=== PATIENT | female | born 1950 | race Caucasian/White ===

== ENCOUNTER 2019-11-23 10:24 | Outpatient (CLI) | payer MEDICARE, SELFPAY ==
[2019-11-23 10:56] LABS: Blood Urea Nitrogen 11 mg/dL (7-17); Calcium 9.3 mg/dL (8.4-10.2); Carbon Dioxide 30 mmol/L (22-30); Chloride 101 mmol/L (98-107); Cholesterol 167 mg/dL (0-200); Estimated Glomerular Filt Rate > 60; Glucose 89 mg/dL (65-105); HDL Direct 64 mg/dL; Potassium 3.9 mmol/L (3.4-5.0); Sodium 135 mmol/L (137-145); Triglycerides 86 mg/dL (<150)
[2019-11-23 11:07] LABS: LDL Cholesterol Direct 47 mg/dL
== END 2019-11-23 10:25 | disposition home or self-care (01) ==
PROVIDERS: PCP Internal Medicine; Visit Provider Internal Medicine
DX: I10 Essential (primary) hypertension (principal); Z13.220 Encounter for screening for lipoid disorders
CPT/HCPCS: 36415; 80048; 80061

== ENCOUNTER 2020-11-14 08:54 | Outpatient (CLI) | payer MEDICARE, SELFPAY ==
[2020-11-14 09:34] LABS: Hematocrit 39.6 % (37.0-47.0); Hemoglobin 13.1 g/dL (12.0-15.0); Mean Corpuscular HGB Conc 33.1 g/dl (32-36); Mean Corpuscular Hemoglobin 32.2 pg (26-34); Mean Corpuscular Volume 97.3 fl (80-100); Mean Platelet Volume 11.1 fl (7.4-10.4); Platelet Count Result 255 k/mm3 (150-375); Red Blood Count 4.07 M/mm3 (4.2-5.4); Red Cell Distribution Width 12.8 % (11.5-14.5); White Blood Count 6.3 K/mm3 (4.5-10.0)
[2020-11-14 10:01] LABS: Alanine Aminotransferase 18 U/L (4-35); Alkaline Phosphatase 69 U/L (38-126); Anion Gap 3 mmol/L (8-16); Aspartate Amino Transferase 27 U/L (14-36); Bilirubin,Total 0.2 mg/dL (0.2-1.3); Blood Urea Nitrogen 15 mg/dL (7-17); Calcium 9.1 mg/dL (8.4-10.2); Carbon Dioxide 31 mmol/L (22-30); Chloride 104 mmol/L (98-107); Cholesterol 154 mg/dL (0-200); Estimated Glomerular Filt Rate > 60; Glucose 87 mg/dL (65-105); HDL Direct 77 mg/dL; Potassium 3.9 mmol/L (3.4-5.0); Sodium 138 mmol/L (137-145); Triglycerides 84 mg/dL (<150)
[2020-11-14 10:12] LABS: LDL Cholesterol Direct 40 mg/dL
[2020-11-14 10:30] LABS: Thyroid Stimulating Hormone 0.581 uIU/mL (0.465-4.680)
[2020-11-14 11:01] LABS: Vitamin D 25 Hydroxy 48.6 ng/mL
[2020-11-14 12:28] LABS: Iron 126 ug/dL (37-170)
[2020-11-14 12:34] LABS: Percent Iron Saturation 46 % (20-50)
== END 2020-11-14 08:55 | disposition home or self-care (01) ==
PROVIDERS: PCP Internal Medicine; Visit Provider Nurse Practitioner
DX: Z13.6 Encounter for screening for cardiovascular disorders (principal); D50.8 Other iron deficiency anemias; Z51.81 Encounter for therapeutic drug level monitoring; Z79.899 Other long term (current) drug therapy; E55.9 Vitamin D deficiency, unspecified
CPT/HCPCS: 36415; 80053; 80061; 82306; 83540; 83550; 84443; 85027

== ENCOUNTER 2020-12-21 10:33 | Outpatient (CLI) | payer MEDICARE, SELFPAY ==
--- NOTE | ~2020-12-21 | US_ITS ---
EXAMINATION: US venous doppler [facility] DATE: 12/21/2020 11:03 INDICATION: Left lower limb pain and swelling. TECHNIQUE: Grayscale ultrasound images without and with compression and Doppler ultrasound images of the left lower extremity veins were obtained. COMPARISON: None. FINDINGS: The visualized portions of left common femoral vein, profunda (deep) femoral vein, femoral vein, popl iteal vein, peroneal veins, posterior tibial veins, and greater saphenous vein outflow are patent. IMPRESSION: 1. No deep venous thrombosis. Reviewed, dictated and finalized at location B.
== END 2020-12-21 10:34 | disposition home or self-care (01) ==
LOC: ANHIMG 10:36
PROVIDERS: PCP Internal Medicine; Visit Provider Internal Medicine Cardiovascular Disease
DX: R60.0 Localized edema (principal)
CPT/HCPCS: 93971

== ENCOUNTER 2021-05-24 08:51 | Outpatient (CLI) | payer MEDICARE, SELFPAY ==
[2021-05-24 09:30] LABS: Anion Gap 4 mmol/L (8-16); Blood Urea Nitrogen 14 mg/dL (7-17); Calcium 9.6 mg/dL (8.4-10.2); Carbon Dioxide 35 mmol/L (22-30); Chloride 100 mmol/L (98-107); Estimated Glomerular Filt Rate > 60; Glucose 111 mg/dL (65-110); Potassium 4.1 mmol/L (3.4-5.0); Sodium 139 mmol/L (137-145)
[2021-05-24 09:56] LABS: Vitamin D 25 Hydroxy 47.3 ng/mL
[2021-05-24 10:36] LABS: Iron 93 ug/dL (37-170); Percent Iron Saturation 38 % (20-50)
== END 2021-05-24 08:52 | disposition home or self-care (01) ==
PROVIDERS: PCP Internal Medicine; Visit Provider Internal Medicine
DX: E55.9 Vitamin D deficiency, unspecified (principal); I10 Essential (primary) hypertension; D50.8 Other iron deficiency anemias
CPT/HCPCS: 36415; 80048; 82306; 83540; 83550

== ENCOUNTER 2021-06-02 09:41 | Outpatient (CLI) | payer MEDICARE, SELFPAY ==
--- NOTE | ~2021-06-02 | XR_ITS ---
EXAMINATION: XR knee LT 3V EXAM DATE: 06/02/2021 10:14 INDICATION: Recent injury, right hip, left knee pain and swelling. TECHNIQUE: 2 frontal, 2 lateral projections left knee, including the tibial intramedullary jackson. Addit ional sunrise projection left knee. FINDINGS: There healed fractures through the left mid tibial and fibular shafts. Tibial intramedulla ry jackson is intact. No periprosthetic lucency. No left knee joint effusion. There is mild left knee gordon salma osteoarthritis. IMPRESSION: 1. Mild left knee osteoarthritis. 2. Healed tibial, fibular diaphyseal fractures. Reviewed, dictated and finalized at location A.
--- NOTE | ~2021-06-02 | XR_ITS ---
EXAMINATION: XR hip RT min 2V EXAM DATE: 06/02/2021 10:14 INDICATION: M25.551 - Pain in right hip. TECHNIQUE: Right hip frontal, 'frog leg' projections for interpretation. There is no prior study fo r comparison. FINDINGS: There is evidence of prior right femoral hardware. Foreign bodies probably orthopedic antib iotic polymethylmethacrylate cement beads. There is moderate right hip primary osteoarthritis. There are no bony erosions identified. IMPRESSION: 1. Orthopedic methylmethacrylate foreign bodies. 2. Moderate right hip osteoarthritis. Reviewed, dictated and finalized at location A.
== END 2021-06-02 09:42 | disposition home or self-care (01) ==
PROVIDERS: PCP Internal Medicine; Visit Provider Nurse Practitioner
DX: M25.551 Pain in right hip (principal); M25.562 Pain in left knee; M16.11 Unilateral primary osteoarthritis, right hip; Z87.81 Personal history of (healed) traumatic fracture; M17.12 Unilateral primary osteoarthritis, left knee
CPT/HCPCS: 73502; 73562

== ENCOUNTER → 2021-07-10 08:32 | Outpatient (CLI) | payer MEDICARE, SELFPAY ==
[2021-07-10 11:36] LABS: Influenza Control Positive
[2021-07-10 19:24] LABS: SARS-CoV-2 RNA PCR Negative
== END ==
PROVIDERS: PCP Internal Medicine; Visit Provider Internal Medicine
DX: R68.89 Other general symptoms and signs (principal); Z20.822 Contact with and (suspected) exposure to COVID-19
CPT/HCPCS: 87804; C9803; U0003; U0005

== ENCOUNTER → 2021-08-01 08:45 | Outpatient (CLI) | payer MEDICARE, SELFPAY ==
[2021-08-01 14:15] LABS: Influenza Control Positive
[2021-08-01 20:09] LABS: SARS-CoV-2 RNA PCR Negative
== END ==
PROVIDERS: PCP Internal Medicine; Visit Provider Internal Medicine
DX: J06.9 Acute upper respiratory infection, unspecified (principal); R68.89 Other general symptoms and signs; Z20.822 Contact with and (suspected) exposure to COVID-19
CPT/HCPCS: 87804; C9803; U0003; U0005

== ENCOUNTER 2021-08-24 13:24 | Outpatient (CLI) | payer MEDICARE, SELFPAY ==
--- NOTE | 2021-08-24 13:55 | ECHO_ITS ---
Patient Info Name: Sarah Lopez Age: 70 years : 1950 Gender: Female Ht: 66 in Wt: 185 lbs BSA: 2.00 m2 HR: 80 bpm BP: 162 / 101 mmHg Heart Rhythm: Atrial Fibrillation Technical Quality: Good Exam Date: 08/24/2021 2:18 PM Exam Location: [facility] Pulmonary Patient Status: Outpatient Admit Date: 08/24/2021 Staff Ordering Physician: Santiago Diaz DO Dirt Shoveler: Trey Macdonald RDCS, RT Attending Provider: Santiago Diaz DO Referring Physician: Joe ALBRECHT; Exam Type: CA echo doppler color flow Study Info Indications R06.00 - Dyspnea, unspecified Complete two-dimensional, color flow and Doppler transthoracic echocardiogram is performed. Strain analysis performed. Summary 1. Complete two-dimensional, color flow and Doppler transthoracic echocardiogram is performed. 2. Left ventricular chamber dimension is normal. 3. Left ventricular systolic function is normal, estimated at 60-65%. 4. There is mildly increased left ventricular wall thickness. 5. The left ventricular diastolic function is abnormal. 6. E/e' 12 is mildly elevated. 7. Global longitudinal strain is abnormal at -16.4%. 8. Atrial fibrillation. 9. Left atrial chamber dimension is severely enlarged. 10. Right atrial chamber dimension is moderately enlarged. 11. There is mild aortic valve sclerosis. 12. The mitral valve has mildly calcified annulus. 13. There is trace mitral valve regurgitation. 14. There is mild tricuspid valve regurgitation. 15. No pulmonary hypertension, estimated pulmonary arterial systolic pressure is 39 mmHg. 16. There is trace pulmonic regurgitation. 17. Dilated inferior vena cava with >50% collapse upon inspiration consistent with elevated right atrial pressure, 10 mmHg. Left Ventricle E/e' 12 is mildly elevated. Global longitudinal strain is abnormal at -16.4%. Atrial fibrillation. Left ventricular chamber dimension is normal. Left ventricular systolic function is normal, estimated at 60-65%. There is mildly increased left ventricular wall thickness. The left ventricular diastolic function is abnormal. Right Ventricle Right ventricular systolic function is normal and with normal TAPSE 2.4 cm. Right ventricular chamber dimension is normal. Left Atria Left atrial chamber dimension is severely enlarged. Right Atria Right atrial chamber dimension is moderately enlarged. Aortic Valve The aortic valve is trileaflet. There is mild aortic valve sclerosis. There is no aortic valve stenosis. There is no aortic valve regurgitation. Pulmonic Valve There is trace pulmonic regurgitation. Mitral Valve The mitral valve has mildly calcified annulus. There is no mitral valve stenosis. There is trace mitral valve regurgitation. Tricuspid Valve There is mild tricuspid valve regurgitation. No pulmonary hypertension, estimated pulmonary arterial systolic pressure is 39 mmHg. Pericardium/Pleural There is no pericardial effusion. Inferior Vena Cava Dilated inferior vena cava with >50% collapse upon inspiration consistent with elevated right atrial pressure, 10 mmHg. Aorta The aortic root size at the sinus of Valsalva is normal. Left Ventricular Outflow Tract Name Value Normal LVOT 2D LV
== END 2021-08-24 13:25 | disposition home or self-care (01) ==
PROVIDERS: PCP Internal Medicine; Visit Provider Internal Medicine Cardiovascular Disease
DX: R06.00 Dyspnea, unspecified (principal); I51.7 Cardiomegaly; R93.1 Abnormal findings on diagnostic imaging of heart and coronary circulation
CPT/HCPCS: 93306

== ENCOUNTER 2021-09-27 10:22 | Outpatient (CLI) | payer MEDICARE, SELFPAY ==
[2021-09-27 10:55] LABS: Alanine Aminotransferase 26 U/L (4-35); Albumin Level 4.4 g/dL (3.5-5.1); Alkaline Phosphatase 90 U/L (38-126); Anion Gap 8 mmol/L (8-16); Aspartate Amino Transferase 37 U/L (14-36); Bilirubin,Total 0.3 mg/dL (0.2-1.3); Blood Urea Nitrogen 16 mg/dL (7-17); Calcium 9.1 mg/dL (8.4-10.2); Carbon Dioxide 33 mmol/L (22-30); Chloride 100 mmol/L (98-107); Estimated Glomerular Filt Rate > 60; Glucose 104 mg/dL (65-110); Magnesium 1.8 mg/dL (1.6-2.3); Potassium 3.2 mmol/L (3.4-5.0); Sodium 141 mmol/L (137-145)
== END 2021-09-27 10:23 | disposition home or self-care (01) ==
PROVIDERS: PCP Internal Medicine; Visit Provider Internal Medicine Cardiovascular Disease
DX: I48.20 Chronic atrial fibrillation, unspecified (principal)
CPT/HCPCS: 36415; 80053; 83735

== ENCOUNTER 2021-10-20 08:53 | Outpatient (CLI) | payer MEDICARE, SELFPAY ==
[2021-10-20 09:54] LABS: Anion Gap 5 mmol/L (8-16); Blood Urea Nitrogen 18 mg/dL (7-17); Calcium 8.9 mg/dL (8.4-10.2); Carbon Dioxide 32 mmol/L (22-30); Chloride 101 mmol/L (98-107); Estimated Glomerular Filt Rate > 60; Glucose 101 mg/dL (65-110); Sodium 138 mmol/L (137-145)
== END 2021-10-20 08:54 | disposition home or self-care (01) ==
PROVIDERS: PCP Internal Medicine; Visit Provider Internal Medicine Cardiovascular Disease
DX: Z13.6 Encounter for screening for cardiovascular disorders (principal); R60.0 Localized edema
CPT/HCPCS: 36415; 80048

== ENCOUNTER → 2021-10-30 08:43 | Outpatient (CLI) | payer MEDICARE, SELFPAY ==
[2021-10-30 10:52] LABS: Influenza A QL RT-PCR Negative (Negative); Influenza B QL RT-PCR Negative (Negative); SARS-CoV-2 RNA PCR Negative
== END ==
PROVIDERS: PCP Internal Medicine; Visit Provider Internal Medicine
DX: R68.89 Other general symptoms and signs (principal); Z20.822 Contact with and (suspected) exposure to COVID-19
CPT/HCPCS: 87502; C9803; U0003; U0005

== ENCOUNTER 2021-11-20 14:49 | Outpatient (CLI) | payer MEDICARE, SELFPAY ==
[2021-11-20 15:12] LABS: Hematocrit 39.3 % (37.0-47.0); Hemoglobin 12.9 g/dL (12.0-15.0)
[2021-11-20 15:23] LABS: Alanine Aminotransferase 24 U/L (4-35); Albumin Level 3.9 g/dL (3.5-5.1); Alkaline Phosphatase 89 U/L (38-126); Anion Gap 5 mmol/L (8-16); Aspartate Amino Transferase 35 U/L (14-36); Bilirubin,Total 0.3 mg/dL (0.2-1.3); Blood Urea Nitrogen 13 mg/dL (7-17); Calcium 8.5 mg/dL (8.4-10.2); Carbon Dioxide 29 mmol/L (22-30); Chloride 101 mmol/L (98-107); Estimated Glomerular Filt Rate > 60; Glucose 99 mg/dL (65-110); Potassium 3.5 mmol/L (3.4-5.0); Sodium 135 mmol/L (137-145)
[2021-11-20 15:52] LABS: Thyroid Stimulating Hormone 0.358 uIU/mL (0.465-4.680)
[2021-11-20 16:16] LABS: Iron 37 ug/dL (37-170)
[2021-11-20 16:25] LABS: Percent Iron Saturation 14 % (20-50)
[2021-11-20 16:34] LABS: Free T4 Free Thyroxine 1.28 ng/mL (0.78-2.19)
== END 2021-11-20 14:50 | disposition home or self-care (01) ==
LOC: ANHLAB 14:52
PROVIDERS: PCP Internal Medicine; Visit Provider Nurse Practitioner
DX: E05.90 Thyrotoxicosis, unspecified without thyrotoxic crisis or storm (principal); I10 Essential (primary) hypertension; D50.8 Other iron deficiency anemias
CPT/HCPCS: 36415; 80053; 83540; 83550; 84439; 84443; 85014; 85018

== ENCOUNTER 2021-12-19 00:26 | Day surgery (SDC) | payer MEDICARE, SELFPAY ==
[2021-12-11 14:37] VITALS: BMI 29.2
[2021-12-19 07:12] VITALS: BP 132/74; PULSE 87; RESP 18; TEMP 36.1; O2SAT 98
--- NOTE | 2021-12-19 07:22 | WPDGICN ---
Assessment and Plan Assessment and plan (1) Screening for colon cancer: Code(s): Z12.11 - Encounter for screening for malignant neoplasm of colon Status: Acute Assessment and Plan: Patient presents for screening colonoscopy appears to be at average risk for colon polyps. (2) Chronic atrial fibrillation: Code(s): I48.20 - Chronic atrial fibrillation, unspecified Status: Acute Assessment and Plan: Patient on Xarelto anticoagulation because of atrial fibrillation. This will be held for endoscopy. Recent occult blood in stool is additional reason to evaluate colon. We wish to determine safety of continued anticoagulation GI Consult Note Consult date/time: 12/19/21 07:22 HPI: Sarah Lopez is a 71 year old female Presents for screening colonoscopy. Patient's current weight appetite and bowel movements are normal. She denies abdominal pain. She recently found to have Hemoccult-positive stools and screening exam. Last screening exam 10 years ago was unremarkable. Patient currently is on Xarelto because of atrial fibrillation. This is held in anticipation of endoscopy today. Review of Systems Review of Systems: Review of systems is noncontributory. [facility] Past Medical History Medical History (Updated 12/08/21 @ 08:44 by ELIZA Cardenas) Atrial fibrillation with controlled ventricular response Bursitis of right hip Chronic atrial fibrillation Chronic fatigue, unspecified Cough CLOUD (dyspnea on exertion) Edema of left lower extremity Essential hypertension Gastro-esophageal reflux disease without esophagitis Hypersomnia 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rettes Second hand tobacco smoke exposure: No Smoking end date: 07/29/10 Alcohol intake: former Substance use: former Substance use type: crack/cocaine Living arrangements: with family Spiritual care concerns: No Meds Home Medications and Allergies Home Medications Medication Instructions Recorded Confirmed Type multivitamin 1 cap PO DAILY 06/16/19 12/11/21 History levocetirizine 5 mg tablet (Xyzal) 5 mg PO DAILY 11/26/19 12/11/21 History fluticasone propionate 50 2 spray intranasal DAILY PRN 12/21/20 12/11/21 History mcg/actuation nasal Allergy Symptoms spray,suspension (Flonase Allergy Relief) denosumab 60 mg/mL subcutaneous 60 mg subcut [id number] #1 mL 06/02/21 12/11/21 Rx syringe (Prolia) comp.stocking,knee,long,medium #7 ea 06/29/21 12/08/21 Rx albuterol sulfate 90 mcg/actuation 2 inh inhalation Q4H PRN shortness 07/17/21 12/11/21 Rx aerosol inhaler (Proventil HFA) of breath or wheezing #18 grams omeprazole 40 mg capsule,delayed 40 mg PO DAILY #90 caps 08/10/21 12/11/21 Rx release gabapentin 300 mg capsule 300 mg PO DAILY #90 caps 09/25/21 12/11/21 Rx Ca 600 mg-D3 20 mcg-mag oxide 50 1 tablet PO DAILY 12/11/21 12/11/21 History vd-An-nyryxm-manganese-boron tablet (Calcium 600-D3 Plus (mag-zinc)) diltiazem HCl 240 mg 240 mg PO DAILY 12/11/21 12/11/21 History capsule,extended release 24 hr furosemide 20 mg tablet 20 mg PO DAILY 12/11/21 12/11/21 History hydrochlorothiazide 25 mg tablet 25 mg PO DAILY 12/11/21 12/11/21 History nystatin 100,000 unit/gram topical 1 applic topical BID PRN Rash 12/11/21 12/11/21 History powder potassium
[2021-12-19] MEDS: LACTATED RINGERS 1,000 ML 150 ML IV CONT (07:28)
--- NOTE | 2021-12-19 07:44 | WPDANESEPPF ---
Anes - Initial Pre Proc Eval Procedure: Operation Date: 12/19/21 08:00 Proposed Procedures p Screening Colonoscopy - Jc Vick MD Date/Time: 12/19/21 07:44 Surgeon: Jc Vick MD Pre Op Diagnosis: neoplasm screening Patient Data Age: 71 Gender: F Height: 1.68 m Weight: 75.1 kg Last Vital Signs Temp 36.1 C L 12/19/21 07:12 Pulse 87 12/19/21 07:12 Resp 18 12/19/21 07:12 BP 132/74 12/19/21 07:12 Pulse Ox 98 12/19/21 07:12 O2 Del Method Room Air 12/19/21 07:12 Allergies Allergy/AdvReac Type Severity Reaction Status Date / Time adhesive tape AdvReac Mild Rash Verified 12/19/21 07:11 Home Medications Medication Instructions Recorded Confirmed Type multivitamin 1 cap PO DAILY 06/16/19 12/19/21 History levocetirizine 5 mg tablet (Xyzal) 5 mg PO DAILY 11/26/19 12/19/21 History fluticasone propionate 50 2 spray intranasal DAILY PRN 12/21/20 12/19/21 History mcg/actuation nasal Allergy Symptoms spray,suspension (Flonase Allergy Relief) denosumab 60 mg/mL subcutaneous 60 mg subcut [id number] #1 mL 06/02/21 12/19/21 Rx syringe (Prolia) comp.stocking,knee,long,medium #7 ea 06/29/21 12/19/21 Rx albuterol sulfate 90 mcg/actuation 2 inh inhalation Q4H PRN shortness 07/17/21 12/19/21 Rx aerosol inhaler (Proventil HFA) of breath or wheezing #18 grams omeprazole 40 mg capsule,delayed 40 mg PO DAILY #90 caps 08/10/21 12/19/21 Rx release gabapentin 300 mg capsule 300 mg PO DAILY #90 caps 09/25/21 12/19/21 Rx Ca 600 mg-D3 20 mcg-mag oxide 50 1 tablet PO DAILY 12/11/21 12/19/21 History pk-Ym-qbpkkt-manganese-boron tablet (Calcium 600-D3 Plus (mag-zinc)) diltiazem HCl 240 mg 240 mg PO DAILY 12/11/21 12/19/21 History capsule,extended release 24 hr furosemide 20 mg tablet 20 mg PO DAILY 12/11/21 12/19/21 History hydrochlorothiazide 25 mg tablet 25 mg PO DAILY 12/11/21 12/19/21 History nystatin 100,000 unit/gram topical 1 applic topical BID PRN Rash 12/11/21 12/19/21 History powder potassium chloride 10 mEq 10 meq PO DAILY 12/11/21 12/19/21 History capsule,extended release rivaroxaban 20 mg tablet (Xarelto) 20 mg PO QPM 12/11/21 12/19/21 History turmeric 400 mg capsule 400 mg PO DAILY 12/11/21 12/19/21 History fluticasone 250 mcg-salmeterol 50 1 inh inhalation ONCE #60 ea 12/12/21 12/19/21 Rx mcg/dose blistr powdr for inhalation (Advair Diskus) Patient hx anesthesia problems: none Family hx anesthesia problems: none Results Review: All pre-operative results and documents have been reviewed as part of the pre-operative evaluation. [facility] Past Medical History Medical History Atrial fibrillation with controlled ventricular response Bursitis of right hip Chronic atrial fibrillation Chronic fatigue, unspecified Cough CLOUD (dyspnea on exertion) Edema of left lower extremity Essential hypertension Gastro-esophageal reflux disease without esophagitis Hypersomnia 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rettes Second hand tobacco smoke exposure: No Smoking end date: 07/29/10 Alcohol intake: former Substance use: former Substance use type: crack/cocaine Living arrangements: with family Spiritual care concerns: No Anes - Eval Final PreProcedure Day of Procedure
[2021-12-19 08:19] VITALS: BP 110/63; PULSE 90; RESP 22; O2SAT 98
[2021-12-19 08:29] VITALS: BP 100/72; PULSE 97; RESP 24; O2SAT 98
[2021-12-19 08:39] VITALS: BP 116/77; PULSE 80; RESP 15; O2SAT 100
== END 2021-12-19 08:56 | disposition home or self-care (01) ==
PROVIDERS: PCP Internal Medicine; Visit Provider Internal Medicine Gastroenterology
PROC: 0DJD8ZZ Inspection of Lower Intestinal Tract, Via Natural or Artificial Opening Endoscopic (ICD-10-PCS; CPT 45378; principal; 2021-12-19 08:00)
DX: Z12.11 Encounter for screening for malignant neoplasm of colon (principal); K57.30 Diverticulosis of large intestine without perforation or abscess without bleeding; K64.8 Other hemorrhoids; K63.5 Polyp of colon; D12.5 Benign neoplasm of sigmoid colon; Z79.01 Long term (current) use of anticoagulants; Z79.51 Long term (current) use of inhaled steroids; I48.20 Chronic atrial fibrillation, unspecified; R53.83 Other fatigue; I10 Essential (primary) hypertension; E03.9 Hypothyroidism, unspecified; K21.9 Gastro-esophageal reflux disease without esophagitis; G47.33 Obstructive sleep apnea (adult) (pediatric); M47.9 Spondylosis, unspecified; Z87.891 Personal history of nicotine dependence
CPT/HCPCS: 45385; 88305; J2704; J7120

== ENCOUNTER 2022-01-08 13:01 | Outpatient (CLI) | payer MEDICARE, SELFPAY ==
--- NOTE | ~2022-01-08 | NM_ITS ---
EXAMINATION: NM thyroid scan w uptake DATE: 01/09/2022 14:10 INDICATION: Thyrotoxicosis COMPARISON: None. TECHNIQUE: 359 microcuries I-123 was administered orally in capsule form. Scintigraphic images of th e thyroid gland were obtained at 24 hours. Thyroid uptake was calculated by the technologist. FINDINGS: The thyroid uptake is 14.3% (normal 10-30%), with the right lobe measuring 8.4% uptake and the left 5 .9%. There is no focal area of decreased or increased activity to suggest hypofunctioning or hyperfun ctioning nodule. IMPRESSION: 1. Normal thyroid scintigraphy and 24-hour iodine uptake. Reviewed, dictated and finalized at location A.
== END 2022-01-08 13:02 | disposition home or self-care (01) ==
PROVIDERS: PCP Internal Medicine; Visit Provider Internal Medicine
DX: E05.90 Thyrotoxicosis, unspecified without thyrotoxic crisis or storm (principal)
CPT/HCPCS: 78014; A9516

== ENCOUNTER 2022-02-06 07:43 | Outpatient (CLI) | payer MEDICARE, SELFPAY ==
--- NOTE | ~2022-02-06 | CT_ITS ---
EXAMINATION:CT diagnostic chest wo con DATE: 02/06/2022 08:15 INDICATION: Chronic obstructive pulmonary disease. Worsening dyspnea on exertion. TECHNIQUE: Computed tomography (CT) of the chest was performed without intravenous contrast. Automate d exposure control and iterative reconstruction technique were employed. The dose-length product (DLP ) was 323.87 mGy-cm. COMPARISON: Chest 2 views 06/18/2019 FINDINGS: There is moderate emphysema. There is mild atelectasis and scarring bilaterally. No pleural effusion. There is left atrial enlargement of the heart. There are calcifications of aortic valve. N o pericardial effusion. There is a moderate-sized sliding hiatal hernia. There is severe atrophy of l eft kidney. There are 2 stones in left kidney measuring up to 7 mm. Breast implants are noted. There is kyphosis and severe spondylosis of thoracic spine. There is mild chronic anterior wedging of multi ple vertebral bodies. IMPRESSION: 1. Moderate emphysema. 2. Moderate-sized sliding hiatal hernia. Reviewed, dictated and finalized at location A.
--- NOTE | 2022-02-14 19:14 | SIXMIN_ITS ---
This report was recreated on February 23, 2022. Original report was signed by Dr. Gail West on February 14, 2022 at 19:26. Six Minute Walk Procedure Procedure Performed Pulmonary Stress Test (6 min walk) Six Minute Walk Six Minute Walk: DATE OF SERVICE: 02/06/2022 REQUESTING: Maite Christianson PA-C REASON FOR TESTING: COPD SIX MINUTE WALK This test was conducted per ATS guidelines. The initial saturation was 93% and the pulse was 73. The patient performed the test while breathing room air and using her bphnf-lbw-dmri prosthetic leg. The lowest saturation measured was 90% with a pulse of 119 during recovery. The highest saturation was 98% at the end of recovery. Pulse returned to baseline at the end of testing. Distance walked was 600 feet/182.8 meters. She stopped walking at 5 minutes due to fatigue. IMPRESSION: This study shows no karime hypoxemia, and no supplemental O2 is indicated with exertion. This dictation may have been done utilizing a voice recognition system. Attempts have been made to correct errors. However, there may be uncorrected grammatical, spelling, and recognition errors present. Report Initialized date/time: Gail West MD 02/14/221919 Electronically signed by: Gail West MD 02/14/221925 [facility]
--- NOTE | 2022-02-14 19:26 | PFT_ITS ---
This report was recreated on February 23, 2022. Original report was signed by Dr. Gail West on February 14, 2022 at 19:37. PFT Procedure Performed PFT Procedure Performed Spirometry with Pre/Post Bronchodilator Plethysmography (Lung Vol) Diffusing Cap (DLCO) Flow Vol Loop PFT Interpretation DOS: 02/06/2022 REQUESTING: Maite Christianson PA-C REASON FOR TESTING: COPD PULMONARY FUNCTION TESTS Results are reliable and reproducible. Spirometry: Pre-bronchodilator FEV1 is 1.45 L, 62%, moderately decreased. The pre-bronchodilator FVC is 2.74 L, 90% predicted, normal. The FEV1:FVC ratio is decreased 53% predicted. Airflow obstruction is present. The OWE12-69% is 26% predicted, 0.5 L, severely decreased. After bronchodilator, there is a 7% increase in FVC, FVC is now 96% predicted, increased 180 ml, not statistically significant. The FEV1 increased 8%, increased to 67%, 110 ml, not statistically significant. The VWK23-23% did not increase. Lung volumes: TLC 98%, 5.29 L, normal. FRC is 97%, 2.99 L, normal. ERV is 69%, 0.71L, lower than normal. RV is 94%, 2.17 L, normal. RV/TLC is 41%, in the normal range. There is no hyperinflation or air trapping. Raw increased 410%. Diffusion: DLCO is 58%, moderately decreased. DLCO/VA 74%, mildly decreased. Flow volume loop: Scooping of the expiratory limb. IMPRESSION: There is a moderate obstructive ventilatory impairment which is severe in the small airways, normal lung volumes and a moderate diffusion impairment. There is no change when bronchodilator is administered. This pattern is consistent with emphysema. Lack of response to bronchodilator should not preclude use if clinically indicated. Gail West MD This dictation may have been done utilizing a voice recognition system. Attempts have been made to correct errors. However, there may be uncorrected grammatical, spelling, and recognition errors present. Report Initialized date/time: Gail West MD 02/14/221936 Electronically signed by: Gail West MD 02/14/221936 [facility]
== END 2022-02-06 07:44 | disposition home or self-care (01) ==
PROVIDERS: PCP Internal Medicine; Visit Provider Physician Assistant
DX: R06.02 Shortness of breath (principal); J44.9 Chronic obstructive pulmonary disease, unspecified; J43.9 Emphysema, unspecified; K44.9 Diaphragmatic hernia without obstruction or gangrene
CPT/HCPCS: 71250; 94060; 94618; 94726; 94729

== ENCOUNTER 2022-02-10 11:34 | Emergency (ER) | payer MEDICARE, SELFPAY ==
[2022-02-10 11:42] VITALS: BP 152/86; PULSE 86; RESP 16; TEMP 36.7; O2SAT 99
[2022-02-10 11:44] VITALS: BP 152/86; PULSE 86; RESP 16; TEMP 36.7; O2SAT 99
--- NOTE | 2022-02-10 11:54 | ED.WOUNDLAC ---
HPI - Wound/Laceration General Chief Complaint: Wound/Laceration Stated Complaint: cut 3rd finger Time Seen by Provider: 02/10/22 11:54 Source: patient, RN notes reviewed and old records reviewed Mode of arrival: ambulatory Limitations: no limitations History of Present Illness HPI narrative: 71-year-old female presents to the [facility] with complaints of a laceration to the distal and left third finger. Happened approximately 930 this morning. Patient currently on blood thinners and unable to get her the bleeding to stop. States that she cut it with a knife. Has full range of motion of the finger. Sensation intact. Capillary refill under 2 seconds Patient tetanus UTD: No Related Data Home Medications Medication Instructions Recorded Confirmed multivitamin 1 cap PO DAILY 06/16/19 02/10/22 levocetirizine 5 mg tablet (Xyzal) 5 mg PO DAILY 11/26/19 02/10/22 fluticasone propionate 50 2 spray intranasal DAILY PRN 12/21/20 02/10/22 mcg/actuation nasal Allergy Symptoms spray,suspension (Flonase Allergy Relief) Ca 600 mg-D3 20 mcg-mag oxide 50 1 tablet PO DAILY 12/11/21 02/10/22 wl-Sd-vnpbnu-manganese-boron tablet (Calcium 600-D3 Plus (mag-zinc)) furosemide 20 mg tablet 20 mg PO DAILY 12/11/21 02/10/22 potassium chloride 10 mEq 10 meq PO DAILY 12/11/21 02/10/22 capsule,extended release turmeric 400 mg capsule 400 mg PO DAILY 12/11/21 02/10/22 Allergies Allergy/AdvReac Type Severity Reaction Status Date / Time adhesive tape AdvReac Mild Rash Verified 02/10/22 11:35 Review of Systems Review of Systems: All systems reviewed & are unremarkable except as noted in HPI and below Constitutional: Constitutional: Reports no additional constitutional complaints, Denies chills and Denies fever(s) Eyes: Eyes: Reports no additional eye complaints ENT: Reports system reviewed and no additional complaints, except as documented Cardiovascular: Cardiovascular: Reports no additional cardiovascular complaints Respiratory: Respiratory: Reports no additional respiratory complaints Gastrointestinal: Gastrointestinal: Reports no additional gastrointestinal complaints Musculoskeletal: Musculoskeletal: Reports no additional musculoskeletal complaints Integumentary/Breasts: Skin/Breast: Reports as per HPI and Reports wounds (Left distal middle finger) Neurologic: Reports system reviewed and no additional complaints, except as documented Psychiatric: Psychiatric: Reports no additional psychiatric complaints Allergic/Immunologic: Allergic/Immunologic: Reports no additional allergic/immunologic complaints [facility] Past Medical History Medical History (Reviewed 01/11/22 @ 09:06 by Linda Méndez [facility]) Atrial fibrillation with controlled ventricular response Bursitis of right hip Chronic atrial fibrillation Chronic fatigue, unspecified Cough CLOUD (dyspnea on exertion) Edema of left lower extremity Essential hypertension Gastro-esophageal reflux disease without esophagitis History of tobacco use Hypersomnia 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rettes Second hand tobacco smoke exposure: No Smoking end date: 07/29/09 Alcohol intake: former Substance use: former Substance use type: crack/cocaine Spiritual care concerns: No Exam Const: General: healthy appearing, no acute distr
[2022-02-10] MEDS: TETANUS,DIPHTHERIA,AC PERTUSSIS ADULT (0.5 ML) BOOSTRIX IM (12:12)
[2022-02-10] MEDS: CELLULOSE OXIDIZED 2 x 14 INCH 1 PKT XX (12:14)
== END 2022-02-10 13:23 | disposition home or self-care (01) ==
PROVIDERS: Emergency Provider Nurse Practitioner
DX: S61.203A Unspecified open wound of left middle finger without damage to nail, initial encounter (principal); W26.0XXA Contact with knife, initial encounter; Z23 Encounter for immunization; Z87.891 Personal history of nicotine dependence; I10 Essential (primary) hypertension; K21.9 Gastro-esophageal reflux disease without esophagitis; E03.9 Hypothyroidism, unspecified; G47.33 Obstructive sleep apnea (adult) (pediatric); M47.9 Spondylosis, unspecified; I48.20 Chronic atrial fibrillation, unspecified
CPT/HCPCS: 12001; 90471; 90715; 99212; G0463

== ENCOUNTER 2022-03-30 08:04 | Emergency (ER) | payer MEDICARE, SELFPAY ==
--- NOTE | ~2022-03-30 | XR_ITS ---
EXAMINATION: XR chest 2V DATE: 03/30/2022 08:30 INDICATION: Cough and shortness of breath. TECHNIQUE: Frontal and lateral views of the chest were obtained on 3 radiographs. COMPARISON: Chest 2 views 06/18/2019, chest CT 02/06/2022 FINDINGS: There are lucencies in the lungs, consistent with emphysema. There is mild atelectasis vers us scarring in left lower lung zone. No pleural effusion or pneumothorax. The heart size is normal. T here is a moderate-sized hiatal hernia. Breast implants are noted. IMPRESSION: 1. Emphysema. 2. Mild atelectasis versus scarring in left lower lung zone. 3. Moderate-sized hiatal hernia. Reviewed, dictated and finalized at location A.
--- NOTE | 2022-03-30 08:12 | ED.URI ---
HPI - URI/Sore Throat General Chief Complaint: Upper Respiratory Infection Stated Complaint: congestion/sob/body aches/chills Time Seen by Provider: 03/30/22 08:12 Source: patient, RN notes reviewed and old records reviewed Mode of arrival: ambulatory Limitations: no limitations History of Present Illness HPI Narrative: 71-year-old female presents to the [facility] with complaints of Chest congestion, shortness of breath, body aches, fatigue, chills for the last 2 to 3 days. Primary care called her in a [employer] Dosepak yesterday she states she has not started taking it yet. Has tried taking Delsym cold medicine Patient has a history of A. fib, hypertension, GERD, right above-knee amputation, emphysema. Last used her rescue inhaler at 4 AM Related Data Home Medications Medication Instructions Recorded Confirmed multivitamin 1 cap PO DAILY 06/16/19 03/30/22 levocetirizine 5 mg tablet (Xyzal) 5 mg PO DAILY 11/26/19 03/30/22 fluticasone propionate 50 2 spray intranasal DAILY PRN 12/21/20 03/30/22 mcg/actuation nasal Allergy Symptoms spray,suspension (Flonase Allergy Relief) Ca 600 mg-D3 20 mcg-mag oxide 50 1 tablet PO DAILY 12/11/21 03/30/22 wf-Mk-coravf-manganese-boron tablet (Calcium 600-D3 Plus (mag-zinc)) potassium chloride 10 mEq 10 meq PO DAILY 12/11/21 03/30/22 capsule,extended release turmeric 400 mg capsule 400 mg PO DAILY 12/11/21 03/30/22 fluticasone 250 mcg-salmeterol 50 2 inh inhalation DAILY 03/30/22 03/30/22 mcg/dose blistr powdr for inhalation (Advair Diskus) furosemide 20 mg tablet 20 mg PO DAILY 03/30/22 03/30/22 Allergies Allergy/AdvReac Type Severity Reaction Status Date / Time adhesive tape AdvReac Mild Rash Verified 03/30/22 08:12 Review of Systems Review of Systems: All systems reviewed & are unremarkable except as noted in HPI and below Constitutional: Constitutional: Reports as per HPI, Reports body ache(s), Reports chills, Denies fever(s) and Reports lethargy Eyes: Eyes: Reports no additional eye complaints ENT: Reports system reviewed and no additional complaints, except as documented Cardiovascular: Cardiovascular: Reports as per HPI and Denies chest pain Respiratory: Respiratory: Reports as per HPI, Reports chest congestion and Reports cough Gastrointestinal: Gastrointestinal: Reports no additional gastrointestinal complaints Musculoskeletal: Musculoskeletal: Reports no additional musculoskeletal complaints Integumentary/Breasts: Skin/Breast: Reports system reviewed and no additional complaints, except as docu Neurologic: Reports system reviewed and no additional complaints, except as documented Psychiatric: Psychiatric: Reports no additional psychiatric complaints Allergic/Immunologic: Allergic/Immunologic: Reports no additional allergic/immunologic complaints [facility] Past Medical History Medical History (Updated 03/30/22 @ 09:02 by Geri Cotto APRN) Atrial fibrillation with controlled ventricular response Bursitis of right hip Chronic atrial fibrillation Chronic fatigue, unspecified Cough CLOUD (dyspnea on exertion) Edema of left lower extremity Essential hypertension Gastro-esophageal reflux disease without esophagitis History of right above knee amputation History of tobacco use Hypersomnia 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
[2022-03-30 08:13] VITALS: BP 137/67; PULSE 110; RESP 20; TEMP 36.9; O2SAT 98
[2022-03-30 08:21] VITALS: BP 137/67; PULSE 110; RESP 20; TEMP 36.9; O2SAT 98
--- NOTE | 2022-03-30 08:22 | ECG_ITS ---
Measurements Intervals [place] Rate: 102 P: [place]: 0 QRS: 29 QRSD: 83 T: -36 QT: 309 QTc: 404 Interpretive Statements ATRIAL FIBRILLATION WITH RAPID VENTRICULAR RESPONSE NONSPECIFIC ST & T-WAVE ABNORMALITY- INFERIOR LEADS BASELINE ARTIFACT- I, II, III, AVR, AVL, AVF, V3 ABNORMAL ECG NO PREVIOUS ECG AVAILABLE FOR COMPARISON Electronically Signed On 03-30-2022 9:16:56 CDT by Santiago Diaz D.O.
== END 2022-03-30 08:55 | disposition short-term general hospital (02) ==
PROVIDERS: Emergency Provider Nurse Practitioner; PCP Internal Medicine
DX: I48.91 Unspecified atrial fibrillation (principal); I10 Essential (primary) hypertension; K21.9 Gastro-esophageal reflux disease without esophagitis; Z89.612 Acquired absence of left leg above knee; G47.33 Obstructive sleep apnea (adult) (pediatric); E03.9 Hypothyroidism, unspecified; Z87.891 Personal history of nicotine dependence; Z20.822 Contact with and (suspected) exposure to COVID-19
CPT/HCPCS: 71046; 87426; 87804; 93005; 99213; C9803; G0463

== ENCOUNTER 2022-03-30 09:13 | Inpatient (IN) | payer MEDICARE, SELFPAY ==
[2022-03-30] VITALS (19 sets, daily range): BP systolic 111–131; BP diastolic 63–97; PULSE 74–132; RESP 14–29; TEMP 36.2–37.1; O2SAT 93–98; BMI 28.3; BMI 27.9
--- NOTE | ~2022-03-30 | XR_ITS ---
EXAMINATION: XR chest 2V DATE: 03/30/2022 09:49 INDICATION: Shortness of breath. Cough. TECHNIQUE: Frontal and lateral views of the chest were obtained. COMPARISON: Chest 2 views 03/30/2022 at 8:25 AM FINDINGS: There are lucencies in the lungs, consistent with emphysema. There are mild airspace opacit ies in the lower lung zones. No pleural effusion or pneumothorax. The heart size is normal. There is a moderate-sized hiatal hernia. IMPRESSION: 1. Mild airspace opacities in the lower lung zones, consistent with atelectasis/scarring or less like ly pneumonia. 2. Moderate-sized hiatal hernia. 3. Emphysema. Reviewed, dictated and finalized at location A. IMPRESSION: 1. Mild airspace opacities in the lower lung zones, consistent with atelectasis /scarring or less likely pneumonia. 2. Moderate-sized hiatal hernia. 3. Emphysema.
--- NOTE | 2022-03-30 09:36 | ECG_ITS ---
Measurements Intervals [place] Rate: 114 P: [place]: 0 QRS: 43 QRSD: 87 T: -32 QT: 329 QTc: 454 Interpretive Statements ATRIAL FIBRILLATION WITH RAPID VENTRICULAR RESPONSE NONSPECIFIC ST & T-WAVE ABNORMALITY- INF/LAT LEADS BASELINE ARTIFACT- II, III, AVL, AVF ABNORMAL ECG COMPARED TO ECG 03/30/2022 08:45:07 HEART RATE INCREASED Electronically Signed On 03-30-2022 10:08:23 CDT by Santiago Diaz D.O.
--- NOTE | 2022-03-30 09:43 | ED.GENADULT ---
HPI - General Adult General Chief complaint: Shortness of Breath/Dyspnea Stated complaint: Afib RVR with SOB Time Seen by Provider: 03/30/22 09:28 History of Present Illness HPI narrative: 71-year-old female with history of emphysema and A. fib with RVR presented to the emergency department for evaluation of 2 to 3 days of worsening shortness of breath with associated fever chills and cough. Patient presented to prompt care is found to have a heart rate in the 120s to 130s. Related Data Home Medications Medication Instructions Recorded Confirmed multivitamin 1 cap PO DAILY 06/16/19 03/30/22 levocetirizine 5 mg tablet (Xyzal) 5 mg PO DAILY 11/26/19 03/30/22 fluticasone propionate 50 2 spray intranasal DAILY PRN 12/21/20 03/30/22 mcg/actuation nasal Allergy Symptoms spray,suspension (Flonase Allergy Relief) Ca 600 mg-D3 20 mcg-mag oxide 50 1 tablet PO DAILY 12/11/21 03/30/22 zh-Ch-jlyxeq-manganese-boron tablet (Calcium 600-D3 Plus (mag-zinc)) potassium chloride 10 mEq 10 meq PO DAILY 12/11/21 03/30/22 capsule,extended release turmeric 400 mg capsule 400 mg PO DAILY 12/11/21 03/30/22 furosemide 20 mg tablet 20 mg PO DAILY 03/30/22 03/30/22 Allergies Allergy/AdvReac Type Severity Reaction Status Date / Time adhesive tape AdvReac Mild Rash Verified 03/30/22 08:12 Review of Systems Review of Systems: CONSTITUTIONAL: Denies fever, chills, or sweats. EYES: Denies visual changes, redness, or discharge. ENT: Denies rhinorrhea, congestion, sore throat, or otalgia. CARDIOVASCULAR: A. fib with RVR RESPIRATORY: Cough GASTROINTESTINAL: Denies abdominal pain, nausea, vomiting, or diarrhea. GENITOURINARY: Denies dysuria or hematuria. SKIN: Denies rash or itching. MUSCULOSKELETAL: Denies back pain, joint pain, or myalgia. NEUROLOGIC: Denies headache, numbness, or weakness. [facility] Past Medical History Medical History (Updated 03/30/22 @ 13:15 by Shea Reilly NP) Atrial fibrillation with controlled ventricular response Bursitis of right hip Nubia infection Chronic atrial fibrillation Chronic fatigue, unspecified Cough CLOUD (dyspnea on exertion) Edema of left lower extremity Essential hypertension Gastro-esophageal reflux disease without esophagitis History of right above knee amputation History of tobacco use Hypersomnia 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 Hypothyroidism, unspecified LITO on CPAP Osteoarthritis of back Preop cardiovascular exam Screening for colon cancer Vaccine for cxxfaqrjco-tznnfym-hrgnkgwjx, combined Surgical History Surgical History H/O breast implant H/O exploratory laparotomy History of surgery on arm Family History Family History Father Acute myocardial infarction, Onset Age: 79 Patient's father is Mother Family history of chronic obstructive pulmonary disease Patient's mother is Daughter Thyroid disease Social History Social History (Updated 03/30/22 @ 13:11 by Shea Reilly NP) Social History: The patient lives with her . She has 3 children. She used to work for [employer] but does not draw a pension. 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 Her daughter and are the durable power attorney lawyer Code status full code Smoking packs per day: 2 Smoking cigarettes per day: 40.0 Years smoked: 45 Smoking pack-years: 90.00 Smoking status: Former smoker Tobacco type: cigarettes Second hand tobacco smoke exposure: No Smoking end date: 07/29/09 Alcohol intake: never Substance use: never Substance use type: crack/cocaine Spiritual care concerns: No Exam Narrative: APPEARANCE: Well appearing, no pain, no distress, well-nourished. HEAD: normocephalic, atraumatic. EYES: PERRLA/EOMI, conjunctivae clear. NOSE: Normal no
[2022-03-30 09:48] LABS: Basophils Percent Auto 0.3 % (0.2-1.2); Eosinophils Percent Auto 0.1 % (0-4.4); Hematocrit 39.4 % (37.0-47.0); Hemoglobin 13.1 g/dL (12.0-15.0); Immature Granulocyte Absolute 0.03 K/mm3 (0.00-0.031); Immature Granulocyte Percent A 0.3 % (0-0.5); Lymphocytes Absolute Auto 0.98 K/mm3 (0.9-3.2); Lymphocytes Percent Auto 8.3 % (18.3-44.2); Mean Corpuscular HGB Conc 33.2 g/dl (32-36); Mean Corpuscular Hemoglobin 31.6 pg (26-34); Mean Corpuscular Volume 94.9 fl (80-100); Mean Platelet Volume 10.9 fl (7.4-10.4); Monocytes Absolute Auto 0.8 K/mm3 (0.1-0.6); Monocytes Percent Auto 6.8 % (2.6-8.5); Neutrophils Percent Auto 84.2 % (45.5-73.1); Platelet Count Result 267 k/mm3 (150-375); Red Blood Count 4.15 M/mm3 (4.2-5.4); Red Cell Distribution Width 13.1 % (11.5-14.5); White Blood Count 11.8 K/mm3 (4.5-10.0)
[2022-03-30 09:56] LABS: Prothrombin Time 22.3 Seconds (11.1-14.7)
[2022-03-30 09:57] LABS: Partial Thromboplastin Time 37.3 SECONDS (22.3-36.8)
[2022-03-30] MEDS: dilTIAZem HCl INJ 25 MG/5 ML VIAL 10 MG IV PUSH ×2 (09:57→11:15)
[2022-03-30 09:59] LABS: Alanine Aminotransferase 22 U/L (6-35); Albumin Level 4.4 g/dL (3.5-5.1); Alkaline Phosphatase 93 U/L (38-126); Anion Gap 11 mmol/L (8-16); Aspartate Amino Transferase 31 U/L (14-36); Bilirubin,Total 0.9 mg/dL (0.2-1.3); Blood Urea Nitrogen 15 mg/dL (7-17); Calcium 8.4 mg/dL (8.4-10.2); Carbon Dioxide 26 mmol/L (22-30); Chloride 99 mmol/L (98-107); Estimated CRCL calculation 68 ml/min; Estimated Glomerular Filt Rate > 60; Glucose 121 mg/dL (65-110); Potassium 3.8 mmol/L (3.4-5.0); Sodium 136 mmol/L (137-145)
[2022-03-30 10:06] LABS: NT Pro B Type Natriuretic Pept 1340 pg/mL (5-100)
[2022-03-30] MEDS: ALBUTEROL SULFATE NEB 2.5 MG/3 ML INH 5 MG INHALATION (10:27)
[2022-03-30 10:30] LABS: SARS-CoV-2 RNA PCR Negative
[2022-03-30] MEDS: dilTIAZem 100 MG/100 ML 100 MG/100 ML BAG IV CONT (11:43)
--- NOTE | 2022-03-30 12:31 | PM.IMHP ---
H&P: HPI History of Present Illness Date/Time: 03/30/22 12:31 Chief Complaint: Shortness of breath dyspnea on exertion. Narrative: This is a 71-year-old female patient who has a history of atrial fibrillation and emphysema. The patient stated that she has been taking all of her medication as prescribed. The patient came to the emergency room and she was in AFib with RVR. The patient had called her primary care doctor and had gone to the [facility] with chest congestion shortness of breath and body aches the patient was called in a [employer] Dosepak yesterday and she had not started it. She tried taking Delsym cold medicine. The patient was given albuterol, Cardizem injection and Cardizem drip in the emergency room. The patient is still in the 1 teens so we had increased her Cardizem drip. Her white count is 11.8. BNP is 1340. COVID is negative. Chest x-ray as read as emphysema. Mild atelectasis versus scarring in the left lower lung zone. Moderate size hiatal hernia. Patient is being admitted to observation status on the date of service of 03/30/2022 Review of Systems Review of Systems: See HPI All systems reviewed & are unremarkable except as noted in HPI and below Constitutional: Constitutional: Reports as per HPI and Reports no additional constitutional complaints Eyes: Eyes: Reports as per HPI and Reports no additional eye complaints ENT: Reports system reviewed and no additional complaints, except as documented and Reports Normal hearing present Cardiovascular: Cardiovascular: Reports no additional cardiovascular complaints Respiratory: Respiratory: Reports no additional respiratory complaints and Reports no additional respiratory complaints Gastrointestinal: Gastrointestinal: Reports as per HPI and Reports no additional gastrointestinal complaints Musculoskeletal: Musculoskeletal: Reports no additional musculoskeletal complaints Integumentary/Breasts: Skin/Breast: Reports system reviewed and no additional complaints, except as docu and Reports as per HPI Neurologic: Reports system reviewed and no additional complaints, except as documented, Reports as per HPI and Reports Normal hearing present Psychiatric: Psychiatric: Reports no additional psychiatric complaints and Reports as per HPI Endocrine: Endocrine: Reports no additional endocrine complaints Hematologic/Lymphatic: Hematologic/Lymphatic: Reports no additional hematologic/lymphatic complaints Allergic/Immunologic: Allergic/Immunologic: Reports no additional allergic/immunologic complaints [facility] Past Medical History Medical History (Updated 03/30/22 @ 13:15 by Shea Reilly NP) Atrial fibrillation with controlled ventricular response Bursitis of right hip Nubia infection Chronic atrial fibrillation Chronic fatigue, unspecified Cough CLOUD (dyspnea on exertion) Edema of left lower extremity Essential hypertension Gastro-esophageal reflux disease without esophagitis History of right above knee amputation History of tobacco use Hypersomnia 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 Hypothyroidism, unspecified LITO on CPAP Osteoarthritis of back Preop cardiovascular exam Screening for colon cancer Vaccine for zynqdiodyx-vltugzd-eecxvysum, combined Surgical History Surgical History H/O breast implant H/O exploratory laparotomy History of surgery on arm Family History Family History Father Acute myocardial infarction, Onset Age: 79 Patient's father is Mother Family history of chronic obstructive pulmonary disease Patient's mother is Daughter Thyroid disease Social History Social History (Updated 03/30/22 @ 13:11 by Shea Reilly NP) Social History: The patient lives with her . She has 3 children. She used to work for [employer] but does not draw a pension. The pension is a former smoker and a former al
--- NOTE | 2022-03-30 12:37 | PC.NURSE ---
Diltiazem rate titrated to 7.5 with CALIXTO Reilly at bedside.
--- NOTE | 2022-03-30 14:42 | ADMGEN ---
This patient, Sarah Lopez, was admitted to IMU Room 200-01. 13:57 report from Trey in ED. Patient/family oriented to hospital policies and general routines including ID bracelet, bed and alarms, visiting hours, pain management, procedures, bathroom and other care routines, personal items, smoking policy, room service/diet, and visiting hours. Information on how to activate the Rapid Response Team has been discussed. Patient/Family are encouraged to report perceived risks to care and to ask questions if they do not understand what they are told or what they should do.
[2022-03-30] MEDS: IPRATROPIUM BR 0.02% INH SOLN 0.5 MG/2.5 ML VIAL INHALATION ×2 (15:33→21:27)
[2022-03-30] MEDS: methylPREDNISolone SOD SUCC 125 MG VIAL 60 MG IV PUSH ×2 (15:40→21:41)
[2022-03-30] MEDS: POTASSIUM CHLORIDE 10 MEQ TABLET.ER PO (18:26)
[2022-03-30] MEDS: RIVAROXABAN 20 MG TABLET PO (18:26)
[2022-03-30] MEDS: PANTOPRAZOLE 40 MG TABLET PO (18:26)
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
[2022-03-30] MEDS: FUROSEMIDE INJ 40 MG/4 ML VIAL IV PUSH (20:31)
[2022-03-30] MEDS: FLUTICASONE/SALMETEROL 115-21 MCG INHALER 1 PUFF 2 PUFF INHALATION (21:27)
[2022-03-30] MEDS: MELATONIN 5 MG TABLET PO (22:36)
[2022-03-31] VITALS (21 sets, daily range): BP systolic 101–122; BP diastolic 59–67; PULSE 79–111; RESP 14–26; TEMP 35.9–37.1; O2SAT 93–98
[2022-03-31] MEDS: IPRATROPIUM BR 0.02% INH SOLN 0.5 MG/2.5 ML VIAL INHALATION ×4 (03:02→20:53)
[2022-03-31 04:22] LABS: Basophils Percent Auto 0.1 % (0.2-1.2); Hematocrit 35.9 % (37.0-47.0); Hemoglobin 12.4 g/dL (12.0-15.0); Immature Granulocyte Absolute 0.05 K/mm3 (0.00-0.031); Immature Granulocyte Percent A 0.6 % (0-0.5); Lymphocytes Absolute Auto 0.64 K/mm3 (0.9-3.2); Lymphocytes Percent Auto 7.4 % (18.3-44.2); Mean Corpuscular HGB Conc 34.5 g/dl (32-36); Mean Corpuscular Hemoglobin 31.4 pg (26-34); Mean Corpuscular Volume 90.9 fl (80-100); Mean Platelet Volume 10.8 fl (7.4-10.4); Monocytes Absolute Auto 0.1 K/mm3 (0.1-0.6); Monocytes Percent Auto 1.4 % (2.6-8.5); Neutrophils Absolute Auto 7.8 K/mm3 (1.3-6.7); Neutrophils Percent Auto 90.5 % (45.5-73.1); Platelet Count Result 252 k/mm3 (150-375); Red Blood Count 3.95 M/mm3 (4.2-5.4); White Blood Count 8.7 K/mm3 (4.5-10.0)
[2022-03-31 04:34] LABS: Lactic Acid Reflex 0.9 mmol/L (0.7-2.0)
[2022-03-31 04:43] LABS: Alanine Aminotransferase 19 U/L (6-35); Alkaline Phosphatase 92 U/L (38-126); Anion Gap 13 mmol/L (8-16); Aspartate Amino Transferase 25 U/L (14-36); Bilirubin,Total 0.5 mg/dL (0.2-1.3); Blood Urea Nitrogen 15 mg/dL (7-17); Calcium 8.1 mg/dL (8.4-10.2); Carbon Dioxide 24 mmol/L (22-30); Chloride 99 mmol/L (98-107); Estimated CRCL calculation 77 ml/min; Estimated Glomerular Filt Rate > 60; Glucose 200 mg/dL (65-110); Magnesium 1.9 mg/dL (1.6-2.3); Potassium 3.4 mmol/L (3.4-5.0); Sodium 136 mmol/L (137-145)
[2022-03-31] MEDS: methylPREDNISolone SOD SUCC 125 MG VIAL 60 MG IV PUSH ×3 (06:18→21:22)
[2022-03-31 06:19] LABS: Thyroid Stimulating Hormone Reflex 0.084 uIU/mL (0.465-4.68)
[2022-03-31 07:30] LABS: Free T4 Free Thyroxine Reflex 1.49 ng/dL (0.78-2.19)
[2022-03-31 08:16] LABS: Total Triiodothyronine (T3) 0.77 NG/ML (0.97-1.69)
[2022-03-31] MEDS: FUROSEMIDE 40 MG TABLET PO (08:34)
[2022-03-31] MEDS: PANTOPRAZOLE 40 MG TABLET PO ×2 (08:34→16:44)
[2022-03-31] MEDS: POTASSIUM CHLORIDE 20 MEQ TABLET 40 MEQ PO (08:34)
[2022-03-31] MEDS: GABAPENTIN 300 MG CAPSULE PO (08:34)
[2022-03-31] MEDS: MULTIVITAMINS THERAPEUTIC TAB (*BKC) 1 TABLET PO (08:34)
[2022-03-31] MEDS: hydroCHLOROthiazide 25 MG TABLET PO (08:35)
[2022-03-31] MEDS: LORATADINE 10 MG TABLET PO (08:35)
[2022-03-31] MEDS: POTASSIUM CHLORIDE 10 MEQ TABLET.ER PO (08:35)
--- NOTE | 2022-03-31 08:36 | PM.PNCARD ---
Progress Note: A&P Assessment and Plan (1) Emphysema, unspecified: Code(s): J43.9 - Emphysema, unspecified Status: Acute Assessment and Plan: With acute exacerbation/acute bronchitis given symptoms (cough/sob/chills/diaphoresis) and elevated WBC 11.8. Management with nebs/steroids +/- antibiotics as per hospitalist. (2) Chronic atrial fibrillation: Code(s): I48.20 - Chronic atrial fibrillation, unspecified Status: Acute Assessment and Plan: More rapid today given #1. Normally controlled on Diltiazem ER 240 mg daily. Discontinued Diltiazem drip and started back on home dosing Diltiazem ER 240 mg she takes at 9 pm. On Xarelto 20 mg daily. May d/c home from cardiology standpoint. She can just keep her regular f/u appointment with me. (3) Essential hypertension: Code(s): I10 - Essential (primary) hypertension Status: Acute Assessment and Plan: Stable. (4) Diastolic dysfunction: Code(s): I51.89 - Other ill-defined heart diseases Status: Acute Assessment and Plan: Euvolemic without edema of leg or pulm edema. Normally on HCTZ and Lasix 20 mg daily. Given mildly high NTproBNP, will increase home Lasix 40 mg daily and increase KCl 20 meq daily. Give additional KCl 40 meq x1 since potassium is low normal after IV Lasix yesterday. Subjective Date/time seen: 03/31/22 08:36 Denies chest pain and breathing improved. Exam Const: General: cooperative, healthy appearing and comfortable Resp: Auscultation: wheezes (anteriorly) and diminished lung sounds Cardio: Jugular venous distension: no JVD Rate: regular rate Rhythm: abnormal rhythm Heart sounds: no murmurs Peripheral pulses: dorsalis pedis present on the left GI: GI Palp: No abdominal tenderness and Yes Soft to palpation Neuro: General: oriented to person, oriented to place and oriented to time Extrem: Left lower extremity: no edema Other: Right above knee amputation Objective Data Vital Signs Vital Signs: Vital Signs - 24 hr 03/30/22 09:34 03/30/22 09:34 03/30/22 09:56 Temperature Pulse Rate 116 H 110 H Respiratory Rate 25 H Blood Pressure 123/78 Pulse Oximetry 97 Oxygen Delivery Room Air Fraction of Inspired Oxygen 03/30/22 11:43 03/30/22 11:44 03/30/22 12:38 Temperature Pulse Rate 132 H 117 H 120 H Respiratory Rate 23 H Blood Pressure 131/77 Pulse Oximetry 95 Oxygen Delivery Fraction of Inspired Oxygen 03/30/22 12:31 03/30/22 13:30 03/30/22 14:00 Temperature 98.8 F Pulse Rate 109 H 105 H 119 H Respiratory Rate 26 H 29 H 22 H Blood Pressure 122/64 111/97 H 128/65 Pulse Oximetry 96 95 Oxygen Delivery Fraction of Inspired Oxygen 03/30/22 14:00 03/30/22 15:34 03/30/22 15:33 Temperature Pulse Rate 100 Respiratory Rate 20 Blood Pressure Pulse Oximetry 95 94 Oxygen Delivery Room Air Room Air Fraction of Inspired Oxygen 03/30/22 15:46 03/30/22 14:00 03/30/22 16:00 Temperature Pulse Rate 102 H 115 H 95 Respiratory Rate 20 Blood Pressure Pulse Oximetry Oxygen Delivery Fraction of Inspired Oxygen 03/30/22 16:00 03/30/22 16:00 03/30/22 18:00 Temperature 97.2 F L Pulse Rate 104 H 109 H Respiratory Rate 20 Blood Pressure 125/75 Pulse Oximetry 95 94 Oxygen Delivery Room Air Fraction of Inspired Oxygen 03/30/22 20:00 03/30/22 20:00 03/30/22 20:00 Temperature 98.4 F Pulse Rate 90 90 99 Respiratory Rate 18 18 Blood Pressure 123/63 Pulse Oximetry 93 93 Oxygen Delivery Room Air Fraction of Inspired Oxygen 03/30/22 22:00 03/30/22 23:35 03/30/22 22:18 Temperature 97.7 F Pulse Rate 91 89 74 Respiratory Rate 14 17 Blood Pressure 121/67 Pulse Oximetry 98 97 Oxygen Delivery Fraction of Inspired Oxygen 03/30/22 21:27 03/30/22 21:45 03/31/22 00:00 Temperature Pulse Rate 99 90 89 Respiratory Rate 19 16 14 Blood Pressure Pulse Ox
[2022-03-31] MEDS: FLUTICASONE/SALMETEROL 115-21 MCG INHALER 1 PUFF 2 PUFF INHALATION ×2 (09:09→20:53)
--- NOTE | 2022-03-31 13:40 | PM.IMPN ---
Progress Note: A&P Assessment and Plan (1) Atrial fibrillation with rapid ventricular response: Code(s): I48.91 - Unspecified atrial fibrillation Status: Acute Assessment and Plan: The patient came to the emergency room for SOB and she was found to be in AFib with RVR.? The patient was given Cardizem injection and Cardizem drip in the emergency room.? She has been compliant with her home medications. She was resumed on oral Diltiazem and IV stopped. HR better controlled. Xarelto has been continued. Appreciate Cardiology input. (2) Emphysema, unspecified: Code(s): J43.9 - Emphysema, unspecified Status: Acute Assessment and Plan: The patient has been having SOB, chest congestion and body aches. She called her primary care doctor and Medrol Dosepak was called in the day before but she had not started it.? She tried taking Delsym cold medicine.? CXR at the Urgent Care center showing emphysema and atelectasis. Repeat CXR here showing similar findings. COVID negative. She is having productive cough with elevated CRP, elevated WBC, chills/diaphoresis and tachycardia. No lactic acid drawn. Consider sepsis. Solu-Medrol started but not abx. She was on abx recently with some benefit but without resolution. Consider acute bronchitis and/or PNA. Will check BCx. Check for legionella given her symptom of diarrhea. Check for influenza. Start abx. Continue Solu-Medrol. Continue Xopenex and ipratropium treatments. Continue inhalers from home. (3) LITO on CPAP: Code(s): G47.33 - Obstructive sleep apnea (adult) (pediatric); Z99.89 - Dependence on other enabling machines and devices Status: Acute Assessment and Plan: The patient stated that she has not been using her CPAP at home because it is uncomfortable. Continue with CPAP on home settings. She toelrated it well. (4) Hypothyroidism, unspecified: Code(s): E03.9 - Hypothyroidism, unspecified Status: Acute Assessment and Plan: TSH low at 0.084 but on steroids which can disrupt the TSH. FT4 is normal. Will continue her levothyroxine at current dose. (5) Diastolic dysfunction: Code(s): I51.89 - Other ill-defined heart diseases Status: Acute Assessment and Plan: Patient clinically euvolemic. BNP was elevated at 1340. Chest x-ray however not consistent with CHF. Patient takes HCTZ and furosemide at home. These have been continued. Adjustments per Cardiology. Appreciate Cardiology input. Continue potassium replacement (6) Essential hypertension: Code(s): I10 - Essential (primary) hypertension Status: Acute Assessment and Plan: Blood pressure reviewed. Blood pressure well controlled. Continue current medications. (7) Chronic low back pain: Qualifiers: Back pain laterality: unspecified Sciatica presence: without sciatica Qualified Code(s): M54.5 - Low back pain; G89.29 - Other chronic pain Code(s): M54.5 - Low back pain; G89.29 - Other chronic pain Status: Acute Assessment and Plan: Stable. Continue with gabapentin Subjective Date/time seen: 03/31/22 13:40 Interval history: 71yo female with hx of AFib and COPD here for shortness of breath. Patient had similar symptoms to the ones on presentation a few weeks ago and was treated with prednisone and cephalexin. Her symptoms improved but not resolved. Symptoms worsened prompting this admission. She denies having fevers but it has been having chills and night sweats. She does not have a nebulizer machine at home. She does not have home oxygen. She has been having cough productive yellow sputum. Shortness of breath is better today. She denies any chest pain. The do have an air condition unit home in the had changed the filter out recently. She has also been having diarrhea recently. Exam Narrative: AF 96.6 108/64 82 20 94% ra Gen - NARD Chest -bibasilar inspirat
[2022-03-31 14:53] LABS: Lactic Acid Reflex 2.1 mmol/L (0.7-2.0)
[2022-03-31 15:25] LABS: Procalcitonin 0.1 ng/mL
[2022-03-31 15:46] LABS: Hemoglobin A1C 5.6 % (<5.7)
[2022-03-31 16:11] LABS: Glucose Point of Care 206 mg/dl (65-105)
[2022-03-31] MEDS: RIVAROXABAN 20 MG TABLET PO (16:45)
[2022-03-31] MEDS: INSULIN ASPART (*BKC) 100 UNITS/ML SUB-Q (16:45)
[2022-03-31 17:02] LABS: Appearance Urine Clear (Clear); Bilirubin Urine Negative (Negative); Blood Urine Trace-lysed (Negative); Color Urine Yellow (Yellow); Glucose Urine UA Negative (Negative); Ketones Urine Negative (Negative); Leukocyte Esterase Ur Negative LEU/UL (Negative); Nitrate Urine Negative (Negative); Protein Urine Negative (Negative); Urobilinogen Urine 0.2 mg/dL (<2.0); pH Urine 5.5 (5.0-9.0)
[2022-03-31 17:16] LABS: Add Urine Microscopic? YES; RBC Urine 0-2 /hpf (0-2); WBC Urine None seen /hpf (0-3)
[2022-03-31 17:40] LABS: Reflex Lactic Acid Yes or No Add Lactic
[2022-03-31 18:38] LABS: Lactic Acid 2.8 mmol/L (0.7-2.0)
[2022-03-31 20:16] LABS: Glucose Point of Care 218 mg/dl (65-105)
[2022-03-31] MEDS: DOXYCYCLINE HYCLATE 100 MG TABLET PO (21:24)
[2022-03-31] MEDS: MELATONIN 5 MG TABLET PO (22:03)
[2022-03-31 22:24] LABS: Influenza Control Positive
[2022-04-01] VITALS (20 sets, daily range): BP systolic 103–123; BP diastolic 58–70; PULSE 87–108; RESP 14–24; TEMP 36.3–36.9; O2SAT 91–97
[2022-04-01] MEDS: IPRATROPIUM BR 0.02% INH SOLN 0.5 MG/2.5 ML VIAL INHALATION ×4 (02:16→20:52)
[2022-04-01 04:50] LABS: Albumin Level 3.8 g/dL (3.5-5.1); Anion Gap 12 mmol/L (8-16); Blood Urea Nitrogen 22 mg/dL (7-17); CRP 7.1 mg/dL (<1.0); Calcium 8.4 mg/dL (8.4-10.2); Carbon Dioxide 23 mmol/L (22-30); Chloride 99 mmol/L (98-107); Estimated CRCL calculation 68 ml/min; Estimated Glomerular Filt Rate > 60; Glucose 192 mg/dL (65-110); Magnesium 1.9 mg/dL (1.6-2.3); Phosphorus 2.1 mg/dL (2.5-4.5); Potassium 3.2 mmol/L (3.4-5.0); Sodium 134 mmol/L (137-145)
[2022-04-01] MEDS: methylPREDNISolone SOD SUCC 125 MG VIAL 60 MG IV PUSH ×3 (05:52→22:10)
[2022-04-01 08:18] LABS: Glucose Point of Care 171 mg/dl (65-105)
[2022-04-01] MEDS: POTASSIUM CHLORIDE 10 MEQ TABLET.ER 20 MEQ PO (08:19)
[2022-04-01] MEDS: LORATADINE 10 MG TABLET PO (08:20)
[2022-04-01] MEDS: MULTIVITAMINS THERAPEUTIC TAB (*BKC) 1 TABLET PO (08:20)
[2022-04-01] MEDS: hydroCHLOROthiazide 25 MG TABLET PO (08:20)
[2022-04-01] MEDS: PANTOPRAZOLE 40 MG TABLET PO ×2 (08:20→18:11)
[2022-04-01] MEDS: GABAPENTIN 300 MG CAPSULE PO (08:20)
[2022-04-01] MEDS: DOXYCYCLINE HYCLATE 100 MG TABLET PO ×2 (08:21→22:11)
[2022-04-01] MEDS: FUROSEMIDE 40 MG TABLET PO (08:21)
--- NOTE | 2022-04-01 08:32 | PM.PNCARD ---
Progress Note: A&P Assessment and Plan (1) Emphysema, unspecified: Code(s): J43.9 - Emphysema, unspecified Status: Acute Assessment and Plan: With acute exacerbation/acute bronchitis given symptoms (cough/sob/chills/diaphoresis) and elevated WBC 11.8. Management with nebs/steroids and antibiotics as per hospitalist. (2) Chronic atrial fibrillation: Code(s): I48.20 - Chronic atrial fibrillation, unspecified Status: Acute Assessment and Plan: Was more rapid given #1. Rate controlled. Normally controlled on Diltiazem ER 240 mg daily. Discontinued Diltiazem drip and started back on home dosing Diltiazem ER 240 mg she takes at 9 pm. On Xarelto 20 mg daily. May d/c home from cardiology standpoint. She can just keep her regular f/u appointment with me. (3) Essential hypertension: Code(s): I10 - Essential (primary) hypertension Status: Acute Assessment and Plan: Stable. (4) Diastolic dysfunction: Code(s): I51.89 - Other ill-defined heart diseases Status: Acute Assessment and Plan: Euvolemic without edema of leg or pulm edema. Normally on HCTZ and Lasix 20 mg daily. Given mildly high NTproBNP, will increase home Lasix 40 mg daily and increased KCl 20 meq daily. Give additional KCl 40 meq x1 since potassium is low normal after IV Lasix 2 days ago. Subjective Date/time seen: 04/01/22 08:32 Reports breathing is improving. No chest pain. Exam Const: General: cooperative, healthy appearing and comfortable Resp: Auscultation: wheezes (anteriorly) and diminished lung sounds Cardio: Jugular venous distension: no JVD Rate: regular rate Rhythm: abnormal rhythm Heart sounds: no murmurs Peripheral pulses: dorsalis pedis present on the left GI: GI Palp: No abdominal tenderness and Yes Soft to palpation Neuro: General: oriented to person, oriented to place and oriented to time Extrem: Left lower extremity: no edema Other: Right above knee amputation Objective Data Vital Signs Vital Signs: Vital Signs - 24 hr 03/31/22 10:00 03/31/22 09:10 03/31/22 09:10 Temperature Pulse Rate 106 H 81 81 Respiratory Rate 20 20 Blood Pressure Pulse Oximetry 94 Oxygen Delivery Room Air 03/31/22 12:00 03/31/22 12:00 03/31/22 12:29 Temperature 96.6 F L Pulse Rate 89 82 Respiratory Rate 20 Blood Pressure 108/64 Pulse Oximetry 94 Oxygen Delivery Room Air 03/31/22 14:00 03/31/22 10:00 03/31/22 14:51 Temperature Pulse Rate 84 85 83 Respiratory Rate 20 26 H Blood Pressure Pulse Oximetry Oxygen Delivery 03/31/22 16:00 03/31/22 16:00 03/31/22 16:44 Temperature 98.3 F Pulse Rate 96 88 Respiratory Rate 18 Blood Pressure 122/64 Pulse Oximetry 94 Oxygen Delivery Room Air 03/31/22 18:00 03/31/22 19:30 03/31/22 20:56 Temperature 98.7 F Pulse Rate 98 102 H 95 Respiratory Rate 16 20 Blood Pressure 120/67 Pulse Oximetry 96 Oxygen Delivery 03/31/22 20:00 03/31/22 20:00 03/31/22 22:00 Temperature Pulse Rate 102 H 87 101 H Respiratory Rate 16 Blood Pressure Pulse Oximetry 96 Oxygen Delivery Room Air 04/01/22 00:00 04/01/22 00:00 04/01/22 00:00 Temperature 97.4 F L Pulse Rate 91 87 87 Respiratory Rate 22 H 22 H Blood Pressure 103/58 L Pulse Oximetry 94 94 Oxygen Delivery Room Air 04/01/22 01:36 04/01/22 02:17 03/31/22 23:05 Temperature Pulse Rate 93 108 H 93 Respiratory Rate 16 22 H Blood Pressure Pulse Oximetry 97 Oxygen Delivery Autopap 04/01/22 02:40 04/01/22 02:40 04/01/22 04:00 Temperature Pulse Rate 93 108 H 90 Respiratory Rate 16 16 Blood Pressure Pulse Oximetry 97 Oxygen Delivery Autopap 04/01/22 04:00 04/01/22 04:00 04/01/22 05:14 Temperature 97.3 F L Pulse Rate 108 H 108 H 94 Respiratory Rate 20 20 Blood Pressure 122/69 Pulse Oximetry 95 95 Oxygen Delivery Room Air 04/01/22 08:00 Temperature
[2022-04-01] MEDS: POTASSIUM CHLORIDE 20 MEQ TABLET 40 MEQ PO (08:34)
[2022-04-01] MEDS: FLUTICASONE/SALMETEROL 115-21 MCG INHALER 1 PUFF 2 PUFF INHALATION ×2 (08:55→20:54)
[2022-04-01] MEDS: POTASSIUM PHOS/SODIUM PHOS 250 MG TABLET PO (10:28)
[2022-04-01 11:55] LABS: Glucose Point of Care 312 mg/dl (65-105)
[2022-04-01] MEDS: INSULIN ASPART (*BKC) 100 UNITS/ML SUB-Q (12:43)
--- NOTE | 2022-04-01 15:44 | PM.IMPN ---
Progress Note: A&P Assessment and Plan (1) Atrial fibrillation with rapid ventricular response: Code(s): I48.91 - Unspecified atrial fibrillation Status: Acute Assessment and Plan: The patient came to the emergency room for SOB and she was found to be in AFib with RVR.? The patient was given Cardizem injection and Cardizem drip in the emergency room.? She has been compliant with her home medications. She was resumed on oral Diltiazem and IV stopped. HR better controlled. Xarelto has been continued. Appreciate Cardiology input. Continue Diltiazem and Xarelto. (2) Emphysema, unspecified: Code(s): J43.9 - Emphysema, unspecified Status: Acute Assessment and Plan: The patient has been having SOB, chest congestion and body aches. She called her primary care doctor and Medrol Dosepak was called in but she had not started it.? She tried taking Delsym cold medicine.? CXR at the Urgent Care center showing emphysema and atelectasis. COVID negative. She is having productive cough with elevated CRP, elevated WBC, chills/diaphoresis and tachycardia. Solu-Medrol started but not abx. She was on abx recently with some benefit but without resolution. Consider acute bronchitis and/or PNA. BCx NGTD. Lactic elevated. Pneumococcal and legionella antigens are pending. Influenza negative. Continue abx. Continue Solu-Medrol. Continue Xopenex and ipratropium treatments. Continue inhalers from home. (3) LITO on CPAP: Code(s): G47.33 - Obstructive sleep apnea (adult) (pediatric); Z99.89 - Dependence on other enabling machines and devices Status: Acute Assessment and Plan: The patient stated that she has not been using her CPAP at home because it is uncomfortable. Continue with CPAP on home settings. She is tolerating it well. (4) Diastolic dysfunction: Code(s): I51.89 - Other ill-defined heart diseases Status: Acute Assessment and Plan: Patient clinically euvolemic. BNP was elevated at 1340. Chest x-ray however not consistent with CHF. Patient takes HCTZ and furosemide at home. These have been continued. Adjustments per Cardiology. Appreciate Cardiology input. Continue potassium replacement. Extra potassium today (5) Hypothyroidism, unspecified: Code(s): E03.9 - Hypothyroidism, unspecified Status: Acute Assessment and Plan: TSH low at 0.084 but on steroids which can disrupt the TSH. FT4 is normal. Will continue her levothyroxine at current dose. (6) Essential hypertension: Code(s): I10 - Essential (primary) hypertension Status: Acute Assessment and Plan: Blood pressure reviewed. Blood pressure well controlled. Continue current medications. (7) Chronic low back pain: Qualifiers: Back pain laterality: unspecified Sciatica presence: without sciatica Qualified Code(s): M54.5 - Low back pain; G89.29 - Other chronic pain Code(s): M54.5 - Low back pain; G89.29 - Other chronic pain Status: Acute Assessment and Plan: Stable. Continue with gabapentin Subjective Date/time seen: 04/01/22 15:44 Interval history: 71yo female with hx of AFib and COPD here for shortness of breath. Shortness of breath is slightly better today. She still having dyspnea on exertion. Still with a cough productive yellow sputum. Eating okay but not a lot. No chest pain Exam Narrative: AF 98.4 116/61 107 19 93% ra Gen - NARD Chest -course inspiratory and expiratory breath sounds with end-expiratory wheezes. CV -irregularly irregular. Telemetry showing AFib/atrial flutter with mostly controlled rate (heart rate<105 majority of the time) Abd -soft. Obese. Nontender. Ext -no left pedal edema. Right AKA. Psych -anxious mood Skin -warm and dry Objective Data Vital Signs Vital Signs: Vital Signs - 24 hr 03/31/22 16:00 03/31/22 16:00 03/31/22 16:44 Temperature 98.3 F Pulse Rate 96 88 Resp
[2022-04-01 16:41] LABS: Glucose Point of Care 111 mg/dl (65-105)
[2022-04-01] MEDS: RIVAROXABAN 20 MG TABLET PO (18:11)
[2022-04-01] MEDS: MELATONIN 5 MG TABLET PO (22:09)
[2022-04-01] MEDS: guaiFENesin 12 HR 600 MG TABCR PO (22:11)
[2022-04-01 22:22] LABS: Glucose Point of Care 197 mg/dl (65-105)
[2022-04-02] VITALS (24 sets, daily range): BP systolic 118–133; BP diastolic 70–85; PULSE 75–123; RESP 14–19; TEMP 36.3–36.8; O2SAT 93–96
[2022-04-02] MEDS: IPRATROPIUM BR 0.02% INH SOLN 0.5 MG/2.5 ML VIAL INHALATION ×4 (03:01→20:23)
[2022-04-02 05:05] LABS: Albumin Level 3.7 g/dL (3.5-5.1); Anion Gap 8 mmol/L (8-16); Blood Urea Nitrogen 28 mg/dL (7-17); Calcium 9.1 mg/dL (8.4-10.2); Carbon Dioxide 24 mmol/L (22-30); Chloride 101 mmol/L (98-107); Estimated CRCL calculation 47 ml/min; Estimated Glomerular Filt Rate > 60; Glucose 157 mg/dL (65-110); Magnesium 1.8 mg/dL (1.6-2.3); Sodium 133 mmol/L (137-145)
[2022-04-02] MEDS: methylPREDNISolone SOD SUCC 125 MG VIAL 60 MG IV PUSH ×2 (05:33→15:54)
[2022-04-02] MEDS: guaiFENesin 12 HR 600 MG TABCR PO ×2 (08:18→20:13)
[2022-04-02] MEDS: POTASSIUM CHLORIDE 10 MEQ TABLET.ER 20 MEQ PO (08:18)
[2022-04-02] MEDS: POTASSIUM CHLORIDE 20 MEQ TABLET 40 MEQ PO (08:18)
[2022-04-02] MEDS: GABAPENTIN 300 MG CAPSULE PO (08:18)
[2022-04-02] MEDS: DOXYCYCLINE HYCLATE 100 MG TABLET PO ×2 (08:18→20:13)
[2022-04-02] MEDS: hydroCHLOROthiazide 25 MG TABLET PO (08:18)
[2022-04-02] MEDS: LORATADINE 10 MG TABLET PO (08:18)
[2022-04-02] MEDS: MULTIVITAMINS THERAPEUTIC TAB (*BKC) 1 TABLET PO (08:18)
[2022-04-02] MEDS: PANTOPRAZOLE 40 MG TABLET PO ×2 (08:18→17:11)
[2022-04-02] MEDS: FUROSEMIDE 40 MG TABLET PO (08:19)
[2022-04-02] MEDS: FLUTICASONE PROPIONATE 0.05% NA SPR 16 GM BTL (*BKC) 2 SPRAY NASAL (08:19)
--- NOTE | 2022-04-02 08:22 | PM.PNCARD ---
Progress Note: A&P Assessment and Plan (1) Emphysema, unspecified: Code(s): J43.9 - Emphysema, unspecified Status: Acute Assessment and Plan: With acute exacerbation/acute bronchitis given symptoms (cough/sob/chills/diaphoresis) and elevated WBC 11.8. Management with nebs/steroids and antibiotics as per hospitalist. (2) Chronic atrial fibrillation: Code(s): I48.20 - Chronic atrial fibrillation, unspecified Status: Acute Assessment and Plan: Was more rapid given #1. Rate controlled. Normally controlled on Diltiazem ER 240 mg daily. Discontinued Diltiazem drip and started back on home dosing Diltiazem ER 240 mg she takes at 9 pm. On Xarelto 20 mg daily. May d/c home from cardiology standpoint. She can just keep her regular f/u appointment with me. (3) Essential hypertension: Code(s): I10 - Essential (primary) hypertension Status: Acute Assessment and Plan: Stable. (4) Diastolic dysfunction: Code(s): I51.89 - Other ill-defined heart diseases Status: Acute Assessment and Plan: Euvolemic without edema of leg or pulm edema. Normally on HCTZ and Lasix 20 mg daily. Given mildly high NTproBNP, will increase home Lasix 40 mg daily and increase KCl 40 meq daily. Give additional KCl 40 meq x1 since potassium is low normal after IV Lasix 2 days ago. Subjective Date/time seen: 04/02/22 08:22 Reports CLOUD and wheezing and chills. No chest pain. Exam Const: General: cooperative, healthy appearing and comfortable Resp: Auscultation: wheezes (anteriorly) and diminished lung sounds Cardio: Jugular venous distension: no JVD Rate: regular rate Rhythm: abnormal rhythm Heart sounds: no murmurs Peripheral pulses: dorsalis pedis present on the left GI: GI Palp: No abdominal tenderness and Yes Soft to palpation Neuro: General: oriented to person, oriented to place and oriented to time Extrem: Left lower extremity: no edema Other: Right above knee amputation Objective Data Vital Signs Vital Signs: Vital Signs - 24 hr 04/01/22 08:55 04/01/22 08:55 04/01/22 09:08 Temperature Pulse Rate 92 103 H Respiratory Rate 16 16 Blood Pressure Pulse Oximetry 96 Oxygen Delivery Room Air Fraction of Inspired Oxygen 04/01/22 12:00 04/01/22 13:43 04/01/22 13:55 Temperature 98.4 F Pulse Rate 104 H 102 H 107 H Respiratory Rate 24 H 18 18 Blood Pressure 116/61 Pulse Oximetry 93 Oxygen Delivery Fraction of Inspired Oxygen 04/01/22 12:00 04/01/22 14:00 04/01/22 12:00 Temperature Pulse Rate 91 103 H 103 H Respiratory Rate 18 Blood Pressure Pulse Oximetry 93 Oxygen Delivery Room Air Fraction of Inspired Oxygen 04/01/22 16:00 04/01/22 16:00 04/01/22 16:00 Temperature 98.2 F Pulse Rate 103 H 91 92 Respiratory Rate 18 20 Blood Pressure 120/70 Pulse Oximetry 93 95 Oxygen Delivery Room Air Fraction of Inspired Oxygen 04/01/22 18:00 04/01/22 20:00 04/01/22 20:55 Temperature 98.3 F Pulse Rate 100 101 H 97 Respiratory Rate 14 18 Blood Pressure 123/64 Pulse Oximetry 95 Oxygen Delivery Fraction of Inspired Oxygen 04/01/22 20:00 04/01/22 20:00 04/01/22 22:00 Temperature Pulse Rate 104 H 91 Respiratory Rate Blood Pressure Pulse Oximetry Oxygen Delivery Room Air Fraction of Inspired Oxygen 04/01/22 23:23 04/02/22 00:00 04/02/22 00:00 Temperature 98.0 F Pulse Rate 96 89 Respiratory Rate 16 Blood Pressure 105/64 Pulse Oximetry 91 Oxygen Delivery Room Air Fraction of Inspired Oxygen 04/01/22 21:10 04/02/22 02:00 04/02/22 03:02 Temperature Pulse Rate 94 123 H 97 Respiratory Rate 17 16 Blood Pressure Pulse Oximetry Oxygen Delivery Fraction of Inspired Oxygen 04/02/22 03:03 04/02/22 04:00 04/02/22 04:00 Temperature Pulse Rate 105 H Respiratory Rate Blood Pressure Pulse Oximetry 94 Oxygen Delive
[2022-04-02 08:25] LABS: Glucose Point of Care 148 mg/dl (65-105)
[2022-04-02] MEDS: FLUTICASONE/SALMETEROL 115-21 MCG INHALER 1 PUFF 2 PUFF INHALATION ×2 (08:29→20:23)
[2022-04-02 11:46] LABS: Glucose Point of Care 242 mg/dl (65-105)
[2022-04-02] MEDS: dilTIAZem HCL 60 MG TABLET 120 MG PO (11:48)
[2022-04-02] MEDS: POTASSIUM CHLORIDE 10 MEQ TABLET.ER 40 MEQ PO (11:48)
[2022-04-02] MEDS: MAGNESIUM OXIDE 400 MG TABLET PO (11:49)
[2022-04-02] MEDS: INSULIN ASPART (*BKC) 100 UNITS/ML SUB-Q (12:50)
--- NOTE | 2022-04-02 16:22 | PM.IMPN ---
Progress Note: A&P Assessment and Plan (1) Atrial fibrillation with rapid ventricular response: Code(s): I48.91 - Unspecified atrial fibrillation Status: Acute Assessment and Plan: The patient came to the emergency room for SOB and she was found to be in AFib with RVR.? The patient was given Dilt injection and then started on drip in the emergency room.? She has been compliant with her home medications including Xarelto. She was resumed on oral Diltiazem and IV dilt stopped. HR was elevated this morning and Dilt dose was adjusted. Continue to monitor on tele. Keep in IMU due to the change. Appreciate Cardiology input. Continue Diltiazem and Xarelto. (2) Emphysema, unspecified: Code(s): J43.9 - Emphysema, unspecified Status: Acute Assessment and Plan: The patient has been having SOB, chest congestion and body aches. She called her primary care doctor and Medrol Dosepak was called in but she had not started it.? She tried taking Delsym cold medicine.? CXR at the Urgent Care center showing emphysema and atelectasis. COVID negative. She is having productive cough with elevated CRP, elevated WBC, chills/diaphoresis and tachycardia. Solu-Medrol started for COPD exacerbation. She was on abx recently with some benefit but without resolution. Consider acute bronchitis and/or PNA. BCx NGTD. Lactic elevated. Pneumococcal and legionella antigens are pending. Influenza negative. Sputum NGTD. Continue abx. Continue steroids and change to oral. Continue nebs. Continue inhalers from home. (3) LITO on CPAP: Code(s): G47.33 - Obstructive sleep apnea (adult) (pediatric); Z99.89 - Dependence on other enabling machines and devices Status: Acute Assessment and Plan: The patient stated that she has not been using her CPAP at home because it is uncomfortable. Continue with CPAP on home settings. She is tolerating it well. (4) Diastolic dysfunction: Code(s): I51.89 - Other ill-defined heart diseases Status: Acute Assessment and Plan: Patient clinically euvolemic. BNP was elevated at 1340. Chest x-ray however not consistent with CHF. Patient takes HCTZ and furosemide at home. These have been continued. Adjustments per Cardiology. Appreciate Cardiology input. Continue potassium replacement. Extra potassium again today. Replace mag as well. (5) Hypothyroidism, unspecified: Code(s): E03.9 - Hypothyroidism, unspecified Status: Acute Assessment and Plan: TSH low at 0.084 but on steroids which can disrupt the TSH. FT4 is normal. Will continue her levothyroxine at current dose. (6) Essential hypertension: Code(s): I10 - Essential (primary) hypertension Status: Acute Assessment and Plan: Blood pressure reviewed. Blood pressure well controlled. Continue current medications. (7) Chronic low back pain: Qualifiers: Back pain laterality: unspecified Sciatica presence: without sciatica Qualified Code(s): M54.5 - Low back pain; G89.29 - Other chronic pain Code(s): M54.5 - Low back pain; G89.29 - Other chronic pain Status: Acute Assessment and Plan: Stable. Continue with gabapentin Plan DVT prophylaxis: Xarelto Code status: Full Subjective Date/time seen: 04/02/22 16:23 Interval history: 71yo female with hx of AFib and COPD here for shortness of breath. She slept poorly related to steroids. SOB is better. Cough improving and less productive. Still with greenish sputum on occasion. No CP. Patient was tachycardic this morning and extra dose of diltiazem was given. Her scheduled diltiazem dose was advanced. Exam Narrative: AF 98.3 126/70 85 18 96% ra Gen - NARD sitting up in the chair Chest - mildly course expiratory breath sounds with scattered end-expiratory wheezes. CV -irregularly irregular. Telemetry showing episode of AFib/atrial flutter with RVR Abd -soft. Obese. Nontend
[2022-04-02] MEDS: dilTIAZem HCL CD 180 MG CAP.ER.24H 360 MG PO (17:11)
[2022-04-02] MEDS: RIVAROXABAN 20 MG TABLET PO (17:11)
[2022-04-02 17:19] LABS: Glucose Point of Care 122 mg/dl (65-105)
[2022-04-02 20:24] LABS: Glucose Point of Care 146 mg/dl (65-105)
[2022-04-02] MEDS: MELATONIN 5 MG TABLET 10 MG PO (21:41)
[2022-04-03] VITALS (16 sets, daily range): BP systolic 115–127; BP diastolic 66–82; PULSE 78–117; RESP 12–18; TEMP 36.3–36.8; O2SAT 94–98
[2022-04-03] MEDS: IPRATROPIUM BR 0.02% INH SOLN 0.5 MG/2.5 ML VIAL INHALATION ×3 (02:10→14:12)
[2022-04-03 05:15] LABS: Anion Gap 8 mmol/L (8-16); Blood Urea Nitrogen 28 mg/dL (7-17); Calcium 9.2 mg/dL (8.4-10.2); Carbon Dioxide 28 mmol/L (22-30); Chloride 98 mmol/L (98-107); Estimated CRCL calculation 47 ml/min; Estimated Glomerular Filt Rate > 60; Glucose 145 mg/dL (65-110); Magnesium 1.8 mg/dL (1.6-2.3); Potassium 3.4 mmol/L (3.4-5.0); Sodium 134 mmol/L (137-145)
[2022-04-03 06:22] LABS: Pneumococcal Antigen Urine Not Detected (Not Detected)
[2022-04-03] MEDS: FLUTICASONE/SALMETEROL 115-21 MCG INHALER 1 PUFF 2 PUFF INHALATION (07:48)
[2022-04-03 07:54] LABS: Glucose Point of Care 200 mg/dl (65-105)
--- NOTE | 2022-04-03 08:13 | PM.PNCARD ---
Progress Note: A&P Assessment and Plan (1) Emphysema, unspecified: Code(s): J43.9 - Emphysema, unspecified Status: Acute Assessment and Plan: With acute exacerbation/acute bronchitis given symptoms (cough/sob/chills/diaphoresis) and elevated WBC 11.8. Management with nebs/steroids and antibiotics as per hospitalist. (2) Chronic atrial fibrillation: Code(s): I48.20 - Chronic atrial fibrillation, unspecified Status: Acute Assessment and Plan: Was more rapid given #1. Rate controlled. Normally controlled on Diltiazem ER 240 mg daily. Discontinued Diltiazem drip and on increase Diltiazem ER 360 mg for rate control she takes at 9 pm. On Xarelto 20 mg daily. May d/c home from cardiology standpoint. She can just keep her regular f/u appointment with me. (3) Essential hypertension: Code(s): I10 - Essential (primary) hypertension Status: Acute Assessment and Plan: Stable. (4) Diastolic dysfunction: Code(s): I51.89 - Other ill-defined heart diseases Status: Acute Assessment and Plan: Euvolemic without edema of leg or pulm edema. Normally on HCTZ and Lasix 20 mg daily. Given mildly high NTproBNP, will increase home Lasix 40 mg daily and increased KCl 40 meq daily. Subjective Date/time seen: 04/03/22 08:13 Feeling better, less CLOUD. No chest pain. Exam Const: General: cooperative, healthy appearing and comfortable Resp: Auscultation: no wheezes (anteriorly) and diminished lung sounds Cardio: Jugular venous distension: no JVD Rate: regular rate Rhythm: abnormal rhythm Heart sounds: no murmurs Peripheral pulses: dorsalis pedis present on the left GI: GI Palp: No abdominal tenderness and Yes Soft to palpation Neuro: General: oriented to person, oriented to place and oriented to time Extrem: Left lower extremity: no edema Other: Right above knee amputation Objective Data Vital Signs Vital Signs: Vital Signs - 24 hr 04/02/22 08:30 04/02/22 08:20 04/02/22 08:31 Temperature Pulse Rate 89 88 Respiratory Rate 16 16 Blood Pressure Pulse Oximetry 96 Oxygen Delivery Room Air Fraction of Inspired Oxygen 04/02/22 10:00 04/02/22 11:57 04/02/22 12:00 Temperature 98.3 F Pulse Rate 116 H 98 95 Respiratory Rate 16 Blood Pressure 126/70 Pulse Oximetry 96 Oxygen Delivery Fraction of Inspired Oxygen 04/02/22 12:00 04/02/22 15:08 04/02/22 14:00 Temperature Pulse Rate 83 75 Respiratory Rate 18 Blood Pressure Pulse Oximetry Oxygen Delivery Room Air Fraction of Inspired Oxygen 04/02/22 15:25 04/02/22 16:00 04/02/22 16:00 Temperature 97.5 F L Pulse Rate 85 88 Respiratory Rate 18 16 Blood Pressure 123/70 Pulse Oximetry 96 Oxygen Delivery Room Air Fraction of Inspired Oxygen 04/02/22 16:00 04/02/22 18:00 04/02/22 20:23 Temperature Pulse Rate 85 88 82 Respiratory Rate 18 Blood Pressure Pulse Oximetry Oxygen Delivery Fraction of Inspired Oxygen 04/02/22 20:32 04/02/22 20:00 04/02/22 20:00 Temperature 98.2 F Pulse Rate 88 90 77 Respiratory Rate 18 14 Blood Pressure 119/74 Pulse Oximetry 93 Oxygen Delivery Fraction of Inspired Oxygen 04/02/22 20:00 04/02/22 22:00 04/02/22 22:32 Temperature Pulse Rate 88 83 89 Respiratory Rate 18 19 Blood Pressure Pulse Oximetry 93 96 Oxygen Delivery Room Air Autopap Fraction of Inspired Oxygen 04/02/22 23:50 04/03/22 00:00 04/03/22 00:00 Temperature 98.1 F Pulse Rate 78 86 78 Respiratory Rate 18 18 Blood Pressure 118/73 Pulse Oximetry 95 95 Oxygen Delivery Autopap Fraction of Inspired Oxygen 21 04/03/22 02:05 04/03/22 02:16 04/03/22 02:00 Temperature Pulse Rate 83 85 79 Respiratory Rate 18 18 Blood Pressure Pulse Oximetry Oxygen Delivery Fraction of Inspired Oxygen 04/03/22 04:00 04/03/22 04:00 04/03/22 04:00 Temperature 98.3 F
[2022-04-03] MEDS: POTASSIUM CHLORIDE 20 MEQ TABLET PO (08:39)
[2022-04-03] MEDS: predniSONE 20 MG TABLET 40 MG PO (08:39)
[2022-04-03] MEDS: FUROSEMIDE 40 MG TABLET PO (08:40)
[2022-04-03] MEDS: DOXYCYCLINE HYCLATE 100 MG TABLET PO (08:40)
[2022-04-03] MEDS: guaiFENesin 12 HR 600 MG TABCR PO (08:41)
[2022-04-03] MEDS: GABAPENTIN 300 MG CAPSULE PO (08:41)
[2022-04-03] MEDS: MULTIVITAMINS THERAPEUTIC TAB (*BKC) 1 TABLET PO (08:42)
[2022-04-03] MEDS: LORATADINE 10 MG TABLET PO (08:42)
[2022-04-03] MEDS: hydroCHLOROthiazide 25 MG TABLET PO (08:43)
[2022-04-03] MEDS: PANTOPRAZOLE 40 MG TABLET PO (08:43)
[2022-04-03] MEDS: POTASSIUM CHLORIDE 10 MEQ TABLET.ER 40 MEQ PO (09:55)
[2022-04-03 12:56] LABS: Glucose Point of Care 129 mg/dl (65-105)
--- NOTE | 2022-04-03 12:57 | PM.DS ---
DS: Admitting Diagnosis Discharge Date 04/03/22 Admitting Diagnosis Shortness of breath DS: Discharge Diagnosis Discharge Diagnosis (1) Atrial fibrillation with rapid ventricular response: Code(s): I48.91 - Unspecified atrial fibrillation Status: Acute (2) Emphysema, unspecified: Code(s): J43.9 - Emphysema, unspecified Status: Acute (3) LITO on CPAP: Code(s): G47.33 - Obstructive sleep apnea (adult) (pediatric); Z99.89 - Dependence on other enabling machines and devices Status: Acute (4) Diastolic dysfunction: Code(s): I51.89 - Other ill-defined heart diseases Status: Acute (5) Hypothyroidism, unspecified: Code(s): E03.9 - Hypothyroidism, unspecified Status: Acute (6) Essential hypertension: Code(s): I10 - Essential (primary) hypertension Status: Acute (7) Chronic low back pain: Qualifiers: Back pain laterality: unspecified Sciatica presence: without sciatica Qualified Code(s): M54.5 - Low back pain; G89.29 - Other chronic pain Code(s): M54.5 - Low back pain; G89.29 - Other chronic pain Status: Acute DS: Summary Hospital Course Reason for hospitalization: 71yo female with hx of AFib and COPD here for shortness of breath. Please see H&P for details Hospital Course: The patient came to the emergency room for SOB and she was found to be in AFib with RVR.? The patient was given Diltiazem injection and then started on a drip in the emergency room.? She has been compliant with her home medications including Xarelto. She was resumed on oral Diltiazem and IV diltiazem stopped. HR was elevated and Dilt dose was adjusted. The patient has been having SOB, chest congestion and body aches. She called her primary care doctor and Medrol Dosepak was called in but she had not started it. CXR at the Urgent Care center showing emphysema and atelectasis. COVID negative. She was having productive cough with elevated CRP, elevated WBC, chills/diaphoresis and tachycardia. Solu-Medrol started for COPD exacerbation. She was on abx recently with some benefit but without resolution. Consider acute bronchitis and less likely PNA. BCx NGTD. Lactic elevated. Pneumococcal Ag negative; legionella antigen pending. Influenza negative. Sputum negative. Patient clinically euvolemic.? BNP was elevated at 1340.? Chest x-ray however not consistent with CHF.? Patient takes HCTZ and furosemide at home.? These were continued.? TSH low at 0.084 but on steroids which can disrupt the TSH. FT4 is normal. We continued her levothyroxine at current dose. She had clinical improvement. She was transitioned to oral steroids. Patient did well and was able to be discharged home on 04/03/22 Status at Discharge Cognitive/behavioral status at discharge: Stable Time Spent with Patient Time attestation: Total time spent providing and/or coordinating discharge services: 34 minutes Time spent: Greater than 30 minutes Exam Narrative: AF 97.3 127/66 95 16 97% ra Gen - NARD sitting up in the chair Chest - few scatered end expiratory wheezes. nml RR CV -irregularly irregular. Telemetry showing intermittent episodes of AFib/atrial flutter with RVR Abd -soft. Obese. Nontender. Ext -no left pedal edema. Right AKA. Psych - normal mood; in good spirits. Skin -warm and dry DS: Data Data Completed and Pending Labs on day of discharge: Labs from last 24 hours 04/03/22 04/03/22 04/03/22 12:51 07:16 04:26 Sodium 134 L Potassium 3.4 Chloride 98 Carbon Dioxide 28 Anion Gap 8 BUN 28 H Creatinine 0.90 Estim Creat Clear Calc 47 Estimated GFR > 60 Glucose 145 H POC Capillary Glucose 129 H 200 H Calcium 9.2 Magnesium 1.8 Urine Pneumococcal Ag 04/02/22 04/02/22 03/31/22 19:54 16:58 16:53 Sodium Potassium Chloride Carbon Dioxide Anion Gap BUN Creatinine Estim Creat Clear Calc Estimate
[2022-04-03] MEDS: levoFLOXacin 750 MG TABLET PO (13:10)
[2022-04-03] MEDS: MAGNESIUM OXIDE 400 MG TABLET PO (13:10)
[2022-04-04 17:58] LABS: Legionella pneumophila Ag Ur Not Detected (Not Detected)
--- NOTE | 2022-04-05 07:20 | PC.NURSE ---
Urine legionella is negative. Dr. Allegra man.
== END 2022-04-03 14:07 | disposition home or self-care (01) | DRG 310 ==
LOC: ANHED 12:43 → ANHIMU 13:26
PROVIDERS: Nurse Practitioner; Admitting Provider Internal Medicine; Emergency Provider Emergency Medicine; PCP Internal Medicine; Visit Provider Internal Medicine
DX: I48.20 Chronic atrial fibrillation, unspecified (principal); J43.9 Emphysema, unspecified; J20.9 Acute bronchitis, unspecified; I51.89 Other ill-defined heart diseases; Z20.822 Contact with and (suspected) exposure to COVID-19; G47.33 Obstructive sleep apnea (adult) (pediatric); E03.9 Hypothyroidism, unspecified; I10 Essential (primary) hypertension; M54.50 Low back pain, unspecified; G89.29 Other chronic pain; M71.551 Other bursitis, not elsewhere classified, right hip; K21.9 Gastro-esophageal reflux disease without esophagitis; K44.9 Diaphragmatic hernia without obstruction or gangrene; M19.09 Primary osteoarthritis, other specified site; Z87.891 Personal history of nicotine dependence; Z89.611 Acquired absence of right leg above knee
CPT/HCPCS: 36415; 71046; 80048; 80053; 80069; 81001; 82948; 83036; 83605; 83735; 83880; 84145; 84439; 84443; 84480; 85025; 85610; 85730; 86140; 87040; 87070; 87205; 87449; 87804; 87899; 93005; 94640; 94660; 94667; 96365; 96366; 96367; 96375; 96376; 99285; A9270; C9803; G0378; J1815; J1940; J1956; J2930; J7512; U0003; U0005

== ENCOUNTER 2022-04-10 08:10 | Outpatient (CLI) | payer MEDICARE, SELFPAY ==
[2022-04-10 08:47] LABS: Blood Urea Nitrogen 20 mg/dL (7-17); Calcium 8.7 mg/dL (8.4-10.2); Carbon Dioxide > 40 mmol/L (22-30); Chloride 86 mmol/L (98-107); Estimated Glomerular Filt Rate > 60; Glucose 120 mg/dL (65-110); Potassium 2.6 mmol/L (3.4-5.0); Sodium 135 mmol/L (137-145)
== END 2022-04-10 08:11 | disposition home or self-care (01) ==
PROVIDERS: PCP Internal Medicine; Visit Provider Internal Medicine Cardiovascular Disease
DX: R60.0 Localized edema (principal)
CPT/HCPCS: 36415; 80048

== ENCOUNTER 2022-05-10 13:32 | Outpatient (CLI) | payer MEDICARE, SELFPAY ==
--- NOTE | ~2022-05-10 | XR_ITS ---
XR chest 2V 05/10/2022 13:57 Indication: Dyspnea. COPD. Procedure: PA and lateral views of the chest Comparison: Comparison to multiple prior studies sequentially, with oldest reviewed study dated 07/2018. Findings: There is chronic bibasilar atelectasis/scarring. There is a large hiatal hernia. Heart size normal. No focal pneumonia, pleural effusion or pneumothorax. There is scoliosis. No acute osseous a bnormality. There is a compression fracture of the lower thoracic spine which appears chronic. Impression: 1: Chronic bibasilar atelectasis/scarring. 2: Large hiatal hernia. Reviewed, dictated and finalized at location A. Impression: 1: Chronic bibasilar atelectasis/scarring. 2: Large hiatal hernia.
[2022-05-10 14:17] LABS: Anion Gap 9 mmol/L (8-16); Blood Urea Nitrogen 14 mg/dL (7-17); Calcium 9.4 mg/dL (8.4-10.2); Carbon Dioxide 28 mmol/L (22-30); Chloride 100 mmol/L (98-107); Estimated Glomerular Filt Rate 55; Glucose 106 mg/dL (65-110); Magnesium 1.9 mg/dL (1.6-2.3); Potassium 4.5 mmol/L (3.4-5.0); Sodium 137 mmol/L (137-145)
== END 2022-05-10 13:33 | disposition home or self-care (01) ==
LOC: ANHLAB 13:35
PROVIDERS: PCP Internal Medicine; Referring Provider Internal Medicine Critical Care Medicine; Visit Provider Internal Medicine Cardiovascular Disease
DX: E87.5 Hyperkalemia (principal); J44.9 Chronic obstructive pulmonary disease, unspecified; R91.8 Other nonspecific abnormal finding of lung field; K44.9 Diaphragmatic hernia without obstruction or gangrene
CPT/HCPCS: 36415; 71046; 80048; 83735

== ENCOUNTER 2022-05-31 09:25 | Outpatient (CLI) | payer MEDICARE, SELFPAY ==
--- NOTE | ~2022-05-31 | NM_ITS ---
EXAMINATION: NM radha stress w perfusion DATE: 05/31/2022 11:28 INDICATION: Chest pain. TECHNIQUE: Rest images were obtained following intravenous administration of 10.3 mCi Tc99m tetrofosm in (Myoview). The patient was infused intravenously with Lexiscan (Regadenoson). Then, 33.6 mCi Tc99m tetrofosmin (Myoview) was administered intravenously, and stress images were obtained. Data was derek nstructed into short axis and horizontal and vertical long axis SPECT images. Gated SPECT images were also obtained. COMPARISON: None. FINDINGS: There is no definite reversible or fixed perfusion abnormality to suggest ischemia or infar ction. There is normal left ventricular chamber size, wall motion and ejection fraction. Left ventr icular ejection fraction measures >70%. IMPRESSION: 1. Normal myocardial perfusion at rest and during stress. 2. Left ventricular ejection fraction measuring >70%. Reviewed, dictated and finalized at location B.
--- NOTE | 2022-05-31 09:54 | EST_ITS ---
Patient Info Name: Sarah Lopez Age: 71 years : 1950 Gender: Female Ht: 66 in Wt: 175 lbs BSA: 1.94 m2 HR: 78 bpm BP: 121 / 82 mmHg Heart Rhythm: Sinus Rhythm Exam Date: 05/31/2022 10:20 AM Exam Location: [facility] Stress Patient Status: Outpatient Admit Date: 05/31/2022 Staff Ordering Physician: Santiago Diaz DO Attending Provider: Santiago Diaz DO Exercise Technologist: Patsy Maldonado CT Exercise Physician: Santiago Diaz DO Exam Type: CA stress radha w NM Study Info Indications R07.9 - Chest pain, unspecified A regadenoson stress test was performed. Summary 1. 1. Negative lexiscan stress test for ischemic ST changes by ECG criteria. 2. 2. Stable hemodynamics throughout the test. 3. 3. Nuclear scan to follow and will be reported separately. Please correlate with it. 4. 4. Patient informed of the above results. Protocol: Lexiscan Stress ECG Details Stage: REST Duration (min): 0 min : 47 sec HR (bpm): 73 SBP (mmHg): 121 DBP (mmHg): 82 Stage: REST Duration (min): 8 min : 4 sec HR (bpm): 78 SBP (mmHg): 121 DBP (mmHg): 82 Stage: STAGE 1 Duration (min): 1 min : 0 sec HR (bpm): 88 SBP (mmHg): 124 DBP (mmHg): 78 Stage: RECOVERY Duration (min): 1 min : 0 sec HR (bpm): 104 SBP (mmHg): 124 DBP (mmHg): 78 Stage: RECOVERY Duration (min): 2 min : 0 sec HR (bpm): 95 SBP (mmHg): 124 DBP (mmHg): 78 Stage: RECOVERY Duration (min): 3 min : 0 sec HR (bpm): 91 SBP (mmHg): 133 DBP (mmHg): 76 Stage: RECOVERY Duration (min): 3 min : 10 sec HR (bpm): 85 SBP (mmHg): 133 DBP (mmHg): 76 Rest HR: 78 bpm Peak HR: 114 bpm Rest Sys BP: 121 mmHg Peak Sys BP: 133 mmHg Max Pred HR: 149 bpm % Max Pred HR: 77 % Target HR: 127 bpm Max RPP: 15,162 bpm*mmHg Termination Reason: Completed protocol Cardiac Symptoms: Shortness of breath Total Time: 1 min : 0 sec Rest Alvarado BP: 82 mmHg Peak Alvarado BP: 76 mmHg Total Dose: 0.4 mg Resting ECG Atrial fibrillation. Stress ECG No ST changes. Arrhythmias None. Report Signatures
== END 2022-05-31 09:26 | disposition home or self-care (01) ==
LOC: ANHCARD 09:27
PROVIDERS: PCP Internal Medicine; Visit Provider Internal Medicine Cardiovascular Disease
DX: R07.9 Chest pain, unspecified (principal)
CPT/HCPCS: 78452; 93017; A9502; J2785

== ENCOUNTER 2022-06-25 07:12 | Outpatient (CLI) | payer MEDICARE, SELFPAY ==
[2022-06-25 08:06] LABS: Hematocrit 41.7 % (37.0-47.0); Hemoglobin 13.9 g/dL (12.0-15.0)
[2022-06-25 08:15] LABS: Alanine Aminotransferase 21 U/L (6-35); Albumin Level 4.3 g/dL (3.5-5.1); Alkaline Phosphatase 67 U/L (38-126); Anion Gap 7 mmol/L (8-16); Aspartate Amino Transferase 31 U/L (14-36); Bilirubin,Total 0.3 mg/dL (0.2-1.3); Blood Urea Nitrogen 21 mg/dL (7-17); Calcium 9.3 mg/dL (8.4-10.2); Carbon Dioxide 28 mmol/L (22-30); Chloride 103 mmol/L (98-107); Cholesterol 218 mg/dL (0-200); Estimated Glomerular Filt Rate > 60; Glucose 97 mg/dL (65-110); HDL Direct 61 mg/dL; Potassium 4.5 mmol/L (3.4-5.0); Sodium 138 mmol/L (137-145); Triglycerides 166 mg/dL (<150)
[2022-06-25 08:26] LABS: LDL Cholesterol Direct 51 mg/dL
[2022-06-25 08:41] LABS: Vitamin D 25 Hydroxy 42.9 ng/mL
== END 2022-06-25 07:13 | disposition home or self-care (01) ==
PROVIDERS: PCP Internal Medicine; Visit Provider Internal Medicine
DX: D64.9 Anemia, unspecified (principal); I10 Essential (primary) hypertension; Z79.899 Other long term (current) drug therapy; E78.5 Hyperlipidemia, unspecified; E55.9 Vitamin D deficiency, unspecified
CPT/HCPCS: 36415; 80053; 80061; 82306; 85014; 85018

== ENCOUNTER 2022-08-01 08:13 | Outpatient (CLI) | payer MEDICARE, SELFPAY ==
--- NOTE | 2022-08-10 16:51 | WPDSLEEPSTUD ---
Sleep Study Date of Study: 08/01/22 Ordering Provider: Gail West MD Interpreting Physician: Gail West MD Sleep Study Type: CPAP Titration Height: 1.68 m Weight: 79.379 kg Body Mass Index: 28.2 Neck Circumference (inches): 15 [place]: 7 Reason for Sleep Study Obstructive sleep apnea Sleep History Sarah Lopez is a 71-year-old woman with obstructive sleep apnea on CPAP 9 cm. She frequently awakens from sleep feeling short of breath. She does not awaken at night with heartburn, belching or coughing. She frequently snores but is not loud enough that others complain about it. She frequently has trouble sleeping with a cold. She frequently wakes up gasping for breath at night. She frequently has breathing problems at night observed by others. She does not sweat excessively at night or notice her heart pounding or beating irregularly at night. She occasionally falls asleep during the day, never involuntarily or while driving. She does not have loss of muscle tone with strong emotion. She does not have daytime difficulties due to excessive sleepiness. She does not feel paralyzed on waking or falling asleep. She does not have vivid dreamlike scenes on waking or falling asleep. She does not feel afraid to go to sleep. She rarely has nightmares. She rarely remembers her dreams. She rarely has racing thoughts. She does not feel depressed. She rarely has anxious feelings. She does not have muscular tension. She rarely notices parts of her body jerking. She does not kick at night. She does not have crawling or aching feelings in her legs. She does not have leg pain at night. She does not have morning jaw pain or grind her teeth at night. She is alwasy bothered by pain during the day, rarely awakened by pain at night. She rarely wakes up feeling refreshed. She does not wake up with sore achy muscles. She rarely wakes with pain in the spine. She has memory problems and concentration difficulties. Normal bedtime is 10:30 p.m., taking 20 minutes to fall asleep, waking 2-3 times at night to urinate, and m,ay have a snack. She is able to return to sleep within 5-10 minutes. She wakes at 6:00 a.m. She takes naps in the afternoon or evening. Short naps are refreshing. She feels better in the morning compared to other times of day. She often wakes feeling refreshed. Habits: Quit tobacco 9 years ago. She drinks caffeine. No alcohol or recreational substances. [facility] Past Medical History Medical History Atrial fibrillation with controlled ventricular response Bursitis of right hip Nubia infection Chronic atrial fibrillation Chronic fatigue, unspecified Cough CLOUD (dyspnea on exertion) Edema of left lower extremity Essential hypertension Gastro-esophageal reflux disease without esophagitis History of right above knee amputation History of tobacco use Hypersomnia 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 Hypothyroidism, unspecified LITO on CPAP Osteoarthritis of back Preop cardiovascular exam Screening for colon cancer Vaccine for [id number]-xfrquyizt, combined Surgical History Surgical History H/O breast implant H/O exploratory laparotomy History of surgery on arm Family History Family History Father Acute myocardial infarction, Onset Age: 79 Patient's father is Mother Family history of chronic obstructive pulmonary disease Patient's mother is Daughter Thyroid disease Social History Social History Social History: The patient lives with her . She has 3 children. She used to work for [employer] but does not draw a pension. 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 Her daughter and are the durable
[2022-08-12 11:01] VITALS: BMI 28.2
== END 2022-08-02 07:05 | disposition home or self-care (01) ==
LOC: ANHCSM 08:15
PROVIDERS: PCP Internal Medicine; Visit Provider Internal Medicine Critical Care Medicine
DX: G47.33 Obstructive sleep apnea (adult) (pediatric) (principal); Z99.89 Dependence on other enabling machines and devices; I48.91 Unspecified atrial fibrillation; K21.9 Gastro-esophageal reflux disease without esophagitis; E03.9 Hypothyroidism, unspecified; Z87.891 Personal history of nicotine dependence
CPT/HCPCS: 95811

== ENCOUNTER 2023-01-01 07:07 | Outpatient (CLI) | payer MEDICARE, SELFPAY ==
[2023-01-01 08:24] LABS: Alanine Aminotransferase 22 U/L (6-35); Albumin Level 4.1 g/dL (3.5-5.1); Alkaline Phosphatase 96 U/L (38-126); Anion Gap 5 mmol/L (8-16); Aspartate Amino Transferase 27 U/L (14-36); Bilirubin,Total 0.5 mg/dL (0.2-1.3); Blood Urea Nitrogen 17 mg/dL (7-17); Calcium 8.8 mg/dL (8.4-10.2); Carbon Dioxide 28 mmol/L (22-30); Chloride 103 mmol/L (98-107); Cholesterol 182 mg/dL (0-200); Estimated Glomerular Filt Rate > 60; Glucose 102 mg/dL (65-110); HDL Direct 62 mg/dL; Potassium 4.2 mmol/L (3.4-5.0); Sodium 136 mmol/L (137-145); Triglycerides 78 mg/dL (<150)
[2023-01-01 08:34] LABS: Parathyroid Intact 216.5 pg/mL (7.5-53.5)
[2023-01-01 08:36] LABS: LDL Cholesterol Direct 62 mg/dL
[2023-01-01 08:47] LABS: Free T4 Free Thyroxine 1.35 ng/mL (0.78-2.19)
[2023-01-01 08:52] LABS: Thyroid Stimulating Hormone 0.551 uIU/mL (0.465-4.680)
== END 2023-01-01 07:08 | disposition home or self-care (01) ==
PROVIDERS: PCP Family Medicine; Visit Provider Nurse Practitioner
DX: E21.3 Hyperparathyroidism, unspecified (principal); E78.5 Hyperlipidemia, unspecified; Z13.29 Encounter for screening for other suspected endocrine disorder; Z13.21 Encounter for screening for nutritional disorder
CPT/HCPCS: 36415; 80053; 80061; 82607; 83970; 84439; 84443

== ENCOUNTER 2023-01-03 09:17 | Outpatient (CLI) | payer MEDICARE, SELFPAY ==
[2023-01-03 10:06] LABS: Influenza A QL RT-PCR Negative (Negative); Influenza B QL RT-PCR Negative (Negative); RSV RNA, RT-PCR Negative (Negative); SARS-CoV-2 RNA PCR Negative (Negative)
== END 2023-01-03 09:18 | disposition home or self-care (01) ==
LOC: ANHLAB 09:20
PROVIDERS: PCP Family Medicine; Visit Provider Nurse Practitioner Family
DX: R51.9 Headache, unspecified (principal); R53.83 Other fatigue; Z20.822 Contact with and (suspected) exposure to COVID-19
CPT/HCPCS: 87637

== ENCOUNTER 2023-02-12 08:39 | Outpatient (CLI) | payer MEDICARE, SELFPAY ==
--- NOTE | ~2023-02-12 | CT_ITS ---
CT Scan of the Chest without Contrast: Clinical Indication: Lung cancer screening, personal history of nicotine dependence COMPARISON: 02/06/2022 Technique: Contiguous sections were acquired throughout the chest without intravenous contrast. Dose reduction technique was used on this scan by utilizing automated exposure control and iterative recon struction technique. The dose-length product (DLP) was 142.25 mGy-cm. Findings: There is no evidence of any significant mediastinal, hilar or axillary lymphadenopathy. The mediastin al soft tissues appear normal. There is no evidence of pleural or pericardial effusion. There is linear bibasilar scarring. Mild emphysema noted. No pulmonary nodules or infiltrates are not ed. Images through the upper abdomen reveal moderate to large hiatal hernia.. Left kidneys there is atrop hic. Impression: Lung RADS 1: Negative. 12 month follow-up screening CT advised. Mild emphysema. Moderate to large hiatal hernia. Markedly atrophic left kidney. Reviewed, dictated and finalized at [facility]. Impression: Lung RADS 1: Negative. 12 month follow-up screening CT advised. Mild emphysema. Moderate to large hiatal hernia. Markedly atrophic left kidney.
== END 2023-02-12 08:40 | disposition home or self-care (01) ==
PROVIDERS: PCP Family Medicine; Visit Provider Physician Assistant
DX: Z12.2 Encounter for screening for malignant neoplasm of respiratory organs (principal); Z87.891 Personal history of nicotine dependence
CPT/HCPCS: 71271

== ENCOUNTER 2023-02-18 15:29 | Outpatient (CLI) | payer MEDICARE, SELFPAY ==
--- NOTE | ~2023-02-18 | US_ITS ---
Thyroid ultrasound. Clinical History: Thyroid nodule COMPARISON: 05/26/2019 Findings: Real-time sonography of the thyroid gland was performed. The right lobe measures 5.7 x 1.9 x 2.8 cm. The left lobe measures 4.5 x 1.5 x 1.8 cm. The isthmus is 4 mm in AP diameter. Thyroid gland is diffusely heterogeneous, without discrete nodule. Impression: Heterogeneous thyroid gland without discrete nodule. Reviewed, dictated and finalized at location . Impression: Heterogeneous thyroid gland without discrete nodule.
== END 2023-02-18 15:30 | disposition home or self-care (01) ==
PROVIDERS: PCP Family Medicine; Visit Provider Internal Medicine
DX: E04.1 Nontoxic single thyroid nodule (principal)
CPT/HCPCS: 76536

== ENCOUNTER 2023-04-12 08:10 | Outpatient (CLI) | payer MEDICARE, SELFPAY ==
--- NOTE | ~2023-04-12 | MM_ITS ---
EXAMINATION: MM scrn caly implant BI w larry HISTORY: Screening mammogram TECHNIQUE: Craniocaudal and mediolateral oblique 3-D tomosynthesis images with implant displacement a nd synthetic 2-D images were generated. Craniocaudal and mediolateral oblique views of the breasts wi thout implant displacement were obtained using full field digital mammography. CAD analysis was submi tted and interpreted. COMPARISON: 06/10/2018 bilateral implant screening mammogram BREAST PARENCHYMAL COMPOSITION: The breasts are heterogeneously dense, which may obscure small masses . FINDINGS: Status post bilateral augmentation mammoplasty. Possible implant rupture and silicone extra vasation on the left. There is no evidence of suspicious mass, calcification, or architectural distor tion to suggest malignancy in either breast. There has been no suspicious interval change. IMPRESSION: 1. No mammographic evidence of malignancy. 2. Recommend routine screening mammography in one year. BI-RADS Category 2: Benign finding(s). Reviewed, dictated and finalized at location A.
--- NOTE | ~2023-04-12 | DEXA_ITS ---
Bone Density Report Name: EBER CALDERNO Age: 72 Sex: Female Ethnicity: White Date of : 1950 Indication: hyperparathyroidism; height loss; prior fracture; asthma or emphysema; Referring Provider: TRACY BERMAN Study: Bone densitometry was performed. Exam Date: April 12, 2023 Accession number: [id number] Bone Density: Region BMD T-score Z-score Classification Total Forearm (Left) 0.390 -3.5 -1.3 1/3 Forearm (Left) 0.503 -3.2 -0.9 UD Forearm (Left) 0.342 -1.7 -0.1 World Health Organization criteria for BMD impression classify patients as: Normal (T-score at or above -1.0), Osteopenia (T-score between -1.0 and -2.5), or Osteoporosis (T-score at or below -2.5). Clinical Information Provided by Patient: Has had a low trauma fracture Has used the following medications: Vitamin D, Calcium Has the following medical conditions: Asthma or Emphysema, Hyperparathyroidism Patient maximum height was 70 Menopause Age: 50 Drinks caffeinated beverages Onset of menses at age 12 Number of children 3 Impression: The patient has established osteoporosis, based on the Left Third Radius T-score and the existence of a prior fracture. The patient has risk factors, including: previous fracture. Discussion: HIGH RISK OF FRACTURE. BONE DENSITY IS UNDESIRABLY LOW AT ONE OR MORE SKELETAL SITES, CONSISTENT WITH POSTMENOPAUSAL OSTEOPOROSIS. This patient's lowest T-score, in a patient who has previously fractured, meets the World Health Organization's (WHO) criteria for severe osteoporosis. In untreated patients, the risk of osteoporotic fracture increases approximately two-fold for each 1.0 SD decrease in T-score. Low bone density is not the only risk factor for fracture; also consider factors such as patient's age, frailty or poor health, risk of falling, risk of injury, previous osteoporotic fracture, family history of osteoporosis, cigarette smoking, low body weight, etc. Not everyone with low bone mineral density has osteoporosis; osteomalacia and other metabolic bone disorders should also be considered. Patients who have osteoporosis should be evaluated for specific diseases and conditions (secondary causes) that may cause or contribute to bone loss. The [place] Association [employer] Clinical Endocrinologists (AACE) and National Osteoporosis Foundation (NOF) recommend pharmacologic intervention for all postmenopausal women whose T-score is in this range. The patient should follow a healthful lifestyle (good nutrition with adequate calcium and vitamin D, and appropriate weight-bearing exercise). Follow-Up: Consider a repeat BMD and Vertebral Fracture Assessment (VFA) exam in 2 years or sooner if medically necessary, to reassess this patient's status. Reported by: RICARDO on 04/12/2023 9:13:00 AM. Reviewed, dictated and finalized at location A.
--- NOTE | ~2023-04-12 | DEXA_ITS ---
Bone Density Report Name: EBER CALDERON Age: 72 Sex: Female Ethnicity: White Date of : 1950 Indication: postmenopausal osteoporosis; hyperparathyroidism; height loss; prior fracture; asthma or emphysema; Referring Provider: TRACY BERMAN Study: Bone densitometry was performed. Exam Date: April 12, 2023 Accession number: [id number] Bone Density: Region BMD T-score Z-score Classification AP Spine(L1, L2, L3) 1.075 0.5 2.7 Normal Femoral Neck (Left) 0.492 -3.2 -1.3 Osteoporosis Total Hip (Left) 0.575 -3.0 -1.4 Osteoporosis World Health Organization criteria for BMD impression classify patients as: Normal (T-score at or above -1.0), Osteopenia (T-score between -1.0 and -2.5), or Osteoporosis (T-score at or below -2.5). 10-year Fracture Risk: FRAX not reported because: Some T-score for Spine Total or Hip Total or Femoral Neck at or below -2.5 Previous Exams: Region Exam Age BMD T-score BMD Change BMD Change Date g/cm2 vs Baseline vs Previous AP Spine (L1-L3) 04/12/2023 72 1.075 0.5 0.144 (15.4%)# 0.155 (16.9%)* 06/10/2018 67 0.920 -0.9 -0.011 (-1.2%) -0.003 (-0.3%) 05/31/2016 65 0.923 -0.9 -0.009 (-1.0%) -0.009 (-1.0%) 05/19/2013 62 0.931 -0.8 Total Hip(Left) 04/12/2023 72 0.575 -3.0 -0.008 (-1.4%) -0.019 (-3.1%) 06/10/2018 67 0.594 -2.9 0.010 (1.8%)# 0.006 (1.0%) 05/31/2016 65 0.588 -2.9 0.004 (0.8%)# 0.004 (0.8%)# 05/19/2013 62 0.584 -2.9 *Denotes significance at 95% confidence level, LSC for AP Spine = 0.022 g/cm2, LSC for Total Hip = 0.027 g/cm2 # Denotes dissimilar scan types or analysis methods Clinical Information Provided by Patient: Has had a low trauma fracture Has used the following medications: Vitamin D, Calcium Has the following medical conditions: Asthma or Emphysema, Hyperparathyroidism Patient maximum height was 70 Menopause Age: 50 Drinks caffeinated beverages Onset of menses at age 12 Number of children 3 Impression: The patient has established osteoporosis, based on the Left Femoral Neck T-score and the existence of a prior fracture. The patient has risk factors, including: previous fracture. No significant bone loss was observed. Discussion: HIGH RISK OF FRACTURE. BONE DENSITY IS UNDESIRABLY LOW AT ONE OR MORE SKELETAL SITES, CONSISTENT WITH POSTMENOPAUSAL OSTEOPOROSIS. This patient's lowest T-score, in a patient who has previously fractured, meets the World Health Organization's (WHO) criteria for severe osteoporosis. In untreated patients, the risk of osteoporotic fracture increases approximately two-fold for each 1.0 SD decrease
== END 2023-04-12 08:11 | disposition home or self-care (01) ==
LOC: ANHIMG 08:12
PROVIDERS: PCP Family Medicine; Visit Provider Internal Medicine
DX: Z12.31 Encounter for screening mammogram for malignant neoplasm of breast (principal); E21.3 Hyperparathyroidism, unspecified; M81.0 Age-related osteoporosis without current pathological fracture
CPT/HCPCS: 77063; 77067; 77080; 77081

== ENCOUNTER 2023-04-18 08:39 | Outpatient (CLI) | payer MEDICARE, SELFPAY ==
[2023-04-18 10:24] LABS: Alanine Aminotransferase 26 U/L (6-35); Albumin Level 4.3 g/dL (3.5-5.1); Alkaline Phosphatase 108 U/L (38-126); Anion Gap 6 mmol/L (8-16); Aspartate Amino Transferase 29 U/L (14-36); Bilirubin,Total 0.6 mg/dL (0.2-1.3); Blood Urea Nitrogen 17 mg/dL (7-17); Calcium 9.4 mg/dL (8.4-10.2); Carbon Dioxide 30 mmol/L (22-30); Chloride 99 mmol/L (98-107); Estimated Glomerular Filt Rate > 60; Glucose 106 mg/dL (65-110); Potassium 4.2 mmol/L (3.4-5.0); Sodium 135 mmol/L (137-145)
[2023-04-18 10:27] LABS: Parathyroid Intact 152.5 pg/mL (7.5-53.5)
[2023-04-18 10:37] LABS: Free T4 Free Thyroxine 1.48 ng/mL (0.78-2.19); Vitamin D 25 Hydroxy 53.9 ng/mL
[2023-04-18 10:48] LABS: Thyroid Stimulating Hormone 0.238 uIU/mL (0.465-4.680)
[2023-04-18 14:36] LABS: Total Volume 24 Hour Urine 1400 ml
[2023-04-18 14:54] LABS: Creatinine 24 Hour Urine 0.9 gm/24 (0.8-1.8); Creatinine Urine 66.5 mg/dL
[2023-04-21 03:08] LABS: Thyroid Peroxidase Antibodies <1 IU/mL (<9)
[2023-04-29 08:11] LABS: Total Volume 1400; Urine Calcium 11.5
== END 2023-04-18 08:40 | disposition home or self-care (01) ==
LOC: ANHLAB 08:40
PROVIDERS: PCP Family Medicine; Visit Provider Internal Medicine
DX: E04.1 Nontoxic single thyroid nodule (principal); E21.3 Hyperparathyroidism, unspecified
CPT/HCPCS: 36415; 80053; 81050; 82306; 82340; 82570; 83735; 83970; 84100; 84439; 84443; 86376

== ENCOUNTER 2023-04-22 13:15 | Outpatient (CLI) | payer MEDICARE, SELFPAY ==
--- NOTE | ~2023-04-22 | XR_ITS ---
XR chest 2V 04/22/2023 13:33 Indication: Cough. COPD. Procedure: 2 view chest Comparison: Comparison to multiple prior studies sequentially, with oldest reviewed study dated 05/30. Findings: There is chronic bibasilar infiltrates. Large hiatal hernia. Heart size normal. There is at herosclerosis and ectasia of the aorta. There are calcified bilateral breast implants. No significant interval change from prior examinations. Impression: 1: Chronic bibasilar airspace disease which may represent atelectasis/fibrosis or atypical pneumonia. 2: Large hiatal hernia. Reviewed, dictated and finalized at location B. Impression: 1: Chronic bibasilar airspace disease which may represent atelectasis/fibrosis or atypical pneumonia. 2: Large hiatal hernia.
== END 2023-04-22 13:16 | disposition home or self-care (01) ==
PROVIDERS: PCP Family Medicine; Visit Provider Physician Assistant
DX: R05.3 Chronic cough (principal); J44.9 Chronic obstructive pulmonary disease, unspecified; K44.9 Diaphragmatic hernia without obstruction or gangrene
CPT/HCPCS: 71046

== ENCOUNTER 2023-05-22 10:05 | Outpatient (CLI) | payer MEDICARE, SELFPAY ==
[2023-05-22 13:16] LABS: Free T4 Free Thyroxine 1.25 ng/mL (0.78-2.19)
[2023-05-22 14:14] LABS: Albumin Level 4.5 g/dL (3.5-5.1)
[2023-05-25 21:04] LABS: Thyrotropin Receptor Antibody <1.00 IU/L (<=2.00)
[2023-05-27 14:27] LABS: Thyroid Stimulating Immunoglob <89 % baseline (<140)
== END 2023-05-22 10:06 | disposition home or self-care (01) ==
LOC: ANHWCLAB 10:07
PROVIDERS: PCP Nurse Practitioner Family; Visit Provider Internal Medicine
DX: E03.9 Hypothyroidism, unspecified (principal); E21.3 Hyperparathyroidism, unspecified; M81.0 Age-related osteoporosis without current pathological fracture
CPT/HCPCS: 36415; 82040; 82310; 83519; 84439; 84445

== ENCOUNTER 2023-06-11 10:04 | Outpatient (CLI) | payer MEDICARE, SELFPAY ==
--- NOTE | ~2023-06-11 | NM_ITS ---
EXAMINATION: NM parathyroid imaging w spect DATE: 06/11/2023 14:26 INDICATION: Hyperparathyroidism, unspecified. TECHNIQUE: 19.1 mCi Tc99m sestamibi was administered intravenously. Anterior images of the neck were obtained immediately and at 2 hours. SPECT images of the neck were obtained. COMPARISON: None. FINDINGS: There is no focus of persistent activity in the area of the thyroid or mediastinum to sugge st parathyroid adenoma. IMPRESSION: 1. No evidence of a parathyroid adenoma. Reviewed, dictated and finalized at location A. SION SUPPORT MANAGER
== END 2023-06-11 10:05 | disposition home or self-care (01) ==
LOC: ANHIMG 10:07
PROVIDERS: PCP Nurse Practitioner Family; Visit Provider Internal Medicine
DX: E21.3 Hyperparathyroidism, unspecified (principal)
CPT/HCPCS: 78071; A9500

== ENCOUNTER 2023-07-12 06:36 | Outpatient (CLI) | payer MEDICARE, SELFPAY ==
[2023-07-12 07:24] LABS: Basophils Percent Auto 0.5 % (0.2-1.2); Eosinophils Absolute Auto 0.1 K/mm3 (0-0.3); Eosinophils Percent Auto 1.2 % (0-4.4); Hematocrit 40.9 % (37.0-47.0); Hemoglobin 13.4 g/dL (12.0-15.0); Immature Granulocyte Absolute 0.02 K/mm3 (0.00-0.031); Immature Granulocyte Percent A 0.3 % (0-0.5); Lymphocytes Absolute Auto 2.44 K/mm3 (0.9-3.2); Lymphocytes Percent Auto 33.5 % (18.3-44.2); Mean Corpuscular HGB Conc 32.8 g/dl (32-36); Mean Corpuscular Hemoglobin 30.7 pg (26-34); Mean Corpuscular Volume 93.6 fl (80-100); Monocytes Absolute Auto 0.5 K/mm3 (0.1-0.6); Monocytes Percent Auto 7.3 % (2.6-8.5); Neutrophils Absolute Auto 4.2 K/mm3 (1.3-6.7); Neutrophils Percent Auto 57.2 % (45.5-73.1); Platelet Count Result 290 k/mm3 (150-375); Red Blood Count 4.37 M/mm3 (4.2-5.4); Red Cell Distribution Width 12.9 % (11.5-14.5); White Blood Count 7.3 K/mm3 (4.5-10.0)
[2023-07-12 07:32] LABS: Alanine Aminotransferase 25 U/L (6-35); Albumin Level 4.3 g/dL (3.5-5.1); Alkaline Phosphatase 95 U/L (38-126); Anion Gap 6 mmol/L (8-16); Aspartate Amino Transferase 33 U/L (14-36); Bilirubin,Total 0.6 mg/dL (0.2-1.3); Blood Urea Nitrogen 18 mg/dL (7-17); Calcium 9.7 mg/dL (8.4-10.2); Carbon Dioxide 26 mmol/L (22-30); Chloride 104 mmol/L (98-107); Cholesterol 193 mg/dL (0-200); Estimated Glomerular Filt Rate > 60; Glucose 110 mg/dL (65-110); HDL Direct 71 mg/dL; Potassium 4.1 mmol/L (3.4-5.0); Sodium 136 mmol/L (137-145); Triglycerides 73 mg/dL (<150)
[2023-07-12 07:34] LABS: Phosphorus 3.2 mg/dL (2.5-4.5)
[2023-07-12 07:43] LABS: LDL Cholesterol Direct 64 mg/dL; Parathyroid Intact 124.8 pg/mL (7.5-53.5)
[2023-07-12 08:22] LABS: Vitamin D 25 Hydroxy 53.5 ng/mL
[2023-07-14 22:24] LABS: Ionized Calcium 5.2 mg/dL (4.7-5.5)
== END 2023-07-12 06:37 | disposition home or self-care (01) ==
PROVIDERS: Referring Provider Internal Medicine; Visit Provider Nurse Practitioner Family
DX: E21.3 Hyperparathyroidism, unspecified (principal); I10 Essential (primary) hypertension; E55.9 Vitamin D deficiency, unspecified; R53.83 Other fatigue; M81.0 Age-related osteoporosis without current pathological fracture
CPT/HCPCS: 36415; 80053; 80061; 82306; 82330; 83735; 83970; 84100; 85025

== ENCOUNTER 2023-09-22 14:39 | Inpatient (IN) | payer MEDICARE, SELFPAY ==
[2023-09-22] VITALS (15 sets, daily range): BP systolic 108–117; BP diastolic 59–77; PULSE 107–128; RESP 18–37; TEMP 36.8–37.2; O2SAT 93–97; BMI 28.4
--- NOTE | ~2023-09-22 | CT_ITS ---
EXAMINATION: CT chest abdomen pelvis w con DATE: 09/22/2023 18:40 INDICATION: WBC >25; SOB also vom/diarrhea; recent covid . TECHNIQUE: Computed tomography (CT) of the chest, abdomen, and pelvis was performed with 100 mL Omnip aque-350 intravenous contrast. Automated exposure control and iterative reconstruction technique were employed. The dose-length product was 1017.84 mGy-cm. COMPARISON: X-ray chest, same date; CT lung screening 02/12/2023 FINDINGS: CHEST: Thoracic aorta: Mild arch calcification.. Lung parenchyma and airways: Azygos lobe. Moderate emphysematous changes. Segmental low-density conso lidation in the right middle lobe and right lower lobe. Thoracic inlet, axillae and chest wall: No thyroid or soft tissue mass. No axillary lymphadenopathy. Bilateral calcified breast implants. Bilateral intracapsular ruptures. Mediastinum: No mass or lymphadenopathy. Heart and pericardium: Mild cardiomegaly. No pericardial effusion. Mild aortic valve calcification. Coronary artery calcifications: Absent. Pleura: Small volume simple right pleural fluid collection. Thoracic bones: No acute osseous finding in the chest. ABDOMEN/PELVIS: Liver: Normal. Biliary/Gallbladder: Cholelithiasis. No inflammatory changes. No bile duct dilation. Pancreas: No mass or duct dilation. Spleen: Normal. Adrenals:No mass. Kidneys: Severe left renal atrophy. Multiple nonobstructing left renal calculi. Punctate nonobstructi ng right midpole calcification. Otherwise normal-appearing right kidney. GI tract: Moderate distal esophageal and mild gastric wall edema. No small or large bowel dilation. A ppendix not visualized. Diverticulosis without diverticulitis. Mesentery/Peritoneum: No ascites, mass, or free air. Retroperitoneum: No mass . Atherosclerotic abdominal aortic and/or arterial calcifications. Pelvis: Normal urinary bladder. Likely uterine fibroid. Normal ovaries. Soft Tissues: Soft tissues and body wall unremarkable. Abdominopelvic bones: Moderate height loss at L1. Bone cement in the right femoral neck. Multiple an tibiotic leads over the proximal right femur. IMPRESSION: Multifocal right middle and lower lobe consolidation concerning for pneumonia. Small right pleural ef fusion. Large hiatal hernia. Moderate esophagitis and mild gastritis. Reviewed, dictated and finalized at location K. OPERATOR IMPRESSION: Multifocal right middle and lower lobe consolidation concerning for pneumonia. Small right pleural effusion. Large hiatal hernia. Moderate esophagitis and mild gastritis.
--- NOTE | ~2023-09-22 | XR_ITS ---
EXAMINATION: XR chest 1V portable Exam Date/Time: 09/22/2023 16:04 INTEGRITY MANAGER HISTORY: wheezes, tachpnea, covid 3wks ago Comparison: 04/22/2023. RESULT: Lines, tubes, and devices: Bilateral breast implants. Lungs and pleura: Moderate diffuse reticular opacities. Segmental right lower lung airspace disease. Cardiomediastinal silhouette: Stable. Other: No acute osseous or upper abdominal finding. IMPRESSION: Segmental right lower lung atelectasis/consolidation. Moderate interstitial edema. Reviewed, dictated and finalized at location K. GRITY MANAGER IMPRESSION: Segmental right lower lung atelectasis/consolidation. Moderate interstitial robson collins
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
[2023-09-22] MEDS: SODIUM CHLORIDE 0.9% IV 1,000 ML 999 ML IV CONT ×2 (16:12→18:18)
[2023-09-22] MEDS: ONDANSETRON INJ 4 MG/2 ML VIAL IV PUSH (16:13)
[2023-09-22 16:22] LABS: Basophils Percent Auto 0.1 % (0.2-1.2); Hematocrit 42.9 % (37.0-47.0); Hemoglobin 13.8 g/dL (12.0-15.0); Immature Granulocyte Absolute 0.25 K/mm3 (0.00-0.031); Lymphocytes Absolute Auto 1.07 K/mm3 (0.9-3.2); Lymphocytes Percent Auto 4.1 % (18.3-44.2); Mean Corpuscular HGB Conc 32.2 g/dl (32-36); Mean Corpuscular Hemoglobin 30.4 pg (26-34); Mean Corpuscular Volume 94.5 fl (80-100); Mean Platelet Volume 10.4 fl (7.4-10.4); Monocytes Absolute Auto 0.9 K/mm3 (0.1-0.6); Monocytes Percent Auto 3.4 % (2.6-8.5); Neutrophils Absolute Auto 23.9 K/mm3 (1.3-6.7); Neutrophils Percent Auto 91.4 % (45.5-73.1); Platelet Count Result 304 k/mm3 (150-375); Red Blood Count 4.54 M/mm3 (4.2-5.4); Red Cell Distribution Width 13.2 % (11.5-14.5); White Blood Count 26.2 K/mm3 (4.5-10.0)
--- NOTE | 2023-09-22 16:22 | ECG_ITS ---
Measurements Intervals [place] Rate: 112 P: [place]: 0 QRS: 28 QRSD: 86 T: -9 QT: 317 QTc: 433 Interpretive Statements ATRIAL FIBRILLATION WITH RAPID VENTRICULAR RESPONSE BASELINE ARTIFACT MINIMAL ST DEPRESSION [0.025+ mV ST DEPRESSION] ABNORMAL ECG COMPARED TO ECG 03/30/2022 09:29:24 ST (T WAVE) DEVIATION NOW PRESENT Electronically Signed On 09-22-2023 18:30:03 CANOE INSPECTOR FINAL by Tavon Vargas M.D.
[2023-09-22 16:36] LABS: Alanine Aminotransferase 23 U/L (6-35); Albumin Level 4.2 g/dL (3.5-5.1); Alkaline Phosphatase 78 U/L (38-126); Anion Gap 8 mmol/L (8-16); Aspartate Amino Transferase 32 U/L (14-36); Bilirubin,Total 1.1 mg/dL (0.2-1.3); Blood Urea Nitrogen 23 mg/dL (7-17); Calcium 9.2 mg/dL (8.4-10.2); Carbon Dioxide 23 mmol/L (22-30); Chloride 99 mmol/L (98-107); Estimated CRCL calculation 52 ml/min; Estimated Glomerular Filt Rate > 60; Glucose 98 mg/dL (65-110); Lipase 45 U/L (23-300); Potassium 4.7 mmol/L (3.4-5.0); Sodium 130 mmol/L (137-145)
[2023-09-22 17:01] LABS: Influenza A QL RT-PCR Negative (Negative); Influenza B QL RT-PCR Negative (Negative); RSV RNA, RT-PCR Negative (Negative); SARS-CoV-2 RNA PCR Negative (Negative)
[2023-09-22 17:06] LABS: D Dimer 0.42 ug/mL (<0.48)
[2023-09-22 17:54] LABS: Appearance Urine Clear (Clear); Bacteria Urine None Seen /hpf; Bilirubin Urine Negative (Negative); Blood Urine Negative (Negative); Color Urine Yellow (Yellow); Glucose Urine UA Negative (Negative); Ketones Urine Negative (Negative); Leukocyte Esterase Ur Negative LEU/UL (Negative); Nitrate Urine Negative (Negative); Non Pathogenic Casts 0-2; Protein Urine Trace mg/dL (Negative); Squamous Epithelial Cell Urine None seen /hpf (Few); WBC Urine 0-5 /hpf; pH Urine 7.5 (5.0-9.0)
[2023-09-22 18:01] LABS: Add Urine Microscopic? YES
[2023-09-22 19:11] LABS: Lactic Acid Reflex 1.3 mmol/L (0.7-2.0)
--- NOTE | 2023-09-22 19:53 | PM.IMHP ---
H&P: HPI History of Present Illness Date/Time: 09/22/23 19:53 Chief Complaint: Nausea vomiting diarrhea. This is a 72-year-old female patient with a past medical history of chronic atrial fibrillation chronic hypertension good hyperparathyroidism osteoarthritis who came to the Emergency in complaining of nausea vomiting and diarrhea for 1 day. Patient also complains of cough about him 1 month cough is dry. Complains of chills. Patient is awake alert not in acute distress. Denies any fever complains of chills denies any dizziness lightheadedness no blood within no chest pain or shortness of breath complains of cough complaints of nausea vomiting and diarrhea no blood in the stool. Denies any dysuria no increased urinary frequency numbness and tingling pains. Vital signs in the emergency room was stable. CBC showed WBC count of 26.2 hemoglobin 13.8 hematocrit 22.9 platelet count 304. D-dimer was 0.42. Sodium was 130 potassium 4.7 chloride 99 carbon dioxide 23 BUN 23 creatinine 0.90. Urinalysis no pyuria no bacteriuria. Influenza COVID and RSV negative. CT chest showed multifocal right middle and lower lobe consolidation concerning for pneumonia small right pleural effusion. Large hiatal hernia moderate esophagitis and mild gastritis. Chest x-ray showed segmental right lower lung atelectasis/consolidation. Moderate interstitial edema. Patient was given IV ceftriaxone and IV azithromycin in the emergency room. Review of Systems Review of Systems: A 12 point review of system is done and is only positive what is dictated in the history of present illness. [facility] Past Medical History Medical History Atrial fibrillation with controlled ventricular response Bursitis of right hip Nubia infection Chronic atrial fibrillation Chronic fatigue, unspecified CLOUD (dyspnea on exertion) Edema of left lower extremity Essential hypertension Gastro-esophageal reflux disease without esophagitis History of right above knee amputation History of tobacco use Hyperparathyroidism Hypersomnia 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 LITO on CPAP Osteoarthritis of back Other iron deficiency anemias Preop cardiovascular exam Screening for colon cancer Subclinical hyperthyroidism Vaccine for ohslvohmmj-zmwnfgn-yxhhyucga, combined Surgical History Surgical History H/O breast implant H/O exploratory laparotomy History of surgery on arm Family History Family History Father Acute myocardial infarction, Onset Age: 79 Patient's father is Mother Family history of chronic obstructive pulmonary disease Patient's mother is Daughter Thyroid disease Social History Social History Social History: The patient lives with her . She has 3 children. She used to work for [employer] but does not draw a pension. 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 Her daughter and are the durable power dry cleaning machine operator Code status full code Smoking packs per day: 2 Smoking cigarettes per day: 40.0 Years smoked: 45 Smoking pack-years: 90.00 Smoking status: Former smoker Tobacco type: cigarettes Second hand tobacco smoke exposure: No Smoking end date: 07/29/09 Alcohol intake: former Substance use: former Substance use type: crack/cocaine Lack of Transportation: No Lack of Food: Never True Current Housing: I Have Housing Concerned About Future Housing: No Difficulty Paying Gas/Electric Bills: No Difficulty Paying for Meds: No Currently Unemployed: No Education: High School Diploma/GED Difficulty w/ Childcare or Family Care: No Living arrangements: with family Occupation/Education: retired Gender identity (if verbalized b
--- NOTE | 2023-09-22 19:59 | PC.NURSE ---
phlebotomy called for cultures
--- NOTE | 2023-09-22 20:49 | PC.NURSE ---
waiting on phlebotomy to draw cultures before starting blood cultures
--- NOTE | 2023-09-22 21:13 | ADMGEN ---
This patient, Sarah Lopez, was admitted to Medical Room 341-01. Patient/family oriented to hospital policies and general routines including ID bracelet, bed and alarms, visiting hours, pain management, procedures, bathroom and other care routines, personal items, smoking policy, room service/diet, and visiting hours. Information on how to activate the Rapid Response Team has been discussed. Patient/Family are encouraged to report perceived risks to care and to ask questions if they do not understand what they are told or what they should do.
[2023-09-22] MEDS: CEFEPIME 1 GM/NS 50 ML 1 GM/50 ML BAG IVPB (23:21)
[2023-09-23] VITALS (19 sets, daily range): BP systolic 98–110; BP diastolic 48–69; PULSE 104–139; RESP 18–24; TEMP 36.6–37; O2SAT 90–98
[2023-09-23] MEDS: AZITHROMYCIN 500 MG/NS 250 ML 500 MG/250 ML BAG 125 MG IVPB (00:17)
[2023-09-23] MEDS: IPRATROPIUM 0.5 MG/ALBUTEROL SULFATE 2.5 MG AMPUL.NEB 3 ML INHALATION ×4 (01:50→20:48)
--- NOTE | 2023-09-23 08:48 | PM.IMPN ---
Progress Note: A&P Assessment and Plan (1) Pneumonia: Qualifiers: Pneumonia type: due to unspecified organism Code(s): J18.9 - Pneumonia, unspecified organism Status: Acute Assessment and Plan: Multifocal pneumonia. Follow cultures. Cefepime 2 g IV Q 12 hours. Azithromycin 500 mg IV Q 24 hour 09/23 -Chest CT: IMPRESSION:Multifocal right middle and lower lobe consolidation concerning for pneumonia. Small right pleural effusion. Large hiatal hernia. Moderate esophagitis and mild gastritis. -Chest X-ray: IMPRESSION:Segmental right lower lung atelectasis/consolidation. Moderate interstitial edema -Patient admits to cough that is non productive -Per ID consult patient antibiotics addressed and converted as appropriate. Azithromycin 500mg PO/ day and continue Cefepime at 2gms IV q12hr. -O2 PRN for saturations >92% (2) Hyponatremia: Code(s): E87.1 - Hypo-osmolality and hyponatremia Status: Acute Assessment and Plan: Hyponatremia. Patient receive IV fluids in the emergency room. Follow BMP. 09/23 - Morning Labs: Na 131 - Patient has better PO intact with nausea subsided - Encourage PO intake and reassess in am (3) Chronic atrial fibrillation: Code(s): I48.20 - Chronic atrial fibrillation, unspecified Status: Acute Assessment and Plan: Chronic atrial fibrillation. Rate controlled. Continue Xarelto. Continue Cardizem. 09/23 -Patient HR 120 at time of assessment, denies pain, chest pain or discomfort. -Admitted she has not taken medication for few days due to nausea. -Medications continued this AM- Cardizem -Continue telemetry- notify provider on increased rate and rhythm (4) Essential hypertension: Code(s): I10 - Essential (primary) hypertension Status: Acute Assessment and Plan: 09/23 - Continue home medications (5) COPD (chronic obstructive pulmonary disease): Qualifiers: COPD type: unspecified COPD Qualified Code(s): J44.9 - Chronic obstructive pulmonary disease, unspecified Code(s): J44.9 - Chronic obstructive pulmonary disease, unspecified Status: Acute Assessment and Plan: COPD acute exacerbation. DuoNeb nebulizers p.r.n.. 09/23 -Continue home medications. -O2 PRN for saturations >92% Time Spent With Patient Time with patient: 15 - 25 minutes Subjective Date/time seen: 09/23/23 08:48 Interval history: Patient examined at bedside in interval assessment as she presented to ED with N/V/D and was admitted with diagnosis of pneumonia. Patient presents alert and oriented x4 she is sitting up in bed, with NC and 2L O2 at time of assessment, no acute distress noted at this time. She notes that she does not use O2 at home at baseline. She explained that she has had N/V/D for the last few days and a cough that has given her some muscle tenderness, no note of production or increased sputum. Of not patient has a hx of A-Fib. On assessment her HR was elevated to 120. She noted that she did not take her any of her medication for the last couple of days due to nausea, this includes her diltiazem. Restarted home medications as appropriate. She denies chest pain, pain, or increased respiratory effort, only notes that the O2 makes her feel more comfortable. WBC today decreased to 20.5, hemoglobin 12.7 hematocrit 40.6 platelet count 242. D-dimer was 0.42. Sodium was 131 potassium 4.0 chloride 109 carbon dioxide 19 BUN 14 creatinine 0.70. Blood cultures are pending. Per ID consult patient antibiotics addressed and converted as appropriate. Azithromycin 500mg PO/ day and continue Cefepime at 2gms IV q12hr. Nursing to make provider aware of HR over 120. Patient expresses good PO intake now that nausea is better, encourage PO intake and reassess lab values. Review of Systems Review of Systems: All systems reviewed & are unremarkable except as noted in HPI and below Exam Narrative: GENERAL: Well-appearing, well
[2023-09-23 09:17] LABS: Hematocrit 40.6 % (37.0-47.0); Hemoglobin 12.7 g/dL (12.0-15.0); Mean Corpuscular HGB Conc 31.3 g/dl (32-36); Mean Corpuscular Hemoglobin 30.5 pg (26-34); Mean Corpuscular Volume 97.4 fl (80-100); Mean Platelet Volume 10.7 fl (7.4-10.4); Platelet Count Result 242 k/mm3 (150-375); Red Blood Count 4.17 M/mm3 (4.2-5.4); Red Cell Distribution Width 13.5 % (11.5-14.5); White Blood Count 20.5 K/mm3 (4.5-10.0)
[2023-09-23 09:41] LABS: Alanine Aminotransferase 17 U/L (6-35); Albumin Level 3.5 g/dL (3.5-5.1); Alkaline Phosphatase 87 U/L (38-126); Anion Gap 5 mmol/L (8-16); Aspartate Amino Transferase 21 U/L (14-36); Bilirubin,Total 1.3 mg/dL (0.2-1.3); Blood Urea Nitrogen 14 mg/dL (7-17); Calcium 8.2 mg/dL (8.4-10.2); Carbon Dioxide 19 mmol/L (22-30); Chloride 107 mmol/L (98-107); Estimated CRCL calculation 67 ml/min; Estimated Glomerular Filt Rate > 60; Glucose 90 mg/dL (65-110); Sodium 131 mmol/L (137-145)
[2023-09-23] MEDS: ROFLUMILAST 500 MCG TABLET PO (10:09)
[2023-09-23] MEDS: CEFEPIME 1 GM/NS 50 ML 1 GM/50 ML BAG IVPB (10:09)
[2023-09-23] MEDS: MULTIVITAMINS THERAPEUTIC TAB (*BKC) 1 TABLET PO (10:09)
[2023-09-23] MEDS: RIVAROXABAN 20 MG TABLET PO (10:09)
[2023-09-23] MEDS: dilTIAZem HCL CD 180 MG CAP.24HR 360 MG PO (10:09)
[2023-09-23] MEDS: PANTOPRAZOLE 40 MG TABLET PO ×2 (10:09→21:06)
[2023-09-23] MEDS: SPIRONOLACTONE 25 MG TABLET PO (10:09)
[2023-09-23] MEDS: GABAPENTIN 300 MG CAPSULE PO (10:09)
[2023-09-23] MEDS: FUROSEMIDE 40 MG TABLET PO (10:09)
[2023-09-23] MEDS: CEFEPIME 2 GM/NS 50 ML 2 GM/50 ML BAG IVPB (18:38)
[2023-09-23] MEDS: MELATONIN 5 MG TABLET PO (21:06)
[2023-09-23] MEDS: AZITHROMYCIN 250 MG TABLET 500 MG PO (21:06)
[2023-09-24] VITALS (20 sets, daily range): BP systolic 101–108; BP diastolic 58–64; PULSE 67–113; RESP 16–22; TEMP 36.8–37.1; O2SAT 90–95
[2023-09-24] MEDS: IPRATROPIUM 0.5 MG/ALBUTEROL SULFATE 2.5 MG AMPUL.NEB 3 ML INHALATION ×4 (02:53→19:46)
[2023-09-24 05:49] LABS: Hematocrit 32.3 % (37.0-47.0); Hemoglobin 10.5 g/dL (12.0-15.0); Mean Corpuscular HGB Conc 32.5 g/dl (32-36); Mean Corpuscular Hemoglobin 30.9 pg (26-34); Mean Platelet Volume 10.6 fl (7.4-10.4); Platelet Count Result 207 k/mm3 (150-375); Red Cell Distribution Width 13.6 % (11.5-14.5); White Blood Count 14.5 K/mm3 (4.5-10.0)
[2023-09-24] MEDS: CEFEPIME 2 GM/NS 50 ML 2 GM/50 ML BAG IVPB ×2 (05:49→17:04)
[2023-09-24 06:00] LABS: Alanine Aminotransferase 14 U/L (6-35); Alkaline Phosphatase 83 U/L (38-126); Anion Gap 7 mmol/L (8-16); Aspartate Amino Transferase 21 U/L (14-36); Bilirubin,Total 1.1 mg/dL (0.2-1.3); Blood Urea Nitrogen 14 mg/dL (7-17); Calcium 8.1 mg/dL (8.4-10.2); Carbon Dioxide 18 mmol/L (22-30); Chloride 106 mmol/L (98-107); Estimated CRCL calculation 59 ml/min; Estimated Glomerular Filt Rate > 60; Glucose 118 mg/dL (65-110); Potassium 3.6 mmol/L (3.4-5.0); Sodium 131 mmol/L (137-145)
--- NOTE | 2023-09-24 08:28 | PM.IMPN ---
Progress Note: A&P Assessment and Plan (1) Pneumonia: Qualifiers: Pneumonia type: due to unspecified organism Code(s): J18.9 - Pneumonia, unspecified organism Status: Inactive Assessment and Plan: Multifocal pneumonia. Follow cultures. Cefepime 2 g IV Q 12 hours. Azithromycin 500 mg IV Q 24 hour 09/23 -Chest CT: IMPRESSION:Multifocal right middle and lower lobe consolidation concerning for pneumonia. Small right pleural effusion. Large hiatal hernia. Moderate esophagitis and mild gastritis. -Chest X-ray: IMPRESSION:Segmental right lower lung atelectasis/consolidation. Moderate interstitial edema -Patient admits to cough that is non productive -Per ID consult patient antibiotics addressed and converted as appropriate. Azithromycin 500mg PO/ day and continue Cefepime at 2gms IV q12hr. -O2 PRN for saturations >92% 09/24 -Lungs better today- Expiratory wheeze noted in posterior right -Cough now productive- thick dark blood tinged. - Pulmonology consulted for concern- note to Hold Xarelto for 2-3 days to ensure bleeding stops. - on O2 at 1L- weaned appropriately and continue to room air - Continue abx (2) Hyponatremia: Code(s): E87.1 - Hypo-osmolality and hyponatremia Status: Acute Assessment and Plan: Hyponatremia. Patient receive IV fluids in the emergency room. Follow BMP. 09/23 - Morning Labs: Na 131 - Patient has better PO intact with nausea subsided - Encourage PO intake and reassess in am 09/24 - Na 131 - Patient encouraged PO fluid intake (3) Chronic atrial fibrillation: Code(s): I48.20 - Chronic atrial fibrillation, unspecified Status: Acute Assessment and Plan: Chronic atrial fibrillation. Rate controlled. Continue Xarelto. Continue Cardizem. 09/23 -Patient HR 120 at time of assessment, denies pain, chest pain or discomfort. -Admitted she has not taken medication for few days due to nausea. -Medications continued this AM- Cardizem -Continue telemetry- notify provider on increased rate and rhythm 09/23 - HR low 100s today - denies pain, chest pain or discomfort. - has recieved 2 doses of her home PO cardizem - Continue telemetry (4) Essential hypertension: Code(s): I10 - Essential (primary) hypertension Status: Acute Assessment and Plan: 09/23 - Continue home medications 09/24 - AM BP 108/61 - Continue current medications (5) COPD (chronic obstructive pulmonary disease): Qualifiers: COPD type: unspecified COPD Qualified Code(s): J44.9 - Chronic obstructive pulmonary disease, unspecified Code(s): J44.9 - Chronic obstructive pulmonary disease, unspecified Status: Inactive Assessment and Plan: COPD acute exacerbation. DuoNeb nebulizers p.r.n.. 09/23 -Continue home medications. -O2 PRN for saturations >92% 09/24 - Respiratory status improved - Pulmonolgy consulted for blood tinged sputum production- Hold Xarleto 2-3 days and montior - Should obtain home CPAP while admitted per pulmonology - Continue to wean to RA Time Spent With Patient Time with patient: 15 - 25 minutes Subjective Date/time seen: 09/24/23 08:28 Interval history: 09/23/23 08:48 Interval history: Patient examined at bedside in interval assessment as she presented to ED with N/V/D and was admitted with diagnosis of pneumonia. Patient presents alert and oriented x4 she is sitting up in bed, with NC and 2L O2 at time of assessment, no acute distress noted at this time. She notes that she does not use O2 at home at baseline. She explained that she has had N/V/D for the last few days and a cough that has given her some muscle tenderness, no note of production or increased sputum. Of not patient has a hx of A-Fib. On assessment her HR was elevated to 120. She noted that she did not take her any of her medication for the last couple of days due to nausea, this includes her diltiazem. Restarted home medications as appro
[2023-09-24] MEDS: FUROSEMIDE 40 MG TABLET PO (08:38)
[2023-09-24] MEDS: MULTIVITAMINS THERAPEUTIC TAB (*BKC) 1 TABLET PO (08:38)
[2023-09-24] MEDS: ROFLUMILAST 500 MCG TABLET PO (08:38)
[2023-09-24] MEDS: SPIRONOLACTONE 25 MG TABLET PO (08:38)
[2023-09-24] MEDS: RIVAROXABAN 20 MG TABLET PO (08:39)
[2023-09-24] MEDS: PANTOPRAZOLE 40 MG TABLET PO ×2 (08:39→20:28)
[2023-09-24] MEDS: dilTIAZem HCL CD 180 MG CAP.24HR 360 MG PO (08:39)
[2023-09-24] MEDS: GABAPENTIN 300 MG CAPSULE PO (08:39)
--- NOTE | 2023-09-24 12:24 | PCCCNOTE ---
On 09/24/23, the student, [Rosalia Hallman ], provided care and completed [facility] documentation on this patient. I have reviewed the student's documentation and agree with the findings.
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
[2023-09-24] MEDS: MELATONIN 5 MG TABLET PO (20:28)
[2023-09-24] MEDS: AZITHROMYCIN 250 MG TABLET 500 MG PO (20:28)
[2023-09-25] VITALS (19 sets, daily range): BP systolic 110–115; BP diastolic 56–68; PULSE 91–110; RESP 16–20; TEMP 36.2–36.6; O2SAT 93–97
[2023-09-25] MEDS: IPRATROPIUM 0.5 MG/ALBUTEROL SULFATE 2.5 MG AMPUL.NEB 3 ML INHALATION ×4 (02:04→20:00)
[2023-09-25] MEDS: CEFEPIME 2 GM/NS 50 ML 2 GM/50 ML BAG IVPB ×2 (05:46→18:01)
[2023-09-25] MEDS: GABAPENTIN 300 MG CAPSULE PO (08:49)
[2023-09-25] MEDS: ROFLUMILAST 500 MCG TABLET PO (08:49)
[2023-09-25] MEDS: dilTIAZem HCL CD 180 MG CAP.24HR 360 MG PO (08:50)
[2023-09-25] MEDS: SPIRONOLACTONE 25 MG TABLET PO (08:50)
[2023-09-25] MEDS: MULTIVITAMINS THERAPEUTIC TAB (*BKC) 1 TABLET PO (08:50)
[2023-09-25] MEDS: FUROSEMIDE 40 MG TABLET PO (08:50)
[2023-09-25] MEDS: PANTOPRAZOLE 40 MG TABLET PO ×2 (08:50→19:59)
--- NOTE | 2023-09-25 10:33 | PM.PNPUL ---
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 She has been diagnosed with right-sided pneumonia and is currently on antibiotic treatment. The patient's respiratory condition appears to be improving with the current regimen of cefepime and Zithromax. WBC trending down. No hemoptysis over the last day. Patient used hospital BiPAP support last night. Her will bring her own machine today. Plan: Continue with current regimen, out of bed to chair. (3) LITO on CPAP: Code(s): G47.33 - Obstructive sleep apnea (adult) (pediatric); Z99.89 - Dependence on other enabling machines and devices Status: Acute (4) Chronic atrial fibrillation: Code(s): I48.20 - Chronic atrial fibrillation, unspecified Status: Acute Subjective Date/time seen: 09/25/23 10:33 Interval history: Patient has no new respiratory symptoms. She feels better. No further hemoptysis. Afebrile Review of Systems Review of Systems: All systems reviewed & are unremarkable except as noted in HPI and below (HPI and below) Exam Narrative: GENERAL APPEARANCE: Well developed, well nourished, alert and cooperative, and appears to be in no acute distress while on supplemental oxygen SKIN: Inspection of the skin reveals no rashes, ulcerations or petechiae. HEENT: Sclerae anicteric and conjunctivae pink and moist. Extraocular movements were intact and pupils were equal, round, and reactive to light. The oral mucosa, hard and soft palate, tongue and posterior pharynx were normal. NECK: Supple. There was no thyroid enlargement, and no tenderness, or masses were felt. CHEST: Normal AP diameter and normal contour without any kyphoscoliosis. LUNGS: Crackles at right base posteriorly otherwise distant lungs with no wheezing CARDIAC: Irregular heart rate and rhythm no murmurs normal heart sounds ABDOMEN: Soft and nontender with normal bowel sounds. There was no organomegaly. LYMPH NODES: No lymphadenopathy was appreciated in the neck. EXTREMITIES: No cyanosis, clubbing or edema. 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 Normal affect. Objective Data Vital Signs Vital Signs: Vital Signs - 24 hr 09/24/23 12:00 09/24/23 14:00 09/24/23 14:18 Temperature 37.1 C Pulse Rate 104 H 67 101 H Respiratory Rate 22 H 20 Blood Pressure 101/58 L Pulse Oximetry 91 Oxygen Delivery Oxygen Flow Rate 09/24/23 14:30 09/24/23 16:00 09/24/23 19:48 Temperature Pulse Rate 104 H 106 H Respiratory Rate 20 Blood Pressure Pulse Oximetry 91 Oxygen Delivery Nasal Cannula Oxygen Flow Rate 2 09/24/23 19:49 09/24/23 20:00 09/24/23 20:00 Temperature Pulse Rate 105 H 107 H Respiratory Rate 22 H Blood Pressure Pulse Oximetry 95 Oxygen Delivery Nasal Cannula Oxygen Flow Rate 1 09/24/23 19:58 09/24/23 22:00 09/25/23 00:00 Temperature 36.8 C Pulse Rate 109 H 113 H 91 Respiratory Rate 22 H 16 Blood Pressure 108/64 Pulse Oximetry 93 Oxygen Delivery Oxygen Flow Rate 09/25/23 02:06 09/25/23 04:00 09/25/23 06:22 Temperature Pulse Rate 103 H 99 104 H Respiratory Rate 20 20 Blood Pressure Pulse Oximetry Oxygen Delivery Oxygen Flow Rate 09/25/23 06:00 09/25/23 08:00 09/25/23 09:19 Temperature 36.2 C L Pulse Rate 92 102 H Respiratory Rate 16 20 20 Blood Pressure 110/68 Pulse Oximetry 94 93 Oxygen Delivery Nasal Cannula Oxygen Flow Rate 1 09/25/23 09:22 02/
--- NOTE | 2023-09-25 15:19 | PM.IMPN ---
Progress Note: A&P Assessment and Plan (1) Pneumonia: Qualifiers: Pneumonia type: due to unspecified organism Code(s): J18.9 - Pneumonia, unspecified organism Status: Inactive Assessment and Plan: Chest CT: Multifocal right middle and lower lobe consolidation concerning for pneumonia. Small right pleural effusion. Large hiatal hernia. Moderate esophagitis and mild gastritis. -Chest X-ray: IMPRESSION:Segmental right lower lung atelectasis/consolidation. Moderate interstitial edema -Per ID consult patient antibiotics addressed and converted as appropriate. Azithromycin 500mg PO/ day and continue Cefepime at 2gms IV q12hr. -Patient currently requiring 2 L of O2. Wean to maintain saturations greater than 90%. -Cough now productive- thick dark blood tinged. -Pulmonology consulted for concern- note to Hold Xarelto for 2-3 days to ensure bleeding stops. (2) Chronic atrial fibrillation: Code(s): I48.20 - Chronic atrial fibrillation, unspecified Status: Acute Assessment and Plan: Chronic atrial fibrillation. Rate controlled. Continue Cardizem. Eliquis on hold due to hemoptysis Continue telemetry monitoring (3) Essential hypertension: Code(s): I10 - Essential (primary) hypertension Status: Acute Assessment and Plan: continue home medications (4) COPD (chronic obstructive pulmonary disease): Qualifiers: COPD type: unspecified COPD Qualified Code(s): J44.9 - Chronic obstructive pulmonary disease, unspecified Code(s): J44.9 - Chronic obstructive pulmonary disease, unspecified Status: Inactive Assessment and Plan: COPD acute exacerbation. DuoNeb nebulizers p.r.n.. -Continue home medications. - Pulmonolgy consulted for blood tinged sputum production- Hold Xarleto 2-3 days and monitor - Should obtain home CPAP while admitted per pulmonology - Continue to wean to RA Subjective Date/time seen: 09/25/23 15:19 Interval history: Patient states that she is feeling better today. Her cough is less intense and states that she has not had as much hemoptysis today as yesterday. She denies any chest pain with coughing. She is still having shortness of breath that is above baseline but this has improved during hospital stay. She is short of breath at baseline. She is getting her prosthetic leg today from her and will be able to ambulate freely now. Exam Narrative: GENERAL: Comfortable, no acute distress HENMT: moist mucous membranes EYES: EOM intact b/l NECK: no lymphadenopathy RESPIRATORY: Diffuse wheezing and bibasilar crackles CARDIO: RRR GI: soft, nontender, bowel sounds present SKIN: no rashes EXTREMITIES: no edema, redness or tenderness Objective Data Vital Signs Vital Signs: Vital Signs - 24 hr 09/24/23 16:00 09/24/23 19:48 09/24/23 19:49 Temperature Pulse Rate 106 H 105 H Respiratory Rate 22 H Blood Pressure Pulse Oximetry 91 Oxygen Delivery Nasal Cannula Oxygen Flow Rate 2 09/24/23 20:00 09/24/23 20:00 09/24/23 19:58 Temperature Pulse Rate 107 H 109 H Respiratory Rate 22 H Blood Pressure Pulse Oximetry 95 Oxygen Delivery Nasal Cannula Oxygen Flow Rate 1 09/24/23 22:00 09/25/23 00:00 09/25/23 02:06 Temperature 98.3 F Pulse Rate 113 H 91 103 H Respiratory Rate 16 20 Blood Pressure 108/64 Pulse Oximetry 93 Oxygen Delivery Oxygen Flow Rate 09/25/23 04:00 09/25/23 06:22 09/25/23 06:00 Temperature 97.1 F L Pulse Rate 99 104 H 92 Respiratory Rate 20 16 Blood Pressure 110/68 Pulse Oximetry 94 Oxygen Delivery Oxygen Flow Rate 09/25/23 08:00 09/25/23 09:19 09/25/23 09:22 Temperature Pulse Rate 102 H Respiratory Rate 20 20 Blood Pressure Pulse Oximetry 93 93 Oxygen Delivery Nasal Cannula Nasal Cannula Oxygen Flow Rate 1 2 09/25/23 09:34 09/25/23 08:00 09/25/23 12:00 Tempera
[2023-09-25] MEDS: AZITHROMYCIN 250 MG TABLET 500 MG PO (19:59)
[2023-09-25] MEDS: MELATONIN 5 MG TABLET PO (20:00)
[2023-09-26] VITALS (18 sets, daily range): BP systolic 108–120; BP diastolic 60–73; PULSE 93–116; RESP 18–22; TEMP 36.1–36.8; O2SAT 93–97
[2023-09-26] MEDS: IPRATROPIUM 0.5 MG/ALBUTEROL SULFATE 2.5 MG AMPUL.NEB 3 ML INHALATION ×4 (02:05→21:19)
[2023-09-26 02:19] LABS: Legionella pneumophila Ag Ur Not Detected (Not Detected)
[2023-09-26] MEDS: CEFEPIME 2 GM/NS 50 ML 2 GM/50 ML BAG IVPB ×2 (05:17→17:19)
[2023-09-26 06:15] LABS: Hematocrit 33.8 % (37.0-47.0); Hemoglobin 11.2 g/dL (12.0-15.0); Mean Corpuscular HGB Conc 33.1 g/dl (32-36); Mean Corpuscular Hemoglobin 30.7 pg (26-34); Mean Corpuscular Volume 92.6 fl (80-100); Mean Platelet Volume 10.8 fl (7.4-10.4); Platelet Count Result 281 k/mm3 (150-375); Red Blood Count 3.65 M/mm3 (4.2-5.4); Red Cell Distribution Width 13.2 % (11.5-14.5); White Blood Count 9.6 K/mm3 (4.5-10.0)
[2023-09-26 06:22] LABS: Alanine Aminotransferase 19 U/L (6-35); Albumin Level 3.4 g/dL (3.5-5.1); Alkaline Phosphatase 84 U/L (38-126); Anion Gap 5 mmol/L (8-16); Aspartate Amino Transferase 24 U/L (14-36); Bilirubin,Total 1.1 mg/dL (0.2-1.3); Blood Urea Nitrogen 10 mg/dL (7-17); Calcium 8.7 mg/dL (8.4-10.2); Carbon Dioxide 22 mmol/L (22-30); Chloride 103 mmol/L (98-107); Estimated CRCL calculation 67 ml/min; Estimated Glomerular Filt Rate > 60; Glucose 109 mg/dL (65-110); Potassium 3.3 mmol/L (3.4-5.0); Sodium 130 mmol/L (137-145)
[2023-09-26] MEDS: ROFLUMILAST 500 MCG TABLET PO (08:20)
[2023-09-26] MEDS: MULTIVITAMINS THERAPEUTIC TAB (*BKC) 1 TABLET PO (08:20)
[2023-09-26] MEDS: SPIRONOLACTONE 25 MG TABLET PO (08:20)
[2023-09-26] MEDS: FUROSEMIDE 40 MG TABLET PO (08:21)
[2023-09-26] MEDS: PANTOPRAZOLE 40 MG TABLET PO ×2 (08:21→19:53)
[2023-09-26] MEDS: dilTIAZem HCL CD 180 MG CAP.24HR 360 MG PO (08:21)
[2023-09-26] MEDS: GABAPENTIN 300 MG CAPSULE PO (08:21)
--- NOTE | 2023-09-26 08:56 | PM.PNPUL ---
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 She has been diagnosed with right-sided pneumonia and is currently on antibiotic treatment. The patient's respiratory condition appears to be improving with the current regimen of cefepime and Zithromax. WBC trending down. No hemoptysis over the last 2 days. Patient used her own CPAP machine last night. Currently on room air. On physical exam, has rhonchi. Chest congestion persists. Plan: Continue with current regimen, out of bed to chair. Resume direct anticoagulant for AFib. Given the chest congestion I added prednisone 40 mg daily. Will follow along with you. (3) LITO on CPAP: Code(s): G47.33 - Obstructive sleep apnea (adult) (pediatric); Z99.89 - Dependence on other enabling machines and devices Status: Acute (4) Chronic atrial fibrillation: Code(s): I48.20 - Chronic atrial fibrillation, unspecified Status: Acute Subjective Date/time seen: 09/26/23 08:56 Interval history: Patient stated she feels better but continues to have chest congestion cough. She has no wheezing or fever. Currently on room air. Used to own CPAP machine last night. Review of Systems Review of Systems: All systems reviewed & are unremarkable except as noted in HPI and below (HPI and below) Exam Narrative: GENERAL APPEARANCE: Well developed, well nourished, alert and cooperative, and appears to be in no acute distress while on supplemental oxygen SKIN: Inspection of the skin reveals no rashes, ulcerations or petechiae. HEENT: Sclerae anicteric and conjunctivae pink and moist. Extraocular movements were intact and pupils were equal, round, and reactive to light. The oral mucosa, hard and soft palate, tongue and posterior pharynx were normal. NECK: Supple. There was no thyroid enlargement, and no tenderness, or masses were felt. CHEST: Normal AP diameter and normal contour without any kyphoscoliosis. LUNGS: Crackles at right base posteriorly otherwise distant lungs with no wheezing CARDIAC: Irregular heart rate and rhythm no murmurs normal heart sounds ABDOMEN: Soft and nontender with normal bowel sounds. There was no organomegaly. LYMPH NODES: No lymphadenopathy was appreciated in the neck. EXTREMITIES: No cyanosis, clubbing or edema. 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 Normal affect. Objective Data Vital Signs Vital Signs: Vital Signs - 24 hr 09/25/23 09:19 09/25/23 09:22 09/25/23 09:34 Temperature Pulse Rate 102 H 103 H Respiratory Rate 20 20 Blood Pressure Pulse Oximetry 93 Oxygen Delivery Nasal Cannula Oxygen Flow Rate 2 Fraction of Inspired Oxygen 09/25/23 12:00 09/25/23 13:25 09/25/23 13:31 Temperature Pulse Rate 110 H 104 H 91 Respiratory Rate 20 20 Blood Pressure Pulse Oximetry Oxygen Delivery Oxygen Flow Rate Fraction of Inspired Oxygen 09/25/23 14:00 09/25/23 16:00 09/25/23 20:00 Temperature 36.4 C Pulse Rate 98 98 99 Respiratory Rate 16 20 Blood Pressure 115/61 Pulse Oximetry 97 Oxygen Delivery Oxygen Flow Rate Fraction of Inspired Oxygen 09/25/23 20:07 09/25/23 20:10 09/25/23 20:00 Temperature Pulse Rate 99 95 103 H Respiratory Rate 20 Blood Pressure Pulse Oximetry 93 Oxygen Delivery Room Air Oxygen Flow Rate Fraction of Inspired Oxygen 09/25/23 20:00 09/25/23 21:25 09/26/23 00:00 Temperature 36.6 C Pulse Rate 99 94 Respiratory Rate 20
--- NOTE | 2023-09-26 13:03 | PM.IMPN ---
Progress Note: A&P Assessment and Plan (1) Pneumonia: Qualifiers: Pneumonia type: due to unspecified organism Code(s): J18.9 - Pneumonia, unspecified organism Status: Inactive Assessment and Plan: Chest CT: Multifocal right middle and lower lobe consolidation concerning for pneumonia. Small right pleural effusion. Large hiatal hernia. Moderate esophagitis and mild gastritis. -Chest X-ray: IMPRESSION:Segmental right lower lung atelectasis/consolidation. Moderate interstitial edema -Per ID consult patient antibiotics addressed and converted as appropriate. Azithromycin 500mg PO/ day and continue Cefepime at 2gms IV q12hr. -Patient currently requiring 2 L of O2. Wean to maintain saturations greater than 90%. -Cough now productive- thick dark blood tinged. -Pulmonology consulted for concern- note to Hold Xarelto for 2-3 days to ensure bleeding stops. -Hemoptysis resolved (2) Chronic atrial fibrillation: Code(s): I48.20 - Chronic atrial fibrillation, unspecified Status: Acute Assessment and Plan: Chronic atrial fibrillation. Rate controlled. Continue Cardizem. Eliquis on hold due to hemoptysis Continue telemetry monitoring (3) Essential hypertension: Code(s): I10 - Essential (primary) hypertension Status: Acute Assessment and Plan: continue home medications (4) COPD (chronic obstructive pulmonary disease): Qualifiers: COPD type: unspecified COPD Qualified Code(s): J44.9 - Chronic obstructive pulmonary disease, unspecified Code(s): J44.9 - Chronic obstructive pulmonary disease, unspecified Status: Inactive Assessment and Plan: COPD acute exacerbation. DuoNeb nebulizers p.r.n.. - Continue home medications. - Pulmonology consulted for blood tinged sputum production- Hold Xarleto 2-3 days and monitor - Should obtain home CPAP while admitted per pulmonology - Continue to wean to RA Subjective Date/time seen: 09/26/23 13:03 Interval history: Patient sitting up in bed and feeling well today. Patient had been ambulating around the room after she got her per ceases on. She does feel more weak than normal. She does have some shortness of breath with ambulation that is slightly above her baseline. She is no longer having any hemoptysis. She is still having a productive cough and continues to use incentive spirometry. Exam Narrative: GENERAL: Comfortable, no acute distress HENMT: moist mucous membranes EYES: EOM intact b/l NECK: no lymphadenopathy RESPIRATORY: Diffuse wheezing and bibasilar crackles - improved CARDIO: RRR GI: soft, nontender, bowel sounds present SKIN: no rashes EXTREMITIES: no edema, redness or tenderness Objective Data Vital Signs Vital Signs: Vital Signs - 24 hr 09/25/23 13:25 09/25/23 13:31 09/25/23 14:00 Temperature 97.6 F Pulse Rate 104 H 91 98 Respiratory Rate 20 20 16 Blood Pressure 115/61 Pulse Oximetry 97 Oxygen Delivery Fraction of Inspired Oxygen 09/25/23 16:00 09/25/23 20:00 09/25/23 20:07 Temperature Pulse Rate 98 99 99 Respiratory Rate 20 Blood Pressure Pulse Oximetry 93 Oxygen Delivery Room Air Fraction of Inspired Oxygen 09/25/23 20:10 09/25/23 20:00 09/25/23 20:00 Temperature Pulse Rate 95 103 H Respiratory Rate 20 Blood Pressure Pulse Oximetry 93 Oxygen Delivery Room Air Fraction of Inspired Oxygen 09/25/23 21:25 09/26/23 00:00 09/26/23 02:05 Temperature 97.8 F Pulse Rate 99 94 107 H Respiratory Rate 20 20 Blood Pressure 113/56 L Pulse Oximetry 93 Oxygen Delivery Fraction of Inspired Oxygen 09/25/23 22:30 09/26/23 02:18 09/26/23 02:18 Temperature Pulse Rate 98 107 H 99 Respiratory Rate 20 Blood Pressure Pulse Oximetry 93 93 Oxygen Delivery CPAP CPAP Fraction of Inspired Oxygen 09/26/23 04:00 09/26/23 05:17 09/26/23 07:38 Temper
[2023-09-26] MEDS: RIVAROXABAN 20 MG TABLET PO (13:35)
[2023-09-26] MEDS: predniSONE 20 MG TABLET 40 MG PO (13:35)
[2023-09-26] MEDS: POTASSIUM CHLORIDE 20 MEQ ER TABLET 40 MEQ PO (13:36)
[2023-09-26] MEDS: AZITHROMYCIN 250 MG TABLET 500 MG PO (19:53)
[2023-09-26] MEDS: MELATONIN 5 MG TABLET PO ×2 (19:53→20:26)
[2023-09-27] VITALS (8 sets, daily range): BP systolic 119; BP diastolic 66; PULSE 97–130; RESP 18–20; TEMP 36.1; O2SAT 95–97
[2023-09-27] MEDS: IPRATROPIUM 0.5 MG/ALBUTEROL SULFATE 2.5 MG AMPUL.NEB 3 ML INHALATION ×2 (01:48→08:06)
[2023-09-27 06:01] LABS: Hemoglobin 11.4 g/dL (12.0-15.0); Mean Corpuscular HGB Conc 32.6 g/dl (32-36); Mean Corpuscular Hemoglobin 30.2 pg (26-34); Mean Corpuscular Volume 92.6 fl (80-100); Mean Platelet Volume 10.5 fl (7.4-10.4); Platelet Count Result 339 k/mm3 (150-375); Red Blood Count 3.78 M/mm3 (4.2-5.4); Red Cell Distribution Width 13.4 % (11.5-14.5); White Blood Count 9.1 K/mm3 (4.5-10.0)
[2023-09-27 06:24] LABS: Alanine Aminotransferase 23 U/L (6-35); Albumin Level 3.6 g/dL (3.5-5.1); Alkaline Phosphatase 91 U/L (38-126); Anion Gap 5 mmol/L (8-16); Aspartate Amino Transferase 21 U/L (14-36); Bilirubin,Total 0.7 mg/dL (0.2-1.3); Blood Urea Nitrogen 12 mg/dL (7-17); Calcium 9.2 mg/dL (8.4-10.2); Carbon Dioxide 22 mmol/L (22-30); Chloride 106 mmol/L (98-107); Estimated CRCL calculation 67 ml/min; Estimated Glomerular Filt Rate > 60; Glucose 174 mg/dL (65-110); Potassium 3.8 mmol/L (3.4-5.0); Sodium 133 mmol/L (137-145)
[2023-09-27] MEDS: GABAPENTIN 300 MG CAPSULE PO (08:39)
[2023-09-27] MEDS: SPIRONOLACTONE 25 MG TABLET PO (08:39)
[2023-09-27] MEDS: dilTIAZem HCL CD 180 MG CAP.24HR 360 MG PO (08:39)
[2023-09-27] MEDS: levoFLOXacin 750 MG TABLET PO (08:39)
[2023-09-27] MEDS: predniSONE 20 MG TABLET 40 MG PO (08:39)
[2023-09-27] MEDS: PANTOPRAZOLE 40 MG TABLET PO (08:39)
[2023-09-27] MEDS: RIVAROXABAN 20 MG TABLET PO (08:39)
[2023-09-27] MEDS: FUROSEMIDE 40 MG TABLET PO (08:39)
[2023-09-27] MEDS: ROFLUMILAST 500 MCG TABLET PO (08:39)
[2023-09-27] MEDS: MULTIVITAMINS THERAPEUTIC TAB (*BKC) 1 TABLET PO (08:41)
--- NOTE | 2023-09-27 09:49 | PM.PNPUL ---
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 She has been diagnosed with right-sided pneumonia and is currently on antibiotic treatment. The patient's respiratory condition appears to be improving with the current regimen. WBC trending down. No hemoptysis over the last 3 days. Patient used her own CPAP machine last night. Currently on room air. On physical exam, has rhonchi. Plan: Okay to discharge patient home on levofloxacin 750 mg daily for 5 days, prednisone 40 mg for 2 days, then prednisone 30 mg for 2 days, then prednisone 20 mg for 2 days, then prednisone 10 mg for 2 days then stop. Patient will continue with her maintenance bronchodilator Trelegy, short-acting bronchodilators p.r.n. use as well as her CPAP for sleep apnea. Patient needs to follow-up with her furniture delivery driver in approximately 3-4 weeks. Will sign off please call with any questions. (3) LITO on CPAP: Code(s): G47.33 - Obstructive sleep apnea (adult) (pediatric); Z99.89 - Dependence on other enabling machines and devices Status: Acute (4) Chronic atrial fibrillation: Code(s): I48.20 - Chronic atrial fibrillation, unspecified Status: Acute Subjective Date/time seen: 09/27/23 09:49 Interval history: Patient is still coughing but overall doing better. Afebrile. Eager to go home. Review of Systems Review of Systems: All systems reviewed & are unremarkable except as noted in HPI and below (HPI and below) Exam Narrative: GENERAL APPEARANCE: Well developed, well nourished, alert and cooperative, and appears to be in no acute distress while on supplemental oxygen SKIN: Inspection of the skin reveals no rashes, ulcerations or petechiae. HEENT: Sclerae anicteric and conjunctivae pink and moist. Extraocular movements were intact and pupils were equal, round, and reactive to light. The oral mucosa, hard and soft palate, tongue and posterior pharynx were normal. NECK: Supple. There was no thyroid enlargement, and no tenderness, or masses were felt. CHEST: Normal AP diameter and normal contour without any kyphoscoliosis. LUNGS: Crackles at right base posteriorly otherwise distant lungs with no wheezing CARDIAC: Irregular heart rate and rhythm no murmurs normal heart sounds ABDOMEN: Soft and nontender with normal bowel sounds. There was no organomegaly. LYMPH NODES: No lymphadenopathy was appreciated in the neck. EXTREMITIES: No cyanosis, clubbing or edema. 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 Normal affect. Objective Data Vital Signs Vital Signs: Vital Signs - 24 hr 09/26/23 11:40 09/26/23 13:10 09/26/23 13:17 Temperature Pulse Rate 104 H 112 H Respiratory Rate 20 20 Blood Pressure Pulse Oximetry Oxygen Delivery Room Air 09/26/23 14:00 09/26/23 12:00 09/26/23 16:00 Temperature 36.8 C Pulse Rate 114 H 103 H 111 H Respiratory Rate 18 Blood Pressure 120/73 Pulse Oximetry 97 Oxygen Delivery 09/26/23 20:00 09/26/23 20:00 09/26/23 20:24 Temperature 36.1 C L Pulse Rate 97 105 H Respiratory Rate 20 Blood Pressure 110/72 Pulse Oximetry 93 93 Oxygen Delivery Room Air 09/26/23 21:20 09/26/23 21:20 09/26/23 21:23 Temperature Pulse Rate 110 H Respiratory Rate 22 H Blood Pressure Pulse Oximetry 96 96 Oxygen Delivery Room Air 09/27/23 00:00 09/27/23 00:00 09/27/23 01:49 Temperature Pulse Rate 97 105 H 108 H Respiratory Rate 18 Blood Pressure Pulse Ox
--- NOTE | 2023-09-27 12:19 | PM.DS ---
DS: Admitting Diagnosis Discharge Date 09/27/23 Admitting Diagnosis pneumonia DS: Discharge Diagnosis Discharge Diagnosis (1) Pneumonia: Qualifiers: Pneumonia type: due to unspecified organism Code(s): J18.9 - Pneumonia, unspecified organism Status: Inactive (2) Chronic atrial fibrillation: Code(s): I48.20 - Chronic atrial fibrillation, unspecified Status: Acute (3) Essential hypertension: Code(s): I10 - Essential (primary) hypertension Status: Acute (4) COPD (chronic obstructive pulmonary disease): Qualifiers: COPD type: unspecified COPD Qualified Code(s): J44.9 - Chronic obstructive pulmonary disease, unspecified Code(s): J44.9 - Chronic obstructive pulmonary disease, unspecified Status: Inactive DS: Summary Hospital Course Hospital Course: This is a 72-year-old female patient with a past medical history of chronic atrial fibrillation chronic hypertension good hyperparathyroidism osteoarthritis who came to the Emergency in complaining of nausea vomiting and diarrhea for 1 day.? Patient also complains of cough about him 1 month cough is dry.? Complains of chills.?CBC showed WBC count of 26.2 hemoglobin 13.8 hematocrit 22.9 platelet count 304.? D-dimer was 0.42.? Sodium was 130 potassium 4.7 chloride 99 carbon dioxide 23 BUN 23 creatinine 0.90.? Urinalysis no pyuria no bacteriuria.? Influenza COVID and RSV negative.? CT chest showed multifocal right middle and lower lobe consolidation concerning for pneumonia small right pleural effusion.? Large hiatal hernia moderate esophagitis and mild gastritis.? Chest x-ray showed segmental right lower lung atelectasis/consolidation.? Moderate interstitial edema.? Patient was given IV Cefepime and IV azithromycin in the emergency room. patient developed some hemoptysis resulting in pulmonology being consulted. Her Eliquis was held due to this. Patient also received steroids due to her COPD exacerbation as well as DuoNebs. Patient improved over the next several days. Her antibiotics were eventually transition to p.o. antibiotics. Pulmonology cleared patient for discharge. Time Spent with Patient Time attestation: Total time spent providing and/or coordinating discharge services: Exam Narrative: GENERAL: Comfortable, no acute distress HENMT: moist mucous membranes EYES: EOM intact b/l NECK: no lymphadenopathy RESPIRATORY: minimal wheezing - improved CARDIO: RRR GI: soft, nontender, bowel sounds present SKIN: no rashes EXTREMITIES: no edema, redness or tenderness DS: Data Data Completed and Pending Labs on day of discharge: Labs from last 24 hours 09/27/23 05:15 WBC 9.1 RBC 3.78 L Hgb 11.4 L Hct 35.0 L MCV 92.6 MCH 30.2 MCHC 32.6 RDW 13.4 Plt Count 339 MPV 10.5 H Sodium 133 L Potassium 3.8 Chloride 106 Carbon Dioxide 22 Anion Gap 5 L BUN 12 Creatinine 0.70 Estim Creat Clear Calc 67 Estimated GFR > 60 Glucose 174 H Calcium 9.2 Total Bilirubin 0.7 AST 21 ALT 23 Alkaline Phosphatase 91 Total Protein 7.0 Albumin 3.6 Preliminary micro results at discharge 09/22/23 22:12 Blood Culture - Preliminary Blood 09/22/23 22:12 Blood Culture - Preliminary Blood Discharge Plan Discharge Attending physician on discharge: Neo Barragan Consulting providers: Sherley Hi; Chase Briseno Discharging Clinician: Claire Adams Patient Disposition: Home, Self-Care Activity: as tolerated Diet: regular Discharge Instructions: Medications: Levofloxacin 750 mg daily for 5 days Prednisone 40 mg for 2 days, then prednisone 30 mg for 2 days, then prednisone 20 mg for 2 days, then prednisone 10 mg for 2 days then stop.? Emphysema exacerbation prevention: -Smoking cessation is pertinent -Avoid irritants such as dust or chemicals -Seek treatment when symptoms worsen -Exercising daily can help decrease breathing problems -Use purs
--- NOTE | 2023-09-27 15:03 | PCCCNOTE ---
On 09/27/23, the student, Rosalia Hallman, provided care and completed [facility] documentation on this patient. I have reviewed the student's documentation and agree with the findings.
== END 2023-09-27 13:00 | disposition home or self-care (01) | DRG 194 ==
LOC: ANHED 17:01 → ANH3MEDSUR 20:28 → ANH3MED 21:11
PROVIDERS: Nurse Practitioner Family; Admitting Provider Internal Medicine Infectious Disease; Emergency Provider Student in an Organized Health Care Education/Training Program; PCP Family Medicine; Visit Provider Internal Medicine Critical Care Medicine
DX: J18.9 Pneumonia, unspecified organism (principal); D68.32 Hemorrhagic disorder due to extrinsic circulating anticoagulants; R04.2 Hemoptysis; E87.1 Hypo-osmolality and hyponatremia; I48.20 Chronic atrial fibrillation, unspecified; J44.0 Chronic obstructive pulmonary disease with (acute) lower respiratory infection; J44.1 Chronic obstructive pulmonary disease with (acute) exacerbation; M70.71 Other bursitis of hip, right hip; D72.828 Other elevated white blood cell count; K21.9 Gastro-esophageal reflux disease without esophagitis; E21.3 Hyperparathyroidism, unspecified; I10 Essential (primary) hypertension; D50.9 Iron deficiency anemia, unspecified; G47.33 Obstructive sleep apnea (adult) (pediatric); Z20.822 Contact with and (suspected) exposure to COVID-19; Z79.01 Long term (current) use of anticoagulants; Z87.891 Personal history of nicotine dependence; Z89.611 Acquired absence of right leg above knee; M19.90 Unspecified osteoarthritis, unspecified site; K44.9 Diaphragmatic hernia without obstruction or gangrene; K20.90 Esophagitis, unspecified without bleeding; K29.70 Gastritis, unspecified, without bleeding
CPT/HCPCS: 36415; 71045; 71260; 74177; 80053; 81001; 83605; 83690; 83735; 85025; 85027; 85380; 87040; 87449; 87637; 93005; 94640; 96361; 96365; 96366; 96367; 96375; 97161; 97165; 99285; A9270; G0378; J0456; J0692; J2405; J7030; J7512; Q9967

== ENCOUNTER 2023-10-03 08:48 | Outpatient (CLI) | payer MEDICARE, SELFPAY ==
[2023-10-03 16:51] LABS: Albumin Level 3.9 g/dL (3.5-5.1); Calcium 9.7 mg/dL (8.4-10.2)
[2023-10-05 19:50] LABS: Ionized Calcium 5.2 mg/dL (4.7-5.5)
== END 2023-10-03 08:49 | disposition home or self-care (01) ==
LOC: ANHWCLAB 08:51
PROVIDERS: PCP Family Medicine; Visit Provider Internal Medicine
DX: M81.0 Age-related osteoporosis without current pathological fracture (principal)
CPT/HCPCS: 36415; 82040; 82310; 82330

== ENCOUNTER 2023-12-19 09:10 | Outpatient (CLI) | payer MEDICARE, SELFPAY ==
[2023-12-19 16:59] LABS: Free T4 Free Thyroxine 1.34 ng/mL (0.78-2.19)
[2023-12-19 17:15] LABS: Thyroid Stimulating Hormone 0.221 uIU/mL (0.465-4.680); Total Triiodothyronine (T3) 1.33 NG/ML (0.97-1.69)
[2023-12-24 12:04] LABS: Thyroid Peroxidase Antibodies <1 IU/mL (<9)
[2023-12-27 19:14] LABS: Thyroid Stimulating Immunoglob <89 % baseline (<140)
[2024-01-01 18:20] LABS: Thyrotropin Receptor Antibody <1.00 IU/L (< OR = 2.00)
== END 2023-12-19 09:11 | disposition home or self-care (01) ==
LOC: ANHWCLAB 09:11
PROVIDERS: PCP Family Medicine; Visit Provider Internal Medicine
DX: I48.20 Chronic atrial fibrillation, unspecified (principal); E05.90 Thyrotoxicosis, unspecified without thyrotoxic crisis or storm; E21.3 Hyperparathyroidism, unspecified; M81.0 Age-related osteoporosis without current pathological fracture
CPT/HCPCS: 36415; 83519; 84439; 84443; 84445; 84480; 86376

== ENCOUNTER 2023-12-24 10:34 | Outpatient (CLI) | payer MEDICARE, SELFPAY ==
--- NOTE | ~2023-12-24 | XR_ITS ---
Clinical Indication: COPD PA and lateral views of the chest: Comparison: 09/22/2023 Findings: The lungs are clear, without evidence of focal consolidation or pleural effusion. COPD marcel claire present. Cardiomediastinal silhouette is within normal limits. Bones and soft tissues are unremar kable. Impression: Clear lungs. COPD. Reviewed, dictated and finalized at location . Impression: Clear lungs. COPD.
== END 2023-12-24 10:35 | disposition home or self-care (01) ==
PROVIDERS: PCP Family Medicine; Visit Provider Physician Assistant
DX: R06.2 Wheezing (principal); R06.09 Other forms of dyspnea; J44.9 Chronic obstructive pulmonary disease, unspecified
CPT/HCPCS: 71046

== ENCOUNTER 2024-01-17 07:25 | Outpatient (CLI) | payer MEDICARE, SELFPAY ==
[2024-01-17 08:21] LABS: Alanine Aminotransferase 17 U/L (6-35); Albumin Level 4.4 g/dL (3.5-5.1); Alkaline Phosphatase 88 U/L (38-126); Anion Gap 6 mmol/L (4-12); Aspartate Amino Transferase 26 U/L (14-36); Bilirubin,Total 0.5 mg/dL (0.2-1.3); Blood Urea Nitrogen 17 mg/dL (7-17); Calcium 9.9 mg/dL (8.4-10.2); Carbon Dioxide 29 mmol/L (22-30); Chloride 103 mmol/L (98-107); Cholesterol 159 mg/dL (0-200); Estimated Glomerular Filt Rate > 60; Glucose 98 mg/dL (65-110); HDL Direct 68 mg/dL; Potassium 4.4 mmol/L (3.4-5.0); Sodium 138 mmol/L (137-145); Triglycerides 83 mg/dL (<150)
[2024-01-17 08:22] LABS: Hemoglobin A1C 5.7 % (<5.7)
[2024-01-17 08:32] LABS: LDL Cholesterol Direct 56 mg/dL
[2024-01-17 08:38] LABS: Vitamin D 25 Hydroxy 60.4 ng/mL
[2024-01-17 08:52] LABS: Basophils Absolute Auto 0.1 K/mm3 (0.0-0.1); Basophils Percent Auto 0.6 % (0.2-1.2); Eosinophils Absolute Auto 0.1 K/mm3 (0-0.3); Eosinophils Percent Auto 1.7 % (0-4.4); Hematocrit 41.6 % (37.0-47.0); Hemoglobin 13.5 g/dL (12.0-15.0); Immature Granulocyte Absolute 0.03 K/mm3 (0.00-0.031); Immature Granulocyte Percent A 0.4 % (0-0.5); Lymphocytes Percent Auto 32.2 % (18.3-44.2); Mean Corpuscular HGB Conc 32.5 g/dl (32-36); Mean Corpuscular Hemoglobin 30.5 pg (26-34); Mean Corpuscular Volume 93.9 fl (80-100); Mean Platelet Volume 11.3 fl (7.4-10.4); Monocytes Absolute Auto 0.6 K/mm3 (0.1-0.6); Monocytes Percent Auto 7.9 % (2.6-8.5); Neutrophils Absolute Auto 4.5 K/mm3 (1.3-6.7); Neutrophils Percent Auto 57.2 % (45.5-73.1); Platelet Count Result 320 k/mm3 (150-375); Red Blood Count 4.43 M/mm3 (4.2-5.4); White Blood Count 7.8 K/mm3 (4.5-10.0)
== END 2024-01-17 07:26 | disposition home or self-care (01) ==
PROVIDERS: PCP Family Medicine; Visit Provider Nurse Practitioner Family
DX: E05.90 Thyrotoxicosis, unspecified without thyrotoxic crisis or storm (principal); E21.3 Hyperparathyroidism, unspecified; E55.9 Vitamin D deficiency, unspecified; G47.33 Obstructive sleep apnea (adult) (pediatric); G89.29 Other chronic pain; I10 Essential (primary) hypertension; I48.91 Unspecified atrial fibrillation; J44.9 Chronic obstructive pulmonary disease, unspecified; M81.0 Age-related osteoporosis without current pathological fracture; Z99.89 Dependence on other enabling machines and devices; Z79.899 Other long term (current) drug therapy; M54.50 Low back pain, unspecified
CPT/HCPCS: 36415; 80053; 80061; 82306; 83036; 85025

== ENCOUNTER 2024-02-26 08:56 | Outpatient (CLI) | payer MEDICARE, SELFPAY ==
--- NOTE | ~2024-02-26 | CT_ITS ---
CT Scan of the Chest without Contrast: Clinical Indication: Lung cancer screening, nicotine dependence Technique: Contiguous sections were acquired throughout the chest without intravenous contrast. Dose reduction technique was used on this scan by utilizing automated exposure control and iterative recon struction technique. The dose-length product (DLP) was 115.66 mGy-cm. COMPARISON: 09/22/2023 Findings: There is no evidence of any significant mediastinal, hilar or axillary lymphadenopathy. The mediastin al soft tissues appear normal. There is no evidence of pleural or pericardial effusion. No pulmonary nodule. Stable linear basilar scarring noted. Previously noted right lung pneumonia is o therwise resolved.. Moderate emphysema present. Images through the upper abdomen reveal large hiatal hernia. Severely atrophic left kidney present wi th left renal stones. Impression: Lung RADS 2: Benign appearance. 12 month follow-up screening CT advised. Reviewed, dictated and finalized at [facility] [place]. Impression: Lung RADS 2: Benign appearance. 12 month follow-up screening CT advised.
== END 2024-02-26 08:57 | disposition home or self-care (01) ==
PROVIDERS: PCP Family Medicine; Visit Provider Physician Assistant
DX: Z12.2 Encounter for screening for malignant neoplasm of respiratory organs (principal); Z87.891 Personal history of nicotine dependence
CPT/HCPCS: 71271

== ENCOUNTER 2024-08-16 10:21 | Emergency (ER) | payer MEDICARE, SELFPAY ==
--- NOTE | ~2024-08-16 | XR_ITS ---
HISTORY: fall-lateral ankle pain COMPARISON: None TECHNIQUE: 3 views of the left ankle were performed FINDINGS: No acute fracture or dislocation. No significant soft tissue swelling. The ankle mortise is preserved. Michael extends to the distal left tibia. Bony remodeling of the mid tibia and fibula (off the submitted images) is identified. IMPRESSION: No acute fracture or dislocation, as detailed above. Reviewed, dictated and finalized at location A. SIT DEPARTMENT CLERK
--- NOTE | ~2024-08-16 | XR_ITS ---
HISTORY: fall- lateral foot pain COMPARISON: None TECHNIQUE: 3 views of the left foot were performed FINDINGS: No acute fracture or dislocation is appreciated. Significant degenerative disease is noted. The base of the fifth metatarsal is intact. No calcaneal spur is noted. No significant soft tissue swelling is present. IMPRESSION: No acute fracture or dislocation Reviewed, dictated and finalized at location A. PROCESSING CENTER MANAGER
--- NOTE | 2024-08-16 10:24 | ED.FALL ---
HPI - Fall General Chief Complaint: Fall Stated Complaint: FALL Time Seen by Provider: 08/16/24 10:23 Source: patient Mode of arrival: ambulatory Limitations: no limitations History of Present Illness HPI Narrative: Sarah is a 73-year-old female patient presenting to the clinic today with complaints of a ground level fall yesterday injuring her left foot and ankle. She reports she slipped on the ice and landed with her foot behind her. Is having lateral foot and ankle pain. Had done rice therapy and this has improved her pain but she felt as though she needed to come in and be evaluated to rule out fracture. States she has a prosthetic leg/[id number] amputation of the right Related Data Home Medications ?Medication ?Instructions ?Recorded ?Confirmed ?Last Taken ?Type multivitamin 1 cap PO DAILY 06/16/19 08/06/24 Unknown History turmeric 400 mg capsule 400 mg PO DAILY 12/11/21 08/06/24 Unknown History albuterol sulfate 90 mcg/actuation 1 - 2 inh inhalation PRN PRN 09/22/23 08/06/24 Unknown History aerosol inhaler Shortness Of Breath Or Wheezing melatonin 5 mg tablet 5 mg PO DAILY 09/22/23 08/06/24 Unknown History levocetirizine 2.5 mg/5 mL oral 2.5 mg PO QPM 01/23/24 08/06/24 Unknown History solution (Xyzal) Allergies Allergy/AdvReac Type Severity Reaction Status Date / Time adhesive tape AdvReac Mild Rash Verified 08/16/24 10:27 Review of Systems Review of Systems: Pertinent positives per HPI. Patient denies any fever, chills, rash, headache, visual changes, dizziness, cough, runny nose, sore throat, shortness of breath, chest pain, palpitations, nausea, vomiting, diarrhea, constipation, abdominal pain, or any urinary issues. 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 Subclinical hyperthyroidism COPD (chronic obstructive pulmonary disease) Atrial fibrillation with controlled ventricular response CLOUD (dyspnea on exertion) Edema of left lower extremity Essential hypertension Chronic fatigue, unspecified Gastro-esophageal reflux disease without esophagitis Hypersomnia 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 LITO on CPAP Preop cardiovascular exam Surgical History Surgical History History of surgery on arm H/O exploratory laparotomy H/O breast implant History of right above knee amputation Family History Family History Father Acute myocardial infarction, Onset Age: 79 Patient's father is Mother Family history of chronic obstructive pulmonary disease Patient's mother is Daughter Thyroid disease Social History Social History Social History: The patient lives with her . She has 3 children. She used to work for [employer] but does not draw a pension. 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 Her daughter and are the durable power personal injury attorney Code status full code Smoking packs per day: 2 Smoking cigarettes per day: 40.0 Years smoked: 45 Smoking pack-years: 90.00 Smoking status: Former smoker Tobacco type: cigarettes Second hand tobacco smoke exposure: No Smoking end date: 07/29/09 Alcohol intake: never Substance use: never Substance use type: crack/cocaine Do You Feel Safe in your Home?: Yes Lack of Transportation: No Lack of Food: Never True Current Housing: I Have Housing Concerned About Future Housing: No Difficulty Paying Gas/Electric Bills: No Difficulty Paying for Meds: No Currently Unemployed: No Education: High School Diploma/GED Difficulty w/ Childcare or Family Care: No Living arrangements: with family Occupation/Education: retired Gender identity (if verbalized by the patient): Female Sexual Orientation (if Verbalized by the Patient): Straight or Heterosexual Spiritual care concerns: No Comments At the time of my signature, I reviewed and agree with the nursing past medical, surgical, social, and family history. There is no relevant family history pertinent to the patient complaint. Exam Narrative: General: Well-developed, well nourished, in no apparent distress Head: Normocephalic, atraumatic. Cardio: Regular rate and rhythm, s1 and s2 normal, no murmur appreciated. Resp: Clear to auscultation bilaterally, no rhonchi, rales, wheezing or rubs. Musculoskeletal: No deformity, mild swelling noted to the lateral ankle and lateral foot, tender to palpation to the lateral ankle and lateral foot, pain with valgus and varus testing of the ankle, dorsal flexion and plantar flexion against resistance, grossly normal range of motion, muscle strength strong and equal, peripheral pulse strong, no edema, no cyanosis, normal gait and station Course Course Emergency Course: Portions of this record may have been created with voice recognition software. Level of Care: Express Care Visit Vital Signs Vital signs: Vital Signs Temperature 37.1 C 08/16/24 10:35 Pulse Rate 86 08/16/24 10:35 Respiratory Rate 16 08/16/24 10:35 Blood Pressure 123/70 08/16/24 10:35 Pulse Oximetry 98 08/16/24 10:35 Oxygen Delivery Room Air 08/16/24 10:35 Temperature 37.1 C 08/16/24 10:35 Pulse Rate 86 08/16/24 10:35 Respiratory Rate 16 08/16/24 10:35 Blood Pressure 123/70 08/16/24 10:35 Pulse Oximetry 98 08/16/24 10:35 Oxygen Delivery Room Air 08/16/24 10:35 Vital signs reviewed MDM - Fall MDM Narrative Medical decision making narrative: At the time of visit patient is resting comfortably on the exam table. Patient appears to be nontoxic. Diagnostics: X-ray of the left ankle and foot were performed and were negative for any sign of fracture or malalignment.. Plan: I suspect patient has a left ankle sprain and left foot sprain. Supportive measures were discussed with the patient and they voiced understanding discharge instructions and agrees to treatment plan. Return precautions reviewed Differential Diagnosis Differential diagnosis: Likely other (Ankle fracture, ankle sprain, left foot fracture, left foot sprain, soft tissue injury, contusion) Imaging Data Radiologist's impression: ITS Impressions Ankle X-Ray 08/16/24 11:31 IMPRESSION: No acute fracture or dislocation, as detailed above. Foot X-Ray 08/16/24 11:34 IMPRESSION: No acute fracture or dislocation Discharge Plan Discharge Clinical Impression: Left ankle sprain Qualifiers: Encounter type: initial encounter Involved ligament of ankle: unspecified ligament Qualified Code(s): S93.402A - Sprain of unspecified ligament of left ankle, initial encounter Sprain of left foot Qualifiers: Encounter type: initial encounter Qualified Code(s): S93.602A - Unspecified sprain of left foot, initial encounter Patient Disposition: Home, Self-Care Condition: Stable Instructions: Antibiotic Form, Ankle Sprain (ED), Foot Sprain (ED) Additional Instructions: X-ray of the left ankle and foot are negative for any sign of fracture or malalignment. Rest, ice, elevate, and wear oliva wrap as directed Tylenol/motrin for pain as discussed. Gradually bear weight No running or sports until healed. Follow up with your PCP if symptoms persist more than 1 week. Patient Language: Norwegian Prescriptions: No Action multivitamin Capsule 1 cap PO DAILY azelastine 137 mcg (0.1 %) spray,non-aerosol 1 spray intranasal Q12H Qty: 90 2RF Rx Instructions: administer into each nostril levocetirizine [Xyzal] 2.5 mg/5 mL solution 2.5 mg PO QPM calcium carbonate 500 mg calcium (1,250 mg) tablet 500 mg PO BID Qty: 180 0RF cholecalciferol (vitamin D3) 50 mcg (2,000 unit) capsule 50 mcg PO DAILY Qty: 180 0RF melatonin 5 mg Tablet 5 mg PO DAILY albuterol sulfate 90 mcg/actuation HFA aerosol inhaler 1 - 2 inh inhalation PRN PRN (Reason: Shortness Of Breath Or Wheezing) turmeric 400 mg Capsule 400 mg PO DAILY Rx Instructions: with curcumen furosemide 40 mg tablet See Rx Instructions .ROUTE .COMPLEX Qty: 90 2RF Dose Instruction: TAKE 1 TABLET DAILY Rx Instructions: TAKE 1 TABLET DAILY Trelegy Ellipta 100-62.5-25 mcg blister with device See Rx Instructions .ROUTE .COMPLEX Qty: 180 3RF Dose Instruction: USE 1 INHALATION BY MOUTH EVERY 24 HOURS Rx Instructions: USE 1 INHALATION BY MOUTH EVERY 24 HOURS Prolia 60 mg/mL syringe 60 mg SUB-Q [id number] Qty: 1 1RF Rx Instructions: JULY / JANUARY gabapentin 300 mg capsule 300 mg PO DAILY Qty: 90 1RF roflumilast 500 mcg tablet 500 mcg PO DAILY 30 Days Qty: 30 5RF Xarelto 20 mg tablet See Rx Instructions .ROUTE .COMPLEX Qty: 90 2RF Dose Instruction: TAKE 1 TABLET BY MOUTH IN THE EVENING WITH EVENING MEAL Rx Instructions: TAKE 1 TABLET BY MOUTH IN THE EVENING WITH EVENING MEAL methimazole 5 mg tablet 2.5 mg PO DAILY Qty: 60 0RF omeprazole 40 mg capsule,delayed release(DR/EC) See Rx Instructions .ROUTE .COMPLEX Qty: 90 3RF Dose Instruction: TAKE 1 CAPSULE BY MOUTH DAILY Rx Instructions: TAKE 1 CAPSULE BY MOUTH DAILY diltiazem HCl 360 mg capsule,extended release 24hr 360 mg PO DAILY Qty: 90 2RF spironolactone 25 mg tablet See Rx Instructions .ROUTE .COMPLEX Qty: 90 2RF Dose Instruction: TAKE 1 TABLET BY MOUTH DAILY Rx Instructions: TAKE 1 TABLET BY MOUTH DAILY lidocaine 5 % adhesive patch,medicated 1 patch topical DAILY Qty: 30 5RF Rx Instructions: leave on most painful area for up to 12 hrs tramadol 50 mg tablet 25 mg PO Q8H PRN (Reason: pain) Qty: 11 0RF Follow-up/Referrals: Tammie Wilson APRN [Primary Care Provider] - Time of Disposition: 11:39 Quality NIHSS Nursing Documentation ED NIHSS nursing documentation: reviewed/agree
[2024-08-16 10:35] VITALS: BP 123/70; PULSE 86; RESP 16; TEMP 37.1; O2SAT 98
== END 2024-08-16 11:45 | disposition home or self-care (01) ==
PROVIDERS: Emergency Provider Nurse Practitioner Family; PCP Nurse Practitioner Family
DX: S93.402A Sprain of unspecified ligament of left ankle, initial encounter (principal); S93.602A Unspecified sprain of left foot, initial encounter; W00.0XXA Fall on same level due to ice and snow, initial encounter; Z89.611 Acquired absence of right leg above knee; E21.3 Hyperparathyroidism, unspecified; M81.0 Age-related osteoporosis without current pathological fracture; J44.9 Chronic obstructive pulmonary disease, unspecified; I48.91 Unspecified atrial fibrillation; I10 Essential (primary) hypertension; K21.9 Gastro-esophageal reflux disease without esophagitis; G47.33 Obstructive sleep apnea (adult) (pediatric)
CPT/HCPCS: 73610; 73630; 99213; G0463

== ENCOUNTER 2024-08-25 07:34 | Outpatient (CLI) | payer MEDICARE, SELFPAY ==
--- OUTSIDE RECORDS SUMMARY | 2024-08-25 07:37 | XMS_ITS | Encounter Summary ---
[email or web address] Address 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 [address] ?[place], [place] ??[address] ?Admit Date: 01/01/2008 ? SARAH CALDERON D ?Sex: F ?Admit Prov: MORTEZAGREGORY Brady ? Date: 1950 ?Primary Care Prov: ? CMRN: [id number] ?Room: [facility] ? SSN: [id number] ? IMAGING SERVICES ?Ordering Prov: GREGORY PRO ?Accession Number: [id number] ?Interpretation ? This procedure was performed at the request of the orthopedic physician. ? Please see the orthopedic physician s report for details, which can be ? found in the patient s medical record. ? _ ? Dictated by: ??RADIOLOGY, DEPARTMENT O ? Electronically signed by: ??RADIOLOGY, DEPARTMENT 01/11/2008 12:47 ? Transcribed: ??01/11/2008 11:35 ?[facility] Procedure Note Provider, Historical - [facility]/11/[facility] [address], [place] [address] Admit Date: 01/01/2008 SAARH CALDERON Sex: F Admit Prov: GREGORY PRO Date: 1950 Primary Care Prov: CMRN: [id number] Room: [facility] SSN: [id number] IMAGING SERVICES Ordering Prov: GREGORY PRO Interpretation This procedure was performed at the request of the orthopedicphysician. Please see the orthopedic physician s report for details, which canbe found in the patient s medical record. _ Dictated by: RADIOLOGY, DEPARTMENT O Electronically signed by: RADIOLOGY, DEPARTMENT 01/11/2008 12:47 Transcribed: 01/11/2008 11:35 AMK Gregory Pro MD DIAGNOSTIC IMAGING ORDERABLES Fi nal Result documented in this encounter Visit Diagnoses Not on filedocumented in this encounter Care Teams Dancing Teacher Relationship Specialty Start Date End Date Ash Gallardo MD [address] [place] [id number] PCP - General Surgery 03/20/10 documented as of this encounter
--- OUTSIDE RECORDS SUMMARY | 2024-08-25 07:37 | XMS_ITS | Clinical Summary ---
Author Organization [facility] Address [address] [address] Care Team Providers Care Furnace Repairer Name Role Phone Ian Ortiz MD Primary Care Provider [phone] Source Comments [facility],non-[facility]iliates and Associated Physician Practices is amultiple site organization consisting of ambulatory clinics and hospital sitesin [place], [place], [place] and [place]. This disclosure is being madepursuant to the Care Everywhere program and may not contain all information available regarding this patient. Last updated 18.[facility] Allergies Active Allergy Reactions Criticality Noted Date Comments Adhesive Sensitivity Rash Medium 11/01/2015 Medications * Be aware that medications may not be up to date on this document. Alwaysverify current medications with the patient. Medication Sig Dispensed Refills Start Date End Date Status trospium ER 24hr (SANCTURA XR) 60 MG capsule Take 60 mg by mouth Every Morning. 60 tablet 1 04/23/2017 Active Additional Information Patient not taking.Reported on 06/19/2023 albuterol HFA (PROVENTIL; VENTOLIN; PROAIR) 108 (90 Base) MCG/ACT inhaler Inhale 1 (one) puff by mouth as needed 07/17/2021 Active PROLIA 60 MG/ML SC injection 07/06/2021 Active fluticasone-salmetero l (ADVAIR/WIXELA) 250-50 MCG/ACT inhaler 05/25/2021 Active gabapentin (NEURONTIN) 300 MG capsule Take 1 (one) capsule by mouth once daily 09/25/2021 Active hydroCHLOROthiazide (HYDRODIURIL) 25 MG tablet Take 1 (one) tablet by mouth once daily 10/19/2021 Active omeprazole (PRILOSEC) 40 MG capsule Take 1 (one) capsule by mouth once daily 11/09/2021 Active potassium chloride ER (MICRO-K) 10 MEQ capsule Take 10 mEq by mouth once daily 09/27/2021 Active XARELTO 20 MG tablet Take 1 (one) tablet by mouth once daily 10/07/2021 Active Levocetirizine Dihydrochloride (XYZAL ALLERGY 24HR PO) Take 1 tablet by mouth once daily Active FLUTICASONE PROPIONATE, NASAL, NA [place] 1-2 sprays into the nose once daily Active Multiple Vitamin (MULTIVITAMIN ADULT PO) Take 1 tablet by mouth once daily Active Calcium Citrate-Vitamin D (CALCIUM + D PO) Active Azelastine HCl 137 MCG/SPRAY SOLN [place] 1 spray into each nostril once daily 12/25/2022 Active Trelegy Ellipta 100-62.5-25 MCG/ACT Inhale 1 (one) puff by mouth once daily 04/17/2023 Active roflumilast (Daliresp) 500 MCG tablet Take 1 (one) tablet by mouth once daily 06/04/2023 Active spironolactone (Aldactone) 25 MG tablet Take 1 (one) tablet by mouth once daily 06/17/2023 Active dilTIAZem coated beads 24hr (Cardizem CD) 360 MG capsule Take 1 (one) capsule by mouth once daily 05/09/2023 Active furosemide (Lasix) 40 MG tablet Take 1 (one) tablet by mouth once daily 05/09/2023 Active Active Problems Problem Noted Date Diagnosed Date Hyperparathyroidism 08/14/2023 Disorder of kidney and ureter 07/12/2015 Urgency of urination 07/12/2015 Calculus of ureter 05/05/2015 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 Other chronic osteomyelitis, unspecified site Overview (10/28/2017): of hip / femur Immunizations Name Administration Dates Next Due INFLUENZA VACCINE, TRIV. (AF LURIA, FLUZONE TRIVALENT; 6MO+) (IIV3) 05/22/2010 COVID MODERNA 12+ yr 50mcg/0.5mL 05/28/2023 FLU VACCINE TRI IIV3 SPLIT I M (FLUVIRIN) 04/25/2014,05/19/2013 INFLUENZA VACCINE, ADJUVANTE D, QUADR. (FLUAD QUADRIVALENT; 65Y+) (AIIV4) 05/07/2023,05/22/2022,05/12/2021 INFLUENZA VACCINE, HIGH-DOSE , TRIV. (FLUZONE HIGH-DOSE TRIVALENT; 65Y+) (HD-IIV3) 06/15/2019,04/09/2018,05/22/2017,2015 INFLUENZA VACCINE, TRIV. (FL UZONE; FLULAVAL; FLUARIX; AFLURIA TRIVALENT; 6MO+), 0.5 ML (IIV3) 04/08/2020,06/15/2015 PNEUMOCOCCAL PPV VACCINE 05/19/2013 Pneumococcal Pcv13 Conj 05/22/2017 TDAP, HISTORIC VACCINE 02/10/2022 Zoster Hzv Vacc Recombinant Inj Im 06/08/2020, Social History Tobacco Use Types Packs/Day Years Used Date Smoking Tobacco: Former Cigarettes Q uit: 12/12/2009 Smokeless Tobacco: Never Tobacco Cessation:Counseling Given: Not Answered Alcohol Use Standard Drinks/Week Comments No 0 (1 standard drink = 0.6 oz pur e alcohol) Sex and Gender Information Value Date Recorded Sex Assigned at Not on file Gender Identity Not on file Sexual Orientation Not on file Last Filed Vital Signs Vital Sign Reading Time Taken Comments Blood Pressure 106/74 08/14/2023 10:42 AM ETCHER 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 Pulse 97 08/14/2023 10:42 AM ETCHER 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 Temperature 36.4 ??C (97.6 ??F) 12/14/2015 11:40 AM C DT Respiratory Rate 16 08/22/2015 12:55 PM ETCHER 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 Oxygen Saturation 96% 04/23/2017 10:20 AM CDT Inhaled Oxygen Concentration - - Weight 78.9 kg (174 lb) 08/14/2023 10:42 AM ETCHER 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 Height 170.2 cm (5' 7 ) 08/14/2023 10:42 AM ETCHER 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 Body Mass Index 27.25 08/14/2023 10:42 AM ETCHER 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 Plan of Treatment Health Maintenance Due Date Last Done Comments BONE DENSITY TESTING 1950 COLOGUARD (AGES 45-75) - COLON CA SCREENING 1950 COLON MONITORING 1950 COLONOSCOPY - COLON CA SCREENING 1950 CT COLONOGRAPHY - COLON CA SCREENING 1950 Colorectal Cancer Screening 1950 FIT - COLON CA SCREENING 1950 FLEX SIG - COLON CA SCREENING 1950 LIPID TESTING 1950 MAMMOGRAM 1950 HEPATITIS C SCREENING 12/08/1968 PNEUMOCOCCAL VACCINE 50+ (3 of 3 - PCV20 or PCV21) 05/22/2022 05/22/2017, 05/19/2013 COVID-19 VACCINE ( season) 2024 05/28/2023, 05/22/2022, 01/11/2022, Additional history exists INFLUENZA VACCINE (#1) 2024 , 05/22/2022, 05/12/2021, Additional history exists DEPRESSION SCREENING 07/29/2024 MEDICARE AWV ? CALENDAR YEAR 2024 Respiratory Syncytial Virus (RSV) Vaccine Pt: or over 60 yrs (1 - 1-dose 75+ series) 2025 DTAP/TDAP/TD VACCINES (2 - Td or Tdap) 02/11/2032 02/10/2022 ZOSTER VACCINE Completed 06/08/2020, 04/08/2020 HEPATITIS B VACCINE Aged Out No longe r eligible based on patient's age to complete this topic HIB VACCINE Aged Out No longer eligi ble based on patient's age to complete this topic HPV VACCINE Aged Out No longer eligi ble based on patient's age to complete this topic MENINGOCOCCAL (Group B) VACCINE Aged Out No longer eligible based on patient's age to complete this topic MENINGOCOCCAL VACCINE Aged Out No rhett dany eligible based on patient's age to complete this topic Care Teams Furnace Repairer Relationship Specialty Start Date End Date Ian Ortiz MD [address] [place] [id number] PCP - General 05/23/15
--- OUTSIDE RECORDS SUMMARY | 2024-08-25 07:37 | XMS_ITS | Clinical Summary ---
Author Organization [facility] Address [address] [place] [address]. 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 Gender Identity Not on file Sexual Orientation Not on file Plan of Treatment Health Maintenance Due Date Last Done Comments Colorectal Cancer Screening Colonoscopy (10 Years) 1950 Hepatitis C 1968 DTaP, Tdap and Td Vaccines ( 1 - Tdap) 1969 Mammogram Screening 1990 Dexa Scan (General) 12/14/2015 Pneumococcal Vaccine: 65+ Years (2 of 2 - PPSV23 or PCV20) 05/22/2018 05/22/2017 COVID-19 Vaccine (3 - 2023-2 5 season) 2024 10/05/2020, 09/07/2020 Influenza Adult (#1) 2024 06/15/2015, 05/22/2010 RSV Immunization or 60+ Years (1 - 1-dose 75+ series) 2025 Zoster Vaccines Completed 06/08/2020, 04/08/2020 Meningococcal Vaccine Aged Out No rhett dany eligible based on patient's age to complete this topic RSV Immunizations Under 20 Months Aged Out No longer eligible b ased on patient's age to complete this topic
--- OUTSIDE RECORDS SUMMARY | 2024-08-25 07:37 | XMS_ITS | Clinical Summary ---
Author Organization [facility] Address [address] [place] [address] Phone Care Team Providers Care Holistic Pulser Name Role Phone Ash Gallardo MD Primary Care Provider [phone] Active Problems Problem Noted Date Diagnosed Date Calf pain 03/20/2010 Overview (03/20/2010): LLE Social History Tobacco Use Types Packs/Day Years Used Date Smoking Tobacco: Never Assessed Comments Unknown Sex and Gender Information Value Date Recorded Sex Assigned at Not on file Legal Sex Female 5:35 AM OR SCRUB TECH Gender Identity Not on file Sexual Orientation Not on file Plan of Treatment Health Maintenance Due Date Last Done Comments DTAP/TDAP/TD VACCINES (1 - Tdap) 1969 BREAST CANCER SCREENING 1990 COLORECTAL SCREENING 12/14/1995 Colorectal Cancer Screening 12/14/1995 FIT-DNA Q 3 years 12/14/1995 FIT/FOBT Q 1 year 12/14/1995 Flex Sig/CT Colonography Q 5 years 12/14/1995 PNEUMOCOCCAL VACCINE 65+ YEARS (1 of 1 - PCV) 12/14/19 ZOSTER VACCINE (1 of 2) 2000 OSTEOPOROSIS SCREENING 12/14/2015 INFLUENZA VACCINE (#1) 2024 RSV VACCINE (60+ or ) (1 - 1-dose 75+ series) 2025 Insurance MEDICARE PART A AND B [facility] BLUE ACCESS/TRUE BLUE PPO Care Teams Holistic Pulser Relationship Specialty Start Date End Date Ash Gallardo MD [address] [place] [phone] PCP - General Surgery 03/20/10
--- OUTSIDE RECORDS SUMMARY | 2024-08-25 07:37 | XMS_ITS | Referral Summary ---
Author Organization [facility] Address [address] [place] [address] Care Team Providers Care Surfboard Designer Name Role Phone Ian Ortiz MD Primary Care Provider [phone] Source Comments [facility] Affiliates and Associated Physician Practices is amultiple site organization consisting of ambulatory clinics and hospital sitesin [place], [place], [place] and [place]. This disclosure is being madepursuant to the Care Everywhere program and may not contain all information available regarding this patient. Last updated 18.[facility] Allergies Active Allergy Reactions Criticality Noted [...] once daily Active FLUTICASONE PROPIONATE, NASAL, NA [place] 1-2 sprays into the nose once daily Active Multiple Vitamin (MULTIVITAMIN ADULT PO) Take 1 tablet by mouth once daily Active Calcium Citrate-Vitamin D (CALCIUM + D PO) Active Azelastine HCl 137 MCG/SPRAY SOLN [place] 1 spray into each nostril once daily [...] Comments Blood Pressure 106/74 08/14/2023 10:42 AM ATOMIC WELDER Pulse 97 08/14/2023 10:42 AM ATOMIC WELDER Temperature 36.4 ??C (97.6 ??F) 12/14/2015 11:40 AM C DT Respiratory Rate 16 08/22/2015 12:55 PM ATOMIC WELDER Oxygen Saturation 96% 04/23/2017 10:20 AM CDT Inhaled Oxygen Concentration - - Weight 78.9 kg (174 lb) 08/14/2023 10:42 AM ATOMIC WELDER Height 170.2 cm (5' 7 ) 08/14/2023 10:42 AM ATOMIC WELDER Body Mass Index 27.25 08/14/2023 10:42 AM ATOMIC WELDER Plan of Treatment Not on file Care Teams Surfboard Designer Relationship Specialty Start Date End Date Ian Ortiz MD [address] [place] [id number] PCP - General 05/23/15
--- OUTSIDE RECORDS SUMMARY | 2024-08-25 07:37 | XMS_ITS | Patient Health Summary ---
Author Organization [facility] Address [address] [place] [address] Care Team Providers Care Conveyor Installer Name Role Phone Ian Ortiz MD Primary Care Provider Note from [facility],non-owned Affiliates and Associated Physician Practices is amultiple site organization consisting of ambulatory clinics and hospital sitesin [place], [place], [place] and [place]. This disclosure is being madepursuant to the Care Everywhere program and may not contain all information available regarding this patient. Last updated 18.[facility] Allergies * Adhesive Sensitivity(Rash) -Medium Criticality Medications * Be aware that medications may not be up to date on this document. Alwaysverify current medications with the patient. * trospium ER 24hr (SANCTURA XR) 60 MG capsule(Started 04/23/2017) Take 60 mg by mouth Every Morning. 1 refill left * albuterol HFA (PROVENTIL; VENTOLIN; PROAIR) 108 (90 Base) MCG/ACT inhaler (Started 07/17/2021) Inhale 1 (one) puff by mouth as needed * PROLIA 60 MG/ML SC injection(Started 07/06/2021) * fluticasone-salmeterol (ADVAIR/WIXELA) 250-50 MCG/ACT inhaler(Started 05/25/2021) * gabapentin (NEURONTIN) 300 MG capsule(Started 09/25/2021) Take 1 (one) capsule by mouth once daily * hydroCHLOROthiazide (HYDRODIURIL) 25 MG tablet(Started 10/19/2021) Take 1 (one) tablet by mouth once daily * omeprazole (PRILOSEC) 40 MG capsule(Started 11/09/2021) Take 1 (one) capsule by mouth once daily * potassium chloride ER (MICRO-K) 10 MEQ capsule(Started 09/27/2021) Take 10 mEq by mouth once daily * XARELTO 20 MG tablet(Started 10/07/2021) Take 1 (one) tablet by mouth once daily * Levocetirizine Dihydrochloride (XYZAL ALLERGY 24HR PO) Take 1 tablet by mouth once daily * FLUTICASONE PROPIONATE, NASAL, NA Brogan 1-2 sprays into the nose once daily * Multiple Vitamin (MULTIVITAMIN ADULT PO) Take 1 tablet by mouth once daily * Calcium Citrate-Vitamin D (CALCIUM + D PO) * Azelastine HCl 137 MCG/SPRAY SOLN(Started 12/25/2022) Brogan 1 spray into each nostril once daily * Trelegy Ellipta 100-62.5-25 MCG/ACT(Started 04/17/2023) Inhale 1 (one) puff by mouth once daily * roflumilast (Daliresp) 500 MCG tablet(Started 06/04/2023) Take 1 (one) tablet by mouth once daily * spironolactone (Aldactone) 25 MG tablet(Started 06/17/2023) Take 1 (one) tablet by mouth once daily * dilTIAZem coated beads 24hr (Cardizem CD) 360 MG capsule(Started 05/09/2023) Take 1 (one) capsule by mouth once daily * furosemide (Lasix) 40 MG tablet(Started 05/09/2023) Take 1 (one) tablet by mouth once daily Active Problems Problem Noted Date Diagnosed Date Hyperparathyroidism 08/14/2023 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 (AFLURIA, FLUZONE TRIVALENT; 6MO+) (IIV3)(Given 05/22/2010) * COVID MODERNA 12+ yr 50mcg/0.5mL(Given 05/28/2023) * FLU VACCINE TRI IIV3 SPLIT IM (FLUVIRIN)(Given 04/25/2014, 05/19/2013) * INFLUENZA VACCINE, ADJUVANTED, QUADR. (FLUAD QUADRIVALENT; 65Y+) (AIIV4)(Given 05/07/2023, 05/22/2022, 05/12/2021) * INFLUENZA VACCINE, HIGH-DOSE, TRIV. (FLUZONE HIGH-DOSE TRIVALENT; 65Y+) (HD-IIV3)(Given 06/15/2019, 04/09/2018, 05/22/2017, 05/06/2016) * INFLUENZA VACCINE, TRIV. (FLUZONE; FLULAVAL; FLUARIX; AFLURIA TRIVALENT; 6MO+), 0.5 ML (IIV3)(Given 04/08/2020, 06/15/2015) * PNEUMOCOCCAL PPV VACCINE(Given 05/19/2013) * Pneumococcal Pcv13 Conj(Given 05/22/2017) * TDAP, HISTORIC VACCINE(Given 02/10/2022) * Zoster Hzv Vacc Recombinant Inj Im(Given 06/08/2020, 04/08/2020) Social History Tobacco Use Types Packs/Day Years [...] Comments Blood Pressure 106/74 08/14/2023 10:42 AM MILITARY SCIENCE TEACHER Pulse 97 08/14/2023 10:42 AM MILITARY SCIENCE TEACHER Temperature 36.4 ??C (97.6 ??F) 12/14/2015 11:40 AM C DT Respiratory Rate 16 08/22/2015 12:55 PM MILITARY SCIENCE TEACHER Oxygen Saturation 96% 04/23/2017 10:20 AM CDT Inhaled Oxygen Concentration - - Weight 78.9 kg (174 lb) 08/14/2023 10:42 AM MILITARY SCIENCE TEACHER Height 170.2 cm (5' 7 ) 08/14/2023 10:42 AM MILITARY SCIENCE TEACHER Body Mass Index 27.25 08/14/2023 10:42 AM MILITARY SCIENCE TEACHER Procedures * DERMATOPATHOLOGY(Performed 08/28/2023) * CT NECK SOFT TISSUE WWO CONT(Performed 08/14/2023) Performed for Hyperparathyroidism (HCC) * CREATININE - POCT INTERFACED(Performed 08/14/2023) * XR KNEE LEFT 4VW OR MORE(Performed 11/28/2021) Performed for Right knee pain, unspecified chronicity * XR PELVIS W BILAT HIP 2VW(Performed 11/28/2021) Performed for Left hip pain * URINALYSIS AUTO - POINT OF CARE (AMB) [facility](Performed 04/23/2017) * CULTURE URINE COMPREHENSIVE(Performed 01/04/2017) * URINALYSIS W/MICROSCOPIC NO CULTURE(Performed 12/20/2016) * CULTURE URINE(Performed 12/20/2016) * URINALYSIS AUTO - POINT OF CARE (AMB) [facility](Performed 12/18/2016) * LAB MISC TEST(Performed 01/10/2016) * CULTURE URINE(Performed 12/14/2015) * URINALYSIS AUTO - POINT OF CARE (AMB) [facility](Performed 12/14/2015) * NM RENAL SCAN W DRUG(Performed 11/01/2015) * CULTURE URINE(Performed 08/31/2015) * URINALYSIS - POINT OF CARE (AMB) [facility](Performed 08/31/2015) * URINALYSIS AUTO - POINT OF CARE (AMB) [facility](Performed 08/24/2015) * PATHOLOGY TISSUE(Performed 08/22/2015) * STONE ANALYSIS QUANT(Performed 08/22/2015) * FL CYSTOGRAM(Performed 08/22/2015) * COMPREHENSIVE METABOLIC PANEL(Performed 08/01/2015) * URINALYSIS W/MICROSCOPIC NO CULTURE(Performed 08/01/2015) * PT-INR [facility](Performed 08/01/2015) * PTT [facility](Performed 08/01/2015) * CBC W AUTO DIFFERENTIAL(Performed 08/01/2015) * CULTURE URINE(Performed 08/01/2015) * CBC W AUTO DIFFERENTIAL(Performed 08/01/2015) * CT ABDOMEN PELVIS WO CONTRAST(Performed 08/01/2015) * EKG 12-LEAD(Performed 08/01/2015) * URINALYSIS - POINT OF CARE (AMB) [facility](Performed 07/12/2015) * NM RENAL SCAN W FLOW AND FUNCTION(Performed 05/12/2015) * CULTURE URINE(Performed 05/05/2015) * URINALYSIS - POINT OF CARE (AMB) [facility](Performed 05/05/2015) * XR ABDOMEN KUB(Performed 04/28/2014) * URINALYSIS AUTO - POINT OF CARE (AMB) [facility](Performed 04/28/2014) * URINALYSIS AUTO - POINT OF CARE (AMB) [facility](Performed 04/30/2013) * URINALYSIS - POINT OF CARE (AMB) [facility](Performed 04/03/2012) * URINALYSIS - POINT OF CARE (AMB) [facility](Performed 11/08/2011) * LAB HISTORICAL RESULTS-ONBASE(Performed 09/05/2011) * CBC W AUTO DIFFERENTIAL(Performed 12/07/2010) * C-REACTIVE PROTEIN(Performed 12/07/2010) * ERYTHROCYTE SEDIMENTATION RATE(Performed 12/07/2010) * ERYTHROCYTE SEDIMENTATION RATE(Performed 05/23/2010) * C-REACTIVE PROTEIN(Performed 05/22/2010) * C-REACTIVE PROTEIN(Performed 12/20/2009) * CBC W AUTO DIFFERENTIAL(Performed 12/20/2009) * COMPREHENSIVE METABOLIC PANEL(Performed 12/20/2009) * ERYTHROCYTE SEDIMENTATION RATE(Performed 12/19/2009) * LAB HISTORICAL RESULTS-ONBASE(Performed 09/29/2009) * LAB HISTORICAL RESULTS-ONBASE(Performed 09/29/2009) Results * DERMATOPATHOLOGY (08/28/2023 12:00 AM MILITARY SCIENCE TEACHER) Case Report Dermatopathology Report ? Case: [id number] ? Authorizing Provider: ??Rory Leigh MD ?Collected: ? 08/28/2023 12:00 AM ? Ordering Location: ? [facility] ? Received: ?08/30/2023 10:20 AM ? Pathologist: ? Amelia Castillo, ? MD ? Specimens: ?? A) - Skin, left jawline ? B) - Skin, anterior midline scalp ? 4 4:34 PM [facility] Final Diagnosis Specimen A. SKIN, left jawline: HYPERPLASTIC (HYPERTROPHIC) ACTINIC KERATOSIS, LICHENOID (L57.0) Specimen B. SKIN, anterior midline scalp: ACTINIC KERATOSIS; EXTENDING TO THE BASE OF THE SPECIMEN (L57.0) (see microscopic description and comment) 4 4:34 PM [facility] Clinical History A: BCCA vs. SCC. Path# [id number] B: BCCA vs. SCC. Path# [id number] 4 4:34 PM [facility] Gross Description Specimen A: Received is one formalin filled container labeled with the patient's name and designated left jawline. The specimen consists of a shave biopsy measuring 8x4x1 mm. Jar 0. Specimen B: Received is one formalin filled container labeled with the patient's name and designated anterior midline scalp. The specimen consists of a shave biopsy measuring 3x2x1 mm. Jar 0. 4:34 PM [facility] Microscopic Description Specimen A. SKIN, left jawline: There is hyperkeratosis alternating with parakeratosis. There is epidermal hyperplasia with disorderly maturation of keratinocytes with nuclear pleomorphism confined to the lower half of the epidermis. The dermis shows a band-like, chronic inflammatory infiltrate with occasional apoptotic keratinocytes and some basal vacuolar alteration. Specimen B. SKIN, anterior midline scalp: There is focal parakeratosis. The lower half of the epidermis shows disorderly maturation of keratinocytes with nuclear pleomorphism. This process extends to the base of the specimen. Additional deeper sections were obtained and reviewed. COMMENT: Given the superficial nature of the biopsy specimen, a deeper cutaneous carcinoma cannot be ruled out. 4:34 PM [facility] Disclaimer An external and internal positive and negative controls are appropriate for the histochemical, immunohistochemical and immunofluorescence stain(s) in this case (if any), except where stated explicitly. The performance characteristics of the stain(s) cited in this report were developed and its performance characteristic determined by the Dermatopathology Laboratory at [facility], directed by Dr. Yazmin Moreno. These tests need not be, and therefore are not, approved by the [place] Food and Drug Administration. The tests are used for clinical purposes. Billing Codes Specimen Charges Stain Charges 57312 [id number] 1 1 4 4:34 PM [facility] Embedded Images 4:34 PM [facility] Pathology/Cytology TISSUE SPECIMEN FROM SKIN / Unknown 08/28/2023 08/30/2023 10:20 AM MILITARY SCIENCE TEACHER Miscellaneous samples (specimen) TISSUE SPECIMEN FROM SKIN / Unknown 08/28/2023 08/30/2023 10:20 AM MILITARY SCIENCE TEACHER Rory Leigh MD LAB - PATHOLOGY/CYTO LOGY ORDERABLES DERMATOPATHOLOGY LABORATORY [facility] - Department of Dermatology [facility] [address] [facility], [address]rd [address] [phone] * CT NECK SOFT TISSUE WWO CONT (08/14/2023 10:11 AM MILITARY SCIENCE TEACHER) Anatomical Region Laterality Modality Head Computed Tomogra phy 08/14/2023 10:2 8 AM MILITARY SCIENCE TEACHER Impressions 08/14/2023 11:18 AM MILITARY SCIENCE TEACHER IMPRESSION: 1. A a 8 mm slightly lobulated lesion in the posterior medial aspect of the right lobe of the thyroid gland (series 5 image 136, series a image 135, series 11 image 135), a 7 mm lesion in the posterior medial aspect of the left lobe of the thyroid gland (series 5 image 131, series 8 image 1:30 and series 11 image 1:30) and a 4 mm lesion in the posterior medial aspect of the left lobe of the thyroid gland (series 5 138, series 8 image 137, and series 11 image 137) are in the expected locations of the parathyroid glands. However, the contrast-enhancing attenuation characteristics are not typical for parathyroid adenomas. This may represent lobulated thyroid tissue versus atypical thyroid adenomas. Please correlate with other imaging modalities such as sonogram or nuclear medicine scan. > Interpreting Provider: Refugio Bryant MD on 08/14/2023 11:18 AM Narrative 08/14/2023 11:18 AM MILITARY SCIENCE TEACHER PROCEDURE: ??CT NECK SOFT TISSUE WWO CONT, DATE/TIME OF EXAM: ??08/14/2023 10:11 AM, LOCATION ??[facility] INDICATION: E21.3: Hyperparathyroidism ([facility]-HCC) ADDITIONAL CLINICAL INFORMATION: Ordering Provider Reason For Exam: ??parathyroid gland Technologist Note: Additional: EXAMINATION: ??Computed tomography (CT) of the neck with contrast TECHNIQUE: CT of the neck was performed without and with 100 MLO Isovue-370 intravenous intravenous contrast according to parathyroid protocol. Contrast: IOPAMIDOL 76 % IV SOLN:100 mL COMPARISON: No prior study is available for comparison at the time of this dictation. FINDINGS: There is a 8 mm slightly lobulated lesion in the posterior medial aspect of the right lobe of the thyroid gland (series 5 image 136, series a image 135, series 11 image 135), a 7 mm lesion in the posterior medial aspect of the left lobe of the thyroid gland (series 5 image 131, series 8 image 1:30 and series 11 image 1:30) and a 4 mm lesion in the posterior medial aspect of the left lobe of the thyroid gland (series 5 138, series 8 image 137, and series 11 image 137). These lesions are in the expected locations of the parathyroid glands. However, the contrast-enhancing attenuation characteristics are not typical for parathyroid adenomas. Multiple small subcentimeter lymph nodes are noted in both sides of the neck with no evidence of cervical lymphadenopathy. The muscles of the neck appear normal. There is atherosclerotic disease involving the carotid bifurcations. The internal jugular veins appear normal. Fascial planes are preserved and the deep spaces of the neck appear normal. The nasopharynx, oropharynx, hypopharynx and larynx appear normal. The visualized airway is patent. The visualized portions of the posterior fossa and brain appear normal. There is moderate cervical degenerative disc and joint disease. The visualized orbits and paranasal sinuses appear normal. The thyroid gland is a slightly heterogeneous. Emphysematous changes in the visible lungs. Procedure Note Refugio Bryant MD - 08/14/2023 PROCEDURE: CT NECK SOFT TISSUE WWO CONT, DATE/TIME OF EXAM: 08/14/2023 10:11 AM, LOCATION [facility] INDICATION: E21.3: Hyperparathyroidism ([facility]) ADDITIONAL CLINICAL INFORMATION: Ordering Provider Reason For Exam: parathyroid gland Technologist Note: Additional: EXAMINATION: Computed tomography (CT) of the neck with contrast TECHNIQUE: CT of the neck was performed without and with 100 MLOIsovue-370 intravenous intravenous contrast according to parathyroid protocol. Contrast: IOPAMIDOL 76 % IV SOLN:100 mL COMPARISON: No prior study is available for comparison at the time ofthis dictation. FINDINGS: There is a 8 mm slightly lobulated lesion in the posterior medial aspectof the right lobe of the thyroid gland (series 5 image 136, series a image 135, series 11 image 135), a 7 mm lesion in the posterior medial aspectof the left lobe of the thyroid gland (series 5 image 131, series 8 image1:30 and series 11 image 1:30) and a 4 mm lesion in the posterior medialaspect of the left lobe of the thyroid gland (series 5 138, series 8 image 137, and series 11 image 137). These lesions are in the expected locations of the parathyroid glands. However, the contrast-enhancing attenuation characteristics are not typical for parathyroid adenomas. Multiple small subcentimeter lymph nodes are noted in both sides of the neck with no evidence of cervical lymphadenopathy. The muscles of theneck appear normal. There is atherosclerotic disease involving the carotid bifurcations. The internal jugular veins appear normal. Fascial planesare preserved and the deep spaces of the neck appear normal. Thenasopharynx, oropharynx, hypopharynx and larynx appear normal. The visualized airwayis patent. The visualized portions of the posterior fossa and brain appear normal. There is moderate cervical degenerative disc and joint disease. The visualized orbits and paranasal sinuses appear normal. The thyroid gland is a slightly heterogeneous. Emphysematous changes in the visible lungs. IMPRESSION: 1. A a 8 mm slightly lobulated lesion in the posterior medial aspect ofthe right lobe of the thyroid gland (series 5 image 136, series a image 135, series 11 image 135), a 7 mm lesion in the posterior medial aspect ofthe left lobe of the thyroid gland (series 5 image 131, series 8 image 1:30and series 11 image 1:30) and a 4 mm lesion in the posterior medial aspectof the left lobe of the thyroid gland (series 5 138, series 8 image 137,and series 11 image 137) are in the expected locations of the parathyroid glands. However, the contrast-enhancing attenuation characteristics arenot typical for parathyroid adenomas. This may represent lobulated thyroid tissue versus atypical thyroid adenomas. Please correlate with other imaging modalities such as sonogram or nuclear medicine scan. > Interpreting Provider: Refugio Bryant MD on 08/14/2023 11:18 AM Crow Wray MD CT ORDERABLES * (ABNORMAL) CREATININE - POCT INTERFACED (08/14/2023 9:56 AM MILITARY SCIENCE TEACHER) Creatinine POCT 1.03 0.30 - 1.30 mg/dL 08/14/2023 9:58 AM MILITARY SCIENCE TEACHER [facility] [place] [facility] eGFR 58(L) >90 mL/min/1.7 3 m2 08/14/2023 9:58 AM MILITARY SCIENCE TEACHER [facility] Blood BLOOD SPECIMEN / Unknown 08/14/2023 9:56 AM MILITARY SCIENCE TEACHER 08/14/2023 9:58 AM MILITARY SCIENCE TEACHER Crow Wray MD LAB - POINT OF CARE ORDERABLES [address] [address], [facility] [phone] * XR KNEE LEFT 4VW OR MORE (11/28/2021 11:28 AM CDT) Anatomical Region Laterality Modality Lower Extremity Radiographic Clemencia ging 11/28/2021 11:3 8 AM CDT Narrative 11/28/2021 11:38 AM CDT Left knee 4 views INDICATION: Pain FINDINGS/IMPRESSION: No old studies are available. There is narrowing of the medial compartment. The lateral compartment is well maintained. There is spurring of the medial femoral condyle and medial tibial plateau. There is some spurring along the lateral margin of the patella. There is no joint effusion. There is no fracture. Intramedullary jackson is seen within the tibial shaft. *Reading Radiologist: Mike Baez on 11/28/2021 at 11:38 AM Procedure Note Mike Baez MD - 11/28/2021 Left knee 4 views INDICATION: Pain FINDINGS/IMPRESSION: No old studies are available. There is narrowing of the medial compartment. The lateral compartment is well maintained. There is spurring of the medial femoral condyle and medial tibial plateau. There is some spurring along the lateral margin of the patella. There is no joint effusion. There is no fracture. Intramedullary jackson is seen within the tibial shaft. *Reading Radiologist: Mike Baez on 11/28/2021 at 11:38 AM Rafita Arzola MD DIAGNOSTIC IMAGING ORDERABLES * XR PELVIS W BILAT HIP 2VW (11/28/2021 11:28 AM CDT) Anatomical Region Laterality Modality Pelvis, Lower Extremity Radiogra phic Imaging 11/28/2021 11:3 5 AM CDT Narrative 11/28/2021 11:37 AM CDT Bilateral hips and pelvis 5 views INDICATION: Pain FINDINGS/IMPRESSION: There are no old studies available for comparison purposes. A left hip is well maintained. The joint space appears normal. There is no fracture or dislocation. There is no acute bony destruction. There are postop changes of the right hip. There are multiple dense objects along the proximal shaft of the femur which may represent antibiotic beats. There is also a density within the intertrochanteric region extending into the femoral neck as well. There is no acute fracture. There does appear to be some cortical thickening involving the proximal shaft on the right. No acute fracture or bony destruction is seen. Comparison to old studies would be helpful. *Reading Radiologist: Mike Baez on 11/28/2021 at 11:37 AM Procedure Note Mike Baez MD - 11/28/2021 Bilateral hips and pelvis 5 views INDICATION: Pain FINDINGS/IMPRESSION: There are no old studies available for comparison purposes. A left hip is well maintained. The joint space appears normal. There is no fracture or dislocation. There is no acute bony destruction. There are postop changes of the right hip. There are multiple dense objects along the proximal shaft of the femur which may represent antibiotic beats. There is also a density within the intertrochanteric region extending into the femoral neck as well. There is no acute fracture. There does appear to be some cortical thickening involving the proximal shaft on the right. No acute fracture or bony destruction is seen. Comparison to old studies would be helpful. *Reading Radiologist: Mike Baez on 11/28/2021 at 11:37 AM Rafita Arzola MD DIAGNOSTIC IMAGING ORDERABLES * URINALYSIS AUTO - POINT OF CARE (AMB) [facility] (04/23/2017) Only the most recent of6 resultswithin the time period is included. Glucose UA neg [facility] Bilirubin UA POCT neg [facility] Ketones UA POCT neg [facility] Specific [place] UA 1.015 [facility] Blood Urine POCT 10 [facility] pH UA 6.0 [facility] Protein UA neg [facility] Urobilinogen UA 3.5 [facility] Nitrite UA neg [facility] WBC UA neg [facility] Urine specimen (specimen) 04/23/2017 Gypsy Hernandez DO LAB - POINT OF CAR E ORDERABLES Performing Organization Address [facility]/ZIP Co de Phone Number [facility] * CULTURE URINE COMPREHENSIVE (01/04/2017 10:10 AM CDT) Culture SEE NOTE [facility] ([facility]) Comment: ??CULTURE, URINE, SPECIAL ?MICRO NUMBER: ?[id number] ??TEST STATUS: ? FINAL ??SPECIMEN SOURCE: ?? OTHER (SPECIFY) ??SPECIMEN QUALITY: ??ADEQUATE ??RESULT: ?No Growth Test Performed at: [facility] ??[id number] DELIA BELL MD Urine specimen (specimen) 01/04/2017 10:10 AM CDT 01/04/2017 10:16 AM CDT Gypsy Hernandez DO LAB - MICROBIOLOGY ORDERABLES Performing Organization Address [facility] de Phone Number [facility] ([facility]) * URINALYSIS W/MICROSCOPIC NO CULTURE (12/20/2016 4:00 PM CDT) Only the most recent of2 resultswithin the time period is included. Comment LORI SIDDIQUI ([facility]) Comment: The preferred specimen for urinalysis is urine preserved using a [employer] Urine Preservative Tube (yellow top, blue band) that may be obtained from your [employer] supplier. Color UA TNP [facility] ([facility]) Comment: TEST(S) NOT PERFORMED: ?COLOR ?APPEARANCE ?SPECIFIC GRAVITY ?PH ?GLUCOSE ?BILIRUBIN ?KETONES ?OCCULT BLOOD ?PROTEIN ?NITRITE ?LEUKOCYTE ESTERASE ?CRYSTALS * Test not performed. ?* * No suitable specimen received. * Test Performed at: [facility] [place] [address] [place], [place] ??[id number] ABDIAS KILGORE DO,MPH Urine specimen (specimen) URINE SPECIMEN OBTAINED BY CLEAN CATCH PROCEDURE / Unknown 12/20/2016 4:00 PM CDT 12/19/2016 5:37 AM CDT Gypsy Hernandez DO LAB - URINALYSIS O RDERABLES [facility] ([facility]) * (ABNORMAL) CULTURE URINE (12/20/2016 4:00 PM CDT) Only the most recent of5 resultswithin the time period is included. Urine Culture Routine SEE NOTE(A) [facility] ([facility]) Comment: ??CULTURE, URINE, ROUTINE ?MICRO NUMBER: ?[id number] ??TEST STATUS: ? FINAL ??SPECIMEN SOURCE: ?? NOT GIVEN ??SPECIMEN QUALITY: ??ADEQUATE ??RESULT: ?Greater than 100,000 CFU/mL of Escherichia coli ?E.coli ?INT ?? ERNESTINE ?? AMOX/CLAVULANATE ? S ? 4 ?? AMPICILLIN ? R ? >=32 ?? AMP/SULBACTAM ?I ? 16 ?? CEFAZOLIN ?NR ?<=4 1 ?? CEFEPIME ? S ? <=1 ?? CEFTRIAXONE ?S ? <=1 ?? CIPROFLOXACIN ?R ? >=4 ?? ERTAPENEM ?S ? <=0.5 ?? GENTAMICIN ? S ? <=1 ?? IMIPENEM ? S ? <=0.25 ?? LEVOFLOXACIN ? R ? >=8 ?? NITROFURANTOIN ? S ? <=16 ?? PIP/TAZOBACTAM ? S ? <=4 ?? TOBRAMYCIN ? S ? <=1 ?? TRIMETHOPRIM/SULFA ? S ? <=20 S=Susceptible ??I=Intermediate ??R=Resistant ??* = Not Tested NR = Not Reported ??NN = See Therapy Comments THERAPY COMMENTS ?Note 1: ?ORAL therapy: A cefazolin ERNESTINE of < 32 predicts ?susceptibility to the oral agents cefaclor, ?cefdinir, cefpodoxime, cefprozil, cefuroxime, ?cephalexin, and loracarbef when used for therapy ?of uncomplicated UTIs due to E. coli, ?K. pneumoniae, and P. mirabilis. ?PARENTERAL therapy: A cefazolin ERNESTINE of > 8 ?indicates resistance to parenteral cefazolin. ?An alternate test method must be performed to ?to confirm susceptibility to parenteral cefazolin. NO COLLECTION DATE RECEIVED. WE HAVE USED THE DATE THE SPECIMEN WAS RECEIVED BY THIS LABORATORY THE COLLECTION DATE. IF THIS IS INCORRECT, PLEASE CONTACT CLIENT SERVICES. PHONE NUMBER: [phone] Test Performed at: [employer] [address] ??[id number] ABDIAS KILGORE DO,MPH Urine specimen (specimen) URINE SPECIMEN OBTAINED BY CLEAN CATCH PROCEDURE / Unknown 12/20/2016 4:00 PM CDT 12/19/2016 5:37 AM CDT Narrative [facility] ([facility]) - 12/20/2016 4:00 PM CDT Specimen Type->Urine Gypsy Hernandez DO LAB - MICROBIOLOGY ORDERABLES [facility] ([facility]) * LAB MISC TEST (01/10/2016 10:07 AM CDT) [facility] Signature Reference Lab Results SEE SCANNED REPORT [facility] REF LAB NON INTERF Other (qualifier value) 01/10/2016 10:07 AM CDT 01/10/2016 10:21 AM CDT Narrative [facility] REF LAB NON INTERF - 02/23/2016 12:02 PM CDT Test Name:->MYCOPLASMA / UREAPLASMA CULTURE Reference Lab Info:->Lab Selin Gypsy Hernandez DO LAB SEND OUT Performing Organization Address City/[facility]/ZIP Co de Phone Number [facility] REF LAB NON INTERF * NM RENAL SCAN W DRUG (11/01/2015 12:46 PM CDT) Anatomical Region Laterality Modality Abdomen Other Impressions 11/01/2015 3:18 PM CDT Impression: 1. Decrease in the left kidney function. Not significantly changed compared to prior study. 2. the split function is 19 % left and 81 % right. 3. No evidence of obstruction. This report was approved ??by Ne Sams ?? on 11/01/2015 2:38 PM . I, Dr. FIDELIA GARCIA M.D. have personally reviewed and interpreted this examination/study. This report was electronically signed by FIDELIA GARCIA M.D. ??on 11/01/2015 3:18 PM . Narrative 11/01/2015 3:18 PM CDT Procedure: Renal blood flow and function with Lasix diuresis. History: 64 years old female with renal stones. Technique: ??10.9 mCi of Tc-99m MAG3, injected IV in the LAC. Sequential dynamic blood flow images of the abdomen were obtained in the anterior and posterior projections for 30 minutes following radiotracer injection. 38 mg Lasix was injected intravenously 20 minutes after the last image, followed by 30 minutes of additional dynamic image acquisition of the abdomen in anterior and posterior projections. Comparison: 05/12/2015 Findings: Blood flow images reveal decreased perfusion to the left kidney compared to the right. Sequential functional images obtained for 30 minutes reveal normal right kidney size while the left kidney is small. Post-Lasix images demonstrate normal washout of the tracer from both kidneys. Quantitative function Renography ?Left ? Right Peak time (min) ? 13.5 ?4.5 Clearance (%) at 20 min ? 32.0 ?17.0 Differential function (%) ?19 ?81 Lasix renography ? Left ?Right Half-peak time (min) ? 15.2 ? 23.9 Procedure Note Fidelia Garcia MD - 10/26/2017 Procedure: Renal blood flow and function with Lasix diuresis. History: 64 years old female with renal stones. Technique: 10.9 mCi of Tc-99m MAG3, injected IV in the LAC. Sequentialdynamic blood flow images of the abdomen were obtained in the anterior andposterior projections for 30 minutes following radiotracer injection. 38mg Lasix was injected intravenously 20 minutes after the last image, followed by 30 minutes ofadditional dynamic image acquisition of the abdomen in anterior andposterior projections. Comparison: 05/12/2015 Findings: Blood flow images reveal decreased perfusion to the left kidney comparedto the right. Sequential functional images obtained for 30 minutes reveal normal rightkidney size while the left kidney is small. Post-Lasix images demonstrate normal washout of the tracer from bothkidneys. Quantitative function Renography Left Right Peak time (min) 13.5 4.5 Clearance (%) at 20 min 32.0 17.0 Differential function (%) 19 81 Lasix renography Left Right Half-peak time (min) 15.2 23.9 IMPRESSION Impression: 1. Decrease in the left kidney function. Not significantly changedcompared to prior study. 2. the split function is 19 % left and 81 % right. 3. No evidence of obstruction. This report was approved by Ne Sams on 11/01/2015 2:38 PM . I, Dr. FIDELIA GARCIA M.D. have personally reviewed and interpreted thisexamination/study. This report was electronically signed by FIDELIA GARCIA M.D. on 11/01/20153:18 PM . Gypsy Hernandez [facility] ORDERABLES * URINALYSIS - POINT OF CARE (AMB) [facility] (08/31/2015) Only the most recent of5 resultswithin the time period is included. Pathologist [facility] Glucose UA neg [facility] Bilirubin UA POCT neg [facility] Ketones UA POCT neg [facility] Specific [place] UA 1.020 [facility] Blood Urine POCT 200 [facility] pH UA 7.0 [facility] Protein UA 0.3 [facility] Urobilinogen UA 3.5 [facility] Nitrite UA neg [facility] WBC UA 500 [facility] Urine specimen (specimen) 08/31/2015 Gypsy Hernandez LAB - POINT OF CAR E ORDERABLES [facility] * PATHOLOGY TISSUE (08/22/2015 10:00 AM MILITARY SCIENCE TEACHER) Surgical Pathology Tissue CLINICAL HISTORY: Kidney stone. OPERATIVE PROCEDURE: ??Cystoscopy/stent placement; left ureteroscopy, stone extraction laser lithotripsy, retrograde pyelogram, possible laser endopyelotomy. FINAL DIAGNOSIS: KIDNEY, LEFT STONES, REMOVAL: - ? CALCULI (GROSS DIAGNOSIS ONLY) GROSS DESCRIPTION: The specimen is received fresh in one container for gross examination only, labeled with the patient's name, Sarah Lopez and left kidney stones and consists of multiple irregularly shaped, saab-shi calculi ranging in greatest dimension from 0.5 to 0.1 cm with an aggregate measurement of 2.4 x 0.6 x 0.5 cm. ??The specimen is submitted entirely for chemical analysis. ??No sections are taken. ??This is a gross only specimen. MNR/ls MICROSCOPIC DESCRIPTION: Specimen submitted for gross diagnosis only; no sections submitted. MH/mh The performance characteristics of all immunohistochemical and indirect immunofluorescence stains (if any) cited in this report were determined by the Histopathology Laboratory of [facility].?? Some of these tests were developed by our own laboratory and have not been cleared or approved by the US Food and Drug Administration.?The FDA does not require this test to go through premarket FDA review.?These tests are used for clinical purposes. They should not be regarded as investigational or for research.?? This laboratory is certified under the Clinical Laboratory Improvement Amendments (CLIA) as qualified to perform high complexity clinical laboratory testing. This case has been personally reviewed and interpreted by the attending (teaching) pathologist. Final Diagnosis performed by La Nash M.D. Electronically signed 08/23/2015 [facility] ([place]) Other (qualifier value) 08/22/2015 10:00 AM MILITARY SCIENCE TEACHER 08/22/2015 12:11 PM MILITARY SCIENCE TEACHER Narrative [facility] ([place]) - 08/23/2015 4:19 PM MILITARY SCIENCE TEACHER PROBLEM LIST: ??The problems are not reviewed yet. Please review them in the Problem List activity and refresh this SmartLink. PRE-OP DIAGNOSIS: ??Kidney stone [N20.0] OPERATIVE PROCEDURE / FINDINGS: ??Procedure(s) with comments: Cystoscopy/stent placement; left ureteroscopy, stone extraction laser lithotripsy, retrograde pyelogram, possible laser endopyelotomy - 54224, 63574, 43848, 48698, 78352, 24687 RETROGRADE PYELOGRAM URETERAL STENT PLACEMENT, REMOVAL OR EXCHANGE POST-OP DIAGNOSIS: * No post-op diagnosis entered * Collection Date->08/22/15 Collection Time->10:00 AM Specimen A->Kidney, Left A) LEFT KIDNEY STONES Gypsy Hernandez DO LAB - PATHOLOGY/CY TOLOGY ORDERABLES Performing Organization Address City/[facility]/ZIP Co de Phone Number [facility] ([facility]) * STONE ANALYSIS QUANT (08/22/2015 10:00 AM MILITARY SCIENCE TEACHER) Color UA Brown [facility] ([facility]) Stone Size Comment mm [facility] (BEAK[facility]) Comment:Specimen received as fragments. Weight 244.9 mg [facility] (BEAKER) Stone Composition Comment [facility] (BEAKER) Comment:Percentage (Represen ts the % composition) Calcium Oxalate Dihydrate 05 % [facility] (BEAKER) Calcium Oxalate Monohydrate 65 % [facility] (BEAKER) Calcium Phosphate 30 % [facility] (BEAKER) Nidus No Nidus visualized [facility] (BEAKER) Please Note Comment [facility] (BEAKER) Comment: Calculi report without photograph will follow via computer, mail, or copyright clerk delivery. Comment Comment [facility] (BEAKER) Comment: Physician questions regarding Calculi Analysis contact [facility] at: [phone]. Calculus specimen (specimen) ENTIRE KIDNEY / Unknown 08/22/2015 10:00 AM MILITARY SCIENCE TEACHER 09/20/2015 1:18 PM MILITARY SCIENCE TEACHER Narrative [facility] (BEAKER) - 09/23/2015 7:09 PM MILITARY SCIENCE TEACHER Performed at: ??01 - [facility] [address] ??[id number] Metal Bonding Helper: Abdias Mac MD, Phone: ??[phone] Gypsy Hernandez DO LAB - URINE CHEMIS TRY ORDERABLES Performing Organization Address City/[facility]/ZIP Co de Phone Number [facility] ([place]) * FL CYSTOGRAM (08/22/2015 9:05 AM MILITARY SCIENCE TEACHER) Anatomical Region Laterality Modality Abdomen, Pelvis Other Narrative 08/22/2015 9:05 AM MILITARY SCIENCE TEACHER Fluoroscopy was used for this exam. Please see the Operative report. Procedure Note Provider, MD Tobias - 10/26/2017 Fluoroscopy was used for this exam. Please see the Operative report. Gypsy Hernandez FLUOROSCOPY ORDERA BLES * PTT [facility] (08/01/2015 12:24 PM MILITARY SCIENCE TEACHER) APTT 29.4 23.0 - 38.4 Seconds [facility] Comment:Suggested therapeuti c range for full dose I.V. heparin therapy for venous thromboembolism is 66.0-91.0 seconds. Blood specimen (specimen) BLOOD SPECIMEN / Unknown 08/01/2015 12:24 PM MILITARY SCIENCE TEACHER 08/01/2015 1:15 PM MILITARY SCIENCE TEACHER Narrative [facility] - 08/01/2015 1:37 PM MILITARY SCIENCE TEACHER Is patient on Heparin, Argatroban or Dabigatran?->N Gypsy Hernandez DO LAB - COAGULATION ORDERABLES Performing Organization Address [facility]/ZIP Co de Phone Number [address] [phone] * PT-INR [facility] (08/01/2015 12:24 PM MILITARY SCIENCE TEACHER) PT 13.1 12.1 - 14.8 Seconds [facility] INR 1.0 See Comment [facility] Comment: Suggested therapeutic range for low-intensity coumadin therapy for venous thromboembolism prophylaxis is an INR of 2.0-3.0. ??For high risk patients (Mitral Valve Prosthesis, Atrial Fibrillation, history of TIA/stroke), suggested prophylactic therapeutic range is an INR of 2.5-3.5. Blood specimen (specimen) BLOOD SPECIMEN / Unknown 08/01/2015 12:24 PM MILITARY SCIENCE TEACHER 08/01/2015 1:15 PM MILITARY SCIENCE TEACHER Narrative [facility] - 08/01/2015 1:37 PM MILITARY SCIENCE TEACHER Is patient on Heparin, Argatroban or Dabigatran?->N Gypsyjoel Hernandez DO LAB - COAGULATION ORDERABLES [facility] [address] [place] [address] * CBC W AUTO DIFFERENTIAL (08/01/2015 12:24 PM MILITARY SCIENCE TEACHER) Only the most recent of4 resultswithin the time period is included. WBC 6.0 3.5 - 10.5 10? 3 /uL [facility] RBC 4.39 3.90 - 5.00 10? 6 /uL [facility] Hemoglobin 13.1 12.0 - 15.5 g/dL [facility] Hematocrit 40.2 35.0 - 45.0 % [facility] MCV 91.6 81.0 - 97.0 fL [facility] MCH 29.8 28.0 - 34.0 pg [facility] MCHC 32.6 32.0 - 36.0 g/dL [facility] Platelet Count 253 150 - 400 10? 3 /uL [facility] RDW-SD 44.2 36.0 - 50.0 fL [facility] RDW-CV 13.2 11.2 - 14.8 % [facility] MPV 11.2 9.3 - 12.8 fL [facility] nRBC Absolute 0.00 0 10? 3 /uL [facility] nRBC Auto 0.0 0 /100 WBC [facility] Neutrophils % 53.4 35.0 - 70.0 % [facility] Lymphocytes % 37.0 19.7 - 55.1 % [facility] Monocytes % 6.5 3.0 - 15.0 % [facility] Eosinophils % 2.8 0.0 - 6.0 % [facility] Basophil % 0.3 0.0 - 1.5 % [facility] Neutrophils Absolute 3.2 1.6 - 7.0 10? 3 /uL [facility] Lymphocyte Absolute 2.2 0.8 - 2.9 10? 3 /uL [facility] Monocytes Absolute 0.39 0.14 - 0.66 10? 3 /uL [facility] Eosinophils Absolute 0.17 0.00 - 0.22 10? 3 /uL [facility] Basophils Absolute 0.02 0.00 - 0.06 10? 3 /uL [facility] Immature Granulocytes % 0.2 0.0 - 1.0 % [facility] Blood specimen (specimen) BLOOD SPECIMEN / Unknown 08/01/2015 12:24 PM MILITARY SCIENCE TEACHER 08/01/2015 1:14 PM MILITARY SCIENCE TEACHER Gypsy Hernandez DO LAB - HEMATOLOGY O RDERABLES [facility] [address] [phone] * COMPREHENSIVE METABOLIC PANEL (08/01/2015 12:24 PM MILITARY SCIENCE TEACHER) Only the most recent of2 resultswithin the time period is included. BUN 14 7 - 26 mg/dL [facility] Creatinine 0.7 0.6 - 1.2 mg/dL [facility] Sodium 141 136 - 145 mmol/L [facility] Potassium 4.0 3.5 - 4.5 mmol/L [facility] Chloride 106 98 - 107 mmol/L [facility] CO2 26 22 - 29 mmol/L [facility] Glucose 86 70 - 115 mg/dL [facility] Calcium 9.1 8.4 - 10.2 mg/dL [facility] Protein Total 6.6 6.0 - 8.3 g/dL [facility] Albumin 3.6 3.4 - 5.0 g/dL [facility] Bilirubin Total 0.3 0.2 - 1.2 mg/dL [facility] Alkaline Phosphatase 91 40 - 150 Units/L [facility] ALT 15 0 - 55 Units/L [facility] AST 21 5 - 34 Units/L [facility] Anion Gap 13 8 - 18 [facility] BUN/Creatinine Ratio 20 7 - 23 [facility] Osmolality Calculated 277 270 - 300 mOsm/kg [facility] Albumin/Globulin Ratio 1.2 1.1 - 2.3 [facility] eGFR >60 >60 mL/min/1.7 3 m2 [facility] Blood specimen (specimen) BLOOD SPECIMEN / Unknown 08/01/2015 12:24 PM MILITARY SCIENCE TEACHER 08/01/2015 1:15 PM MILITARY SCIENCE TEACHER Gypsy Hernandez DO LAB - CHEMISTRY [place] [address], [facility] [phone] * CT ABDOMEN PELVIS WO CONTRAST (08/01/2015 10:40 AM MILITARY SCIENCE TEACHER) Anatomical Region Laterality Modality Abdomen, Pelvis Other Impressions 08/01/2015 4:24 PM MILITARY SCIENCE TEACHER IMPRESSION: 1. Atrophic left kidney with cortical thinning. Obstructing calculus in the left kidney upper pole major calyx measuring 1.4 x 1.0 cm, grossly unchanged in size. Multiple other nonobstructing left lower pole renal calculi measuring up to 1.2 x 0.7 cm. A mild degree of lower pole hydronephrosis is also noted. 2. A 2 mm nonobstructing right renal calculus. Dictated by Greg Madrid MD (hvac technician residential). I, Dr. JJ CONKLIN M.D. have personally reviewed and interpreted this examination/study. This report was electronically signed by JJ CONKLIN M.D. ??on 08/01/2015 4:24 PM . Narrative 08/01/2015 4:24 PM MILITARY SCIENCE TEACHER EXAMINATION: Computed tomography (CT) of the abdomen and pelvis without contrast HISTORY: 64-year-old female with history of kidney stones. TECHNIQUE: CT of the abdomen and pelvis was performed without contrast according to standard protocol. COMPARISON: Comparison is made with prior CT abdomen on 09/21/2009. FINDINGS: Evaluation of visceral and vascular structures is degraded due to lack of intravenous contrast administration. The aorta is atherosclerotic but normal in caliber. The thoracic descending aorta is located on the right side of the spine. Mild bilateral dependent atelectasis is present. Otherwise no focal consolidation is seen in the visible lung bases. The heart size is normal without pericardial effusion. The liver appears normal. The gallbladder is normal without evidence of wall thickening, pericholecystic fluid, or gallstones. The intrahepatic and extrahepatic bile ducts are nondilated. The spleen, pancreas, and adrenal glands appear normal. The left kidney is atrophic with cortical thinning, increased from 09/21/2009. There is atrophy of the left kidney upper pole which is unchanged and likely related to chronic scarring. There is a large nonobstructing calculus in the left kidney upper pole major calyx measuring 1.4 x 1.0 cm, grossly unchanged from 09/21/2009. Multiple other nonobstructing left renal calculi in the lower pole are identified, the largest measuring 1.2 x 0.7 cm. Mild left hydronephrosis without hydroureter is identified. The right kidney appears normal in size and configuration. There is a 2 mm nonobstructing renal calculus in the inferior right kidney. There is no right hydronephrosis or hydroureter. There is a moderate-sized hiatal hernia. Otherwise, the distal esophagus and the stomach normal. The small bowel and large bowel are normal in caliber without evidence of wall thickening or obstruction. The appendix appears normal without appendicolith or surrounding inflammatory changes. No free air or free fluid is identified within the abdomen. There is no abdominal lymphadenopathy. No bladder calculi are identified. The urinary bladder is distended with fluid and appears normal. The uterus is normal. No free fluid is seen within the pelvis. There is no pelvic lymphadenopathy. There is unchanged lytic bone defect within the right femoral head with associated hyperattenuating spheres likely representing prior osteomyelitis treatment. Bone windows demonstrate no suspicious lytic or blastic lesions. The visible osseous structures are intact. Multilevel degenerative changes are noted in the spine. There is grade 1 retrolisthesis of L1 on L2. There is grade 1 anterolisthesis of L4 on L5 with bilateral chronic appearing pars defects at L4. L1 vertebral body height loss is unchanged. Procedure Note Jj Conklin MD - 10/26/2017 EXAMINATION: Computed tomography (CT) of the abdomen and pelvis withoutcontrast HISTORY: 64-year-old female with history of kidney stones. TECHNIQUE: CT of the abdomen and pelvis was performed without contrastaccording to standard protocol. COMPARISON: Comparison is made with prior CT abdomen on 09/21/2009. FINDINGS: Evaluation of visceral and vascular structures is degraded due to lack ofintravenous contrast administration. The aorta is atherosclerotic but normal in caliber. The thoracicdescending aorta is located on the right side of the spine. Mild bilateral dependent atelectasis is present. Otherwise no focalconsolidation is seen in the visible lung bases. The heart size is normalwithout pericardial effusion. The liver appears normal. The gallbladder is normal without evidence ofwall thickening, pericholecystic fluid, or gallstones. The intrahepaticand extrahepatic bile ducts are nondilated. The spleen, pancreas, andadrenal glands appear normal. The left kidney is atrophic with cortical thinning, increased from09/21/2009. There is atrophy of the left kidney upper pole which isunchanged and likely related to chronic scarring. There is a largenonobstructing calculus in the left kidney upper pole major calyx measuring 1.4 x 1.0 cm, grossly unchanged from 09/21/2009.Multiple other nonobstructing left renal calculi in the lower pole areidentified, the largest measuring 1.2 x 0.7 cm. Mild left hydronephrosiswithout hydroureter is identified. The right kidney appears normal in size and configuration. There is a 2 mmnonobstructing renal calculus in the inferior right kidney. There is noright hydronephrosis or hydroureter. There is a moderate-sized hiatal hernia. Otherwise, the distal esophagusand the stomach normal. The small bowel and large bowel are normal incaliber without evidence of wall thickening or obstruction. The appendixappears normal without appendicolith or surrounding inflammatory changes. No free air or free fluid isidentified within the abdomen. There is no abdominal lymphadenopathy. No bladder calculi are identified. The urinary bladder is distended withfluid and appears normal. The uterus is normal. No free fluid is seenwithin the pelvis. There is no pelvic lymphadenopathy. There is unchanged lytic bone defect within the right femoral head withassociated hyperattenuating spheres likely representing priorosteomyelitis treatment. Bone windows demonstrate no suspicious lytic orblastic lesions. The visible osseous structures are intact. Multilevel degenerative changes are noted in the spine. Thereis grade 1 retrolisthesis of L1 on L2. There is grade 1 anterolisthesis ofL4 on L5 with bilateral chronic appearing pars defects at L4. L1 vertebralbody height loss is unchanged. IMPRESSION IMPRESSION: 1. Atrophic left kidney with cortical thinning. Obstructing calculus inthe left kidney upper pole major calyx measuring 1.4 x 1.0 cm, grosslyunchanged in size. Multiple other nonobstructing left lower pole renalcalculi measuring up to 1.2 x 0.7 cm. A mild degree of lower pole hydronephrosis is also noted. 2. A 2 mm nonobstructing right renal calculus. Dictated by Greg Madrid MD (hvac technician residential). Dr. JJ Chávez M.D. have personally reviewed and interpreted thisexamination/study. This report was electronically signed by JJ CONKLIN M.D. on 08/01/20154:24 PM . Gypsy Hernandez DO CT ORDERABLES * EKG 12-LEAD (08/01/2015 12:00 AM MILITARY SCIENCE TEACHER) 08/01/2015 Lakesha Ayon MD ECG ORDERABLES [facility] RADIOLOGY * IA RENAL SCAN W FLOW AND FUNCTION (05/12/2015 11:37 AM CDT) Anatomical Region Laterality Modality Abdomen Other Impressions 05/12/2015 4:37 PM CDT Impression: 1. Overall decline in left renal function compared to prior study. 2. Split function is 18% left and 82% right., compared to 34% and 76% from prior study, respectively. 3. No evidence of postrenal obstruction. This report was approved ??by Danielle Hunter M.D. ?? on 05/12/2015 3:44 PM . I, Dr. FIDELIA GARCIA M.D. have personally reviewed and interpreted this examination/study. This report was electronically signed by FIDELIA GARCIA M.D. ??on 05/12/2015 4:37 PM . Narrative 05/12/2015 4:37 PM CDT Procedure: Renal blood flow and function without Lasix diuresis. 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 Patient found to have microhematuria. Technique: ??10.01 mCi of Tc-99m MAG3, injected IV in the right forearm. Sequential dynamic blood flow images of the abdomen were obtained in the anterior and posterior projections for 30 minutes following radiotracer injection. Findings: Comparison made to prior study dated 09/21/2009. Blood flow images reveal lower left kidney perfusion compared to the right. Sequential functional images obtained for 30 minutes reveal smaller left kidney size compared to the right. The left kidney uptake is minimal compared to the right kidney. Both kidneys secretion are optimal with normal visualized ureters. No evidence of obstruction in both kidneys. Quantitative function Renography ?Left ? Right Peak time (min) ? 8 ?3.5 Differential function (%) ? 18 ?82 Procedure Note Fidelia Garcia MD - 10/26/2017 Procedure: Renal blood flow and function without Lasix diuresis. History: 64 year old female with a history of left UPJ obstruction due tocalculus since 2009. Patient found to have microhematuria. Technique: 10.01 mCi of Tc-99m MAG3, injected IV in the right forearm.Sequential dynamic blood flow images of the abdomen were obtained in theanterior and posterior projections for 30 minutes following radiotracerinjection. Findings: Comparison made to prior study dated 09/21/2009. Blood flow images reveal lower left kidney perfusion compared to theright. Sequential functional images obtained for 30 minutes reveal smallerleft kidney size compared to the right. The left kidney uptake is minimalcompared to the right kidney. Both kidneys secretion are optimal with normal visualized ureters. No evidenceof obstruction in both kidneys. Quantitative function Renography Left Right Peak time (min) 8 3.5 Differential function (%) 18 82 IMPRESSION Impression: 1. Overall decline in left renal function compared to prior study. 2. Split function is 18% left and 82% right., compared to 34% and 76% fromprior study, respectively. 3. No evidence of postrenal obstruction. This report was approved by Danielle Hunter M.D. on 05/12/2015 3:44PM . I, Dr. FIDELIA GARCIA M.D. have personally reviewed and interpreted thisexamination/study. This report was electronically signed by FIDELIA GARCIA M.D. on 05/12/20154:37 PM . Bryce Baker MD NM ORDERABLE S * XR ABDOMEN KUB (04/28/2014 11:40 AM CDT) Anatomical Region Laterality Modality Abdomen Other Impressions 04/29/2014 9:47 AM CDT Impression: Several left renal calculi, with decreased stone burden since 2009. Dictated by Anai Santos MD. This report was approved ??by Anai Santos M.D. ?? on 04/29/2014 9:07 AM . I, . Dr. JJ SURESH MD have personally reviewed and interpreted this examination/study. This report was electronically signed by Dr. JJ SURESH MD ??on 04/29/2014 9:47 AM . Narrative 04/29/2014 9:47 AM CDT Exam: Abdomen, 1 view. Date: 04/28/2014 Comparison: CT abdomen 09/21/2009 History: ??hematuria Findings: There is a large calcific density in the left side of the abdomen overlying the superior left kidney which measures 2.0 x 1.5 cm. Another calcific density is located inferior to this in the region of the inferior left kidney measuring 1.2 x 0.7 cm which appears smaller in size when compared with the CT abdomen of 2009. Several other punctate radiodensities are seen in this region. These findings correlate with the radiodensities seen on the CT abdomen 09/21/2009. Stool is seen in the colon and rectum. There are degenerative changes of the lower lumbar spine. 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 There is a nonobstructive bowel gas pattern. Procedure Note Jj Suresh MD - 10/26/2017 Exam: Abdomen, 1 view. Date: 04/28/2014 Comparison: CT abdomen 09/21/2009 History: hematuria Findings: There is a large calcific density in the left side of the abdomenoverlying the superior left kidney which measures 2.0 x 1.5 cm. Anothercalcific density is located inferior to this in the region of the inferiorleft kidney measuring 1.2 x 0.7 cm which appears smaller in size when compared with the CT abdomen of 2009. Severalother punctate radiodensities are seen in this region. These findingscorrelate with the radiodensities seen on the CT abdomen 09/21/2009. Stoolis seen in the colon and rectum. 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 There is a nonobstructive bowel gas pattern. IMPRESSION Impression: Several left renal calculi, with decreased stone burden since 2009. Dictated by Anai Santos MD. This report was approved by Anai Santos M.D. on 04/29/2014 9:07 AM . I, . Dr. JJ SURESH MD have personally reviewed and interpreted thisexamination/study. This report was electronically signed by Dr. JJ SURESH MD on04/29/2014 9:47 AM . Fab Scanlon MD DIAGNOSTIC IMAGING ORDERABLES * LAB HISTORICAL RESULTS-ONBASE (09/05/2011) Only the most recent of3 resultswithin the time period is included. 09/05/2011 Historical Provider LAB - CHEMISTRY O RDERABLES [facility] * C-REACTIVE PROTEIN (12/07/2010 9:00 AM CDT) Only the most recent of3 resultswithin the time period is included. C-Reactive Protein 0.23 <0.80 mg/dL [facility] [place] ([facility]) Comment: NO COLLECTION DATE RECEIVED. WE HAVE USED THE DATE THE SPECIMEN WAS RECEIVED BY THIS LABORATORY THE COLLECTION DATE. IF THIS IS INCORRECT, PLEASE CONTACT CLIENT SERVICES. PHONE NUMBER: [phone] Test Performed at: [facility] [place] [address] [place], [place] ??[address] ABDIAS KILGORE DO,MPH Venous blood specimen (specimen) 12/07/2010 9:00 AM CDT 12/07/2010 7:06 AM CDT Narrative [facility] ([facility]) - 12/07/2010 9:00 AM CDT Preferred Lab:->[facility] Danya Dooley MD LAB - CERTIFIED MASTER LOCKSMITH RY ORDERABLES Performing Organization Address City/[facility]/ZIP Co de Phone Number [facility] ([facility]) * ERYTHROCYTE SEDIMENTATION RATE (12/07/2010 7:00 AM CDT) Only the most recent of3 resultswithin the time period is included. [facility] 30 [facility]/h [facility] ([facility]) Comment: NO COLLECTION DATE RECEIVED. WE HAVE USED THE DATE THE SPECIMEN WAS RECEIVED BY THIS LABORATORY THE COLLECTION DATE. IF THIS IS INCORRECT, PLEASE CONTACT CLIENT SERVICES. PHONE NUMBER: [phone] Test Performed at: [facility] [address] ??[phone] ABDIAS KILGORE DO,MPH 12/07/2010 7:00 AM CDT 12/07/2010 6:53 AM CDT Narrative [facility] ([facility]) - 12/07/2010 7:00 AM CDT Preferred Lab:->[facility] Danya Dooley MD LAB - HEMATOL OGY ORDERABLES Performing Organization Address [facility]/ZIP Co de Phone Number [facility] ([facility]) Care Teams Conveyor Installer Relationship Specialty Start Date End Date Ian Otriz MD [address] [facility] [address] [place] [id number] PCP - General 05/23/15
--- OUTSIDE RECORDS SUMMARY | 2024-08-25 07:37 | XMS_ITS | Encounter Summary ---
Author Organization [facility] Address [address] [facility] [place] [address] Care Team Providers Care Senior Front End Web Developer Name Role Phone Ian Ortiz MD Primary Care Provider [phone] Encounter Details Date Type Department Care Team (Late st Contact Info) Description 08/30/2023 Lab Requisition [facility] [address] [place] [address] Rory Leigh MD [address] [place] [address] Social History Tobacco Use Types Packs/Day Years Used Date Smoking Tobacco: Former Cigarettes Q uit: 12/12/2009 Smokeless Tobacco: Never Alcohol Use Standard Drinks/Week Comments No 0 (1 standard drink = 0.6 oz pur e alcohol) Sex and Gender Information Value Date Recorded Sex Assigned at Not on file Gender Identity Not on file Sexual Orientation Not on file documented as of this encounter Plan of Treatment Not on file documented as of this encounter Procedures Procedure Name Priority Date/Time Associated Diagnosis Comments DERMATOPATHOLOGY Routine 08/28/2023 12:0 0 AM [facility] documented in this encounter Results * DERMATOPATHOLOGY (08/28/2023 12:00 AM [facility]) Case Report Dermatopathology Report ? Case: [id number] ? Authorizing Provider: ??Rory Leigh MD ?Collected: ? 08/28/2023 12:00 AM ? Ordering Location: ? [facility] ? Received: ?08/30/2023 10:20 AM ? Pathologist: ? Amelia Castillo, ? MD ? Specimens: ?? A) - Skin, left jawline ? B) - Skin, anterior midline scalp ? 4 4:34 PM [facility] Final Diagnosis Specimen A. SKIN, left jawline: HYPERPLASTIC (HYPERTROPHIC) ACTINIC KERATOSIS, LICHENOID (L57.0) Specimen B. SKIN, anterior midline scalp: ACTINIC KERATOSIS; EXTENDING TO THE BASE OF THE SPECIMEN (L57.0) (see microscopic description and comment) 4:34 PM [facility] Clinical History A: BCCA vs. SCC. Path# [id number] B: BCCA vs. SCC. Path# [id number] 4:34 PM [facility] Gross Description Specimen A: Received [...] measuring 3x2x1 mm. Jar 0. 4:34 PM [facility] Microscopic Description Specimen A. SKIN, [...] carcinoma cannot be ruled out. 4:34 PM [facility] Disclaimer An external and internal positive and negative controls are appropriate for the histochemical, immunohistochemical and immunofluorescence stain(s) in this case (if any), except where stated explicitly. The performance characteristics of the stain(s) cited in this report were developed and its performance characteristic determined by the Dermatopathology Laboratory at [facility], directed by Dr. Yazmin Moreno. These tests need not be, and therefore are not, approved by the [place] Food and Drug Administration. The tests are used for clinical purposes. Billing Codes Specimen Charges Stain Charges 57570 57717 1 1 4 4:34 PM [facility] Embedded Images 4 4:34 PM [facility] Pathology/Cytology TISSUE SPECIMEN FROM SKIN / Unknown 08/28/2023 08/30/2023 10:20 AM [facility] Miscellaneous samples (specimen) TISSUE SPECIMEN FROM SKIN / Unknown 08/28/2023 08/30/2023 10:20 AM [facility] Rory Leigh MD LAB - PATHOLOGY/CYTO LOGY ORDERABLES DERMATOPATHOLOGY LABORATORY [facility] Medicine [address] [place] [address], [address] [phone] documented in this encounter Visit Diagnoses Not on filedocumented in this encounter Care Teams Senior Front End Web Developer Relationship Specialty Start Date End Date Ian Ortiz MD [address] [facility] [address] [place] [address] PCP - General 05/23/15 documented as of this encounter
[2024-08-25 08:00] LABS: Hemoglobin 13.5 g/dL (12.0-15.0); Mean Corpuscular HGB Conc 32.9 g/dl (32-36); Mean Corpuscular Hemoglobin 30.5 pg (26-34); Mean Corpuscular Volume 92.6 fl (80-100); Mean Platelet Volume 10.4 fl (7.4-10.4); Platelet Count Result 349 k/mm3 (150-375); Red Blood Count 4.43 M/mm3 (4.2-5.4); Red Cell Distribution Width 13.5 % (11.5-14.5); White Blood Count 7.7 K/mm3 (4.5-10.0)
[2024-08-25 08:23] LABS: Cholesterol 168 mg/dL (0-200); HDL Direct 71 mg/dL; Triglycerides 81 mg/dL (<150)
[2024-08-25 08:25] LABS: Alanine Aminotransferase 17 U/L (6-35); Albumin Level 4.2 g/dL (3.5-5.1); Alkaline Phosphatase 100 U/L (38-126); Anion Gap 7 mmol/L (4-12); Aspartate Amino Transferase 29 U/L (14-36); Bilirubin,Total 0.6 mg/dL (0.2-1.3); Blood Urea Nitrogen 13 mg/dL (7-17); Calcium 10.1 mg/dL (8.4-10.2); Carbon Dioxide 29 mmol/L (22-30); Chloride 101 mmol/L (98-107); Estimated Glomerular Filt Rate > 60; Glucose 104 mg/dL (65-110); Potassium 4.5 mmol/L (3.4-5.0); Sodium 137 mmol/L (137-145)
[2024-08-25 08:34] LABS: LDL Cholesterol Direct 56 mg/dL
[2024-08-25 12:16] LABS: Parathyroid Intact 66.7 pg/mL (14.5-75.2)
== END 2024-08-25 07:35 | disposition home or self-care (01) ==
LOC: ANHLAB 07:35
PROVIDERS: PCP Nurse Practitioner Family; Referring Provider Nurse Practitioner Family; Visit Provider Internal Medicine
DX: I48.91 Unspecified atrial fibrillation (principal); I51.89 Other ill-defined heart diseases; E21.3 Hyperparathyroidism, unspecified; M81.0 Age-related osteoporosis without current pathological fracture; E05.90 Thyrotoxicosis, unspecified without thyrotoxic crisis or storm; Z79.899 Other long term (current) drug therapy
CPT/HCPCS: 36415; 80053; 80061; 82306; 83970; 85027

== ENCOUNTER 2024-09-08 12:09 | Outpatient (CLI) | payer MEDICARE, SELFPAY ==
[2024-09-08 13:03] LABS: Hematocrit 37.5 % (37.0-47.0); Hemoglobin 12.4 g/dL (12.0-15.0); Mean Corpuscular HGB Conc 33.1 g/dl (32-36); Mean Corpuscular Hemoglobin 30.4 pg (26-34); Mean Corpuscular Volume 91.9 fl (80-100); Mean Platelet Volume 10.9 fl (7.4-10.4); Platelet Count Result 357 k/mm3 (150-375); Red Blood Count 4.08 M/mm3 (4.2-5.4); Red Cell Distribution Width 13.3 % (11.5-14.5); White Blood Count 8.1 K/mm3 (4.5-10.0)
--- OUTSIDE RECORDS SUMMARY | 2024-09-08 13:15 | XMS_ITS | Patient Health Summary ---
Author Organization [facility] Address [address] [place] [address] Care Team Providers Care Exchange Mechanic Name Role Phone Ian Ortiz MD Primary Care Provider [phone] Note from [facility],non-owned Affiliates and Associated Physician Practices is amultiple site organization consisting of ambulatory clinics and hospital sitesin [place], [place], [place] and [place]. This disclosure is being madepursuant to the Care Everywhere program and may not contain all information available regarding this patient. Last updated 18.[facility] Allergies * Adhesive Sensitivity(Rash) -Medium Criticality [...] once daily * FLUTICASONE PROPIONATE, NASAL, NA Holland 1-2 sprays into the nose once daily * Multiple Vitamin (MULTIVITAMIN ADULT PO) Take 1 tablet by mouth once daily * Calcium Citrate-Vitamin D (CALCIUM + D PO) * Azelastine HCl 137 MCG/SPRAY SOLN(Started 12/25/2022) Holland 1 spray into each nostril once daily [...] Comments Blood Pressure 106/74 08/14/2023 10:42 AM OPHTHALMOLOGY SURGICAL TECHNICIAN Pulse 97 08/14/2023 10:42 AM OPHTHALMOLOGY SURGICAL TECHNICIAN Temperature 36.4 C (97.6 F) 12/14/2015 11:40 AM CDT Respiratory Rate 16 08/22/2015 12:55 PM OPHTHALMOLOGY SURGICAL TECHNICIAN Oxygen Saturation 96% 04/23/2017 10:20 AM CDT Inhaled Oxygen Concentration - - Weight 78.9 kg (174 lb) 08/14/2023 10:42 AM OPHTHALMOLOGY SURGICAL TECHNICIAN Height 170.2 cm (5' 7 ) 08/14/2023 10:42 AM OPHTHALMOLOGY SURGICAL TECHNICIAN Body Mass Index 27.25 08/14/2023 10:42 AM OPHTHALMOLOGY SURGICAL TECHNICIAN Procedures * DERMATOPATHOLOGY(Performed 08/28/2023) * CT NECK [...] 09/29/2009) Results * DERMATOPATHOLOGY (08/28/2023 12:00 AM OPHTHALMOLOGY SURGICAL TECHNICIAN) Case Report Dermatopathology Report Case: [id number] Authorizing Provider: Rory Leigh MD Collected: 08/28/2023 12:00 AM Ordering Location: [facility] DermPath Lab Received: 08/30/2023 10:20 AM Pathologist: Amelia Castillo MD Specimens: A) - Skin, left jawline B) - Skin, anterior midline scalp 4:34 PM OPHTHALMOLOGY SURGICAL TECHNICIAN DERMATOPATHOLOGY LABORATORY Final Diagnosis Specimen A. SKIN, left jawline: HYPERPLASTIC (HYPERTROPHIC) ACTINIC KERATOSIS, LICHENOID (L57.0) Specimen B. SKIN, anterior midline scalp: ACTINIC KERATOSIS; EXTENDING TO THE BASE OF THE SPECIMEN (L57.0) (see microscopic description and comment) 4:34 PM [facility] DERMATOPATHOLOGY LABORATORY Clinical History A: BCCA vs. SCC. Path# [id number] B: BCCA vs. SCC. Path# [id number] 4:34 PM [facility] DERMATOPATHOLOGY LABORATORY Gross Description Specimen A: Received [...] measuring 3x2x1 mm. Jar 0. 4:34 PM [facility] DERMATOPATHOLOGY LABORATORY Microscopic Description Specimen A. SKIN, [...] carcinoma cannot be ruled out. 4:34 PM [facility] DERMATOPATHOLOGY LABORATORY Disclaimer An external and internal positive and negative controls are appropriate for the histochemical, immunohistochemical and immunofluorescence stain(s) in this case (if any), except where stated explicitly. The performance characteristics of the stain(s) cited in this report were developed and its performance characteristic determined by the Dermatopathology Laboratory at [facility], directed by Dr. Yazmin Moreno. These tests need not be, and therefore are not, approved by the [place] Food and Drug Administration. The tests are used for clinical purposes. Billing Codes Specimen Charges Stain Charges [id number] [id number] 1 1 4:34 PM [facility] DERMATOPATHOLOGY LABORATORY Embedded Images 4:34 PM OPHTHALMOLOGY SURGICAL TECHNICIAN DERMATOPATHOLOGY LABORATORY Pathology/Cytology TISSUE SPECIMEN FROM SKIN / Unknown 08/28/2023 08/30/2023 10:20 AM OPHTHALMOLOGY SURGICAL TECHNICIAN Miscellaneous samples (specimen) TISSUE SPECIMEN FROM SKIN / Unknown 08/28/2023 08/30/2023 10:20 AM OPHTHALMOLOGY SURGICAL TECHNICIAN Rory Leigh MD LAB - PATHOLOGY/CYTO LOGY ORDERABLES DERMATOPATHOLOGY LABORATORY [facility] - Department of Dermatology [address], [address] [phone] * CT NECK SOFT TISSUE WWO CONT (08/14/2023 10:11 AM OPHTHALMOLOGY SURGICAL TECHNICIAN) Anatomical Region Laterality Modality Head Computed Tomogra phy 08/14/2023 10:2 8 AM OPHTHALMOLOGY SURGICAL TECHNICIAN Impressions 08/14/2023 11:18 AM OPHTHALMOLOGY SURGICAL TECHNICIAN IMPRESSION: 1. A a 8 mm slightly [...] 08/14/2023 11:18 AM Narrative 08/14/2023 11:18 AM OPHTHALMOLOGY SURGICAL TECHNICIAN PROCEDURE: CT NECK SOFT TISSUE WWO CONT, DATE/TIME OF EXAM: 08/14/2023 10:11 AM, LOCATION [facility] INDICATION: E21.3: Hyperparathyroidism (CMS-HCC) ADDITIONAL CLINICAL INFORMATION: Ordering Provider Reason For [...] DATE/TIME OF EXAM: 08/14/2023 10:11 AM, LOCATION [facility] INDICATION: E21.3: Hyperparathyroidism ([facility]) ADDITIONAL CLINICAL INFORMATION: Ordering Provider Reason For [...] CREATININE - POCT INTERFACED (08/14/2023 9:56 AM OPHTHALMOLOGY SURGICAL TECHNICIAN) Creatinine POCT 1.03 0.30 - 1.30 mg/dL 08/14/2023 9:58 AM OPHTHALMOLOGY SURGICAL TECHNICIAN [facility] eGFR 58(L) >90 mL/min/1.7 3 m2 08/14/2023 9:58 AM OPHTHALMOLOGY SURGICAL TECHNICIAN [facility] Blood BLOOD SPECIMEN / Unknown 08/14/2023 9:56 AM OPHTHALMOLOGY SURGICAL TECHNICIAN 08/14/2023 9:58 AM OPHTHALMOLOGY SURGICAL TECHNICIAN Crow Wray MD LAB - POINT OF CARE ORDERABLES [facility] [address] [place] [address], [facility] [phone] * XR KNEE LEFT 4VW OR MORE [...] Region Laterality Modality Pelvis, Lower Extremity Radiogra [facility] 11/28/2021 11:3 5 AM CDT Narrative [...] time period is included. Glucose UA neg [facility] Bilirubin UA POCT neg [facility] Ketones UA POCT neg [facility] Specific [place] UA 1.015 [facility] Blood Urine POCT 10 [facility] pH UA 6.0 [facility] Protein UA neg [facility] Urobilinogen UA 3.5 [facility] Nitrite UA neg [facility] WBC UA neg [facility] Urine specimen (specimen) 04/23/2017 Gypsy Hernandez DO LAB - POINT OF CAR E ORDERABLES [facility] * CULTURE URINE COMPREHENSIVE (01/04/2017 10:10 AM CDT) Culture SEE NOTE [facility] ([facility]) Comment: CULTURE, URINE, SPECIAL MICRO NUMBER: [id number] TEST STATUS: FINAL SPECIMEN SOURCE: OTHER (SPECIFY) SPECIMEN QUALITY: ADEQUATE RESULT: No Growth Test Performed at: [facility] [id number] DELIA BELL MD Urine specimen (specimen) 01/04/2017 10:10 AM CDT 01/04/2017 10:16 AM CDT Gypsy Hernandez DO LAB - MICROBIOLOGY ORDERABLES [facility] ([facility]) * URINALYSIS W/MICROSCOPIC NO CULTURE (12/20/2016 4:00 PM CDT) Only the most recent of2 resultswithin the time period is included. Comment UA [facility] ([facility]) Comment: The preferred specimen for urinalysis is urine preserved using a [employer] Urine Preservative Tube (yellow top, blue band) that may be obtained from your [employer] supplier. Color UA TNP [facility] ([facility]) Comment: TEST(S) NOT PERFORMED: COLOR APPEARANCE SPECIFIC GRAVITY PH GLUCOSE BILIRUBIN KETONES OCCULT BLOOD PROTEIN NITRITE LEUKOCYTE ESTERASE CRYSTALS * Test not performed. * * No suitable specimen received. * Test Performed at: [facility] [place] [address] [address] ABDIAS KILGORE DO,MPH Urine specimen (specimen) URINE SPECIMEN OBTAINED BY CLEAN CATCH PROCEDURE / Unknown 12/20/2016 4:00 PM CDT 12/19/2016 5:37 AM CDT Gypsy Hernandez DO LAB - URINALYSIS O RDERABLES [facility] ([facility]) * (ABNORMAL) CULTURE URINE (12/20/2016 4:00 PM CDT) Only the most recent of5 resultswithin the time period is included. Urine Culture Routine SEE NOTE(A) [facility] ([facility]) Comment: CULTURE, URINE, ROUTINE MICRO NUMBER: [id number] TEST STATUS: FINAL SPECIMEN SOURCE: NOT GIVEN SPECIMEN QUALITY: ADEQUATE RESULT: Greater than 100,000 CFU/mL of Escherichia coli E.coli INT ERNESTINE AMOX/CLAVULANATE S 4 AMPICILLIN R >=32 AMP/SULBACTAM I 16 CEFAZOLIN NR <=4 1 CEFEPIME S <=1 CEFTRIAXONE S <=1 CIPROFLOXACIN R >=4 ERTAPENEM S <=0.5 GENTAMICIN S <=1 IMIPENEM S <=0.25 LEVOFLOXACIN R >=8 NITROFURANTOIN S <=16 PIP/TAZOBACTAM S <=4 TOBRAMYCIN S <=1 TRIMETHOPRIM/SULFA S <=20 S=Susceptible I=Intermediate R=Resistant * = Not Tested NR = Not Reported NN = See Therapy Comments THERAPY COMMENTS Note 1: ORAL therapy: A cefazolin ERNESTINE of < 32 predicts susceptibility to the oral agents cefaclor, cefdinir, cefpodoxime, cefprozil, cefuroxime, cephalexin, and loracarbef when used for therapy of uncomplicated UTIs due to E. coli, K. pneumoniae, and P. mirabilis. PARENTERAL therapy: A cefazolin ERNESTINE of > 8 indicates resistance to parenteral cefazolin. An alternate test method must be performed to to confirm susceptibility to parenteral cefazolin. NO COLLECTION DATE RECEIVED. WE HAVE USED THE DATE THE SPECIMEN WAS RECEIVED BY THIS LABORATORY THE COLLECTION DATE. IF THIS IS INCORRECT, PLEASE CONTACT CLIENT SERVICES. PHONE NUMBER: [phone] Test Performed at: [facility] [address] [place] [address] ABDIAS KILGORE DO,MPH Urine specimen (specimen) URINE SPECIMEN OBTAINED BY CLEAN CATCH PROCEDURE / Unknown 12/20/2016 4:00 PM CDT 12/19/2016 5:37 AM CDT Narrative [facility]) - 12/20/2016 4:00 PM CDT Specimen Type->Urine Gypsy Hernandez LAB - MICROBIOLOGY ORDERABLES Performing Organization Address [facility] Co de Phone Number [facility] ([facility]) * LAB MISC TEST (01/10/2016 10:07 AM CDT) Reference Lab Results SEE SCANNED REPORT [facility] REF LAB NON INTERF Other (qualifier value) 01/10/2016 10:07 AM CDT 01/10/2016 10:21 AM CDT Narrative [facility] REF LAB NON INTERF - 02/23/2016 12:02 PM CDT Test Name:->MYCOPLASMA / UREAPLASMA CULTURE Reference Lab Info:->Lab Sel[place] Gypsy Hernandez LAB SEND OUT Performing Organization Address City/[facility] Co de Phone Number [facility] REF LAB NON INTERF * NM RENAL [...] Ne Sams on 11/01/2015 2:[address] FIDELIA Chávez M.D. have personally reviewed and interpreted this examination/study. This report was electronically signed by FIDELIA GARCIA M.D. on 11/01/2015 3:18 PM . Narrative 11/01/2015 3:18 [...] tracer from both kidneys. Quantitative function Renography Left Right Peak time (min) 13.5 4.5 Clearance (%) at 20 min 32.0 17.0 Differential function (%) 19 81 Lasix renography Left Right Half-peak time (min) 15.2 23.9 Procedure Note Fidelia Garcia MD - [...] FIDELIA GARCIA M.D. on 11/01/20153:18 PM . [facility] * URINALYSIS - POINT OF CARE (AMB) [facility] (08/31/2015) Only the most recent of5 resultswithin the time period is included. Glucose UA neg [facility] Bilirubin UA POCT neg [facility] Ketones UA POCT neg [facility] Specific [place] UA 1.020 [facility] Blood Urine POCT 200 [facility] pH UA 7.0 [facility] Protein UA 0.3 [facility] Urobilinogen UA 3.5 [facility] Nitrite UA neg [facility] WBC UA 500 [facility] Urine specimen (specimen) 08/31/2015 Gypsy Hernandez DO LAB - POINT OF CAR E ORDERABLES [facility] * PATHOLOGY TISSUE (08/22/2015 10:00 AM OPHTHALMOLOGY SURGICAL TECHNICIAN) Surgical Pathology Tissue CLINICAL HISTORY: Kidney stone. OPERATIVE PROCEDURE: Cystoscopy/stent placement; left ureteroscopy, stone extraction laser lithotripsy, retrograde pyelogram, possible laser endopyelotomy. FINAL DIAGNOSIS: KIDNEY, LEFT STONES, REMOVAL: - CALCULI (GROSS DIAGNOSIS ONLY) GROSS DESCRIPTION: The specimen is received fresh in one container for gross examination only, labeled with the patient's name, Sarah Denninger and left kidney stones and consists of multiple irregularly shaped, saab-shi calculi ranging in greatest dimension from 0.5 to 0.1 cm with an aggregate measurement of 2.4 x 0.6 x 0.5 cm. The specimen is submitted entirely for chemical analysis. No sections are taken. This is a gross only specimen. MNR/ls MICROSCOPIC DESCRIPTION: Specimen submitted for gross diagnosis only; no sections submitted. MH/mh The performance characteristics of all immunohistochemical and indirect immunofluorescence stains (if any) cited in this report were determined by the Histopathology Laboratory of [facility]. Some of these tests were developed by our own laboratory and have not been cleared or approved by the US Food and Drug Administration. The FDA does not require this test to go through premarket FDA review. These tests are used for clinical purposes. They should not be regarded as investigational or for research. This laboratory is certified under the Clinical Laboratory Improvement Amendments (CLIA) as qualified to perform high complexity clinical laboratory testing. This case has been personally reviewed and interpreted by the attending (teaching) pathologist. Final Diagnosis performed by La Nash M.D. Electronically signed 08/23/2015 [facility] ([place]) Other (qualifier value) 08/22/2015 10:00 AM OPHTHALMOLOGY SURGICAL TECHNICIAN 08/22/2015 12:11 PM OPHTHALMOLOGY SURGICAL TECHNICIAN Narrative [facility] ([place]) - 08/23/2015 4:19 PM OPHTHALMOLOGY SURGICAL TECHNICIAN PROBLEM LIST: The problems are not reviewed yet. Please review them in the Problem List activity and refresh this SmartLink. PRE-OP DIAGNOSIS: Kidney stone [N20.0] OPERATIVE PROCEDURE / FINDINGS: Procedure(s) with comments: Cystoscopy/stent placement; left ureteroscopy, stone extraction laser lithotripsy, retrograde pyelogram, possible laser endopyelotomy - 92312, 97152, 96421, 50415, 74779, 79196 RETROGRADE PYELOGRAM URETERAL STENT PLACEMENT, REMOVAL OR EXCHANGE POST-OP DIAGNOSIS: * No post-op diagnosis entered * Collection Date->08/22/15 Collection Time->10:00 AM Specimen A->Kidney, Left A) LEFT KIDNEY STONES Gypsy Hernandez DO LAB - PATHOLOGY/CY TOLOGY ORDERABLES [facility] (BEAKER) * STONE ANALYSIS QUANT (08/22/2015 10:00 AM OPHTHALMOLOGY SURGICAL TECHNICIAN) Color UA Brown [facility] ([facility]) [...] visualized [facility] (BEAKER) Please Note Comment [facility] (BEAKER) Comment: Calculi report without photograph will follow via computer, mail, or navy seal delivery. Comment Comment [facility] (BEAKER) Comment: Physician questions regarding Calculi Analysis contact [facility] at: [phone]. Calculus specimen (specimen) ENTIRE KIDNEY / Unknown 08/22/2015 10:00 AM OPHTHALMOLOGY SURGICAL TECHNICIAN 09/20/2015 1:18 PM OPHTHALMOLOGY SURGICAL TECHNICIAN Narrative [facility] ([facility]AKER) - 09/23/2015 7:09 PM OPHTHALMOLOGY SURGICAL TECHNICIAN Performed at: [address] [place] [id number] V Block Saw Operator: Abdias Mac MD, Phone: [phone] Gypsy Hernandez DO LAB - URINE CHEMIS TRY ORDERABLES [facility] (BEAKER) * FL CYSTOGRAM (08/22/2015 9:05 AM OPHTHALMOLOGY SURGICAL TECHNICIAN) Anatomical Region Laterality Modality Abdomen, Pelvis Other Narrative 08/22/2015 9:05 AM OPHTHALMOLOGY SURGICAL TECHNICIAN Fluoroscopy was used for this exam. Please see the Operative report. Procedure Note ProviderTobias MD - 10/26/2017 Fluoroscopy was used for this exam. Please see the Operative report. Gypsy Hernandez DO FLUOROSCOPY ORDERA BLES * PTT [facility] (08/01/2015 12:24 PM OPHTHALMOLOGY SURGICAL TECHNICIAN) APTT 29.4 23.0 - 38.4 Seconds [facility] Comment:Suggested therapeuti c range for full dose I.V. heparin therapy for venous thromboembolism is 66.0-91.0 seconds. Blood specimen (specimen) BLOOD SPECIMEN / Unknown 08/01/2015 12:24 PM OPHTHALMOLOGY SURGICAL TECHNICIAN 08/01/2015 1:15 PM OPHTHALMOLOGY SURGICAL TECHNICIAN Narrative [facility] - 08/01/2015 1:37 PM OPHTHALMOLOGY SURGICAL TECHNICIAN Is patient on Heparin, Argatroban or Dabigatran?->N [facility] LAB - COAGULATION ORDERABLES Performing Organization Address City/[facility] Co de Phone Number [address] [phone] * PT-INR [facility] (08/01/2015 12:24 PM OPHTHALMOLOGY SURGICAL TECHNICIAN) PT 13.1 12.1 - 14.8 Seconds [facility] INR 1.0 See Comment [facility] Comment: Suggested therapeutic range for low-intensity coumadin therapy for venous thromboembolism prophylaxis is an INR of 2.0-3.0. For high risk patients (Mitral Valve Prosthesis, Atrial Fibrillation, history of TIA/stroke), suggested prophylactic therapeutic range is an INR of 2.5-3.5. Blood specimen (specimen) BLOOD SPECIMEN / Unknown 08/01/2015 12:24 PM OPHTHALMOLOGY SURGICAL TECHNICIAN 08/01/2015 1:15 PM OPHTHALMOLOGY SURGICAL TECHNICIAN Narrative [facility] - 08/01/2015 1:37 PM OPHTHALMOLOGY SURGICAL TECHNICIAN Is patient on Heparin, Argatroban or Dabigatran?->N [facility] LAB - COAGULATION ORDERABLES Performing Organization Address [facility] Co de Phone Number [address] [phone] * CBC W AUTO DIFFERENTIAL (08/01/2015 12:24 PM OPHTHALMOLOGY SURGICAL TECHNICIAN) Only the most recent of4 resultswithin the time period is included. WBC 6.0 3.5 - 10.5 10 3/uL [facility] RBC 4.39 3.90 - 5.00 10 6/uL [facility] Hemoglobin 13.1 12.0 - 15.5 g/dL [facility] Hematocrit 40.2 35.0 - 45.0 % [facility] MCV 91.6 81.0 - 97.0 fL [facility] MCH 29.8 28.0 - 34.0 pg [facility] MCHC 32.6 32.0 - 36.0 g/dL [facility] Platelet Count 253 150 - 400 10 3/uL [facility] RDW-SD 44.2 36.0 - 50.0 fL [facility] RDW-CV 13.2 11.2 - 14.8 % [facility] MPV 11.2 9.3 - 12.8 fL [facility] nRBC Absolute 0.00 0 10 3/uL [facility] nRBC Auto 0.0 0 /100 WBC [facility] Neutrophils % 53.4 35.0 - 70.0 % [facility] Lymphocytes % 37.0 19.7 - 55.1 % [facility] Monocytes % 6.5 3.0 - 15.0 % [facility] Eosinophils % 2.8 0.0 - 6.0 % [facility] Basophil % 0.3 0.0 - 1.5 % [facility] Neutrophils Absolute 3.2 1.6 - 7.0 10 3/uL [facility] Lymphocyte Absolute 2.2 0.8 - 2.9 10 3/uL [facility] Monocytes Absolute 0.39 0.14 - 0.66 10 3/uL [facility] Eosinophils Absolute 0.17 0.00 - 0.22 10 3/uL [facility] Basophils Absolute 0.02 0.00 - 0.06 10 3/uL [facility] Immature Granulocytes % 0.2 0.0 - 1.0 % [facility] Blood specimen (specimen) BLOOD SPECIMEN / Unknown 08/01/2015 12:24 PM OPHTHALMOLOGY SURGICAL TECHNICIAN 08/01/2015 1:14 PM OPHTHALMOLOGY SURGICAL TECHNICIAN Gypsy Hernandez DO LAB - HEMATOLOGY O RDERABLES [facility] [address] [phone] * COMPREHENSIVE METABOLIC PANEL (08/01/2015 12:24 PM OPHTHALMOLOGY SURGICAL TECHNICIAN) Only the most recent of2 resultswithin the time period is included. BUN 14 7 - 26 mg/dL [facility] Creatinine 0.7 0.6 - 1.2 mg/dL [facility] Sodium 141 136 - 145 mmol/L [facility] Potassium 4.0 3.5 - 4.5 mmol/L [facility] Chloride 106 98 - 107 mmol/L [facility] CO2 26 22 - 29 mmol/L [facility] Glucose 86 70 - 115 mg/dL [facility] Calcium 9.1 8.4 - 10.2 mg/dL [facility] Protein Total 6.6 6.0 - 8.3 g/dL [facility] Albumin 3.6 3.4 - 5.0 g/dL [facility] Bilirubin Total 0.3 0.2 - 1.2 mg/dL [facility] Alkaline Phosphatase 91 40 - 150 Units/L [facility] ALT 15 0 - 55 Units/L [facility] AST 21 5 - 34 Units/L [facility] Anion Gap 13 8 - 18 [facility] BUN/Creatinine Ratio 20 7 - 23 [facility] Osmolality Calculated 277 270 - 300 mOsm/kg [facility] Albumin/Globulin Ratio 1.2 1.1 - 2.3 [facility] eGFR >60 >60 mL/min/1.7 3 m2 [facility] Blood specimen (specimen) BLOOD SPECIMEN / Unknown 08/01/2015 12:24 PM OPHTHALMOLOGY SURGICAL TECHNICIAN 08/01/2015 1:15 PM OPHTHALMOLOGY SURGICAL TECHNICIAN Gypsy Hernandez DO LAB - CHEMISTRY OR DERABLES [address] [phone] * CT ABDOMEN PELVIS WO CONTRAST (08/01/2015 10:40 AM OPHTHALMOLOGY SURGICAL TECHNICIAN) Anatomical Region Laterality Modality Abdomen, Pelvis Other Impressions 08/01/2015 4:24 PM OPHTHALMOLOGY SURGICAL TECHNICIAN IMPRESSION: 1. Atrophic left kidney with cortical [...] renal calculus. Dictated by Greg Madrid MD (advertising vice president). I, Dr. JJ CONKLIN M.D. have personally reviewed and interpreted this examination/study. This report was electronically signed by JJ CONKLIN M.D. on 08/01/2015 4:24 PM . Narrative 08/01/2015 4:24 PM OPHTHALMOLOGY SURGICAL TECHNICIAN EXAMINATION: Computed tomography (CT) of the abdomen [...] renal calculus. Dictated by Greg Madrid MD (advertising vice president). I, Dr. JJ CONKLIN M.D. have personally reviewed and interpreted thisexamination/study. This report was electronically signed by JJ CONKLIN M.D. on 08/01/20154:24 PM . [facility] DO [facility] ORDERABLES * EKG 12-LEAD (08/01/2015 12:00 AM OPHTHALMOLOGY SURGICAL TECHNICIAN) 08/01/2015 Lakesha Ayon MD ECG ORDERABLES [facility] * NM RENAL SCAN W FLOW AND FUNCTION (05/12/2015 [...] approved by Danielle Hunter M.D. on 05/12/2015 3:44 PM . I, Dr. FIDELIA GARCIA M.D. have personally reviewed and interpreted this examination/study. This report was electronically signed by FIDELIA GARCIA M.D. on 05/12/2015 4:37 PM . Narrative 05/12/2015 4:37 [...] 8 3.5 Differential function (%) 18 82 Procedure Note Fidelia Garcia MD - 10/26/2017 [...] Danielle Hunter M.D. on 05/12/2015 3:44PM . Dr. FIDELIA Chávez M.D. have personally reviewed and interpreted [...] Santos M.D. on 04/29/2014 9:[address] JJ Chávez MD have personally reviewed and interpreted this examination/study. This report was electronically signed by Dr. JJ SURESH MD on 04/29/2014 9:47 AM . Narrative 04/29/2014 9:47 [...] M.D. on 04/29/2014 9:07 AM . I, Dr. Dr. JJ SURESH MD have personally reviewed and interpreted thisexamination/study. This report was electronically signed by Dr. JJ SURESH MD on04/29/2014 9:47 AM . Fab Scanlon MD DIAGNOSTIC IMAGING ORDERABLES * LAB HISTORICAL RESULTS-ONBASE (09/05/2011) Only the most recent of3 resultswithin the time period is included. 09/05/2011 Historical Provider LAB - CHEMISTRY O RDERABLES Performing Organization Address [facility] Co de Phone Number [facility] * C-REACTIVE PROTEIN (12/07/2010 9:00 AM CDT) Only the most recent of3 resultswithin the time period is included. C-Reactive Protein 0.23 <0.80 mg/dL [facility] ([facility] Comment: NO COLLECTION DATE RECEIVED. WE HAVE USED THE DATE THE SPECIMEN WAS RECEIVED BY THIS LABORATORY THE COLLECTION DATE. IF THIS IS INCORRECT, PLEASE CONTACT CLIENT SERVICES. PHONE NUMBER: [phone] Test Performed at: [facility] [id number] ABDIAS KILGORE DO,MPH Venous blood specimen (specimen) 12/07/2010 9:00 AM CDT 12/07/2010 7:06 AM CDT Narrative [facility] ([facility]) - 12/07/2010 9:00 AM CDT Preferred Lab:->[facility] Danya Dooley MD LAB - STATE ASSESSED PROPERTIES DIRECTOR RY ORDERABLES Performing Organization Address [facility] de Phone Number [facility] ([facility]) * ERYTHROCYTE SEDIMENTATION RATE (12/07/2010 7:00 AM CDT) Only the most recent of3 resultswithin the time period is included. Erythrocyte Sedimentation Rate Westergren 10 < OR = 30 mm/h [facility] ([facility]) Comment: NO COLLECTION DATE RECEIVED. WE HAVE USED THE DATE THE SPECIMEN WAS RECEIVED BY THIS LABORATORY THE COLLECTION DATE. IF THIS IS INCORRECT, PLEASE CONTACT CLIENT SERVICES. PHONE NUMBER: [phone] Test Performed at: [facility] [id number] ABDIAS KILGORE DO,MPH 12/07/2010 7:00 AM CDT 12/07/2010 6:53 AM CDT Narrative [facility] ([facility]) - 12/07/2010 7:00 AM CDT Preferred Lab:->[facility] Danya Dooley MD LAB - HEMATOL OGY ORDERABLES [facility] ([facility]) Care Teams Exchange Mechanic Relationship Specialty Start Date End Date Ian Ortiz MD [address] [facility] [address] [place] [phone] PCP - General 05/23/15
--- OUTSIDE RECORDS SUMMARY | 2024-09-08 13:15 | XMS_ITS | Clinical Summary ---
Author Organization [facility] Address [address] [place] [address] Care Team Providers Care Call Or Contact Centre Manager Name Role Phone Ian Ortiz MD Primary Care Provider [phone] Source Comments [facility],non-research medical center Affiliates and Associated Physician Practices is amultiple site organization consisting of ambulatory clinics and hospital sitesin [place], [place], [place] and [place]. This disclosure is being madepursuant to the Care Everywhere program and may not contain all information available regarding this patient. Last updated 18.[facility] Allergies Active Allergy Reactions Criticality Noted [...] once daily Active FLUTICASONE PROPIONATE, NASAL, NA [place] 1-2 sprays into the nose once daily Active Multiple Vitamin (MULTIVITAMIN ADULT PO) Take 1 tablet by mouth once daily Active Calcium Citrate-Vitamin D (CALCIUM + D PO) Active Azelastine HCl 137 MCG/SPRAY SOLN [place] 1 spray into each nostril once daily [...] Comments Blood Pressure 106/74 08/14/2023 10:42 AM THERMO CEMENTING FOLDER OPERATOR Pulse 97 08/14/2023 10:42 AM THERMO CEMENTING FOLDER OPERATOR Temperature 36.4 C (97.6 F) 12/14/2015 11:40 AM CDT Respiratory Rate 16 08/22/2015 12:55 PM THERMO CEMENTING FOLDER OPERATOR Oxygen Saturation 96% 04/23/2017 10:20 AM CDT Inhaled Oxygen Concentration - - Weight 78.9 kg (174 lb) 08/14/2023 10:42 AM THERMO CEMENTING FOLDER OPERATOR Height 170.2 cm (5' 7 ) 08/14/2023 10:42 AM THERMO CEMENTING FOLDER OPERATOR Body Mass Index 27.25 08/14/2023 10:42 AM THERMO CEMENTING FOLDER OPERATOR Plan of Treatment Health Maintenance Due Date [...] PCV21) 05/22/2022 05/22/2017, 05/19/2013 COVID-19 VACCINE ( - season) 2024 05/28/2023, 05/22/2022, 01/11/2022, Additional history exists INFLUENZA VACCINE (#1) 2024 , 05/22/2022, 05/12/2021, Additional history exists DEPRESSION SCREENING 07/29/2024 MEDICARE AWV CALENDAR YEAR 2024 Respiratory Syncytial Virus (RSV) [...] age to complete this topic Care Teams Call Or Contact Centre Manager Relationship Specialty Start Date End Date Ian Ortiz MD [address] [address] [place] [phone] PCP - General 05/23/15
--- OUTSIDE RECORDS SUMMARY | 2024-09-08 13:15 | XMS_ITS | Referral Summary ---
Author Organization [facility] Address [address] [place] [address] Care Team Providers Care Auto Body Builder Apprentice Name Role Phone Ian Ortiz MD Primary Care Provider [phone] Source Comments [facility],non[facility] Affiliates and Associated Physician Practices is amultiple site organization consisting of ambulatory clinics and hospital sitesin [place], [place], [place] and [place]. This disclosure is being madepursuant to the Care Everywhere program and may not contain all information available regarding this patient. Last updated 18.[facility] Allergies Active Allergy Reactions Criticality Noted [...] once daily Active FLUTICASONE PROPIONATE, NASAL, NA [place] 1-2 sprays into the nose once daily Active Multiple Vitamin (MULTIVITAMIN ADULT PO) Take 1 tablet by mouth once daily Active Calcium Citrate-Vitamin D (CALCIUM + D PO) Active Azelastine HCl 137 MCG/SPRAY SOLN [place] 1 spray into each nostril once daily [...] Comments Blood Pressure 106/74 08/14/2023 10:42 AM SLASHER TENDER Pulse 97 08/14/2023 10:42 AM SLASHER TENDER Temperature 36.4 C (97.6 F) 12/14/2015 11:40 AM CDT Respiratory Rate 16 08/22/2015 12:55 PM SLASHER TENDER Oxygen Saturation 96% 04/23/2017 10:20 AM CDT Inhaled Oxygen Concentration - - Weight 78.9 kg (174 lb) 08/14/2023 10:42 AM SLASHER TENDER Height 170.2 cm (5' 7 ) 08/14/2023 10:42 AM SLASHER TENDER Body Mass Index 27.25 08/14/2023 10:42 AM SLASHER TENDER Plan of Treatment Not on file Care Teams Auto Body Builder Apprentice Relationship Specialty Start Date End Date Ian Ortiz MD [address] [place] [address] PCP - General 05/23/15
--- OUTSIDE RECORDS SUMMARY | 2024-09-08 13:15 | XMS_ITS | Encounter Summary ---
Author Organization [facility] Address [address] [facility] [place] [address] Care Team Providers Care Hydramatic Mechanic Name Role Phone Ian Ortiz MD Primary Care Provider [phone] Encounter Details Date Type Department Care Team (Late st Contact Info) Description 08/30/2023 Lab Requisition [facility] - DermPath Lab [address] [place] [address] Rory Leigh MD [address] [facility] [place] [address] Social History Tobacco Use Types [...] Comments DERMATOPATHOLOGY Routine 08/28/2023 12:0 0 AM GEAR CHANGER documented in this encounter Results * DERMATOPATHOLOGY (08/28/2023 12:00 AM GEAR CHANGER) Case Report Dermatopathology Report Case: [id number] Authorizing Provider: Rory Leigh MD Collected: 08/28/2023 12:00 AM Ordering Location: [facility] DermPath Lab Received: 08/30/2023 10:20 AM Pathologist: Amelia Castillo MD Specimens: A) - Skin, left jawline B) - Skin, anterior midline scalp 4:[address] [facility] DERMATOPATHOLOGY LABORATORY Final Diagnosis Specimen A. SKIN, left jawline: HYPERPLASTIC (HYPERTROPHIC) ACTINIC KERATOSIS, LICHENOID (L57.0) Specimen B. SKIN, anterior midline scalp: ACTINIC KERATOSIS; EXTENDING TO THE BASE OF THE SPECIMEN (L57.0) (see microscopic description and comment) 4:[address] [facility] DERMATOPATHOLOGY LABORATORY Clinical History A: BCCA vs. SCC. Path# [id number] B: BCCA vs. SCC. Path# [id number] 4:[address] [facility] DERMATOPATHOLOGY LABORATORY Gross Description [...] measuring 3x2x1 mm. Jar 0. 4:[address] [facility] DERMATOPATHOLOGY LABORATORY Microscopic Description [...] carcinoma cannot be ruled out. 4:[address] [facility] DERMATOPATHOLOGY LABORATORY Disclaimer An external and internal positive and negative controls are appropriate for the histochemical, immunohistochemical and immunofluorescence stain(s) in this case (if any), except where stated explicitly. The performance characteristics of the stain(s) cited in this report were developed and its performance characteristic determined by the Dermatopathology Laboratory at [facility], directed by Dr. Yazmin Moreno. These tests need not be, and therefore are not, approved by the [place] Food and Drug Administration. The tests are used for clinical purposes. Billing Codes Specimen Charges Stain Charges 92621 76523 1 1 4 4:34 PM GEAR CHANGER DERMATOPATHOLOGY LABORATORY Embedded Images 4:34 PM GEAR CHANGER DERMATOPATHOLOGY LABORATORY Pathology/Cytology TISSUE SPECIMEN FROM SKIN / Unknown 08/28/2023 08/30/2023 10:20 AM GEAR CHANGER Miscellaneous samples (specimen) TISSUE SPECIMEN FROM SKIN / Unknown 08/28/2023 08/30/2023 10:20 AM GEAR CHANGER Rory Leigh MD LAB - PATHOLOGY/CYTO LOGY ORDERABLES DERMATOPATHOLOGY LABORATORY [facility] - Department of Dermatology [facility] [address] [place] [address], [address] [phone] documented in this encounter Visit Diagnoses Not on filedocumented in this encounter Care Teams Hydramatic Mechanic Relationship Specialty Start Date End Date Ian Ortiz MD [address] [facility] [address] [place] [phone] PCP - General 05/23/15 documented as of this encounter
--- OUTSIDE RECORDS SUMMARY | 2024-09-08 13:15 | XMS_ITS | Clinical Summary ---
Author Organization [facility] Address [address] [place] [address] Care Team Providers Care Evp Strategy Name Role Phone Unavailable Primary Care Provider Unavailabl e Immunizations Name Administration Dates Next Due MODERNA COVID-19 (12+) MRNA, LNP-S, PF, 100 MCG/ 0.5 ML DOSE 10/05/2020,09/07/2020 Social History Tobacco Use Types Packs/Day Years Used Date Smoking Tobacco: Never Assessed Comments Unknown Sex and Gender Information Value Date Recorded Sex Assigned at Not on file Legal Sex Female 9:24 PM LEAD ADVISOR Gender Identity Not on file Sexual Orientation [...] 2025 Zoster Vaccines Completed 06/08/2020, 04/08/2020 Meningococcal B Vaccine Aged Out No l onger eligible based on patient's age to complete this topic Meningococcal Vaccine Aged Out No rhett dany eligible based on patient's age to complete this topic RSV Immunizations Under 20 Months Aged Out No longer eligible b ased on patient's age to complete this topic
--- OUTSIDE RECORDS SUMMARY | 2024-09-08 13:15 | XMS_ITS | Clinical Summary ---
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
[2024-09-08 13:18] LABS: Alanine Aminotransferase 16 U/L (6-35); Alkaline Phosphatase 99 U/L (38-126); Anion Gap 9 mmol/L (4-12); Aspartate Amino Transferase 24 U/L (14-36); Bilirubin,Total 0.5 mg/dL (0.2-1.3); Blood Urea Nitrogen 17 mg/dL (7-17); Calcium 10.2 mg/dL (8.4-10.2); Carbon Dioxide 27 mmol/L (22-30); Chloride 101 mmol/L (98-107); Estimated Glomerular Filt Rate 60; Glucose 102 mg/dL (65-110); Magnesium 1.7 mg/dL (1.6-2.3); Potassium 4.6 mmol/L (3.4-5.0); Sodium 137 mmol/L (137-145)
[2024-09-08 13:24] LABS: Parathyroid Intact 58.2 pg/mL (14.5-75.2)
[2024-09-08 13:49] LABS: Free T4 Free Thyroxine 1.48 ng/dL (0.78-2.19); Thyroid Stimulating Hormone 0.673 uIU/mL (0.465-4.680); Vitamin D 25 Hydroxy 93.8 ng/mL
[2024-09-08 13:53] LABS: Total Triiodothyronine (T3) 1.28 NG/ML (0.97-1.69)
[2024-09-10 11:34] LABS: Ionized Calcium 5.1 mg/dL (4.7-5.5)
== END 2024-09-08 12:10 | disposition home or self-care (01) ==
LOC: ANHLAB 12:13
PROVIDERS: PCP Nurse Practitioner Family; Visit Provider Internal Medicine
DX: E21.3 Hyperparathyroidism, unspecified (principal); E05.90 Thyrotoxicosis, unspecified without thyrotoxic crisis or storm; E55.9 Vitamin D deficiency, unspecified; I10 Essential (primary) hypertension
CPT/HCPCS: 36415; 80053; 82306; 82330; 83735; 83970; 84100; 84439; 84443; 84480; 85027

== ENCOUNTER 2024-10-27 11:19 | Outpatient (CLI) | payer MEDICARE, SELFPAY ==
--- NOTE | ~2024-10-27 | US_ITS ---
EXAMINATION: US thyroid DATE: 10/27/2024 11:52 INDICATION: Goiter TECHNIQUE: Multiple ultrasound images of the thyroid were obtained. COMPARISON: 02/18/2023. FINDINGS: The right thyroid lobe measures 5.2 x 1.9 x 2.1 cm. The left thyroid lobe measures 5.3 x 1.9 x 1.8 c m. The isthmus measures 0.5 cm. There is diffusely heterogeneous echotexture and echogenicity through out the thyroid gland, which decreases sensitivity for nodules detection. No discrete nodules identif ied. Normal vascular flow is present. IMPRESSION: Heterogeneous thyroid gland as can be seen with Graves' disease or Maria C's thyroiditis. Reviewed, dictated and finalized at location K.
--- OUTSIDE RECORDS SUMMARY | 2024-10-27 12:44 | XMS_ITS | Clinical Summary ---
Author Organization [facility] Address [address] [place] [address] Care Team Providers Care Boat Tester Name Role Phone Ian Ortiz MD Primary Care Provider [phone] Source Comments [facility],non-[facility] Affiliates and Associated Physician Practices is amultiple site organization consisting of ambulatory clinics and hospital sitesin [place], [place], [place] and [place]. This disclosure is being madepursuant to the Care Everywhere program and may not contain all information available regarding this patient. Last updated 18.[facility] Allergies Active Allergy Reactions Criticality [...] once daily Active FLUTICASONE PROPIONATE, NASAL, NA [place] 1-2 sprays into the nose once daily Active Multiple Vitamin (MULTIVITAMIN ADULT PO) Take 1 tablet by mouth once daily Active Calcium Citrate-Vitamin D (CALCIUM + D PO) Active Azelastine HCl 137 MCG/SPRAY SOLN [place] 1 spray into each nostril once daily [...] Comments Blood Pressure 106/74 08/14/2023 10:42 AM SUPERVISOR BRIDGES AND BUILDINGS Pulse 97 08/14/2023 10:42 AM SUPERVISOR BRIDGES AND BUILDINGS Temperature 36.4 C (97.6 F) 12/14/2015 11:40 AM CDT Respiratory Rate 16 08/22/2015 12:55 PM SUPERVISOR BRIDGES AND BUILDINGS Oxygen Saturation 96% 04/23/2017 10:20 AM CDT Inhaled Oxygen Concentration - - Weight 78.9 kg (174 lb) 08/14/2023 10:42 AM SUPERVISOR BRIDGES AND BUILDINGS Height 170.2 cm (5' 7 ) 08/14/2023 10:42 AM SUPERVISOR BRIDGES AND BUILDINGS Body Mass Index 27.25 08/14/2023 10:42 AM SUPERVISOR BRIDGES AND BUILDINGS Plan of Treatment Health Maintenance Due Date [...] complete this topic MENINGOCOCCAL (Group B) VACCINE SHARED DECISION-MAKING Aged Out No longer eligible based on patient's age to complete this topic MENINGOCOCCAL GROUPS A/C/Y/W VACCINE Aged Out No longer eligible based on patient's age to complete this topic Care Teams Boat Tester Relationship Specialty Start Date End Date Ian Ortiz MD [address] [place] [address] PCP - General 05/23/15
--- OUTSIDE RECORDS SUMMARY | 2024-10-27 12:44 | XMS_ITS | Encounter Summary ---
Author Organization [facility] Address 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 Please see the orthopedic physician s report for details, which can be found in the patient s medical record. _ Dictated by: RADIOLOGY, DEPARTMENT O Electronically signed by: RADIOLOGY, DEPARTMENT 01/11/2008 12:47 Transcribed: 01/11/2008 11:35 AMK Procedure Note Provider, Historical - 01/11/2008 [facility] [address] [place], [place] [address] Admit Date: 01/01/2008 YUMIKO SARAH D Sex: F Admit Prov: GREGORY PRO Date: 1950 Primary Care Prov: CMRN: [id number] Room: [facility] SSN: [id number] IMAGING SERVICES Ordering Prov: GREGORY PRO Interpretation [...] on filedocumented in this encounter Care Teams Air Duct Mechanic Relationship Specialty Start Date End Date Ash Gallardo MD [address] [place] [phone] PCP - General Surgery 03/20/10 documented as of this encounter
--- OUTSIDE RECORDS SUMMARY | 2024-10-27 12:44 | XMS_ITS | Clinical Summary ---
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
--- OUTSIDE RECORDS SUMMARY | 2024-10-27 12:44 | XMS_ITS | Encounter Summary ---
Author Organization [facility] Address [address] [facility] [place] [address] Care Team Providers Care Dive Supervisor Name Role Phone Ian Ortiz MD Primary Care Provider [phone] Encounter Details Date Type Department Care Team (Late st Contact Info) Description 08/30/2023 Lab Requisition [facility] - DermPath Lab [address] [place] [address] Rory Leigh MD [address] [facility] [address] [place] [address] Social History Tobacco Use Types [...] Comments DERMATOPATHOLOGY Routine 08/28/2023 12:0 0 AM DRAWER MAKER documented in this encounter Results * DERMATOPATHOLOGY (08/28/2023 12:00 AM DRAWER MAKER) Case Report Dermatopathology Report Case: [id number] Authorizing Provider: Rory Leigh MD Collected: 08/28/2023 12:00 AM Ordering Location: [facility] DermPath Lab Received: 08/30/2023 10:20 AM Pathologist: Amelia Castillo MD Specimens: A) - Skin, left jawline B) - Skin, anterior midline scalp 4:34 PM [facility] DERMATOPATHOLOGY LABORATORY Final Diagnosis Specimen A. SKIN, left jawline: HYPERPLASTIC (HYPERTROPHIC) ACTINIC KERATOSIS, LICHENOID (L57.0) Specimen B. SKIN, anterior midline scalp: ACTINIC KERATOSIS; EXTENDING TO THE BASE OF THE SPECIMEN (L57.0) (see microscopic description and comment) 4:34 PM [facility] DERMATOPATHOLOGY LABORATORY Clinical History A: BCCA vs. SCC. Path# [id number] B: BCCA vs. SCC. Path# [id number] 4:34 PM [facility] DERMATOPATHOLOGY LABORATORY Gross Description Specimen A: [...] measuring 3x2x1 mm. Jar 0. 4:34 PM [facility] DERMATOPATHOLOGY LABORATORY Microscopic Description Specimen A. [...] carcinoma cannot be ruled out. 4:34 PM [facility] DERMATOPATHOLOGY LABORATORY Disclaimer An external and internal positive and negative controls are appropriate for the histochemical, immunohistochemical and immunofluorescence stain(s) in this case (if any), except where stated explicitly. The performance characteristics of the stain(s) cited in this report were developed and its performance characteristic determined by the Dermatopathology Laboratory at [facility], directed by Dr. Yazmin Moreno. These tests need not be, and therefore are not, approved by the [place] Food and Drug Administration. The tests are used for clinical purposes. Billing Codes Specimen Charges Stain Charges 14921 16281 1 1 4 4:34 PM DRAWER MAKER DERMATOPATHOLOGY LABORATORY Embedded Images 4:34 PM DRAWER MAKER DERMATOPATHOLOGY LABORATORY Pathology/Cytology TISSUE SPECIMEN FROM SKIN / Unknown 08/28/2023 08/30/2023 10:20 AM DRAWER MAKER Miscellaneous samples (specimen) TISSUE SPECIMEN FROM SKIN / Unknown 08/28/2023 08/30/2023 10:20 AM DRAWER MAKER Rory Leigh MD LAB - PATHOLOGY/CYTO LOGY ORDERABLES DERMATOPATHOLOGY LABORATORY [facility] - Department of Dermatology [facility] [address] [place] [address], [address] [phone] documented in this encounter Visit Diagnoses Not on filedocumented in this encounter Care Teams Dive Supervisor Relationship Specialty Start Date End Date Ian Ortiz MD [address] [facility] [address] [facility] [address] [place] [phone] PCP - General 05/23/15 documented as of this encounter
--- OUTSIDE RECORDS SUMMARY | 2024-10-27 12:44 | XMS_ITS | Clinical Summary ---
Author Organization [facility] Address [address] [place] [address] Phone Care Team Providers Care Washing Machine Installer Name Role Phone Ash Gallardo MD Primary Care Provider [phone] Active Problems Problem Noted Date Diagnosed Date Calf pain 03/20/2010 Overview (03/20/2010): LLE Social History Tobacco Use Types Packs/Day Years Used Date Smoking Tobacco: Never Assessed Comments Unknown Sex and Gender Information Value Date Recorded Sex Assigned at Not on file Legal Sex Female 5:35 AM GERIATRIC SOCIAL WORKER Gender Identity Not on file Sexual Orientation Not on file Plan of Treatment Health Maintenance Due Date Last Done Comments DTAP/TDAP/TD VACCINES (1 - Tdap) 1969 BREAST CANCER SCREENING 1990 COLORECTAL SCREENING 12/14/1995 Colorectal Cancer Screening 12/14/1995 FIT-DNA Q 3 years 12/14/1995 FIT/FOBT Q 1 year 12/14/1995 Flex Sig/CT Colonography Q 5 years 12/14/1995 PNEUMOCOCCAL VACCINE 50+ YEARS (1 of 1 - PCV) 12/14/19 ZOSTER VACCINE (1 of 2) 2000 OSTEOPOROSIS SCREENING 12/14/2015 INFLUENZA VACCINE (#1) 2024 RSV VACCINE (60+ or ) (1 - 1-dose 75+ series) 2025 Insurance MEDICARE PART A AND B [facility] BLUE ACCESS/TRUE BLUE PPO Care Teams Washing Machine Installer Relationship Specialty Start Date End Date Ash Gallardo MD [address] [place] [phone] PCP - General Surgery 03/20/10
== END 2024-10-27 11:20 | disposition home or self-care (01) ==
PROVIDERS: PCP Nurse Practitioner Family; Visit Provider Internal Medicine
DX: E05.90 Thyrotoxicosis, unspecified without thyrotoxic crisis or storm (principal); E04.9 Nontoxic goiter, unspecified; M81.0 Age-related osteoporosis without current pathological fracture; E04.1 Nontoxic single thyroid nodule
CPT/HCPCS: 76536

== ENCOUNTER 2024-11-03 00:09 | Day surgery (SDC) | payer MEDICARE, SELFPAY ==
[2024-10-28 15:11] VITALS: BMI 28.3
--- NOTE | 2024-10-28 15:30 | PC.NURSE ---
Spoke with patient regarding medication Xarelto. Patient verbalizes understanding that the last dose is to be taken on 10/30/24 and the Endoscopist will instruct them when to restart after the procedure.
--- OUTSIDE RECORDS SUMMARY | 2024-11-03 00:11 | XMS_ITS | Encounter Summary ---
Author Organization [facility] Address 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 SSN: [id number] IMAGING SERVICES Ordering Prov: GREGORY PRO Accession Number: [id number] Interpretation This procedure was performed at the request of the orthopedic physician. Please see the orthopedic physician s report for details, which can be found in the patient s medical record. _ Dictated by: RADIOLOGY, DEPARTMENT O Electronically signed by: RADIOLOGY, DEPARTMENT 01/11/2008 12:47 Transcribed: 01/11/2008 11:35 AMK Procedure Note Provider, Historical - 01/11/2008 [facility] [address] [place], [place] [address] Admit Date: 01/01/2008 YUMIKO SARAH D Sex: F Admit Prov: GREGORY PRO Date: 1950 Primary Care Prov: CMRN: [id number] Room: [facility] SSN: [id number] IMAGING SERVICES Ordering Prov: GRGEORY PRO Interpretation This procedure was performed at [...] on filedocumented in this encounter Care Teams Battery Service Technician Relationship Specialty Start Date End Date Ash Gallardo MD [address] [place] [phone] PCP - General Surgery 03/20/10 documented as of this encounter
--- OUTSIDE RECORDS SUMMARY | 2024-11-03 00:11 | XMS_ITS | Clinical Summary ---
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
--- OUTSIDE RECORDS SUMMARY | 2024-11-03 00:11 | XMS_ITS | Encounter Summary ---
Author Organization [facility] Address [address] [facility] [place] [address] Care Team Providers Care Insight Leader Name Role Phone Ian Ortiz MD Primary Care Provider [phone] Encounter Details Date Type Department Care Team (Late st Contact Info) Description 08/30/2023 Lab Requisition [facility] - DermPath Lab [address] [place] [address] Rory Leigh MD [address] [facility] [place] [address] Social History Tobacco Use Types [...] Comments DERMATOPATHOLOGY Routine 08/28/2023 12:0 0 AM HEAT REGULATOR documented in this encounter Results * DERMATOPATHOLOGY (08/28/2023 12:00 AM HEAT REGULATOR) Case Report Dermatopathology Report Case: [id number] Authorizing Provider: Rory Leigh MD Collected: 08/28/2023 12:00 AM Ordering Location: [facility] D[facility] Received: 08/30/2023 10:20 AM Pathologist: Amelia Castillo MD Specimens: A) - Skin, left jawline B) - Skin, anterior midline scalp 4:34 PM [facility] DERMATOPATHOLOGY [facility]OR[facility] Final Diagnosis Specimen A. SKIN, left jawline: HYPERPLASTIC (HYPERTROPHIC) ACTINIC KERATOSIS, LICHENOID (L57.0) Specimen B. SKIN, anterior midline scalp: ACTINIC KERATOSIS; EXTENDING TO THE BASE OF THE SPECIMEN (L57.0) (see microscopic description and comment) 4:34 PM [facility] DERMATOPATHOLOGY [facility]ORAT[facility] Clinical History A: BCCA vs. SCC. Path# [id number] B: BCCA vs. SCC. Path# [id number] 4:34 PM [facility] DERMATOPATHOLOGY [facility] Gross Description Specimen [...] measuring 3x2x1 mm. Jar 0. 4:34 PM [facility] DERMATOPATHOLOGY [facility] Microscopic Description Specimen [...] carcinoma cannot be ruled out. 4:34 PM [facility] DERMATOPATHOLOGY [facility] Disclaimer An external and internal positive and negative controls are appropriate for the histochemical, immunohistochemical and immunofluorescence stain(s) in this case (if any), except where stated explicitly. The performance characteristics of the stain(s) cited in this report were developed and its performance characteristic determined by the Dermatopathology Laboratory at [facility], directed by Dr. Yazmin Moreno. These tests need not be, and therefore are not, approved by the [place] Food and Drug Administration. The tests are used for clinical purposes. Billing Codes Specimen Charges Stain Charges 09169 [id number] 1 1 4 4:34 PM [facility]AT REGULATOR DERMATOPATHOLOGY LABORATORY Embedded Images 4:34 PM [facility] DERMATOPATHOLOGY LABORATORY Pathology/Cytology TISSUE SPECIMEN FROM SKIN / Unknown 08/28/2023 08/30/2023 10:20 AM HEAT REGULATOR Miscellaneous samples (specimen) TISSUE SPECIMEN FROM SKIN / Unknown 08/28/2023 08/30/2023 10:20 AM HEAT REGULATOR Rory Leigh MD LAB - PATHOLOGY/CYTO LOGY ORDERABLES DERMATOPATHOLOGY LABORATORY [facility] - Department of Dermatology [facility] [address] [place] [address], [address] [phone] documented in this encounter Visit Diagnoses Not on filedocumented in this encounter Care Teams Insight Leader Relationship Specialty Start Date End Date Ian Ortiz MD [address] [facility] [address] [place] [id number] PCP - General 05/23/15 documented as of this encounter
--- OUTSIDE RECORDS SUMMARY | 2024-11-03 00:11 | XMS_ITS | Clinical Summary ---
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
--- OUTSIDE RECORDS SUMMARY | 2024-11-03 00:11 | XMS_ITS | Clinical Summary ---
Author Organization [facility] Address [address] [place] [address] Care Team Providers Care Scuba Diving Instructor Name Role Phone Ian Ortiz MD Primary Care Provider [phone] Source Comments [facility] Affiliates and Associated Physician Practices is amultiple site organization consisting of ambulatory clinics and hospital sitesin [place], [place], [place] and [place]. This disclosure is being madepursuant to the Care Everywhere program and may not contain all information available regarding this patient. Last updated 18.[facility] Allergies Active Allergy Reactions Criticality Noted Date [...] once daily Active FLUTICASONE PROPIONATE, NASAL, NA [place] 1-2 sprays into the nose once daily Active Multiple Vitamin (MULTIVITAMIN ADULT PO) Take 1 tablet by mouth once daily Active Calcium Citrate-Vitamin D (CALCIUM + D PO) Active Azelastine HCl 137 MCG/SPRAY SOLN [place] 1 spray into each nostril once daily [...] Comments Blood Pressure 106/74 08/14/2023 10:42 AM SWORD SWALLOWER Pulse 97 08/14/2023 10:42 AM SWORD SWALLOWER Temperature 36.4 C (97.6 F) 12/14/2015 11:40 AM CDT Respiratory Rate 16 08/22/2015 12:55 PM SWORD SWALLOWER Oxygen Saturation 96% 04/23/2017 10:20 AM CDT Inhaled Oxygen Concentration - - Weight 78.9 kg (174 lb) 08/14/2023 10:42 AM SWORD SWALLOWER Height 170.2 cm (5' 7 ) 08/14/2023 10:42 AM SWORD SWALLOWER Body Mass Index 27.25 08/14/2023 10:42 AM SWORD SWALLOWER Plan of Treatment Health Maintenance Due Date [...] 2024 05/28/2023, 05/22/2022, 01/11/2022, Additional history exists DEPRESSION SCREENING 07/29/2024 MEDICARE AWV CALENDAR YEAR 2024 INFLUENZA VACCINE (Season Ended) 2025 05/07/2023, 05/22/2022, 05/12/2021, Additional history exists Respiratory Syncytial Virus (RSV) Vaccine Pt: or [...] age to complete this topic Care Teams Scuba Diving Instructor Relationship Specialty Start Date End Date Ian Ortiz MD [address] [place] [address] [place] [address] PCP - General 05/23/15
[2024-11-03 07:34] VITALS: BP 130/62; PULSE 101; RESP 16; TEMP 36.1; O2SAT 98; BMI 29.1
[2024-11-03] MEDS: LACTATED RINGERS 1,000 ML 150 ML IV CONT (07:59)
--- NOTE | 2024-11-03 08:14 | WPDANESEPPF ---
Anes - Initial Pre Proc Eval Procedure: Operation Date: 11/03/24 08:45 Proposed Procedures p Screening Colonoscopy - Misha Hernandez MD Date/Time: 11/03/24 08:14 Surgeon: Misha Hernandez MD Pre Op Diagnosis: Screening Patient Data Age: 73 Gender: F Height: 1.65 m Weight: 79.5 kg Last Vital Signs Temp 36.1 C L 11/03/24 07:34 Pulse 101 H 11/03/24 07:34 Resp 16 11/03/24 07:34 BP 130/62 11/03/24 07:34 Pulse Ox 98 11/03/24 07:34 O2 Del Method Room Air 11/03/24 07:34 Allergies Allergy/AdvReac Type Severity Reaction Status Date / Time adhesive tape AdvReac Mild Rash Verified 11/03/24 07:40 Home Medications ?Medication ?Instructions ?Recorded ?Confirmed ?Type multivitamin 1 cap PO DAILY 06/16/19 11/03/24 History turmeric 400 mg capsule 400 mg PO DAILY 12/11/21 11/03/24 History melatonin 5 mg tablet 5 mg PO DAILY 09/22/23 11/03/24 History calcium carbonate 500 mg PO BID #180 tabs 12/18/23 11/03/24 Rx cholecalciferol (vitamin D3) 50 50 mcg PO DAILY #180 caps 12/18/23 11/03/24 Rx mcg (2,000 unit) capsule fluticasone fur. 100 mcg-umeclid See Rx Instructions .Route 12/27/23 11/03/24 Rx 62.5 mcg-vilant 25 mcg .COMPLEX #180 ea inhalat.powder (Trelegy Ellipta) denosumab 60 mg/mL subcutaneous 60 mg subcut [id number] #1 mL 01/21/24 10/28/24 Rx syringe (Prolia) levocetirizine 2.5 mg/5 mL oral 2.5 mg PO QPM 01/23/24 11/03/24 History solution (Xyzal) azelastine 137 mcg (0.1 %) nasal 1 spray intranasal Q12H #90 mL 02/12/24 11/03/24 Rx spray roflumilast 500 mcg tablet 500 mcg PO DAILY COPD 1 month #30 02/25/24 11/03/24 Rx tabs rivaroxaban 20 mg tablet (Xarelto) See Rx Instructions .Route 04/10/24 11/03/24 Rx .COMPLEX #90 tabs omeprazole 40 mg capsule,delayed See Rx Instructions .Route 07/06/24 11/03/24 Rx release .COMPLEX #90 caps diltiazem HCl 360 mg 360 mg PO DAILY #90 caps 08/04/24 11/03/24 Rx capsule,extended release 24 hr spironolactone 25 mg tablet See Rx Instructions .Route 08/04/24 11/03/24 Rx .COMPLEX #90 tabs lidocaine 5 % topical patch 1 patch topical DAILY #30 ea 08/07/24 11/03/24 Rx gabapentin 300 mg capsule 300 mg PO DAILY #90 caps 08/17/24 11/03/24 Rx furosemide 40 mg tablet See Rx Instructions .Route 09/02/24 11/03/24 Rx .COMPLEX #90 tabs albuterol sulfate 90 mcg/actuation 1 - 2 inh inhalation PRN PRN 09/04/24 11/03/24 Rx aerosol inhaler Shortness Of Breath Or Wheezing 1 month #8.5 grams tramadol 50 mg tablet 25 mg (1/2 x 50 mg) PO Q8H PRN 09/04/24 10/28/24 Rx pain #45 tabs prednisone 10 mg tablet 10 mg PO DAILY #30 tabs 10/02/24 11/03/24 Rx methimazole 5 mg tablet 2.5 mg (1/2 x 5 mg) PO DAILY #60 10/17/24 11/03/24 Rx tabs Patient hx anesthesia problems: none Family hx anesthesia problems: none Results Review: All pre-operative results and documents have been reviewed as part of the pre-operative evaluation. 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 Subclinical hyperthyroidism COPD (chronic obstructive pulmonary disease) Atrial fibrillation with controlled ventricular response CLOUD (dyspnea on exertion) Edema of left lower extremity Essential hypertension Chronic fatigue, unspecified Gastro-esophageal reflux disease without esophagitis Hypersomnia 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 LITO on CPAP Preop cardiovascular exam Surgical History Surgical History History of surgery on arm H/O exploratory laparotomy H/O breast implant History of right above knee amputation Family History Family History Father Acute myocardial infarction, Onset Age: 79 Patient's father is Mother Family history of chronic obstructive pulmonary disease Patient's mother is Daughter Thyroid disease Social History Social History Social History: The patient lives with her . She has 3 children. She used to work for [employer] but does not draw a pension. 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 Her daughter and are the durable power workers compensation defense attorney Code status full code Smoking packs per day: 2 Smoking cigarettes per day: 40.0 Years smoked: 45 Smoking pack-years: 90.00 Smoking status: Former smoker Tobacco type: cigarettes Second hand tobacco smoke exposure: No Smoking end date: 07/29/09 Alcohol intake: never Substance use: never Substance use type: does not use Do You Feel Safe in your Home?: Yes Lack of Transportation: No Lack of Food: Never True Current Housing: I Have Housing Concerned About Future Housing: No Difficulty Paying Gas/Electric Bills: No Difficulty Paying for Meds: No Currently Unemployed: No Education: High School Diploma/GED Difficulty w/ Childcare or Family Care: No Living arrangements: with family Occupation/Education: retired Gender identity (if verbalized by the patient): Female Sexual Orientation (if Verbalized by the Patient): Straight or Heterosexual Spiritual care concerns: No Anes - Eval Final PreProcedure Day of Procedure 11/03/24 08:14 Patient weight: overweight Heart: regular rate and rhythm Lungs: decreased breath sounds Airway: Mallampati scale class II Neurological: alert and oriented Last oral intake: >/= 8 hours ASA classification: III Emergent: no Anesthetic plan: proceed Anesthesia type and monitoring: general GIVS and standard monitoring Results Review: All pre-operative results and documents have been reviewed as part of the pre-operative evaluation. Informed Consent: The patient's anesthetic plan and its attendant risks and benefits were discussed with the patient/family/POA. Questions were solicited and answers provided to the satisfaction of the patient/family/POA.
--- NOTE | 2024-11-03 08:45 | P.HP_ITS ---
H&P: HPI History of Present Illness Date/Time: 11/03/24 08:45 Chief Complaint: History of colon polyps Narrative: The patient has a history of colonic polyps, the last colonoscopy was in 2021. 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 Subclinical hyperthyroidism COPD (chronic obstructive pulmonary disease) Atrial fibrillation with controlled ventricular response CLOUD (dyspnea on exertion) Edema of left lower extremity Essential hypertension Chronic fatigue, unspecified Gastro-esophageal reflux disease without esophagitis Hypersomnia 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 LITO on CPAP Preop cardiovascular exam Surgical History Surgical History History of surgery on arm H/O exploratory laparotomy H/O breast implant History of right above knee amputation Family History Family History Father Acute myocardial infarction, Onset Age: 79 Patient's father is Mother Family history of chronic obstructive pulmonary disease Patient's mother is Daughter Thyroid disease Social History Social History Social History: The patient lives with her . She has 3 children. She u sed to work for [employer] but does not draw a pension. 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 Her daughter and are the durable power patent prosecution attorney Code status full code Smoking packs per day: 2 Smoking cigarettes per day: 40.0 Years smoked: 45 Smoking pack-years: 90.00 Smoking status: Former smoker Tobacco type: cigarettes Second hand tobacco smoke exposure: No Smoking end date: 07/29/09 Alcohol intake: never Substance use: never Substance use type: does not use Do You Feel Safe in your Home?: Yes Lack of Transportation: No Lack of Food: Never True Current Housing: I Have Housing Concerned About Future Housing: No Difficulty Paying Gas/Electric Bills: No Difficulty Paying for Meds: No Currently Unemployed: No Education: High School Diploma/GED Difficulty w/ Childcare or Family Care: No Living arrangements: with family Occupation/Education: retired Gender identity (if verbalized by the patient): Female Sexual Orientation (if Verbalized by the Patient): Straight or Heterosexual Spiritual care concerns: No Meds Home Medications and Allergies Home Medications ?Medication ?Instructions ?Recorded ?Confirmed ?Type multivitamin 1 cap PO DAILY 06/16/19 11/03/24 History turmeric 400 mg capsule 400 mg PO DAILY 12/11/21 11/03/24 History melatonin 5 mg tablet 5 mg PO DAILY 09/22/23 11/03/24 History calcium carbonate 500 mg PO BID #180 tabs 12/18/23 11/03/24 Rx cholecalciferol (vitamin D3) 50 50 mcg PO DAILY #180 caps 12/18/23 11/03/24 Rx mcg (2,000 unit) capsule fluticasone fur. 100 mcg-umeclid See Rx Instructions .Route 12/27/23 11/03/24 Rx 62.5 mcg-vilant 25 mcg .COMPLEX #180 ea inhalat.powder (Trelegy Ellipta) denosumab 60 mg/mL subcutaneous 60 mg subcut [id number] #1 mL 01/21/24 10/28/24 Rx syringe (Prolia) levocetirizine 2.5 mg/5 mL oral 2.5 mg PO QPM 01/23/24 11/03/24 History solution (Xyzal) azelastine 137 mcg (0.1 %) nasal 1 spray intranasal Q12H #90 mL 02/12/24 11/03/24 Rx spray roflumilast 500 mcg tablet 500 mcg PO DAILY COPD 1 month #30 02/25/24 11/03/24 Rx tabs rivaroxaban 20 mg tablet (Xarelto) See Rx Instructions .Route 04/10/24 11/03/24 Rx .COMPLEX #90 tabs omeprazole 40 mg capsule,delayed See Rx Instructions .Route 07/06/24 11/03/24 Rx release .COMPLEX #90 caps diltiazem HCl 360 mg 360 mg PO DAILY #90 caps 08/04/24 11/03/24 Rx capsule,extended release 24 hr spironolactone 25 mg tablet See Rx Instructions .Route 08/04/24 11/03/24 Rx .COMPLEX #90 tabs lidocaine 5 % topical patch 1 patch topical DAILY #30 ea 08/07/24 11/03/24 Rx gabapentin 300 mg capsule 300 mg PO DAILY #90 caps 08/17/24 11/03/24 Rx furosemide 40 mg tablet See Rx Instructions .Route 09/02/24 11/03/24 Rx .COMPLEX #90 tabs albuterol sulfate 90 mcg/actuation 1 - 2 inh inhalation PRN PRN 09/04/24 11/03/24 Rx aerosol inhaler Shortness Of Breath Or Wheezing 1 month #8.5 grams tramadol 50 mg tablet 25 mg (1/2 x 50 mg) PO Q8H PRN 09/04/24 10/28/24 Rx pain #45 tabs prednisone 10 mg tablet 10 mg PO DAILY #30 tabs 10/02/24 11/03/24 Rx methimazole 5 mg tablet 2.5 mg (1/2 x 5 mg) PO DAILY #60 10/17/24 11/03/24 Rx tabs Allergies Allergy/AdvReac Type Severity Reaction Status Date / Time adhesive tape AdvReac Mild Rash Verified 11/03/24 07:40 Vital Signs Vital Signs - 24 hr 11/03/24 07:34 Temperature 96.9 F L Pulse Rate 101 H Respiratory Rate 16 Blood Pressure 130/62 Pulse Oximetry 98 Oxygen Delivery Room Air Exam Const: General: cooperative and healthy appearing Resp: Effort & Inspection: normal respiratory effort and able to speak in complete sentences Auscultation: clear to auscultation bilaterally Cardio: Rate: regular rate Rhythm: regular rhythm GI: Inspection: normal to inspection GI Palp: No No hepatosplenomegaly present Auscultation: normal bowel sounds Rectal Exam: deferred Skin: General skin exam: normal color Psych: Appearance: grossly normal Mental Status: mental status grossly normal Assessment and Plan Assessment and plan (1) Colon polyp: Qualifiers: Colon polyp type: unspecified Colon location: unspecified part of colon Qualified Code(s): K63.5 - Polyp of colon Code(s): K63.5 - Polyp of colon Status: Acute Assessment and Plan: The patient is deemed a good candidate for the procedure. Consent signed. Will proceed.
[2024-11-03 09:17] VITALS: BP 109/59; PULSE 103; RESP 20; O2SAT 100
[2024-11-03 09:27] VITALS: BP 112/71; PULSE 93; RESP 20; O2SAT 100
[2024-11-03 09:37] VITALS: BP 118/66; PULSE 90; RESP 20; O2SAT 100
== END 2024-11-03 09:48 | disposition home or self-care (01) ==
PROVIDERS: PCP Nurse Practitioner Family; Referring Provider Nurse Practitioner Family; Visit Provider Internal Medicine Gastroenterology
PROC: 0DJD8ZZ Inspection of Lower Intestinal Tract, Via Natural or Artificial Opening Endoscopic (ICD-10-PCS; CPT 45378; principal; 2024-11-03 08:45)
DX: Z12.11 Encounter for screening for malignant neoplasm of colon (principal); D12.2 Benign neoplasm of ascending colon; D12.3 Benign neoplasm of transverse colon; D12.8 Benign neoplasm of rectum; K57.30 Diverticulosis of large intestine without perforation or abscess without bleeding; J44.9 Chronic obstructive pulmonary disease, unspecified; I48.91 Unspecified atrial fibrillation; I10 Essential (primary) hypertension; G47.33 Obstructive sleep apnea (adult) (pediatric); Z99.89 Dependence on other enabling machines and devices; Z87.891 Personal history of nicotine dependence
CPT/HCPCS: 45385; 88305; J2003; J2704; J7120

== ENCOUNTER 2024-12-11 11:24 | Emergency (ER) | payer MEDICARE, SELFPAY ==
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
[2024-12-11 11:35] VITALS: BP 135/84; PULSE 83; RESP 20; TEMP 36.7; O2SAT 97
== END 2024-12-11 12:01 | disposition short-term general hospital (02) ==
PROVIDERS: Emergency Provider Nurse Practitioner Family; PCP Family Medicine
DX: M79.662 Pain in left lower leg (principal); R09.89 Other specified symptoms and signs involving the circulatory and respiratory systems; R20.8 Other disturbances of skin sensation; Z87.891 Personal history of nicotine dependence; E21.3 Hyperparathyroidism, unspecified; J44.9 Chronic obstructive pulmonary disease, unspecified; I48.91 Unspecified atrial fibrillation; I10 Essential (primary) hypertension; K21.9 Gastro-esophageal reflux disease without esophagitis; G47.33 Obstructive sleep apnea (adult) (pediatric); Z89.611 Acquired absence of right leg above knee
CPT/HCPCS: 99212; G0463

== ENCOUNTER 2024-12-11 13:21 | Emergency (ER) | payer MEDICARE, SELFPAY ==
--- NOTE | ~2024-12-11 | US_ITS ---
EXAMINATION: US venous doppler [facility] DATE: 12/11/2024 16:11 INDICATION: Left lower limb pain TECHNIQUE: Grayscale ultrasound images without and with compression and Doppler ultrasound images of the left lower extremity veins were obtained. COMPARISON: None. FINDINGS: The visualized portions of left common femoral vein, profunda (deep) femoral vein, femoral vein, popl iteal vein, peroneal veins, posterior tibial veins, gastrocnemius vein and proximal to mid greater sa phenous vein are patent. IMPRESSION: 1. No deep venous thrombosis in the left lower limb. Reviewed, dictated and finalized at location A.
--- NOTE | ~2024-12-11 | XR_ITS ---
XR tibia fibula LT 2V Ordering provider: Francia Love APRN History: . pain . Comparison: August 16, 2024 FINDINGS: BONES: No acute fracture or dislocation. . The fracture is seen at the junction of the proximal two t hirds and distal one third of both bones. Hardware is seen with postoperative changes. JOINT SPACES: Mild osteoarthritic changes of the knee joint. SOFT TISSUES: Normal. IMPRESSION: No acute osseous abnormality left leg. Old healed fractures of the distal tibia and fibula. Postoperative changes. Reviewed, dictated and finalized at location A.
--- NOTE | ~2024-12-11 | XR_ITS ---
XR chest 2V Ordering provider: Grupo Rivera MD History: 73 years Female with . cough . Comparison: December 24, 2023 FINDINGS: Bilateral breast implants. MEDIASTINUM: The cardiac silhouette is not enlarged. Sliding hiatus hernia. LUNGS: No infiltrates, effusions or pneumothorax. Underlying emphysematous changes. OTHER: No free air under the diaphragm. Kyphosis with degenerative changes of the spine. Multilevel uncovertebral compression fractures uncha nged from previous examination. IMPRESSION: No acute cardiopulmonary pathology. Reviewed, dictated and finalized at location A.
--- OUTSIDE RECORDS SUMMARY | 2024-12-11 13:27 | XMS_ITS | Clinical Summary ---
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
--- OUTSIDE RECORDS SUMMARY | 2024-12-11 13:28 | XMS_ITS | Clinical Summary ---
Author Organization [facility] Address [address] [place] [address] Care Team Providers Care Retail Shift Manager Name Role Phone Ian Ortiz MD Primary Care Provider [phone] Source Comments [facility],non-[facility] Affiliates and Associated Physician Practices is amultiple site organization consisting of ambulatory clinics and hospital sitesin [place], [place], [place] and [place]. This disclosure is being madepursuant to the Care Everywhere program and may not contain all information available regarding this patient. Last updated 18.[facility] Allergies Active Allergy Reactions Criticality Noted Date Comments Adhesive Sensitivity Rash Medium 11/01/2015 Medications * Be aware that medications may not be up to date on this document. Alwaysverify current medications with the patient. trospium ER 24hr (SANCTURA XR) 60 MG capsule Take 60 mg by mouth Every Morning. 60 tablet 1 04/23/20 17 Active Additional Information Patient not taking.Reported on 06/19/2023 albuterol HFA (PROVENTIL; VENTOLIN; PROAIR) 108 (90 Base) MCG/ACT inhaler Inhale 1 (one) puff by mouth as needed 07/17/20 21 Active PROLIA 60 MG/ML SC injection 07/06/20 21 Active fluticasone-salmete rol (ADVAIR/WIXELA) 250-50 MCG/ACT inhaler 05/25/20 21 Active gabapentin (NEURONTIN) 300 MG capsule Take 1 (one) capsule by mouth once daily 09/25/19 22 Active hydroCHLOROthiazide (HYDRODIURIL) 25 MG tablet Take 1 (one) tablet by mouth once daily 10/20/19 22 Active omeprazole (PRILOSEC) 40 MG capsule Take 1 (one) capsule by mouth once daily 11/10/19 22 Active potassium chloride ER (MICRO-K) 10 MEQ capsule Take 10 mEq by mouth once daily 09/28/19 22 Active XARELTO 20 MG tablet Take 1 (one) tablet by mouth once daily 10/08/19 22 Active Levocetirizine Dihydrochloride (XYZAL ALLERGY 24HR PO) Take 1 tablet by mouth once daily Active FLUTICASONE PROPIONATE, NASAL, NA [place] 1-2 sprays into the nose once daily Active Multiple Vitamin (MULTIVITAMIN ADULT PO) Take 1 tablet by mouth once daily Active Calcium Citrate-Vitamin D (CALCIUM + D PO) Act shivam Azelastine HCl 137 MCG/SPRAY SOLN [place] 1 spray into each nostril once daily 12/26/19 23 Active Trelegy Ellipta 100-62.5-25 MCG/ACT Inhale 1 (one) puff by mouth once daily 04/17/20 23 Active roflumilast (Daliresp) 500 MCG tablet Take 1 (one) tablet by mouth once daily 06/04/20 23 Active spironolactone (Aldactone) 25 MG tablet Take 1 (one) tablet by mouth once daily 06/17/20 23 Active dilTIAZem coated beads 24hr (Cardizem CD) 360 MG capsule Take 1 (one) capsule by mouth once daily 05/09/20 23 Active furosemide (Lasix) 40 MG tablet Take 1 (one) tablet by mouth once daily 05/09/20 23 Active Active Problems Problem Noted Date Diagnosed Date Hyperparathyroidism 08/14/2023 Disorder of kidney and ureter 07/12/2015 Urgency of urination 07/12/2015 Calculus of ureter 05/05/2015 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 Gender Identity Not on file Sexual Orientation Not on file Last Filed Vital Signs Vital Sign Reading Time Taken Comments Blood Pressure 106/74 08/14/2023 10:42 AM SYSTEMS PROTECTION TECHNICIAN Pulse 97 08/14/2023 10:42 AM SYSTEMS PROTECTION TECHNICIAN Temperature 36.4 C (97.6 F) 12/14/2015 11:40 AM CDT Respiratory Rate 16 08/22/2015 12:55 PM SYSTEMS PROTECTION TECHNICIAN Oxygen Saturation 96% 04/23/2017 10:20 AM CDT Inhaled Oxygen Concentration - - Weight 78.9 kg (174 lb) 08/14/2023 10:42 AM SYSTEMS PROTECTION TECHNICIAN Height 170.2 cm (5' 7 ) 08/14/2023 10:42 AM SYSTEMS PROTECTION TECHNICIAN Body Mass Index 27.25 08/14/2023 10:42 AM SYSTEMS PROTECTION TECHNICIAN Plan of Treatment Health Maintenance Due Date [...] on patient's age to complete this topic Insurance [facility] MANAGED MEDICARE [facility] MANA[facility] MEDIC[facility] ADV SELF PAY NO INSURANCE Member Subscriber Plan / Payer (Ef fective for All Dates) Name:Sarah Calderon Member ID:Not on file Relation to Subscriber:Not on file Name:SARAH CALDERON Subscriber ID:Not on file (Home) Address: [address] [place] [id number] Payer ID:Not on file Group ID:Not on file Type:Self Pay Address: [place], [place] Care Teams Retail Shift Manager Relationship Specialty Start Date End Date Ian Ortiz MD [address] [facility] [address] [place] [address] PCP - General 05/23/15
--- OUTSIDE RECORDS SUMMARY | 2024-12-11 13:28 | XMS_ITS | Encounter Summary ---
Author Organization [facility] Address 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 Please see the orthopedic physician s report for details, which can be found in the patient s medical record. _ Dictated by: RADIOLOGY, DEPARTMENT O Electronically signed by: RADIOLOGY, DEPARTMENT 01/11/2008 12:47 Transcribed: 01/11/2008 11:35 AMK Procedure Note Provider, Historical - [facility] [address] [place], [place] [address] Admit Date: 01/01/2008 YUMIKO SARAH D Sex: F Admit Prov: GREGORY PRO Date: 1950 Primary Care Prov: CMRN: [id number] Room: [facility] SSN: [id number] IMAGING SERVICES Ordering Prov: GREGORY PRO Interpretation [...] on filedocumented in this encounter Care Teams Echocardiographer Relationship Specialty Start Date End Date Ash Gallardo MD [address] [place] [phone] PCP - General Surgery 03/20/10 documented as of this encounter
--- OUTSIDE RECORDS SUMMARY | 2024-12-11 13:28 | XMS_ITS | Encounter Summary ---
Author Organization [facility] Address [address] [place] [address] Care Team Providers Care Engineer And Geologist Name Role Phone Ian Ortiz MD Primary Care Provider [phone] Encounter Details Date Type Department Care Team (Late st Contact Info) Description 08/30/2023 Lab Requisition [facility] - [facility] [address] [place] [address] Rory Leigh MD [address] [place] [address] Social History Tobacco Use Types Packs/Day Years Used Date Smoking Tobacco: Former Cigarettes Q uit: 12/12/2009 Smokeless Tobacco: Never Alcohol Use Standard Drinks/Week Comments No 0 (1 standard drink = 0.6 oz pur e alcohol) Comments Unknown Sex and Gender Information Value Date Recorded Sex Assigned at Not on file Legal Sex Female 5:27 PM SUBSCRIPTION CREW LEADER Gender Identity Not on file Sexual Orientation Not on file documented as of this encounter Plan of Treatment Not on file documented as of this encounter Procedures Procedure Name Priority Date/Time Associated Diagnosis Comments DERMATOPATHOLOGY Routine 08/28/2023 12:0 0 AM SUBSCRIPTION CREW LEADER documented in this encounter Results * DERMATOPATHOLOGY (08/28/2023 12:00 AM SUBSCRIPTION CREW LEADER) Case Report Dermatopathology Report Case: [id number] Authorizing Provider: Rory Leigh MD Collected: 08/28/2023 12:00 AM Ordering Location: [facility] Received: 08/30/2023 10:20 AM Pathologist: Amelia Castillo MD Specimens: A) - Skin, left jawline B) - Skin, anterior midline scalp 4:34 PM [facility] Final Diagnosis Specimen A. SKIN, left jawline: HYPERPLASTIC (HYPERTROPHIC) ACTINIC KERATOSIS, LICHENOID (L57.0) Specimen B. SKIN, anterior midline scalp: ACTINIC KERATOSIS; EXTENDING TO THE BASE OF THE SPECIMEN (L57.0) (see microscopic description and comment) 4:34 PM [facility] Clinical History A: BCCA vs. SCC. Path# [id number] B: BCCA vs. SCC. Path# [id number] 4:34 PM [facility] Gross Description Specimen A: [...] measuring 3x2x1 mm. Jar 0. 4:34 PM [facility] Microscopic Description Specimen A. [...] deeper cutaneous carcinoma cannot be ruled out. 4 4:34 PM SUBSCRIPTION CREW LEADER DERMATOPATHOLOGY LABORATORY Disclaimer An external and internal positive and negative controls are appropriate for the histochemical, immunohistochemical and immunofluorescence stain(s) in this case (if any), except where stated explicitly. The performance characteristics of the stain(s) cited in this report were developed and its performance characteristic determined by the Dermatopathology Laboratory at [facility], directed by Dr. Yazmin Moreno. These tests need not be, and therefore are not, approved by the [place] Food and Drug Administration. The tests are used for clinical purposes. Billing Codes Specimen Charges Stain Charges 49252 17205 1 1 4 4:34 PM SUBSCRIPTION CREW LEADER DERMATOPATHOLOGY LABORATORY Embedded Images 4 4:34 PM SUBSCRIPTION CREW LEADER DERMATOPATHOLOGY LABORATORY Pathology/Cytology TISSUE SPECIMEN FROM SKIN / Unknown 08/28/2023 08/30/2023 10:20 AM SUBSCRIPTION CREW LEADER Miscellaneous samples (specimen) TISSUE SPECIMEN FROM SKIN / Unknown 08/28/2023 08/30/2023 10:20 AM SUBSCRIPTION CREW LEADER us Rory Leigh MD LAB - PATHOLOGY/CYTOLOGY ORDER DARRYL Final Result DERMATOPATHOLOGY LABORATORY [facility] - Department of Dermatology [facility] Medicine [address] [place] [address], [address] [phone] documented in this encounter Visit Diagnoses Not on filedocumented in this encounter Care Teams Engineer And Geologist Relationship Specialty Start Date End Date Ian Ortiz MD [address] [facility] [address] [place] [phone] PCP - General 05/23/15 documented as of this encounter
--- OUTSIDE RECORDS SUMMARY | 2024-12-11 13:28 | XMS_ITS | Clinical Summary ---
Author Organization [facility] Address [address] [place] [address] Care Team Providers Care Tubular Splitting Machine Tender Name Role Phone Unavailable Primary Care Provider Unavailabl e Immunizations Immunization Administration Dates Next Due MODERNA COVID-19 (12+) MRNA, LNP-S, PF, 100 MCG/ 0.5 ML DOSE 10/05/2020,09/07/2020 Social History Tobacco Use Types Packs/Day Years Used Date Smoking Tobacco: Never Assessed Comments Unknown Sex and Gender Information Value Date Recorded Sex Assigned at Not on file Legal Sex Female 9:24 PM CONCRETE FOREMAN Gender Identity Not on file Sexual Orientation Not on file Plan of Treatment Health Maintenance Due Date Last Done Comments Colorectal Cancer Screening Colonoscopy (10 Years) 1950 Hepatitis C 1968 DTaP, Tdap and Td Vaccines ( 1 - Tdap) 1969 Mammogram Screening 1990 Dexa Scan (General) 12/14/2015 Pneumococcal Vaccine: 50+ Years (2 of 2 - PPSV23) 05/22/2018 05/22/2017 COVID-19 Vaccine (3 - 2023-2 [...]
[2024-12-11 14:10] VITALS: BP 142/81; PULSE 96; RESP 16; TEMP 36.3; O2SAT 98
--- NOTE | 2024-12-11 15:29 | ED.GENADULT ---
HPI - General Adult General Chief complaint: Extremity Problem,Nontraumatic <Francia Love APRN - Last Filed: 12/11/24 15:34> Stated complaint: From with L calf pain, cool foot-low pulse <Francia Love APRN - Last Filed: 12/11/24 15:34> Time Seen by Provider: 12/11/24 15:29 <Francia Wen November MILLING/POLISHING OPERATOR - Last Filed: 12/11/24 15:34> Focused HPI: Sarah Lopez is a 73 y/o female who presents with sudden onset pain to her left calf that started 3 days ago and she has tried some ointment/ paul hose but pain has persisted especially with ambulation and went to the and sent here to be r/o for DVT - she is on Eliquis at home Hx of multiple surgeries to the left leg and has R AKA from 1991 GENERAL: Well-appearing, well-nourished, and in no acute distress. HEAD: Normocephalic, atraumatic. CHEST: Clear to auscultation. No respiratory distress. HEART: Regular rate and rhythm. NEURO: Alert and oriented x3. Patient screened in triage and initial orders placed. Additional care and disposition to be based upon diagnostic testing and treatment. <Francia Love APRN - Last Filed: 12/11/24 15:34> History of Present Illness HPI narrative: Agree with HPI. Multiple surgeries left leg. Has some pain lateral calf that she is concerned about. Denies concerns about pulses she has with her foot. No recent trauma. Patient does report recent postnasal drip with cough and wheezing. No fevers. <Grupo Rivera MD - Last Filed: 12/11/24 18:38> Related Data Home medications: Home Medications Medication Instructions Recorded Confirmed Last Taken Type multivitamin 1 cap PO DAILY 06/16/19 11/03/24 11/02/24 History turmeric 400 mg capsule 400 mg PO DAILY 12/11/21 11/03/24 11/02/24 History melatonin 5 mg tablet 5 mg PO DAILY 09/22/23 11/03/24 11/02/24 History levocetirizine 2.5 mg/5 mL oral 2.5 mg PO QPM 01/23/24 11/03/24 11/02/24 History solution (Xyzal) <Francia Wen November, MILLING/POLISHING OPERATOR - Last Filed: 12/11/24 15:34> Allergies/adverse reactions: Allergies Allergy/AdvReac Type Severity Reaction Status Date / Time adhesive tape AdvReac Mild Rash Verified 12/11/24 11:50 <Francia Love, MILLING/POLISHING OPERATOR - Last Filed: 12/11/24 15:34> Review of Systems Constitutional: Constitutional: Reports no additional constitutional complaints <Grupo Rivera MD - Last Filed: 12/11/24 18:38> Cardiovascular: Cardiovascular: Reports no additional cardiovascular complaints <Grupo Rivera MD - Last Filed: 12/11/24 18:38> Musculoskeletal: Musculoskeletal: Reports no additional musculoskeletal complaints <Grupo Rivera MD - Last Filed: 12/11/24 18:38> Integumentary/Breasts: Skin/Breast: Reports system reviewed and no additional complaints, except as docu <Grupo Rivera MD - Last Filed: 12/11/24 18:38> Neurologic: Reports system reviewed and no additional complaints, except as documented <Grupo Rivera MD - Last Filed: 12/11/24 18:38> [facility] Past Medical History Medical History: Medical History Thyroid nodule Recurrent acute sinusitis Oral candidiasis Pneumonia History of MRSA infection mid 1990s Pneumonia March 2023 Hyponatremia Neutrophilic leukocytosis Pre-op evaluation Hyperparathyroidism Emphysema, unspecified Vaccine for hpfxwlzzpj-zkzqrrj-bzgrondji, combined Osteoarthritis of back Bursitis of right hip Screening for colon cancer Nubia infection Age-related osteoporosis without current pathological fracture 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 Subclinical hyperthyroidism COPD (chronic obstructive pulmonary disease) Atrial fibrillation with controlled ventricular response CLOUD (dyspnea on exertion) Edema of left lower extremity Essential hypertension Chronic fatigue, unspecified Gastro-esophageal reflux disease without esophagitis Hypersomnia 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 LITO on CPAP Preop cardiovascular exam <Francia Love, MILLING/POLISHING OPERATOR - Last Filed: 12/11/24 15:34> Surgical History Surgical History: Surgical History History of surgery on arm H/O exploratory laparotomy H/O breast implant History of right above knee amputation <Francia Wen November, - Last Filed: 12/11/24 15:34> Family History Family History: Family History Father Acute myocardial infarction, Onset Age: 79 Patient's father is Mother Family history of chronic obstructive pulmonary disease Patient's mother is Daughter Thyroid disease <Francia Wen November, - Last Filed: 12/11/24 15:34> Social History Social History: Social History Social History: The patient lives with her . She has 3 children. She used to work for [employer] but does not draw a pension. 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 Her daughter and are the durable power employment law attorney Code status full code Smoking packs per day: 2 Smoking cigarettes per day: 40.0 Years smoked: 45 Smoking pack-years: 90.00 Smoking status: Former smoker Tobacco type: cigarettes Second hand tobacco smoke exposure: No Smoking end date: 07/29/09 Alcohol intake: never Substance use: never Substance use type: does not use Do You Feel Safe in your Home?: Yes Lack of Transportation: No Lack of Food: Never True Current Housing: I Have Housing Concerned About Future Housing: No Difficulty Paying Gas/Electric Bills: No Difficulty Paying for Meds: No Currently Unemployed: No Education: High School Diploma/GED Difficulty w/ Childcare or Family Care: No Living arrangements: with family Occupation/Education: retired Gender identity (if verbalized by the patient): Female Sexual Orientation (if Verbalized by the Patient): Straight or Heterosexual Spiritual care concerns: No <Francia Wen November, - Last Filed: 12/11/24 15:34> Exam Narrative: GENERAL: Well-appearing, well-nourished, and in no acute distress. HEAD: Normocephalic, atraumatic. ENT: Mucous membranes moist. CHEST: Right basilar expiratory wheezing.. No respiratory distress. HEART: Regular rate and rhythm. Normal peripheral pulses. EXTREMITIES: Right lower extremity prosthesis. Normal left lower extremity with some old surgical scars. Normal distal pulses and sensation. SKIN: Warm, dry, no rash. NEURO: Alert and oriented x3. PSYCH: Normal mood and affect. <Grupo Rivera MD - Last Filed: 12/11/24 18:38> Course Course Emergency Course: Patient resting comfortably. Lung sounds improved with breathing treatment. Discussed imaging results. Discharge with prednisone. She has inhalers at home. <Grupo Rivera MD - Last Filed: 12/11/24 18:38> Vital Signs Vital signs: Vital Signs Temperature 97.3 F L 12/11/24 14:10 Pulse Rate 96 12/11/24 14:10 Respiratory Rate 16 12/11/24 14:10 Blood Pressure 142/81 H 12/11/24 14:10 Pulse Oximetry 98 12/11/24 14:10 Oxygen Delivery Room Air 12/11/24 14:10 Temperature 97.3 F L 12/11/24 14:10 Pulse Rate 84 12/11/24 16:55 Respiratory Rate 18 12/11/24 16:55 Blood Pressure 142/81 H 12/11/24 14:10 Pulse Oximetry 98 12/11/24 14:10 Oxygen Delivery Room Air 12/11/24 14:10 <Francia Love APRN - Last Filed: 12/11/24 15:34> Vital Signs Temperature 97.3 F L 12/11/24 14:10 Pulse Rate 96 12/11/24 14:10 Respiratory Rate 16 12/11/24 14:10 Blood Pressure 142/81 H 12/11/24 14:10 Pulse Oximetry 98 12/11/24 14:10 Oxygen Delivery Room Air 12/11/24 14:10 Temperature 97.3 F L 12/11/24 14:10 Pulse Rate 84 12/11/24 16:55 Respiratory Rate 18 12/11/24 16:55 Blood Pressure 142/81 H 12/11/24 14:10 Pulse Oximetry 98 12/11/24 14:10 Oxygen Delivery Room Air 12/11/24 14:10 <Grupo Rivera MD - Last Filed: 12/11/24 18:38> Medical Decision Making Vital Signs Vital Signs: Vital Signs Temperature 97.3 F L 12/11/24 14:10 Pulse Rate 96 12/11/24 14:10 Respiratory Rate 16 12/11/24 14:10 Blood Pressure 142/81 H 12/11/24 14:10 Pulse Oximetry 98 12/11/24 14:10 Oxygen Delivery Room Air 12/11/24 14:10 Temperature 97.3 F L 12/11/24 14:10 Pulse Rate 84 12/11/24 16:55 Respiratory Rate 18 12/11/24 16:55 Blood Pressure 142/81 H 12/11/24 14:10 Pulse Oximetry 98 12/11/24 14:10 Oxygen Delivery Room Air 12/11/24 14:10 <Francia Love APRN - Last Filed: 12/11/24 15:34> Vital Signs Temperature 97.3 F L 12/11/24 14:10 Pulse Rate 96 12/11/24 14:10 Respiratory Rate 16 12/11/24 14:10 Blood Pressure 142/81 H 12/11/24 14:10 Pulse Oximetry 98 12/11/24 14:10 Oxygen Delivery Room Air 12/11/24 14:10 Temperature 97.3 F L 12/11/24 14:10 Pulse Rate 84 12/11/24 16:55 Respiratory Rate 18 12/11/24 16:55 Blood Pressure 142/81 H 12/11/24 14:10 Pulse Oximetry 98 12/11/24 14:10 Oxygen Delivery Room Air 12/11/24 14:10 <Grupo Rivera MD - Last Filed: 12/11/24 18:38> Imaging Data Radiologist's impression: ITS Impressions Tibia/Fibula X-Ray 12/11/24 15:47 IMPRESSION: No acute osseous abnormality left leg. Old healed fractures of the distal tibia and fibula. Postoperative changes. Venous Doppler Study 12/11/24 16:18 IMPRESSION: 1. No deep venous thrombosis in the left lower limb. Chest X-Ray 12/11/24 17:13 IMPRESSION: No acute cardiopulmonary pathology. <Grupo Rivera MD - Last Filed: 12/11/24 18:38> Discharge Plan Discharge Clinical Impression: Bronchitis <Francia Love APRN - Last Filed: 12/11/24 15:34> Patient Disposition: Home <Francia Love APRN - Last Filed: 12/11/24 15:34> Condition: Stable <Francia Love APRN - Last Filed: 12/11/24 15:34> Instructions: Acute Bronchitis (ED) <Francia Wen November, MILLING/POLISHING OPERATOR - Last Filed: 12/11/24 15:34> Additional Instructions: Please return to the emergency department if you develop severe and persistent chest pain, difficulty breathing, dizziness, leg swelling or if you are coughing up blood as these can be signs of a medical emergency. Please call your doctor for a follow up appointment to determine the need for further testing. <Francia Wen November, MILLING/POLISHING OPERATOR - Last Filed: 12/11/24 15:34> Patient Language: Turkish <Francia BradyRob November, MILLING/POLISHING OPERATOR - Last Filed: 12/11/24 15:34> Prescriptions: New prednisone 50 mg tablet 50 mg PO DAILY Qty: 7 0RF No Action multivitamin Capsule 1 cap PO DAILY azelastine 137 mcg (0.1 %) spray,non-aerosol 1 spray intranasal Q12H Qty: 90 2RF Rx Instructions: administer into each nostril levocetirizine [Xyzal] 2.5 mg/5 mL solution 2.5 mg PO QPM calcium carbonate 500 mg calcium (1,250 mg) tablet 500 mg PO BID Qty: 180 0RF cholecalciferol (vitamin D3) 50 mcg (2,000 unit) capsule 50 mcg PO DAILY Qty: 180 0RF melatonin 5 mg Tablet 5 mg PO DAILY turmeric 400 mg Capsule 400 mg PO DAILY Rx Instructions: with chance Cole 100-62.5-25 mcg blister with device See Rx Instructions .ROUTE .COMPLEX Qty: 180 3RF Dose Instruction: USE 1 INHALATION BY MOUTH EVERY 24 HOURS Rx Instructions: USE 1 INHALATION BY MOUTH EVERY 24 HOURS Prolia 60 mg/mL syringe 60 mg SUB-Q [id number] Qty: 1 1RF Rx Instructions: JULY / JANUARY roflumilast 500 mcg tablet 500 mcg PO DAILY 30 Days Qty: 30 5RF Xarelto 20 mg tablet See Rx Instructions .ROUTE .COMPLEX Qty: 90 2RF Dose Instruction: TAKE 1 TABLET BY MOUTH IN THE EVENING WITH EVENING MEAL Rx Instructions: TAKE 1 TABLET BY MOUTH IN THE EVENING WITH EVENING MEAL omeprazole 40 mg capsule,delayed release(DR/EC) See Rx Instructions .ROUTE .COMPLEX Qty: 90 3RF Dose Instruction: TAKE 1 CAPSULE BY MOUTH DAILY Rx Instructions: TAKE 1 CAPSULE BY MOUTH DAILY diltiazem HCl 360 mg capsule,extended release 24hr 360 mg PO DAILY Qty: 90 2RF spironolactone 25 mg tablet See Rx Instructions .ROUTE .COMPLEX Qty: 90 2RF Dose Instruction: TAKE 1 TABLET BY MOUTH DAILY Rx Instructions: TAKE 1 TABLET BY MOUTH DAILY lidocaine 5 % adhesive patch,medicated 1 patch topical DAILY Qty: 30 5RF Rx Instructions: leave on most painful area for up to 12 hrs gabapentin 300 mg capsule 300 mg PO DAILY Qty: 90 1RF furosemide 40 mg tablet See Rx Instructions .ROUTE .COMPLEX Qty: 90 2RF Dose Instruction: TAKE 1 TABLET DAILY Rx Instructions: TAKE 1 TABLET DAILY tramadol 50 mg tablet 25 mg PO Q8H PRN (Reason: pain) Qty: 45 0RF albuterol sulfate 90 mcg/actuation HFA aerosol inhaler 1 - 2 inh inhalation PRN PRN (Reason: Shortness Of Breath Or Wheezing) 30 Days Qty: 8.5 5RF methimazole 5 mg tablet 2.5 mg PO DAILY Qty: 60 2RF <Francia Love, MILLING/POLISHING OPERATOR - Last Filed: 12/11/24 15:34> Follow-up/Referrals: Rey Nix MD [Primary Care Provider] - <Francia Love, MILLING/POLISHING OPERATOR - Last Filed: 12/11/24 15:34>
[2024-12-11] MEDS: IPRATROPIUM 0.5 MG/ALBUTEROL SULFATE 2.5 MG AMPUL.NEB 3 ML INHALATION (16:44)
[2024-12-11 16:45] VITALS: PULSE 86; RESP 18
--- OUTSIDE RECORDS SUMMARY | 2024-12-11 16:47 | XMS_ITS | Clinical Summary ---
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
--- OUTSIDE RECORDS SUMMARY | 2024-12-11 16:47 | XMS_ITS | Encounter Summary ---
Author Organization [facility] Address [address] [facility] [place] [address] Care Team Providers Care Company Miner Blasting Name Role Phone Ian Ortiz MD Primary Care Provider [phone] Encounter Details Date Type Department Care Team (Late st Contact Info) Description 08/30/2023 Lab Requisition [facility] [address] [place] [address] Rory Leigh MD [address] [facility] [place] [address] Social History Tobacco Use Types Packs/Day Years Used Date Smoking Tobacco: Former Cigarettes Q uit: 12/12/2009 Smokeless Tobacco: Never Alcohol Use Standard Drinks/Week Comments No 0 (1 standard drink = 0.6 oz pur e alcohol) Comments Unknown Sex and Gender Information Value Date Recorded Sex Assigned at Not on file Legal Sex Female 5:27 PM INTEGRATED MARKETING INTERN Gender Identity Not on file Sexual Orientation Not on file documented as of this encounter Plan of Treatment Not on file documented as of this encounter Procedures Procedure Name Priority Date/Time Associated Diagnosis Comments DERMATOPATHOLOGY Routine 08/28/2023 12:0 0 AM INTEGRATED MARKETING INTERN documented in this encounter Results * DERMATOPATHOLOGY (08/28/2023 12:00 AM INTEGRATED MARKETING INTERN) Case Report Dermatopathology Report Case: [id number] Authorizing Provider: Rory Leigh MD Collected: 08/28/2023 12:00 AM Ordering Location: [facility] Received: 08/30/2023 10:20 AM Pathologist: Amelia Castillo MD Specimens: A) - Skin, left jawline B) - Skin, anterior midline scalp 4:34 PM [facility] DERMAT[facility] Final Diagnosis Specimen A. SKIN, left jawline: HYPERPLASTIC (HYPERTROPHIC) ACTINIC KERATOSIS, LICHENOID (L57.0) Specimen B. SKIN, anterior midline scalp: ACTINIC KERATOSIS; EXTENDING TO THE BASE OF THE SPECIMEN (L57.0) (see microscopic description and comment) 4:34 PM [facility]MAT[facility] Clinical History A: BCCA vs. SCC. Path# [id number] B: BCCA vs. SCC. Path# [id number] 4:34 PM [facility]ERMATOP[facility] Gross Description Specimen A: Received [...] measuring 3x2x1 mm. Jar 0. 4:34 PM [facility] DERMATOP[facility]ORY Microscopic Description Specimen A. SKIN, [...] cannot be ruled out. 4 4:34 PM INTEGRATED MARKETING INTERN DERMATOPATHOLOGY LABORATORY Disclaimer An external and internal positive and negative controls are appropriate for the histochemical, immunohistochemical and immunofluorescence stain(s) in this case (if any), except where stated explicitly. The performance characteristics of the stain(s) cited in this report were developed and its performance characteristic determined by the Dermatopathology Laboratory at [facility], directed by Dr. Yazmin Moreno. These tests need not be, and therefore are not, approved by the [place] Food and Drug Administration. The tests are used for clinical purposes. Billing Codes Specimen Charges Stain Charges 46886 29871 1 1 4 4:34 PM INTEGRATED MARKETING INTERN DERMATOPATHOLOGY LABORATORY Embedded Images 4 4:34 PM INTEGRATED MARKETING INTERN DERMATOPATHOLOGY LABORATORY Pathology/Cytology TISSUE SPECIMEN FROM SKIN / Unknown 08/28/2023 08/30/2023 10:20 AM INTEGRATED MARKETING INTERN Miscellaneous samples (specimen) TISSUE SPECIMEN FROM SKIN / Unknown 08/28/2023 08/30/2023 10:20 AM INTEGRATED MARKETING INTERN us Rory Leigh MD LAB - PATHOLOGY/CYTOLOGY ORDER DARRYL Final Result DERMATOPATHOLOGY LABORATORY [facility] - Department of Dermatology [facility] Medicine [address] [place] [address], [address] [phone] documented in this encounter Visit Diagnoses Not on filedocumented in this encounter Care Teams Company Miner Blasting Relationship Specialty Start Date End Date Ian Ortiz MD [address] [facility] [address] [place] [phone] PCP - General 05/23/15 documented as of this encounter
--- OUTSIDE RECORDS SUMMARY | 2024-12-11 16:47 | XMS_ITS | Clinical Summary ---
Author Organization [facility] Address [address] [facility] [place] [address] Care Team Providers Care Student Assistant Name Role Phone Ian Ortiz MD Primary Care Provider [phone] Source Comments [facility] Affiliates and Associated Physician Practices is amultiple site organization consisting of ambulatory clinics and hospital sitesin [place], [place], [place] and [place]. This disclosure is being madepursuant to the Care Everywhere program and may not contain all information available regarding this patient. Last updated 18.[facility] Allergies Active Allergy Reactions Criticality Noted Date [...] once daily Active FLUTICASONE PROPIONATE, NASAL, NA [place] 1-2 sprays into the nose once daily Active Multiple Vitamin (MULTIVITAMIN ADULT PO) Take 1 tablet by mouth once daily Active Calcium Citrate-Vitamin D (CALCIUM + D PO) Act shivam Azelastine HCl 137 MCG/SPRAY SOLN [place] 1 spray into each nostril once daily [...] on file Legal Sex Female 5:27 PM COMPUTER SYSTEMS ENGINEER Gender Identity Not on file Sexual Orientation Not on file Last Filed Vital Signs Vital Sign Reading Time Taken Comments Blood Pressure 106/74 08/14/2023 10:42 AM COMPUTER SYSTEMS ENGINEER Pulse 97 08/14/2023 10:42 AM COMPUTER SYSTEMS ENGINEER Temperature 36.4 C (97.6 F) 12/14/2015 11:40 AM CDT Respiratory Rate 16 08/22/2015 12:55 PM COMPUTER SYSTEMS ENGINEER Oxygen Saturation 96% 04/23/2017 10:20 AM CDT Inhaled Oxygen Concentration - - Weight 78.9 kg (174 lb) 08/14/2023 10:42 AM COMPUTER SYSTEMS ENGINEER Height 170.2 cm (5' 7 ) 08/14/2023 10:42 AM COMPUTER SYSTEMS ENGINEER Body Mass Index 27.25 08/14/2023 10:42 AM COMPUTER SYSTEMS ENGINEER Plan of Treatment Health Maintenance Due Date [...] age to complete this topic Insurance [employer] [facility] MANAGED MEDICARE ADV [facility] MANAGED MEDICARE ADV SELF PAY NO INSURANCE Member Subscriber Plan / Payer (Ef fective for All Dates) Name:Sarah Calderon Member ID:Not on file Relation to Subscriber:Not on file Name:SARAH CALDERON Subscriber ID:Not on file (Home) Address: [address] [place] [phone] Payer ID:Not on file Group ID:Not on file Type:Self Pay Address: [place], [place] Care Teams Student Assistant Relationship Specialty Start Date End Date Ian Ortiz MD [address] [facility] [address] [place] [address] PCP - General 05/23/15
--- OUTSIDE RECORDS SUMMARY | 2024-12-11 16:47 | XMS_ITS | Encounter Summary ---
Author Organization [facility] Address [address] [place] [address] Care Team Providers Care Lock Fitter Name Role Phone Ash Gallardo MD Primary Care Provider [phone] Encounter Details Date Type Department Care Team (Late st Contact Info) Description 01/01/2008 Outpatient Historical HIS ORTHOPEDIC TRAUMA Gregory Pro MD NO ADDRESS ON FILE Social History Tobacco Use Types Packs/Day Years Used Date Smoking Tobacco: Never Assessed Comments Unknown Sex and Gender Information Value Date Recorded Sex Assigned at Not on file Legal Sex Female 5:35 AM STUDENT DEVELOPMENT COORDINATOR Gender Identity Not on file Sexual Orientation [...] PM CDT Narrative 01/11/2008 12:47 PM CDT [address] [address] Admit Date: 01/01/2008 SARAH CALDERON Sex: F Admit Prov: GREGORY PRO Date: 1950 Primary Care Prov: CMRN: [id number] Room: [facility] SSN: [id number] IMAGING SERVICES Ordering Prov: GREGORY PRO Accession Number: [id number] Interpretation This procedure was performed at the request of the orthopedic physician. Please see the orthopedic physician s report for details, which can be found in the patient s medical record. _ Dictated by: RADIOLOGY, DEPARTMENT O Electronically signed by: RADIOLOGY, DEPARTMENT 01/11/2008 12:47 Transcribed: 01/11/2008 11:35 AMK Procedure Note Provider, Historical - 01/11/2008 [facility] [place] [address] [place], [place] [address] Admit Date: 01/01/2008 YUMIKO SARAH D Sex: F Admit Prov: GREGORY PRO Date: 1950 Primary Care Prov: CMRN: [id number] Room: [facility] SSN: [id number] IMAGING SERVICES Ordering Prov: GREGORY PRO Interpretation [...] on filedocumented in this encounter Care Teams Lock Fitter Relationship Specialty Start Date End Date Ash Gallardo MD [address] [place] [phone] PCP - General Surgery 03/20/10 documented as of this encounter
--- OUTSIDE RECORDS SUMMARY | 2024-12-11 16:47 | XMS_ITS | Clinical Summary ---
Author Organization [facility] Address [address] [place] [address] Care Team Providers Care Care Rep Name Role Phone Unavailable Primary Care Provider Unavailabl e Immunizations Immunization Administration Dates Next Due MODERNA COVID-19 (12+) MRNA, LNP-S, PF, 100 MCG/ 0.5 ML DOSE 10/05/2020,09/07/2020 Social History Tobacco Use Types Packs/Day Years Used Date Smoking Tobacco: Never Assessed Comments Unknown Sex and Gender Information Value Date Recorded Sex Assigned at Not on file Legal Sex Female 9:24 PM BALL ENDER Gender Identity Not on file Sexual Orientation [...]
[2024-12-11 16:55] VITALS: PULSE 84; RESP 18
== END 2024-12-12 00:41 | disposition home or self-care (01) ==
PROVIDERS: Emergency Provider Emergency Medicine; PCP Family Medicine
DX: J40 Bronchitis, not specified as acute or chronic (principal); J43.9 Emphysema, unspecified; I48.91 Unspecified atrial fibrillation; I10 Essential (primary) hypertension; Z79.01 Long term (current) use of anticoagulants; Z87.891 Personal history of nicotine dependence
CPT/HCPCS: 71046; 73590; 93971; 94640; 99284

== ENCOUNTER 2025-03-11 16:09 | Outpatient (CLI) | payer MEDICARE, SELFPAY ==
--- OUTSIDE RECORDS SUMMARY | 2025-03-11 16:13 | XMS_ITS | Encounter Summary ---
Author Organization [facility] Address [address] [place] [address] Care Team Providers Care Senior Information Security Architect Name Role Phone Ian Ortiz MD Primary Care Provider [phone] Tammie Wilson Primary Care Provider + Encounter Details Date Type Department Care Team (Late st Contact Info) Description 08/30/2023 Lab Requisition [facility] - DermPath Lab [address] [facility], [place] [id number] Rory Leigh MD [address] [address] Social History Tobacco Use Types Packs/Day Years Used Date Smoking Tobacco: Former Cigarettes Q uit: 12/12/2009 Smokeless Tobacco: Never Alcohol Use Standard Drinks/Week Comments No 0 (1 standard drink = 0.6 oz pur e alcohol) Comments Unknown Sex and Gender Information Value Date Recorded Sex Assigned at Not on file Legal Sex Female 5:27 PM BUILDING ASSOCIATE Gender Identity Not on file Sexual Orientation Not on file documented as of this encounter Plan of Treatment Not on file documented as of this encounter Procedures Procedure Name Priority Date/Time Associated Diagnosis Comments DERMATOPATHOLOGY Routine 08/28/2023 12:0 0 AM BUILDING ASSOCIATE documented in this encounter Results * DERMATOPATHOLOGY (08/28/2023 12:00 AM BUILDING ASSOCIATE) Case Report Dermatopathology Report Case: [id number] Authorizing Provider: Rory Leigh MD Collected: 08/28/2023 12:00 AM Ordering Location: [facility] DermPath Lab Received: 08/30/2023 10:20 AM Pathologist: Amelia Castillo MD Specimens: A) - Skin, left jawline B) - Skin, anterior midline scalp 4:34 PM [facility] DERMATOPATHOLOGY LABORATORY Final Diagnosis Specimen A. SKIN, left jawline: HYPERPLASTIC (HYPERTROPHIC) ACTINIC KERATOSIS, LICHENOID (L57.0) Specimen B. SKIN, anterior midline scalp: ACTINIC KERATOSIS; EXTENDING TO THE BASE OF THE SPECIMEN (L57.0) (see microscopic description and comment) 4:34 PM [facility] DERMATOPATHOLOGY LABORATORY at 1634 BUILDING ASSOCIATE Clinical History A: BCCA vs. SCC. Path# [id number] B: BCCA vs. SCC. Path# [id number] 4:34 PM [facility] [...] characteristic determined by the Dermatopathology Laboratory at [facility], directed by Dr. Yazmin Moreno. These tests need not be, and therefore are not, approved by the [place] Food and Drug Administration. The tests are used for clinical purposes. Billing Codes Specimen Charges Stain Charges 53306 22260 1 1 4 4:34 PM BUILDING ASSOCIATE DERMATOPATHOLOGY LABORATORY Embedded Images 4 4:34 PM BUILDING ASSOCIATE DERMATOPATHOLOGY LABORATORY Pathology/Cytology TISSUE SPECIMEN FROM SKIN / Unknown 08/28/2023 08/30/2023 10:20 AM BUILDING ASSOCIATE Miscellaneous samples (specimen) TISSUE SPECIMEN FROM SKIN / Unknown 08/28/2023 08/30/2023 10:20 AM BUILDING ASSOCIATE Rory Leigh MD LAB - PATHOLOGY/CYTOLOGY ORDER DARRYL Final Result DERMATOPATHOLOGY LABORATORY [facility] - Department of Dermatology [facility] Medicine [address] [place] [address], [address] [phone] documented in this encounter Visit Diagnoses Not on filedocumented in this encounter Care Teams Senior Information Security Architect Relationship Specialty Start Date End Date Ian Ortiz MD [address] [place] [address] PCP - General 05/23/15 12/21/24 Tammie Wilson APRN-GHASSAN [address] [place] [address] PCP - General Nurse Practitioner 12/22/24 documented as of this encounter
--- OUTSIDE RECORDS SUMMARY | 2025-03-11 16:13 | XMS_ITS | Clinical Summary ---
Author Organization [facility] Address [address] [place] [address] Care Team Providers Care Supervisor Fine Grading Name Role Phone Unavailable Primary Care Provider Unavailabl e Immunizations Immunization Administration Dates Next Due MODERNA COVID-19 (12+) MRNA, LNP-S, PF, 100 MCG/ 0.5 ML DOSE 10/05/2020,09/07/2020 Social History Tobacco Use Types Packs/Day Years Used Date Smoking Tobacco: Never Assessed Comments Unknown Sex and Gender Information Value Date Recorded Sex Assigned at Not on file Legal Sex Female 9:24 PM MEDICAL SCRIBE Gender Identity Not on file Sexual Orientation [...]
--- OUTSIDE RECORDS SUMMARY | 2025-03-11 16:13 | XMS_ITS | Clinical Summary ---
Author Organization [facility] Address [address] [place] [address] Phone Care Team Providers Care Manager Scientific Name Role Phone Ash Gallardo MD Primary Care Provider [phone] Active Problems Problem Noted Date Diagnosed Date Calf pain 03/20/2010 Overview (03/20/2010): LLE Social History Tobacco Use Types Packs/Day Years Used Date Smoking Tobacco: Never Assessed Comments Unknown Sex and Gender Information Value Date Recorded Sex Assigned at Not on file Legal Sex Female 5:35 AM CLOCK REPAIR TECHNICIAN Gender Identity Not on file Sexual [...] 2000 OSTEOPOROSIS SCREENING 12/14/2015 INFLUENZA VACCINE (#1) 2025 RSV VACCINE (60+ or ) (1 - 1-dose 75+ series) 2025 Insurance MEDICARE PART A AND B [facility] BLUE ACCESS/TRUE BLUE PPO Care Teams Manager Scientific Relationship Specialty Start Date End Date Ash Gallardo MD [address] [place] [phone] PCP - General Surgery 03/20/10
--- OUTSIDE RECORDS SUMMARY | 2025-03-11 16:13 | XMS_ITS | Clinical Summary ---
Author Organization [facility] Address [address] [place] [address] Care Team Providers Care Consumer Relations Complaint Clerk Name Role Phone Tammie Wilson SANDRA-PEDIATRIC DENTIST Primary Care Provider + Source Comments [facility],non-owned Affiliates and Associated Physician Practices is amultiple site organization consisting of ambulatory clinics and hospital sitesin [place], [place], [place]. This disclosure is being madepursuant to the Care Everywhere program and may not contain all information available regarding this patient. Last updated 18.[facility] [employer] Allergies Active Allergy Reactions Criticality Noted Date [...] once daily Active FLUTICASONE PROPIONATE, NASAL, NA [place] 1-2 sprays into the nose once daily Active Multiple Vitamin (MULTIVITAMIN ADULT PO) Take 1 tablet by mouth once daily Active Calcium Citrate-Vitamin D (CALCIUM + D PO) Act shivam Azelastine HCl 137 MCG/SPRAY SOLN [place] 1 spray into each nostril once daily [...] by mouth once daily 05/09/20 23 Active traMADol (Ultram) 50 MG tablet 0.5 (one-half) tablet 02/06/20 25 Active Active Problems Problem Noted Date Diagnosed Date Hyperparathyroidism 08/14/2023 Disorder of kidney and ureter 07/12/2015 Urgency of urination 07/12/2015 Calculus of ureter 05/05/2015 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 Other chronic osteomyelitis, unspecified site Overview (10/28/2017): of hip / femur Encounters Date Type Department Care Team Description 02/09/2025 10:30 AM CDT Office Visit [facility] - Orthopedic Surgery [address] [place] [address] Rafita Arzola MD Pain in both knees, unspecified chronicity (Primary Dx); Chronic midline low back pain with left-sided sciatica 02/09/2025 10:00 AM CDT - 02/09/2025 11:59 PM CDT Hospital Encounter [facility] - Orthopedics [address], [address] [place] [phone] Rafita Arzola MD Discharge Disposition: Home or Self Care 02/09/2025 Travel 02/05/2025 Orders Only [facility] - Orthopedic Surgery [facility] [place] [address] Rafita Arzola MD Pain in both knees, unspecified chronicity 12/22/2024 Travel from Last 3 Months Immunizations Immunization Administration Dates Next Due INFLUENZA [...] drink = 0.6 oz pur e alcohol) PHQ-2 Answer Date Recorded Patient Health Questionnaire-2 Score 0 02/09/2025 Comments Unknown Sex and Gender Information Value Date Recorded Sex Assigned at Not on file Legal Sex Female 5:27 PM TAR POT MAN Gender Identity Not on file Sexual Orientation Not on file Last Filed Vital Signs Vital Sign Reading Time Taken Comments Blood Pressure 106/74 08/14/2023 10:42 AM TAR POT MAN Pulse 97 08/14/2023 10:42 AM TAR POT MAN Temperature 36.4 C (97.6 F) 12/14/2015 11:40 AM CDT Respiratory Rate 16 08/22/2015 12:55 PM TAR POT MAN Oxygen Saturation 96% 04/23/2017 10:20 AM CDT Inhaled Oxygen Concentration - - Weight 78.9 kg (174 lb) 08/14/2023 10:42 AM TAR POT MAN Height 170.2 cm (5' 7) 08/14/2023 10:42 AM TAR POT MAN Body Mass Index 27.25 08/14/2023 10:42 AM TAR POT MAN Plan of Treatment Health Maintenance Due Date [...] or PCV21) 05/22/2022 05/22/2017, 05/19/2013 COVID-19 VACCINE (7 - season) 2024 05/28/2023, 05/22/2022, 01/11/2022, Additional history exists MEDICARE AWV CALENDAR YEAR 2024 INFLUENZA VACCINE (#1) 2025 , 05/22/2022, 05/12/2021, Additional history exists Respiratory Syncytial Virus (RSV) Vaccine Pt: or over 60 yrs (1 - 1-dose 75+ series) 2025 DTAP/TDAP/TD VACCINES (2 - Td or Tdap) 02/11/2032 02/10/2022 ZOSTER VACCINE Completed 06/08/2020, 04/08/2020 DEPRESSION SCREENING Completed 02/09/2025 HEPATITIS B VACCINE Aged Out No longe [...] on patient's age to complete this topic Procedures Procedure Name Priority Date/Time Associated Diagnosis Comments XR KNEE LEFT 4VW OR MORE Routine 02/09/2025 10:07 AM CDT Left knee pain, unspecified chronicity from Last 3 Months Results * XR Knee Left 4Vw or More (02/09/2025 10:07 AM CDT) Anatomical Region Laterality Modality Lower Extremity Radiographic Clemencia ging 02/09/2025 10:0 9 AM CDT Narrative 02/09/2025 10:10 AM CDT Procedure: XR KNEE LEFT 4VW OR MORE Exam Date: 02/09/2025 10:07 AM Location: [facility] Indication: M25.562: Left knee pain, unspecified chronicity Findings/impression: The study is compared to an exam from September 2021. There is an intramedullary jackson within the femur. There is narrowing of the medial compartment of the knee joint similar to the old exam. There is spurring of the femoral condyles, tibial plateau and along the condylar notch and along the patellofemoral joint. There is no fracture. There is a small joint effusion. There is no acute bony abnormality. > Interpreting Provider: Mike Baez MD on 02/09/2025 10:10 AM Procedure Note Mike Baez MD - 02/09/2025 Procedure: XR KNEE LEFT 4VW OR MORE Exam Date: 02/09/2025 10:07 AM Location: [facility] Indication: M25.562: Left knee pain, unspecified chronicity Findings/impression: The study is compared to an exam from September 2021. There is an intramedullary jackson within the femur. There is narrowing of the medial compartment of the knee joint similar to the old exam. There is spurringof the femoral condyles, tibial plateau and along the condylar notch andalong the patellofemoral joint. There is no fracture. There is a small joint effusion. There is no acute bony abnormality. > Interpreting Provider: Mike Baez MD on 02/09/2025 10:10 AM Rafita Arzola MD DIAGNOSTIC IMAGING ORDERABL ES Final Result from Last 3 Months Insurance [facility] MANAGED MEDICARE ADV [facility] MANAGED MEDICARE ADV Care Teams Consumer Relations Complaint Clerk Relationship Specialty Start Date End Date Tammie Wilson APRN-GHASSAN [address] [place] [address] PCP - General Nurse Practitioner 12/22/24
--- OUTSIDE RECORDS SUMMARY | 2025-03-11 16:13 | XMS_ITS | Encounter Summary ---
Author Organization [facility] Address [address] [place] [address] Care Team Providers Care Pay Agent Name Role Phone Ash Gallardo MD Primary Care Provider [phone] Encounter Details Date Type Department Care Team (Late st Contact Info) Description 01/01/2008 Outpatient Historical HIS ORTHOPEDIC TRAUMA Gregory Pro MD NO ADDRESS ON FILE Social History Tobacco Use Types Packs/Day Years Used Date Smoking Tobacco: Never Assessed Comments Unknown Sex and Gender Information Value Date Recorded Sex Assigned at Not on file Legal Sex Female 5:35 AM POSTAL CLERK Gender Identity Not on file Sexual Orientation [...] PM CDT Narrative 01/11/2008 12:47 PM CDT [address] [address] Admit Date: 01/01/2008 SARAH CALDERON Sex: F Admit Prov: GREGORY PRO Date: 1950 Primary Care Prov: CMRN: [id number] Room: [facility] SSN: [id number] IMAGING SERVICES Ordering Prov: GREGORY PRO Accession Number: [id number] Interpretation This procedure was performed at the request of the orthopedic physician. Please see the orthopedic physician s report for details, which can be found in the patient s medical record. _ Dictated by: RADIOLOGY, DEPARTMENT O Electronically signed by: RADIOLOGY, DEPARTMENT 01/11/2008 12:47 Transcribed: 01/11/2008 11:35 AMK Procedure Note Provider, Historical - 01/11/2008 [facility] [address] [place], [place] [address] Admit Date: 01/01/2008 YUMIKO SARAH D Sex: F Admit Prov: GREGORY PRO Date: 1950 Primary Care Prov: CMRN: [id number] Room: [facility] SSN: [id number] IMAGING SERVICES Ordering Prov: GREGORY PRO Interpretation [...] on filedocumented in this encounter Care Teams Pay Agent Relationship Specialty Start Date End Date Ash Gallardo MD [address] [place] [phone] PCP - General Surgery 03/20/10 documented as of this encounter
[2025-03-11 17:13] LABS: Albumin Level 4.1 g/dL (3.5-5.1); Calcium 9.5 mg/dL (8.4-10.2)
[2025-03-13 15:09] LABS: Calcium, Ionized 5.1 mg/dL (4.5-5.6)
== END 2025-03-11 16:10 | disposition home or self-care (01) ==
LOC: ANHLAB 16:11
PROVIDERS: PCP Nurse Practitioner Family; Visit Provider Internal Medicine
DX: E55.9 Vitamin D deficiency, unspecified (principal); I10 Essential (primary) hypertension; E05.90 Thyrotoxicosis, unspecified without thyrotoxic crisis or storm; E21.3 Hyperparathyroidism, unspecified; E04.1 Nontoxic single thyroid nodule; M81.0 Age-related osteoporosis without current pathological fracture; E04.9 Nontoxic goiter, unspecified
CPT/HCPCS: 36415; 82040; 82310; 82330

== ENCOUNTER 2025-03-23 13:33 | Outpatient (CLI) | payer MEDICARE, SELFPAY ==
--- NOTE | ~2025-03-23 | MM_ITS ---
EXAMINATION: MM scrn clay implant BI w larry INDICATION: Asymptomatic, referred for screening mammogram COMPARISON: 04/12/2023 through 05/19/2013 TECHNIQUE: Digital Breast Tomosynthesis CC, MLO, and implant displaced CC and MLO views of Both breasts were obtained with computer-aided detection to assist in interpretation of the study. FINDINGS: The breasts are heterogeneously dense, which may obscure small masses. Bilateral breast Retroglandular Silicone implants in place. Again is reidentified abnormal configuration of the left silicone implant with high density material within the breast tissues. There are multiple small round masses some of which has rim calcifications scattered within the breast parenchyma. 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 These findings are unchanged and can be seen dating back to the mammogram of 06/10/2018. No new focal dominant mass, architectural distortion, or suspicious microcalcifications are identified. IMPRESSION: 1. No evidence of malignancy in the breasts. 2. Both breasts Retroglandular Silicone implants with findings compatible with extracapsular rupture of the left silicone implant which appears unchanged dating back to 05/2018. Recommendations: Recommend continued screening mammography. Consider follow-up with plastic surgery if it has not ready been done. BI-RADS 2, BENIGN Reviewed, dictated and finalized at location B. IMPRESSION: 1. No evidence of malignancy in the breasts. 2. Both breasts Retroglandular Silicone implants with findings compatible with extracapsular rupture of the left silicone implant which appears unchanged dati ng back to 05/2018. Recommendations: Recommend continued screening mammography. Consider follow-up with plastic surgery if it has not ready been done. BI-RADS 2, BENIGN
--- OUTSIDE RECORDS SUMMARY | 2025-03-23 13:39 | XMS_ITS | Encounter Summary ---
Author Organization [facility] Address [address] [place] [address] Care Team Providers Care Field Marketing Representative Name Role Phone Ian Ortiz MD Primary Care Provider [phone] Tammie Wilson Primary Care Provider + Encounter Details Date Type Department Care Team (Late st Contact Info) Description 08/30/[address] [facility] - DermPath Lab [address] [facility] [place] [phone] Rory Leigh MD [address] [place] [address] Social History Tobacco Use Types Packs/Day Years Used Date Smoking Tobacco: Former Cigarettes Q uit: 12/12/2009 Smokeless Tobacco: Never Alcohol Use Standard Drinks/Week Comments No 0 (1 standard drink = 0.6 oz pur e alcohol) Comments Unknown Sex and Gender Information Value Date Recorded Sex Assigned at Not on file Legal Sex Female 5:27 PM LINE PAINTING MACHINE OPERATOR Gender Identity Not on file Sexual Orientation Not on file documented as of this encounter Plan of Treatment Not on file documented as of this encounter Procedures Procedure Name Priority Date/Time Associated Diagnosis Comments DERMATOPATHOLOGY Routine 08/28/2023 12:0 0 AM LINE PAINTING MACHINE OPERATOR documented in this encounter Results * DERMATOPATHOLOGY (08/28/2023 12:00 AM LINE PAINTING MACHINE OPERATOR) Case Report Dermatopathology Report Case: [id number] Authorizing Provider: Rory Leigh MD Collected: 08/28/2023 12:00 AM Ordering Location: [facility] DermPath Lab Received: 08/30/2023 10:20 AM Pathologist: [...] PM [facility] DERMATOPATHOLOGY LABORATORY at [address] LINE PAINTING MACHINE OPERATOR Clinical History A: BCCA vs. SCC. Path# [id number] B: BCCA vs. SCC. Path# [id number] 4:34 PM [facility] DERMATOPATHOLOGY [...] characteristic determined by the Dermatopathology Laboratory at [facility], directed by Dr. Yazmin Moreno. These tests need not be, and therefore are not, approved by the [place] Food and Drug Administration. The tests are used for clinical purposes. Billing Codes Specimen Charges Stain Charges 32064 47328 1 1 4 4:34 PM LINE PAINTING MACHINE OPERATOR DERMATOPATHOLOGY LABORATORY Embedded Images 4 4:34 PM LINE PAINTING MACHINE OPERATOR DERMATOPATHOLOGY LABORATORY Pathology/Cytology TISSUE SPECIMEN FROM SKIN / Unknown 08/28/2023 08/30/2023 10:20 AM LINE PAINTING MACHINE OPERATOR Miscellaneous samples (specimen) TISSUE SPECIMEN FROM SKIN / Unknown 08/28/2023 08/30/2023 10:20 AM LINE PAINTING MACHINE OPERATOR Rory Leigh MD LAB - PATHOLOGY/CYTOLOGY ORDER DARRYL Final Result DERMATOPATHOLOGY LABORATORY [facility] - Department of Dermatology [facility] Medicine [address] [place] [address], [address] [phone] documented in this encounter Visit Diagnoses Not on filedocumented in this encounter Care Teams Field Marketing Representative Relationship Specialty Start Date End Date Ian Ortiz MD [address] [place] [phone] PCP - General 05/23/15 12/21/24 Tammie Wilson APRN-GHASSAN [address] [place] [phone] PCP - General Nurse Practitioner 12/22/24 documented as of this encounter
--- OUTSIDE RECORDS SUMMARY | 2025-03-23 13:39 | XMS_ITS | Encounter Summary ---
Author Organization [facility] Address [address] [place] [address] Care Team Providers Care Industrial Relations Manager Name Role Phone Ash Gallardo MD Primary Care Provider [phone] Encounter Details Date Type Department Care Team (Late st Contact Info) Description 01/01/2008 Outpatient Historical HIS ORTHOPEDIC TRAUMA Gregory Pro MD NO ADDRESS ON FILE Social History Tobacco Use Types Packs/Day Years Used Date Smoking Tobacco: Never Assessed Comments Unknown Sex and Gender Information Value Date Recorded Sex Assigned at Not on file Legal Sex Female 5:35 AM DIRECTOR OPERATIONS BROADCAST Gender Identity Not on file Sexual Orientation [...] PM CDT Narrative 01/11/2008 12:47 PM CDT [address] [address] Admit Date: 01/01/2008 SARAH CALDERON Sex: F Admit Prov: GREGORY PRO Date: 1950 Primary Care Prov: CMRN: [id number] Room: [facility] SSN: [id number] IMAGING SERVICES Ordering Prov: GREGORY PRO Accession Number: [id number] Interpretation This procedure was performed at the request of the orthopedic physician. Please see the orthopedic physician s report for details, which can be found in the patient s medical record. _ Dictated by: RADIOLOGY, DEPARTMENT O Electronically signed by: RADIOLOGY, DEPARTMENT 01/11/2008 12:47 Transcribed: 01/11/2008 11:35 AMK Procedure Note Provider, Historical - 01/11/2008 [facility] [address] [place], [place] [address] Admit Date: 01/01/2008 YUMIKO SARAH D Sex: F Admit Prov: GREGORY PRO Date: 1950 Primary Care Prov: CMRN: [id number] Room: [facility] SSN: [id number] IMAGING SERVICES Ordering Prov: GREGORY PRO Interpretation [...] on filedocumented in this encounter Care Teams Industrial Relations Manager Relationship Specialty Start Date End Date Ash Gallardo MD [address] [place] [phone] PCP - General Surgery 03/20/10 documented as of this encounter
--- OUTSIDE RECORDS SUMMARY | 2025-03-23 13:39 | XMS_ITS | Clinical Summary ---
Author Organization [facility] Address [address] [place] [address] Phone Care Team Providers Care Geological Specialist Name Role Phone Ash Gallardo MD Primary Care Provider [phone] Active Problems Problem Noted Date Diagnosed Date Calf pain 03/20/2010 Overview (03/20/2010): LLE Social History Tobacco Use Types Packs/Day Years Used Date Smoking Tobacco: Never Assessed Comments Unknown Sex and Gender Information Value Date Recorded Sex Assigned at Not on file Legal Sex Female 5:35 AM CHEMIST HELPER Gender Identity Not on file Sexual [...] 2025 Insurance MEDICARE PART A AND B [facility] BLUE ACCESS/TRUE BLUE PPO Care Teams Geological Specialist Relationship Specialty Start Date End Date Ash Gallardo MD [address] [place] [phone] PCP - General Surgery 03/20/10
--- OUTSIDE RECORDS SUMMARY | 2025-03-23 13:39 | XMS_ITS | Clinical Summary ---
Author Organization [facility] Address [address] [place] [address] Care Team Providers Care Hot Top Liner Helper Name Role Phone Tammie Wilson SANDRA-SHEET METAL DUCT INSTALLER APPRENTICE Primary Care Provider + Source Comments [facility],non-owned Affiliates and Associated Physician Practices is amultiple site organization consisting of ambulatory clinics and hospital sitesin [place], [place], [place] and [place]. This disclosure is being madepursuant to the Care Everywhere program and may not contain all information available regarding this patient. Last updated 18.[facility] [employer] Allergies Active Allergy Reactions Criticality Noted Date [...] once daily Active FLUTICASONE PROPIONATE, NASAL, NA [place] 1-2 sprays into the nose once daily Active Multiple Vitamin (MULTIVITAMIN ADULT PO) Take 1 tablet by mouth once daily Active Calcium Citrate-Vitamin D (CALCIUM + D PO) Act shivam Azelastine HCl 137 MCG/SPRAY SOLN [place] 1 spray into each nostril once daily [...] [facility] [address] [place] [address] Rafita Arzola MD Pain in both knees, unspecified chronicity (Primary Dx); Chronic midline low back pain with left-sided sciatica 02/09/2025 10:00 AM CDT - 02/09/2025 11:59 PM CDT Hospital Encounter [facility] [address] [place] [phone] Rafita Arzola MD Discharge Disposition: Home or Self Care 02/09/2025 Travel 02/05/2025 Orders Only [facility] - Orth[facility] Surgery [facility] [place] [address] Rafita Arzola MD Pain in [...] on file Legal Sex Female 5:27 PM GUITAR PLAYER Gender Identity Not on file Sexual Orientation Not on file Last Filed Vital Signs Vital Sign Reading Time Taken Comments Blood Pressure 106/74 08/14/2023 10:42 AM GUITAR PLAYER Pulse 97 08/14/2023 10:42 AM GUITAR PLAYER Temperature 36.4 C (97.6 F) 12/14/2015 11:40 AM CDT Respiratory Rate 16 08/22/2015 12:55 PM GUITAR PLAYER Oxygen Saturation 96% 04/23/2017 10:20 AM CDT Inhaled Oxygen Concentration - - Weight 78.9 kg (174 lb) 08/14/2023 10:42 AM GUITAR PLAYER Height 170.2 cm (5' 7) 08/14/2023 10:42 AM GUITAR PLAYER Body Mass Index 27.25 08/14/2023 10:42 AM GUITAR PLAYER Plan of Treatment Health Maintenance Due Date [...] MORE Exam Date: 02/09/2025 10:07 AM Location: [facility] Indication: M25.562: Left knee pain, unspecified chronicity [...] MORE Exam Date: 02/09/2025 10:07 AM Location: [facility] Indication: M25.562: Left knee pain, unspecified chronicity [...] Final Result from Last 3 Months Insurance [facility] MANAGED MEDICARE ADV [facility] MANAGED MEDICARE ADV Care Teams Hot Top Liner Helper Relationship Specialty Start Date End Date Tammie Wilson APRN-GHASSAN [address] [place] [address] PCP - General Nurse Practitioner 12/22/24
== END 2025-03-23 13:34 | disposition home or self-care (01) ==
LOC: ANHFOHIMG 13:34
PROVIDERS: PCP Nurse Practitioner Family; Visit Provider Nurse Practitioner Family
DX: Z12.31 Encounter for screening mammogram for malignant neoplasm of breast (principal); Z98.82 Breast implant status
CPT/HCPCS: 77063; 77067

== ENCOUNTER 2025-04-13 09:56 | Outpatient (CLI) | payer MEDICARE, SELFPAY ==
--- NOTE | ~2025-04-13 | DEXA_ITS ---
Bone Density Report Name: EBER CALDERON Age: 74 Sex: Female Ethnicity: White Date of : 1950 Indication: hyperparathyroidism; height loss; prior fracture; asthma or emphysema; Referring Provider: LI LATIF Study: Bone densitometry was performed. Exam Date: April 13, 2025 Accession number: [id number] Bone Density: Region BMD T-score Z-score Classification AP Spine(L1-L4) 1.013 -0.3 2.1 Normal Femoral Neck (Left) 0.534 -2.8 -0.8 Osteoporosis Total Hip (Left) 0.618 -2.7 -0.9 Osteoporosis World Health Organization criteria for BMD impression classify patients as: Normal (T-score at or above -1.0), Osteopenia (T-score between -1.0 and -2.5), or Osteoporosis (T-score at or below -2.5). 10-year Fracture Risk: FRAX not reported because: Some T-score for Spine Total or Hip Total or Femoral Neck at or below -2.5 Clinical Information Provided by Patient: Has had a low trauma fracture Has used the following medications: Vitamin D, Calcium Has the following medical conditions: Asthma or Emphysema, Hyperparathyroidism Patient maximum height was 70 Menopause Age: 50 Drinks caffeinated beverages Onset of menses at age 12 Number of children 3 Impression: The patient has established osteoporosis, based on the Left Femoral Neck T-score and the existence of a prior fracture. The patient has risk factors, including: previous fracture. Discussion: HIGH RISK OF FRACTURE. BONE DENSITY IS UNDESIRABLY LOW AT ONE OR MORE SKELETAL SITES, CONSISTENT WITH POSTMENOPAUSAL OSTEOPOROSIS. This patient's lowest T-score, in a patient who has previously fractured, meets the World Health Organization's (WHO) criteria for severe osteoporosis. In untreated patients, the risk of osteoporotic fracture increases approximately two-fold for each 1.0 SD decrease in T-score. Low bone density is not the only risk factor for fracture; also consider factors such as patient's age, frailty or poor health, risk of falling, risk of injury, previous osteoporotic fracture, family history of osteoporosis, cigarette smoking, low body weight, etc. Not everyone with low bone mineral density has osteoporosis; osteomalacia and other metabolic bone disorders should also be considered. Patients who have osteoporosis should be evaluated for specific diseases and conditions (secondary causes) that may cause or contribute to bone loss. The [place] Association of Clinical Endocrinologists (AACE) and National Osteoporosis Foundation (NOF) recommend pharmacologic intervention for all postmenopausal women whose T-score is in this range. The patient should follow a healthful lifestyle (good nutrition with adequate calcium and vitamin D, and appropriate weight-bearing exercise). Follow-Up: Consider a repeat BMD and Vertebral Fracture Assessment (VFA) exam in 2 years or sooner if medically necessary, to reassess this patient's status. Reported by: SIGIFREDO on 04/13/2025 10:43:00 AM. Reviewed, dictated and finalized at location A.
--- OUTSIDE RECORDS SUMMARY | 2025-04-13 11:26 | XMS_ITS | Clinical Summary ---
Author Organization [facility] Address [address] [place] [address] Phone Care Team Providers Care Advertising Associate Name Role Phone Ash Gallardo MD Primary Care Provider [phone] Active Problems Problem Noted Date Diagnosed Date Calf pain 03/20/2010 Overview (03/20/2010): LLE Social History Tobacco Use Types Packs/Day Years Used Date Smoking Tobacco: Never Assessed Comments Unknown Sex and Gender Information Value Date Recorded Sex Assigned at Not on file Legal Sex Female 5:35 AM MANAGER INTELLIGENCE Gender Identity Not on file Sexual Orientation [...] 2025 Insurance MEDICARE PART A AND B [facility] BLUE ACCESS/TRUE BLUE PPO Care Teams Advertising Associate Relationship Specialty Start Date End Date Ash Gallardo MD [address] [place] [phone] PCP - General Surgery 03/20/10
--- OUTSIDE RECORDS SUMMARY | 2025-04-13 11:26 | XMS_ITS | Encounter Summary ---
Author Organization [facility] Address [address] [place] [address] Care Team Providers Care Seasonal Clerk Name Role Phone Ian Ortiz MD Primary Care Provider Tammie Wilson Primary Care Provider + Encounter Details Date Type Department Care Team (Late st Contact Info) Description 08/30/2023 Lab Requisition [facility] - Derm[facility] Lab [address] [place] [phone] Rory Leigh MD [address] [place] [address] Social History Tobacco Use Types Packs/Day Years Used Date Smoking Tobacco: Former Cigarettes Q uit: 12/12/2009 Smokeless Tobacco: Never Alcohol Use Standard Drinks/Week Comments No 0 (1 standard drink = 0.6 oz pur e alcohol) Comments Unknown Sex and Gender Information Value Date Recorded Sex Assigned at Not on file Legal Sex Female 5:27 PM CUFF MAKER Gender Identity Not on file Sexual Orientation Not on file documented as of this encounter Plan of Treatment Not on file documented as of this encounter Procedures Procedure Name Priority Date/Time Associated Diagnosis Comments DERMATOPATHOLOGY Routine 08/28/2023 12:0 0 AM CUFF MAKER documented in this encounter Results * DERMATOPATHOLOGY (08/28/2023 12:00 AM CUFF MAKER) Case Report Dermatopathology Report Case: [id number] Authorizing Provider: Rory Leigh MD Collected: 08/28/2023 12:00 AM Ordering Location: [facility] Received: 08/30/2023 10:20 AM Pathologist: Amelia Castillo MD Specimens: A) - Skin, left jawline B) - Skin, anterior midline scalp 4:34 PM [facility] Final Diagnosis Specimen A. SKIN, left jawline: HYPERPLASTIC (HYPERTROPHIC) ACTINIC KERATOSIS, LICHENOID (L57.0) Specimen B. SKIN, anterior midline scalp: ACTINIC KERATOSIS; EXTENDING TO THE BASE OF THE SPECIMEN (L57.0) (see microscopic description and comment) 4:34 PM [facility] at [address] CU[address]ER Clinical History A: BCCA vs. SCC. Path# [id number] B: BCCA vs. SCC. Path# [id number] 4:34 PM [facility] Gross Description Specimen A: Received [...] measuring 3x2x1 mm. Jar 0. 4:34 PM [facility] Microscopic Description Specimen A. SKIN, [...] carcinoma cannot be ruled out. 4:34 PM [facility] Disclaimer An external and internal positive and negative controls are appropriate for the histochemical, immunohistochemical and immunofluorescence stain(s) in this case (if any), except where stated explicitly. The performance characteristics of the stain(s) cited in this report were developed and its performance characteristic determined by the Dermatopathology Laboratory at [facility], directed by Dr. Yazmin Moreno. These tests need not be, and therefore are not, approved by the [place] Food and Drug Administration. The tests are used for clinical purposes. Billing Codes Specimen Charges Stain Charges 41139 85174 1 1 4 4:34 PM [facility] Embedded Images 4:34 PM [facility] Pathology/Cytology TISSUE SPECIMEN FROM SKIN / Unknown 08/28/2023 08/30/2023 10:20 AM CUFF MAKER Miscellaneous samples (specimen) TISSUE SPECIMEN FROM SKIN / Unknown 08/28/2023 08/30/2023 10:20 AM CUFF MAKER Rory Leigh MD LAB - PATHOLOGY/CYTOLOGY ORDER DARRYL Final Result DERMATOPATHOLOGY LABORATORY [facility] - Department of Dermatology [facility] [address] [place] [address], [address] [phone] documented in this encounter Visit Diagnoses Not on filedocumented in this encounter Care Teams Seasonal Clerk Relationship Specialty Start Date End Date Ian Ortiz MD [address] [place] [address] PCP - General 05/23/15 12/21/24 Tammie Wilson APRN-GHASSAN [address] [place] [phone] PCP - General Nurse Practitioner 12/22/24 documented as of this encounter
--- OUTSIDE RECORDS SUMMARY | 2025-04-13 11:26 | XMS_ITS | Clinical Summary ---
Author Organization [facility] Address [address] [place] [address] Care Team Providers Care Senior Medical Billing Specialist Name Role Phone Tammie Wilson SANDRA-SHAKER OPERATOR Primary Care Provider + Source Comments [facility],non-owned Affiliates and Associated Physician Practices is amultiple site organization consisting of ambulatory clinics and hospital sitesin [place], [place], [place] and [place]. This disclosure is being madepursuant to the Care Everywhere program and may not contain all information available regarding this patient. Last updated 18.[facility] [employer] Allergies Active Allergy Reactions Criticality Noted Date [...] once daily Active FLUTICASONE PROPIONATE, NASAL, NA [place] 1-2 sprays into the nose once daily Active Multiple Vitamin (MULTIVITAMIN ADULT PO) Take 1 tablet by mouth once daily Active Calcium Citrate-Vitamin D (CALCIUM + D PO) Act shivam Azelastine HCl 137 MCG/SPRAY SOLN [place] 1 spray into each nostril once daily [...] [facility] [address] [place] [address] Rafita Arzola MD Pain in both knees, unspecified chronicity (Primary Dx); Chronic midline low back pain with left-sided sciatica 02/09/2025 10:00 AM CDT - 02/09/2025 11:59 PM CDT Hospital Encounter [facility] [address] [place] [phone] Rafita Arzola MD Discharge Disposition: Home or Self Care 02/09/2025 Travel 02/05/2025 Orders Only [facility] [address] [place] [address] Rafita Arzola MD Pain in both knees, unspecified chronicity from Last 3 Months Immunizations Immunization Administration [...] on file Legal Sex Female 5:27 PM PHOTOGRAPHER APPRENTICE LITHOGRAPHIC Gender Identity Not on file Sexual Orientation Not on file Last Filed Vital Signs Vital Sign Reading Time Taken Comments Blood Pressure 106/74 08/14/2023 10:42 AM PHOTOGRAPHER APPRENTICE LITHOGRAPHIC Pulse 97 08/14/2023 10:42 AM PHOTOGRAPHER APPRENTICE LITHOGRAPHIC Temperature 36.4 C (97.6 F) 12/14/2015 11:40 AM CDT Respiratory Rate 16 08/22/2015 12:55 PM PHOTOGRAPHER APPRENTICE LITHOGRAPHIC Oxygen Saturation 96% 04/23/2017 10:20 AM CDT Inhaled Oxygen Concentration - - Weight 78.9 kg (174 lb) 08/14/2023 10:42 AM PHOTOGRAPHER APPRENTICE LITHOGRAPHIC Height 170.2 cm (5' 7) 08/14/2023 10:42 AM PHOTOGRAPHER APPRENTICE LITHOGRAPHIC Body Mass Index 27.25 08/14/2023 10:42 AM PHOTOGRAPHER APPRENTICE LITHOGRAPHIC Plan of Treatment Health Maintenance Due Date [...] - PCV20 or PCV21) 05/22/2022 05/22/2017, 05/19/2013 MEDICARE AWV CALENDAR YEAR 2024 COVID-19 VACCINE ( - season) 2025 05/28/2023, 05/22/2022, 01/11/2022, Additional history exists INFLUENZA VACCINE (#1) 2025 , 05/22/2022, 05/12/2021, [...] MORE Exam Date: 02/09/2025 10:07 AM Location: [facility] Indication: M25.562: Left knee pain, unspecified chronicity [...] MORE Exam Date: 02/09/2025 10:07 AM Location: [facility] Indication: M25.562: Left knee pain, unspecified chronicity [...] Final Result from Last 3 Months Insurance [facility] MANAGED MEDICARE ADV [facility] MANAGED MEDICARE ADV Care Teams Senior Medical Billing Specialist Relationship Specialty Start Date End Date Tammie Wilson APRN-GHASSAN [address] [place] [address] PCP - General Nurse Practitioner 12/22/24
--- OUTSIDE RECORDS SUMMARY | 2025-04-13 11:27 | XMS_ITS | Encounter Summary ---
Author Organization [facility] Address [address] [place] [address] Care Team Providers Care Auto Parts Clerk Name Role Phone Ash Gallardo MD Primary Care Provider [phone] Encounter Details Date Type Department Care Team (Late st Contact Info) Description 01/01/2008 Outpatient Historical HIS ORTHOPEDIC TRAUMA Gregory Pro MD NO ADDRESS ON FILE Social History Tobacco Use Types Packs/Day Years Used Date Smoking Tobacco: Never Assessed Comments Unknown Sex and Gender Information Value Date Recorded Sex Assigned at Not on file Legal Sex Female 5:35 AM DIRECTOR PATIENT Gender Identity Not on file Sexual Orientation [...] PM CDT Narrative 01/11/2008 12:47 PM CDT [address] [address] Admit Date: 01/01/2008 SARAH CALDERON Sex: F Admit Prov: GREGORY PRO Date: 1950 Primary Care Prov: CMRN: [id number] Room: [facility] SSN: [id number] IMAGING SERVICES Ordering Prov: GREGORY PRO Accession Number: [id number] Interpretation This procedure was performed at the request of the orthopedic physician. Please see the orthopedic physician s report for details, which can be found in the patient s medical record. _ Dictated by: RADIOLOGY, DEPARTMENT O Electronically signed by: RADIOLOGY, DEPARTMENT 01/11/2008 12:47 Transcribed: 01/11/2008 11:35 AMK Procedure Note Provider, Historical - 01/11/2008 [facility] [address], [place] [address] Admit Date: 01/01/2008 YUMIKO SARAH D Sex: F Admit Prov: GREGORY PRO Date: 1950 Primary Care Prov: CMRN: [id number] Room: [facility] SSN: [id number] IMAGING SERVICES Ordering Prov: GREGORY PRO Interpretation [...] on filedocumented in this encounter Care Teams Auto Parts Clerk Relationship Specialty Start Date End Date Ash Gallardo MD [address] [place] [phone] PCP - General Surgery 03/20/10 documented as of this encounter
--- OUTSIDE RECORDS SUMMARY | 2025-04-13 11:27 | XMS_ITS | Clinical Summary ---
Author Organization [facility] Address [address] [place] [address] Care Team Providers Care Senior Technical Architect Name Role Phone Unavailable Primary Care Provider Unavailabl e Immunizations Immunization Administration Dates Next Due MODERNA COVID-19 (12+) MRNA, LNP-S, PF, 100 MCG/ 0.5 ML DOSE 10/05/2020,09/07/2020 Social History Tobacco Use Types Packs/Day Years Used Date Smoking Tobacco: Never Assessed Comments Unknown Sex and Gender Information Value Date Recorded Sex Assigned at Not on file Legal Sex Female 9:24 PM STRIPER MACHINE Gender Identity Not on file Sexual Orientation Not on file Plan of Treatment Health Maintenance Due Date Last Done Comments Colorectal Cancer Screening Colonoscopy (10 Years) 1950 Hepatitis C 1968 DTaP, Tdap and Td Vaccines ( 1 - Tdap) 1969 Mammogram Screening 1990 Dexa Scan (General) 12/14/2015 Pneumococcal Vaccine: 50+ Years (2 of 2 - PPSV23) 05/22/2018 05/22/2017 COVID-19 Vaccine (3 - 2024-2 6 season) 2025 10/05/2020, 09/07/2020 RSV Immunization or 60+ Years [...]
== END 2025-04-13 09:57 | disposition home or self-care (01) ==
LOC: ANHFOHIMG 09:57
PROVIDERS: PCP Nurse Practitioner Family; Visit Provider Internal Medicine
DX: M81.0 Age-related osteoporosis without current pathological fracture (principal)
CPT/HCPCS: 77080

== ENCOUNTER 2025-05-04 12:12 | Outpatient (CLI) | payer MEDICARE, SELFPAY ==
[2025-05-04 12:52] LABS: Add Urine Microscopic? YES; Appearance Urine Clear (Clear); Glucose Urine UA Negative (Negative); Leukocyte Esterase Ur 2+ LEU/UL (Negative); Nitrate Urine Negative (Negative); Non Pathogenic Casts 0-2; Specific Grav Ur 1.020 (1.001-1.035)
--- OUTSIDE RECORDS SUMMARY | 2025-05-04 13:10 | XMS_ITS | Clinical Summary ---
Author Organization [facility] Address [address] [place] [address] Phone Care Team Providers Care Cutting Machine Operator Name Role Phone Ash Gallardo MD Primary Care Provider [phone] Active Problems Problem Noted Date Diagnosed Date Calf pain 03/20/2010 Overview (03/20/2010): LLE Social History Tobacco Use Types Packs/Day Years Used Date Smoking Tobacco: Never Assessed Comments Unknown Sex and Gender Information Value Date Recorded Sex Assigned at Not on file Legal Sex Female 5:35 AM PERSONAL CARE SERVICE PROVIDER Gender Identity Not on file Sexual Orientation [...] MEDICARE PART A AND B [facility] BLUE ACCESS/TRUE BLUE PPO Care Teams Cutting Machine Operator Relationship Specialty Start Date End Date Ash Gallardo MD [address] [place] [phone] PCP - General Surgery 03/20/10
--- OUTSIDE RECORDS SUMMARY | 2025-05-04 13:10 | XMS_ITS | Encounter Summary ---
Author Organization [facility] Address [address] [facility] [place] [address] Care Team Providers Care Trolley Coach Driver Name Role Phone Ian Ortiz MD Primary Care Provider [phone] Tammie Wilson Primary Care Provider + Encounter Details Date Type Department Care Team (Late st Contact Info) Description 08/30/2023 Lab Requisition [facility] - DermPath Lab [address] [facility], [place] [phone] Rory Leigh MD [address] [facility] [address] [address] [place] [address] Social History Tobacco Use Types Packs/Day Years Used Date Smoking Tobacco: Former Cigarettes Q uit: 12/12/2009 Smokeless Tobacco: Never Alcohol Use Standard Drinks/Week Comments No 0 (1 standard drink = 0.6 oz pur e alcohol) Comments Unknown Sex and Gender Information Value Date Recorded Sex Assigned at Not on file Legal Sex Female 5:27 PM ALIGNING INSPECTOR Gender Identity Not on file Sexual Orientation Not on file documented as of this encounter Plan of Treatment Not on file documented as of this encounter Procedures Procedure Name Priority Date/Time Associated Diagnosis Comments DERMATOPATHOLOGY Routine 08/28/2023 12:0 0 AM ALIGNING INSPECTOR documented in this encounter Results * DERMATOPATHOLOGY (08/28/2023 12:00 AM ALIGNING INSPECTOR) Case Report Dermatopathology Report Case: [id number] Authorizing Provider: Rory Leigh MD Collected: 08/28/2023 12:00 AM Ordering Location: [facility] DermPath Lab Received: 08/30/2023 10:20 AM Pathologist: Amelia Castillo MD Specimens: A) - Skin, left jawline B) - Skin, anterior midline scalp 4:34 PM [facility] DERMATOPATHOLOGY LABORATORY Final Diagnosis Specimen A. SKIN, left jawline: HYPERPLASTIC (HYPERTROPHIC) ACTINIC KERATOSIS, LICHENOID (L57.0) Specimen B. SKIN, anterior midline scalp: ACTINIC KERATOSIS; EXTENDING TO THE BASE OF THE SPECIMEN (L57.0) (see microscopic description and comment) 4:34 PM [facility] DERMATOPATHOLOGY LABORATORY at 1634 ALIGNING INSPECTOR Clinical History A: BCCA vs. SCC. Path# [id number] B: BCCA vs. SCC. Path# [id number] 4:34 PM [facility] DERMATOPATHOLOGY LABORATORY Gross Description Specimen [...] measuring 3x2x1 mm. Jar 0. 4:34 PM [facility] DERMATOPATHOLOGY LABORATORY Microscopic Description Specimen [...] carcinoma cannot be ruled out. 4:34 PM [facility] DERMATOPATHOLOGY LABORATORY Disclaimer An external and internal positive and negative controls are appropriate for the histochemical, immunohistochemical and immunofluorescence stain(s) in this case (if any), except where stated explicitly. The performance characteristics of the stain(s) cited in this report were developed and its performance characteristic determined by the Dermatopathology Laboratory at [facility], directed by Dr. Yazmin Moreno. These tests need not be, and therefore are not, approved by the [place] Food and Drug Administration. The tests are used for clinical purposes. Billing Codes Specimen Charges Stain Charges 03833 47988 1 1 4 4:34 PM ALIGNING INSPECTOR DERMATOPATHOLOGY LABORATORY Embedded Images 4:34 PM ALIGNING INSPECTOR DERMATOPATHOLOGY LABORATORY Pathology/Cytology TISSUE SPECIMEN FROM SKIN / Unknown 08/28/2023 08/30/2023 10:20 AM ALIGNING INSPECTOR Miscellaneous samples (specimen) TISSUE SPECIMEN FROM SKIN / Unknown 08/28/2023 08/30/2023 10:20 AM ALIGNING INSPECTOR Rory Leigh MD LAB - PATHOLOGY/CYTOLOGY ORDER DARRYL Final Result DERMATOPATHOLOGY LABORATORY [facility] - Department of Dermatology [facility] Medicine [address] [place] [address], [address] [phone] documented in this encounter Visit Diagnoses Not on filedocumented in this encounter Care Teams Trolley Coach Driver Relationship Specialty Start Date End Date Ian Ortiz MD [address] [place] [address] PCP - General 05/23/15 12/21/24 Tammie Wilson APRN-GHASSAN [address] [phone] PCP - General Nurse Practitioner 12/22/24 documented as of this encounter
--- OUTSIDE RECORDS SUMMARY | 2025-05-04 13:10 | XMS_ITS | Clinical Summary ---
Author Organization [facility] Address [address] [place] [address] Care Team Providers Care Medium Cycle Salesperson Name Role Phone Unavailable Primary Care Provider Unavailabl e Immunizations Immunization Administration Dates Next Due MODERNA COVID-19 (12+) MRNA, LNP-S, PF, 100 MCG/ 0.5 ML DOSE 10/05/2020,09/07/2020 Social History Tobacco Use Types Packs/Day Years Used Date Smoking Tobacco: Never Assessed Comments Unknown Sex and Gender Information Value Date Recorded Sex Assigned at Not on file Legal Sex Female 9:[address] Gender Identity Not on file Sexual Orientation [...]
--- OUTSIDE RECORDS SUMMARY | 2025-05-04 13:10 | XMS_ITS | Encounter Summary ---
Author Organization [facility] Address [address] [place] [address] Care Team Providers Care Lockstitch Zipper Setter Name Role Phone Ash Gallardo MD Primary Care Provider [phone] Encounter Details Date Type Department Care Team (Late st Contact Info) Description 01/01/2008 Outpatient Historical HIS ORTHOPEDIC TRAUMA Gregory Pro MD NO ADDRESS ON FILE Social History Tobacco Use Types Packs/Day Years Used Date Smoking Tobacco: Never Assessed Comments Unknown Sex and Gender Information Value Date Recorded Sex Assigned at Not on file Legal Sex Female 5:35 AM HARDBOARD SUPERVISOR Gender Identity Not on file Sexual Orientation [...] PM CDT Narrative 01/11/2008 12:47 PM CDT [address] [address] Admit Date: 01/01/2008 SARAH CALDERON Sex: F Admit Prov: GREGORY PRO Date: 1950 Primary Care Prov: CMRN: [id number] Room: [facility] SSN: [id number] IMAGING SERVICES Ordering Prov: GREGORY PRO Accession Number: [id number] Interpretation This procedure was performed at the request of the orthopedic physician. Please see the orthopedic physician s report for details, which can be found in the patient s medical record. _ Dictated by: RADIOLOGY, DEPARTMENT O Electronically signed by: RADIOLOGY, DEPARTMENT 01/11/2008 12:47 Transcribed: 01/11/2008 11:35 AMK Procedure Note Provider, Historical - 01/11/2008 [facility] [address] [place], [place] [address] Admit Date: 01/01/2008 YUMIKO SARAH D Sex: F Admit Prov: GREGORY PRO Date: 1950 Primary Care Prov: CMRN: [id number] Room: [facility] SSN: [id number] IMAGING SERVICES Ordering Prov: GREGORY PRO Interpretation [...] on filedocumented in this encounter Care Teams Lockstitch Zipper Setter Relationship Specialty Start Date End Date Ash Gallardo MD [address] [place] [phone] PCP - General Surgery 03/20/10 documented as of this encounter
--- OUTSIDE RECORDS SUMMARY | 2025-05-04 13:10 | XMS_ITS | Clinical Summary ---
Author Organization [facility] Address [address] [place] [address] Care Team Providers Care Work Checker Name Role Phone Tammie Wilson SANDRA-RESTAURANT AREA MANAGER Primary Care Provider + Source Comments [facility],non-owned Affiliates and Associated Physician Practices is amultiple site organization consisting of ambulatory clinics and hospital sitesin [place], [place], [place] and [place]. This disclosure is being madepursuant to the Care Everywhere program and may not contain all information available regarding this patient. Last updated 18.[facility] Allergies Active Allergy Reactions Criticality Noted Date [...] once daily Active FLUTICASONE PROPIONATE, NASAL, NA [place] 1-2 sprays into the nose once daily Active Multiple Vitamin (MULTIVITAMIN ADULT PO) Take 1 tablet by mouth once daily Active Calcium Citrate-Vitamin D (CALCIUM + D PO) Act shivam Azelastine HCl 137 MCG/SPRAY SOLN [place] 1 spray into each nostril once daily [...] [facility] [address] [place] [address] Rafita Arzola MD Pain in both knees, unspecified chronicity (Primary Dx); Chronic midline low back pain with left-sided sciatica 02/09/2025 10:00 AM CDT - 02/09/2025 11:59 PM CDT Hospital Encounter [facility] - Orthopedics [address], [address] [place] [phone] Rafita Arzola MD Discharge Disposition: Home or Self Care 02/09/2025 Travel 02/05/2025 Orders Only [facility] - Orthopedic Surgery [address] [place] [phone] Rafita Arzola MD Pain in both [...] on file Legal Sex Female 5:27 PM WOOD ROOM SUPERVISOR Gender Identity Not on file Sexual Orientation Not on file Last Filed Vital Signs Vital Sign Reading Time Taken Comments Blood Pressure 106/74 08/14/2023 10:42 AM WOOD ROOM SUPERVISOR Pulse 97 08/14/2023 10:42 AM WOOD ROOM SUPERVISOR Temperature 36.4 C (97.6 F) 12/14/2015 11:40 AM CDT Respiratory Rate 16 08/22/2015 12:55 PM WOOD ROOM SUPERVISOR Oxygen Saturation 96% 04/23/2017 10:20 AM CDT Inhaled Oxygen Concentration - - Weight 78.9 kg (174 lb) 08/14/2023 10:42 AM WOOD ROOM SUPERVISOR Height 170.2 cm (5' 7) 08/14/2023 10:42 AM WOOD ROOM SUPERVISOR Body Mass Index 27.25 08/14/2023 10:42 AM WOOD ROOM SUPERVISOR Plan of Treatment Health Maintenance Due Date [...] MORE Exam Date: 02/09/2025 10:07 AM Location: [facility] Indication: M25.562: Left knee pain, unspecified [...] MORE Exam Date: 02/09/2025 10:07 AM Location: [facility] Indication: M25.562: Left knee pain, unspecified [...] Final Result from Last 3 Months Insurance [facility] MANAGED MEDICARE ADV [facility] MANAGED MEDICARE ADV Care Teams Work Checker Relationship Specialty Start Date End Date Tammie Wilson APRN-GHASSAN [address] [place] [address] PCP - General Nurse Practitioner 12/22/24
== END 2025-05-04 12:13 | disposition home or self-care (01) ==
LOC: ANHLAB 12:13
PROVIDERS: PCP Nurse Practitioner Family; Visit Provider Nurse Practitioner Family
DX: R39.9 Unspecified symptoms and signs involving the genitourinary system (principal)
CPT/HCPCS: 81001; 87077; 87086; 87186

== ENCOUNTER 2025-06-01 14:40 | Outpatient (CLI) | payer MEDICARE, SELFPAY ==
--- NOTE | ~2025-06-01 | CT_ITS ---
Exam: CT chest without contrast Clinical History: History of smoking. Comparison: [ 02/26/2024] Technique: Multiple axial CT images of the chest without with IV contrast. Sagittal and coronal reformatted images were obtained. FINDINGS: Lungs and pleura: [ Tracheobronchial tree is patent. There is an azygos lobe.] No pneumothorax. No pleural effusion. No focal pulmonary consolidation. No pulmonary mass. Mild to moderate centrilobular emphysema in the upper lobes. There are a few small reticular and bandlike opacities in the lower lungs likely atelectasis or scarring. Mild biapical scarring, unchanged. Mediastinum and pulmonary ayaz: [ No mass or adenopathy.] Axillary/intramammary and supraclavicular: [ No mass or adenopathy.] Heart and great vessels: [ Heart is moderately enlarged. [ No pericardial effusion.] [ No aneurysm.] Moderate atherosclerotic disease in the thoracic aorta. Chest Wall: [ Unremarkable.] Upper Abdomen: Large hiatal hernia. Severely atrophic left kidney, unchanged. Osseous structures: [ No acute fracture.] [ Multilevel degenerative change in the visualized spine.] Additional findings: Capsular calcifications about the breast implants. IMPRESSION: 1. [ Lung-RADS category 2: Benign appearance or behavior. Continue annual screening with noncontrast low-dose chest CT in 12 months. Reviewed, dictated and finalized at location Q. CULTURE PROFESSOR IMPRESSION: 1. [ Lung-RADS category 2: Benign appearance or behavior. Continue annual scree vladimir with noncontrast low-dose chest CT in 12 months.
--- OUTSIDE RECORDS SUMMARY | 2025-06-01 16:11 | XMS_ITS | Clinical Summary ---
Author Organization [facility] Address [address] [place] [address] Care Team Providers Care Endocrinologist Name Role Phone Tammie Wilson SANRDA-PATROL COMMUNITY SERVICE OFFICER Primary Care Provider + Source Comments [facility],non-owned Affiliates and Associated Physician Practices is amultiple site organization consisting of ambulatory clinics and hospital sitesin [place], [place], [place] and [place]. This disclosure is being madepursuant to the Care Everywhere program and may not contain all information available regarding this patient. Last updated 18.[facility] Decisionlink Allergies Active Allergy Reactions Criticality Noted Date [...] once daily Active FLUTICASONE PROPIONATE, NASAL, NA [place] 1-2 sprays into the nose once daily Active Multiple Vitamin (MULTIVITAMIN ADULT PO) Take 1 tablet by mouth once daily Active Calcium Citrate-Vitamin D (CALCIUM + D PO) Act shivam Azelastine HCl 137 MCG/SPRAY SOLN [place] 1 spray into each nostril once daily [...] Dates Next Due INFLUENZA VACCINE, TRIV. 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 Gender Identity Not on file Sexual Orientation Not on file Last Filed Vital Signs Vital Sign Reading Time Taken Comments Blood Pressure 106/74 08/14/2023 10:42 AM BASKET HAND BRAIDER Pulse 97 08/14/2023 10:42 AM BASKET HAND BRAIDER Temperature 36.4 C (97.6 F) 12/14/2015 11:40 AM CDT Respiratory Rate 16 08/22/2015 12:55 PM BASKET HAND BRAIDER Oxygen Saturation 96% 04/23/2017 10:20 AM CDT Inhaled Oxygen Concentration - - Weight 78.9 kg (174 lb) 08/14/2023 10:42 AM BASKET HAND BRAIDER Height 170.2 cm (5' 7) 08/14/2023 10:42 AM BASKET HAND BRAIDER Body Mass Index 27.25 08/14/2023 10:42 AM BASKET HAND BRAIDER Plan of Treatment Health Maintenance Due Date [...] AWV CALENDAR YEAR 2024 COVID-19 VACCINE ( season) 2025 05/28/2023, 05/22/2022, 01/11/2022, Additional history [...] patient's age to complete this topic Insurance [facility] MED[facility] ADV [facility] ADV Care Teams Endocrinologist Relationship Specialty Start Date End Date Tammie Wilson APRN-CNP [address] [place] [phone] PCP - General Nurse Practitioner 12/22/24
--- OUTSIDE RECORDS SUMMARY | 2025-06-01 16:11 | XMS_ITS | Clinical Summary ---
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 Gender Identity Not on file Sexual Orientation Not on file Plan of Treatment Health Maintenance Due Date Last Done Comments Colorectal Cancer Screening Colonoscopy (10 Years) 1950 Hepatitis C 1968 DTaP, Tdap and Td Vaccines ( 1 - Tdap) 1969 Mammogram Screening 1990 Dexa Scan (General) 12/14/2015 Pneumococcal Vaccine: 50+ Years (2 of 2 - PCV20 or PCV21) 05/22/2018 05/22/2017 COVID-19 Vaccine (3 - 2024-2 6 season) 2025 10/05/2020, 09/07/2020 Influenza Adult (#1) 2025 06/15/2015, 05/22/2010 RSV Immunization or 60+ Years (1 - 1-dose 75+ series) 2025 Zoster Vaccines Completed 06/08/2020, 04/08/2020 Hepatitis A Vaccines Aged Out No long er eligible based on patient's age to complete this topic Meningococcal B Vaccine Aged Out No l onger eligible based on patient's age to complete this topic Meningococcal Vaccine Aged Out No rhett dany eligible based on patient's age to complete this topic RSV Immunizations Under 20 Months Aged Out No longer eligible b ased on patient's age to complete this topic
--- OUTSIDE RECORDS SUMMARY | 2025-06-01 16:11 | XMS_ITS | Clinical Summary ---
Author Organization 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
--- OUTSIDE RECORDS SUMMARY | 2025-06-01 16:11 | XMS_ITS | Encounter Summary ---
Author Organization [facility] Address [address] [facility] [place] [address] Care Team Providers Care Fleecer Name Role Phone Ian Ortiz MD Primary Care Provider [phone] Tammie Wilson Primary Care Provider + Encounter Details Date Type Department Care Team (Late st Contact Info) Description 08/30/2023 Lab Requisition [facility] - DermPath Lab [address] [facility], [place] [phone] Rory Leigh MD [address] [place] [address] Social History Tobacco Use Types Packs/Day Years Used Date Smoking Tobacco: Former Cigarettes Q uit: 12/12/2009 Smokeless Tobacco: Never Alcohol Use Standard Drinks/Week Comments No 0 (1 standard drink = 0.6 oz pur e alcohol) Comments Unknown Sex and Gender Information Value Date Recorded Sex Assigned at Not on file 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 Gender Identity Not on file Sexual Orientation Not on file documented as of this encounter Plan of Treatment Not on file documented as of this encounter Procedures Procedure Name Priority Date/Time Associated Diagnosis Comments DERMATOPATHOLOGY Routine 08/28/2023 12:0 0 AM SHIP SUPERINTENDENT documented in this encounter Results * DERMATOPATHOLOGY (08/28/2023 12:00 AM SHIP SUPERINTENDENT) Case Report Dermatopathology Report Case: [id number] Authorizing Provider: Rory Leigh MD Collected: 08/28/2023 12:00 AM Ordering Location: [facility] DermPath Lab Received: 08/30/2023 10:20 AM Pathologist: Amelia Castillo MD Specimens: A) - Skin, left jawline B) - Skin, anterior midline scalp 4:34 PM [facility] DERMATOPATHOLOGY LABORATORY Final Diagnosis Specimen A. SKIN, left jawline: HYPERPLASTIC (HYPERTROPHIC) ACTINIC KERATOSIS, LICHENOID (L57.0) Specimen B. SKIN, anterior midline scalp: ACTINIC KERATOSIS; EXTENDING TO THE BASE OF THE SPECIMEN (L57.0) (see microscopic description and comment) 4:34 PM [facility] DERMATOPATHOLOGY LABORATORY at 1634 SHIP SUPERINTENDENT Clinical History A: BCCA vs. SCC. Path# [id number] B: BCCA vs. SCC. Path# [id number] 4:34 PM [facility] DERMATOPATHOLOGY LABORATORY Gross Description Specimen [...] measuring 3x2x1 mm. Jar 0. 4:34 PM [facility] DERMATOPATHOLOGY LABORATORY Microscopic Description Specimen [...] carcinoma cannot be ruled out. 4:34 PM [facility] DERMATOPATHOLOGY LABORATORY Disclaimer An external and internal positive and negative controls are appropriate for the histochemical, immunohistochemical and immunofluorescence stain(s) in this case (if any), except where stated explicitly. The performance characteristics of the stain(s) cited in this report were developed and its performance characteristic determined by the Dermatopathology Laboratory at [facility], directed by Dr. Yazmin Moreno. These tests need not be, and therefore are not, approved by the [place] Food and Drug Administration. The tests are used for clinical purposes. Billing Codes Specimen Charges Stain Charges 60169 43702 1 1 4 4:34 PM SHIP SUPERINTENDENT DERMATOPATHOLOGY LABORATORY Embedded Images 4:34 PM SHIP SUPERINTENDENT DERMATOPATHOLOGY LABORATORY Pathology/Cytology TISSUE SPECIMEN FROM SKIN / Unknown 08/28/2023 08/30/2023 10:20 AM SHIP SUPERINTENDENT Miscellaneous samples (specimen) TISSUE SPECIMEN FROM SKIN / Unknown 08/28/2023 08/30/2023 10:20 AM SHIP SUPERINTENDENT Rory Leigh MD LAB - PATHOLOGY/CYTOLOGY ORDER DARRYL Final Result DERMATOPATHOLOGY LABORATORY [facility] - Department of Dermatology [facility] Medicine [address] [place] [address], [address] [phone] documented in this encounter Visit Diagnoses Not on filedocumented in this encounter Care Teams Fleecer Relationship Specialty Start Date End Date Ian Ortiz MD [address] [place] [phone] PCP - General 05/23/15 12/21/24 Tammie Wilson APRN-GHASSAN [address] [place] [phone] PCP - General Nurse Practitioner 12/22/24 documented as of this encounter
--- OUTSIDE RECORDS SUMMARY | 2025-06-01 16:11 | XMS_ITS | Encounter Summary ---
Author Organization [facility] Address 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 Please see the orthopedic physician s report for details, which can be found in the patient s medical record. _ Dictated by: RADIOLOGY, DEPARTMENT O Electronically signed by: RADIOLOGY, DEPARTMENT 01/11/2008 12:47 Transcribed: 01/11/2008 11:35 AMK Procedure Note Provider, Historical - 01/11/2008 [facility] [address] [place], [place] [address] Admit Date: 01/01/2008 YUMIKO SARAH D Sex: F Admit Prov: GREGORY PRO Date: 1950 Primary Care Prov: CMRN: [id number] Room: [facility] SSN: [id number] IMAGING SERVICES Ordering Prov: GREGORY PRO Interpretation [...] on filedocumented in this encounter Care Teams Sccm Administrator Relationship Specialty Start Date End Date Ash Gallardo MD [address] [place] [phone] PCP - General Surgery 03/20/10 documented as of this encounter
== END 2025-06-01 14:41 | disposition home or self-care (01) ==
PROVIDERS: PCP Nurse Practitioner Family; Visit Provider Internal Medicine Critical Care Medicine
DX: Z12.2 Encounter for screening for malignant neoplasm of respiratory organs (principal); Z87.891 Personal history of nicotine dependence
CPT/HCPCS: 71271